=== PATIENT | female | born 1965 | race African-American/Black ===

== ENCOUNTER 2021-07-13 21:48 | Inpatient (IN) | payer OTHER, SELFPAY ==
--- NOTE | ~2021-07-13 | XR_ITS ---
EXAMINATION: XR chest 1V portable Exam Date/Time: 07/16/2021 13:57 CDT CLINICAL HISTORY: PNA Comparison: 07/14/2021. RESULT: Lines, tubes, and devices: Right IJ tunneled dialysis catheter, terminating in the right atrium. Lungs and pleura: Improving patchy airspace disease in the right perihilar lung. Similar left lower lung and increased bibasilar subsegmental opacities. Cardiomediastinal silhouette: Stable cardiomediastinal silhouette. Other: No acute osseous or upper abdominal finding. IMPRESSION: Generally improving pulmonary opacities, with likely increased bibasilar atelectasis. Reviewed, dictated and finalized at location K. IMPRESSION: Generally improving pulmonary opacities, with likely increased bibasilar atelec tasis.
--- NOTE | ~2021-07-13 | XR_ITS ---
EXAMINATION: XR fl guide central line place EXAM DATE: 07/14/2021 11:20 INDICATION: Insert Tunneled Dialysis Cath . TECHNIQUE: Fluoroscopy used during XR fl guide central line place performed by Dr. Cuba stuart. Radiologist was not present for the imaging or procedure. Total fluoroscopic time of 26 seconds. The DAP for this procedure was 0.15 mGym2. A total of 3 images sent to PACS from the exam. There is no prior study for comparison. FINDINGS: There is a right-sided double-lumen dialysis catheter in position. Correlate with procedure note. IMPRESSION: Fluoroscopy used during tunneled dialysis catheter placement. Reviewed, dictated and finalized at location A.
--- NOTE | ~2021-07-13 | XR_ITS ---
EXAMINATION: XR chest port-a-cath/central EXAM DATE: 07/14/2021 11:24 INDICATION: Tunnel dialysis catheter insertion. TECHNIQUE: Portable AP frontal chest x-ray was obtained. There is no prior study for comparison. FINDINGS: There is a right-sided IJ approach Brandt catheter. No evidence of postprocedure pneumotho rax. There is moderate amount of right perihilar airspace disease, most likely pneumonia or edema. Pl ease clinically correlate. Left lung is clear. Cardiomediastinal silhouette is normal. There are no o sseous abnormalities identified. IMPRESSION: 1. Moderate amount of right perihilar pneumonia or edema. 2. No evidence postprocedure pneumothorax. Reviewed, dictated and finalized at location A.
--- NOTE | ~2021-07-13 | US_ITS ---
EXAMINATION: US renal BI EXAM DATE: 07/14/2021 13:38 INDICATION: Elevated creatinine. TECHNIQUE: Multiple grayscale and Doppler images of the kidneys were obtained (by a technologist who performed the scan) and subsequently reviewed. There is no prior study for comparison. FINDINGS: Incidental right pleural effusion. Right kidney: There is normal contour and echogenicity. It measures 10.9 x 5.2 x 4.9 centimeters. T here are no focal renal lesions identified. There is no hydronephrosis. Left kidney: There is normal contour and echogenicity. It measures 10.0 x 3.9 x 6.5 centimeters. Th ere are no focal renal lesions identified. There is no hydronephrosis. Bladder unremarkable. IMPRESSION: 1. Sonographically unremarkable kidneys. 2. Right pleural effusion. Reviewed, dictated and finalized at location A.
--- NOTE | ~2021-07-13 | XR_ITS ---
EXAMINATION: XR abdomen/kub 1V DATE: 07/17/2021 00:27 INDICATION: Abdominal pain. Constipation. TECHNIQUE: A supine view of the abdomen on 2 radiographs was obtained. COMPARISON: None. FINDINGS: There are no dilated loops of bowel. There is a large volume of stool in the colon. IMPRESSION: 1. Nonobstructive bowel gas pattern. Reviewed, dictated and finalized at location A.
--- NOTE | 2021-07-13 21:38 | ADMGEN ---
This patient, Lesley Burch, was direct admit from [facility] to Medical Room 345-01. Patient/family oriented to hospital policies and general routines including ID bracelet, bed and alarms, visiting hours, pain management, procedures, bathroom and other care routines, personal items, smoking policy, room service/diet, and visiting hours. Information on how to activate the Rapid Response Team has been discussed. Patient/Family are encouraged to report perceived risks to care and to ask questions if they do not understand what they are told or what they should do.
--- NOTE | 2021-07-13 22:00 | PM.IMHP ---
H&P: HPI History of Present Illness Date/Time: 07/13/21 22:00 Chief Complaint: Needs dialysis. Narrative: This is a 56-year-old female with insulin-dependent diabetes, hypertension, dyslipidemia, anemia, and renal failure who is being directly admitted to the medical floor from an inpatient bed [facility] as she needs dialysis. The patient was admitted to the hospital on after presenting for evaluation of shortness of breath and lower extremity edema. I did receive some paperwork from transfer but unfortunately only labs, imaging, and vital signs were included. I do not have access to any physician documentation to include ER notes, admission history and physical, consultation notes, etc. and as such I can only rely on the patient to give me an accurate history. She reports being diagnosed with pneumonia and worsening renal failure though she remembers only being given antibiotics on 1 occasion but it sounds as though she has been receiving diuretics. It looks like her BUN and creatinine have continued to rise throughout her hospitalization and the supervisor newspaper deliveries at that facility feels that she now needs dialysis. Transfer was then initiated to this facility for dialysis access and dialysis as they do not have that capability there. I spoke with supervisor newspaper deliveries, Dr. James Lin, prior to transfer and he indicated to me that the cause of the patient's renal failure is most likely related to her diabetes and hypertension. Of note the patient was taken off of lisinopril during this hospitalization as she apparently developed angioedema of the face and oropharynx but that has since resolved. At the time my evaluation the patient is sitting up and resting comfortably and she has no significant complaints. She has not noticed a decrease in urine output and in fact thinks she has been urinating more with the diuretics. She has also felt weak and fatigued and has had a nonproductive cough. She denies sick contacts it is noted that she tested negative for COVID and influenza at the outside facility. She has not had issues with swallowing and she specifically denies dysphagia and concerns for aspiration. She has not had fever or sweats and reports that she is cold a majority of the time which she believes is due to her anemia. Her appetite has been okay and she denies nausea and vomiting. She denies diarrhea, constipation, and dysuria. She has not had chest pain, pleuritic pain or palpitations. No orthopnea or paroxysmal nocturnal dyspnea. Review of Systems Review of Systems: Twelve systems were reviewed. She has had a mild left-sided headache the past couple of days. She denies confusion. She has floaters in her left eye and has been seeing an mapping technician for what sounds like diabetic retinopathy. She has had some laser eye surgeries and injections for this. No acute blurry vision. No polydipsia or polyuria. She does not remember her last hemoglobin A1c. She does suffer from neuropathy in her legs and hands. She denies rash, lesions, and wounds. No history of blood transfusion. Except as documented, all other systems were reviewed and are negative. PENDING SALE TO [facility] Past Medical History Medical History (Updated 07/13/21 @ 23:07 by Peggy Heard PA-C) Anemia in chronic kidney disease Chronic kidney disease Diabetic peripheral neuropathy Diabetic retinopathy Dyslipidemia History of benign breast biopsy Hypertension Insulin dependent type 2 diabetes mellitus Surgical History Surgical History (Updated 07/13/21 @ 22:55 by Peggy Heard PA-C) History of cataract extraction History of section History of eye surgery Including injections and laser treatments for what sounds like diabetic retinopathy. History of tooth extraction Full extraction of upper teeth. Family History Family History (Updated 07/13/21 @ 22:55 by Peggy Heard PA-C) Mother Hypertension Acute myocardial infarction Sibling Hypertension Kidney
[2021-07-13 22:01] LABS: Basophils Percent Auto 0.5 % (0.2-1.2); Eosinophils Absolute Auto 0.5 K/mm3 (0-0.3); Eosinophils Percent Auto 5.4 % (0-4.4); Hematocrit 26.1 % (37.0-47.0); Hemoglobin 8.1 g/dL (12.0-15.0); Immature Granulocyte Absolute 0.05 K/mm3 (0.00-0.031); Immature Granulocyte Percent A 0.6 % (0-0.5); Lymphocytes Absolute Auto 1.71 K/mm3 (0.9-3.2); Lymphocytes Percent Auto 19.4 % (18.3-44.2); Mean Corpuscular Hemoglobin 27.6 pg (26-34); Mean Corpuscular Volume 89.1 fl (80-100); Mean Platelet Volume 11.2 fl (7.4-10.4); Monocytes Absolute Auto 0.8 K/mm3 (0.1-0.6); Monocytes Percent Auto 9.4 % (2.6-8.5); Neutrophils Absolute Auto 5.7 K/mm3 (1.3-6.7); Neutrophils Percent Auto 64.7 % (45.5-73.1); Platelet Count Result 332 k/mm3 (150-375); Red Blood Count 2.93 M/mm3 (4.2-5.4); Red Cell Distribution Width 14.5 % (11.5-14.5); White Blood Count 8.8 K/mm3 (4.5-10.0)
[2021-07-13 22:10] LABS: Hemoglobin A1C 6.2 % (<5.7)
[2021-07-13 22:11] LABS: Alanine Aminotransferase 14 U/L (4-35); Albumin Level 3.4 g/dL (3.5-5.1); Alkaline Phosphatase 84 U/L (38-126); Anion Gap 8 mmol/L (8-16); Aspartate Amino Transferase 29 U/L (14-36); Bilirubin,Total 0.2 mg/dL (0.2-1.3); Blood Urea Nitrogen 93 mg/dL (7-17); Calcium 8.6 mg/dL (8.4-10.2); Carbon Dioxide 21 mmol/L (22-30); Chloride 110 mmol/L (98-107); Estimated Glomerular Filt Rate 8; Glucose 119 mg/dL (65-110); Magnesium 3.2 mg/dL (1.6-2.3); Phosphorus 6.9 mg/dL (2.5-4.5); Potassium 4.3 mmol/L (3.4-5.0); Sodium 139 mmol/L (137-145)
[2021-07-13 22:30] VITALS: O2SAT 92
[2021-07-13 22:51] VITALS: BMI 30.3
[2021-07-13 22:56] VITALS: BP 168/92; PULSE 82; RESP 18; TEMP 36.1; O2SAT 92
[2021-07-13 23:08] VITALS: O2SAT 93
[2021-07-13 23:15] LABS: Glucose Point of Care 110 mg/dl (65-105)
[2021-07-14] VITALS (19 sets, daily range): BP systolic 144–178; BP diastolic 62–82; PULSE 74–85; RESP 10–19; TEMP 35.9–36.9; O2SAT 92–100
[2021-07-14] MEDS: hydrALAZINE HCL 25 MG TABLET PO ×3 (00:25→16:37)
[2021-07-14 08:48] LABS: Basophils Percent Auto 0.4 % (0.2-1.2); Eosinophils Absolute Auto 0.5 K/mm3 (0-0.3); Hematocrit 24.2 % (37.0-47.0); Hemoglobin 7.8 g/dL (12.0-15.0); Immature Granulocyte Absolute 0.04 K/mm3 (0.00-0.031); Immature Granulocyte Percent A 0.5 % (0-0.5); Lymphocytes Absolute Auto 1.31 K/mm3 (0.9-3.2); Lymphocytes Percent Auto 17.1 % (18.3-44.2); Mean Corpuscular HGB Conc 32.2 g/dl (32-36); Mean Corpuscular Volume 86.7 fl (80-100); Mean Platelet Volume 11.6 fl (7.4-10.4); Monocytes Absolute Auto 0.8 K/mm3 (0.1-0.6); Monocytes Percent Auto 9.9 % (2.6-8.5); Neutrophils Percent Auto 66.1 % (45.5-73.1); Platelet Count Result 309 k/mm3 (150-375); Red Blood Count 2.79 M/mm3 (4.2-5.4); Red Cell Distribution Width 14.3 % (11.5-14.5); White Blood Count 7.6 K/mm3 (4.5-10.0)
[2021-07-14 08:51] LABS: Glucose Point of Care 110 mg/dl (65-105)
[2021-07-14 08:59] LABS: Alanine Aminotransferase 13 U/L (4-35); Albumin Level 3.1 g/dL (3.5-5.1); Alkaline Phosphatase 69 U/L (38-126); Anion Gap 7 mmol/L (8-16); Aspartate Amino Transferase 29 U/L (14-36); Bilirubin,Total 0.2 mg/dL (0.2-1.3); Blood Urea Nitrogen 94 mg/dL (7-17); Calcium 8.5 mg/dL (8.4-10.2); Carbon Dioxide 23 mmol/L (22-30); Chloride 110 mmol/L (98-107); Estimated CRCL calculation 8 ml/min; Estimated Glomerular Filt Rate 8; Glucose 106 mg/dL (65-110); Magnesium 3.1 mg/dL (1.6-2.3); Phosphorus 6.8 mg/dL (2.5-4.5); Sodium 140 mmol/L (137-145)
[2021-07-14 10:05] LABS: Hepatitis B Surface Antigen Negative (Negative)
[2021-07-14 10:06] LABS: Hepatitis B Surface Antigen Negative (Negative)
[2021-07-14 10:10] LABS: Hepatitis B Core IgM Result Negative (Negative)
[2021-07-14 10:12] LABS: HAV RESULT Negative (Negative); Hepatitis B Core IgM Result Negative (Negative)
[2021-07-14 10:16] LABS: Prothrombin Time 12.3 Seconds (11.1-14.7)
--- NOTE | 2021-07-14 10:17 | PM.CNNEP ---
Assessment and Plan Additional Plan 1. Lesley has an elevated creatinine. It is unclear whether this is acute or chronic. Her history giving skills are not optimal. We can try to get records from [place]. Marcus he did speak with Dr. Lin who says that her chronic kidney disease is from diabetes and hypertension. It sounds like he had been following her after all. The patient fully realizes that she might need dialysis this admission. I will get an ultrasound of the kidneys to be sure nothing easy to reverse here. 2. The patient has hypertension. Her blood pressure is moderately high. She does have a history of hypertension in the past. She is on amlodipine for this. Volume may also explain some of blood pressure. Will follow this and get her back on her outpatient medications. Removing fluid may help the blood pressure as well if she ends up on dialysis. 3. The patient has diabetes. Management per hospitalist. 4. The patient has anemia. Will start her on Epogen. We can check iron levels. 5. Will check a phosphorus level in the morning to check on her bone situation. 6. She has hyperlipidemia and is on atorvastatin for this. History of Present Illness Reason for Consult Consult date: 07/14/21 Chief Complaint Chief complaint: Renal Failure History of Present Illness Narrative: Lesley is a very pleasant 56-year-old lady who has come into the hospital because of swelling in her legs arms and face. She said this has been going on for a few weeks but gradually got worse and so came to the ER for this. She denies shortness of breath right now but did have some when she was admitted to [facility], [place], operated by [facility]. She was actually in [facility] and was transferred to [facility] because she might need dialysis. She goes to see Dr. Lin she says but then a little while later she has said she had not seen him yet. She did see a branch examiner at [place] who monitor her her for a few days but the numbers continue to worsen and he felt that she might need dialysis soon. The patient denies any nausea or vomiting. She has been eating well. The patient has hypertension. She has had this for many years. She has never had a stroke or heart attack. She has diabetes. She has also had this for many years. She does not see an eye doctor and so does not know about retinopathy but she has a hole in the vision of her left eye and is going to see an eye doctor soon. The patient has hyperlipidemia and is on simvastatin for this. Review of Systems Constitutional: Constitutional: Reports no additional constitutional complaints Eyes: Eyes: Reports no additional eye complaints ENT: Reports system reviewed and no additional complaints, except as documented Cardiovascular: Cardiovascular: Reports no additional cardiovascular complaints Respiratory: Respiratory: Reports no additional respiratory complaints Gastrointestinal: Gastrointestinal: Reports no additional gastrointestinal complaints Genitourinary: Genitourinary: Reports no additional female genitourinary complaints Musculoskeletal: Musculoskeletal: Reports no additional musculoskeletal complaints Integumentary/Breasts: Skin/Breast: Reports system reviewed and no additional complaints, except as docu Neurologic: Reports system reviewed and no additional complaints, except as documented Psychiatric: Psychiatric: Reports no additional psychiatric complaints Endocrine: Endocrine: Reports no additional endocrine complaints PMFSH Past Medical History Medical History Anemia in chronic kidney disease Chronic kidney disease Diabetic peripheral neuropathy Diabetic retinopathy Dyslipidemia History of benign breast biopsy Hypertension Insulin dependent type 2 diabetes mellitus Surgical History Surgical History History of cataract extra
[2021-07-14] MEDS: HEPARIN SODIUM 5,000 UNITS/ML VIAL 5000 UNITS IRRIGATION (10:19)
[2021-07-14 10:22] LABS: Hepatitis B Surface Anti Res Negative
[2021-07-14 10:23] LABS: Hepatitis C Virus Antibody Negative (Negative)
--- NOTE | 2021-07-14 10:28 | WPDANESEPPF ---
Anes - Initial Pre Proc Eval Procedure: Operation Date: 07/14/21 10:30 Proposed Procedures p Insertion Tunneled Dialysis Catheter - Cuba Tran DO Date/Time: 07/14/21 10:28 Surgeon: Beka Miguel MD Pre Op Diagnosis: Renal Failure Patient Data Age: 56 Gender: F Height: 1.55 m Weight: 72.9 kg Last Vital Signs Temp 36.7 C 07/14/21 05:12 Pulse 80 07/14/21 08:00 Resp 14 07/14/21 05:12 BP 156/79 H 07/14/21 05:12 Pulse Ox 92 07/14/21 09:39 Allergies Allergy/AdvReac Type Severity Reaction Status Date / Time lisinopril Allergy Swelling Verified 07/13/21 21:48 Home Medications Medication Instructions Recorded Confirmed Type amlodipine 10 mg PO HS 07/13/21 07/13/21 History ergocalciferol (vitamin D2) 50 mcg PO DAILY 07/13/21 07/13/21 History furosemide 80 mg PO DAILY 07/13/21 07/13/21 History gabapentin 300 mg PO BID 07/13/21 07/13/21 History hydralazine 25 mg PO TID 07/13/21 07/13/21 History hydrochlorothiazide 25 mg PO DAILY 07/13/21 07/13/21 History insulin detemir U-100 [Levemir See Rx Instructions .ROUTE .COMPLEX 07/13/21 07/13/21 History FlexTouch U-100 Insuln] ketorolac 1 drp EACH EYE DAILY 07/13/21 07/13/21 History simvastatin 40 mg PO HS 07/13/21 07/13/21 History sitagliptin [Januvia] 100 mg PO DAILY 07/13/21 07/13/21 History sodium zirconium cyclosilicate 5 g PO DAILY 07/13/21 07/13/21 History [Lokelma] Laboratory Tests 07/13/21 07/13/21 07/13/21 21:56 21:56 21:56 WBC 8.8 K/mm3 K/mm3 (4.5-10.0) RBC 2.93 M/mm3 L M/mm3 (4.2-5.4) Hgb 8.1 g/dL L g/dL (12.0-15.0) Hct 26.1 % L % (37.0-47.0) MCV 89.1 fl fl (80-100) MCH 27.6 pg pg (26-34) MCHC 31.0 g/dl L g/dl (32-36) RDW 14.5 % % (11.5-14.5) Plt Count 332 k/mm3 k/mm3 (150-375) MPV 11.2 fl H fl (7.4-10.4) Immature Gran % (Auto) 0.6 % H % (0-0.5) Neut % (Auto) 64.7 % % (45.5-73.1) Lymph % (Auto) 19.4 % % (18.3-44.2) Toole % (Auto) 9.4 % H % (2.6-8.5) Eos % (Auto) 5.4 % H % (0-4.4) Baso % (Auto) 0.5 % % (0.2-1.2) Lymph # (Auto) 1.71 K/mm3 K/mm3 (0.9-3.2) Toole # (Auto) 0.8 K/mm3 H K/mm3 (0.1-0.6) Eos # (Auto) 0.5 K/mm3 H K/mm3 (0-0.3) Baso # (Auto) 0.0 K/mm3 K/mm3 (0.0-0.1) Abs Immat Gran (auto) 0.05 K/mm3 H K/mm3 (0.00-0.031) Absolute Neuts (auto) 5.7 K/mm3 K/mm3 (1.3-6.7) Absolute Nucleated RBC 0.0 K/mm3 K/mm3 (0.0-0.012) Nucleated RBC % 0.0 % % (0.0-0.2) PT INR Sodium 139 mmol/L mmol/L (137-145) Potassium 4.3 mmol/L mmol/L (3.4-5.0) Chloride 110 mmol/L H mmol/L (98-107) Carbon Dioxide 21 mmol/L L mmol/L (22-30) Anion Gap 8 mmol/L mmol/L (8-16) BUN 93 mg/dL H mg/dL (7-17) Creatinine 6.40 mg/dL H mg/dL (0.7-1.0) Estim Creat Clear Calc Not Reportable Estimated GFR 8 L (59 - ) Glucose 119 mg/dL H mg/dL (65-110) POC Capillary Glucose Hemoglobin A1c 6.2 % H % (<5.7) Calcium 8.6 mg/dL mg/dL (8.4-10.2) Phosphorus 6.9 mg/dL H mg/dL (2.5-4.5) Magnesium 3.2 mg/dL H mg/dL (1.6-2.3) Total Bilirubin 0.2 mg/dL mg/dL (0.2-1.3) AST 29 U/L U/L (14-36) ALT 14 U/L U/L (4-35) Alkaline Phosphatase 84 U/L U/L (38-126) Total Protein 7.0 g/dL g/dL (6.3-8.2) Albumin 3.4 g/dL L g/dL (3.5-5.1) Hepatitis A IgM Ab Hep Bs Antigen Hep Bs Antibody Hep B Core Total Ab Hep B Core IgM Ab Hepatitis C Ab Screen 07/13/21 07/14/21 07/14/21 23:10 08:36 08:36 WBC 7.6 K/mm3 K/mm3 (4.5-10.0) RBC 2.79 M/mm3 L M/mm3
--- NOTE | 2021-07-14 10:30 | WPDHPUPDATE1 ---
History and Physical Update Update Date/Time: 07/14/21 10:30 History and Physical has been reviewed, including an updated exam of the patient. There are NO changes in the patient's condition. Risks, benefits, and alternatives have been discussed and questions answered. Patient agrees to proceed with procedure.
--- NOTE | 2021-07-14 10:30 | PM.CNGS ---
Assessment and Plan Assessment and plan (1) Acute renal failure superimposed on chronic kidney disease: Code(s): N17.9 - Acute kidney failure, unspecified; N18.9 - Chronic kidney disease, unspecified Status: Acute Assessment and Plan: I have reviewed her admit note and labs. She has evidence of worsening renal failure and was transferred to [facility] to start dialysis. I have recommended proceeding with insertion of tunneled dialysis catheter under IV sedation with u/s and fluoro guidance. I have discussed the procedure, risks, benefits, and alternatives. Questions answered. She is agreeable to proceeding. (2) Hyperkalemia: Code(s): E87.5 - Hyperkalemia Status: Acute (3) Pneumonia involving right lung: Code(s): J18.9 - Pneumonia, unspecified organism Status: Acute (4) Insulin dependent type 2 diabetes mellitus: Code(s): E11.9 - Type 2 diabetes mellitus without complications; Z79.4 - watermelon inspector (current) use of insulin Status: Acute (5) Hypertension: Code(s): I10 - Essential (primary) hypertension Status: Acute (6) Anemia in chronic kidney disease: Code(s): N18.9 - Chronic kidney disease, unspecified; D63.1 - Anemia in chronic kidney disease Status: Acute History of Present Illness Consult details Consult date: 07/14/21 Reason for consult: other (dialysis access) Requesting physician: Peggy Heard PA-C Narrative: 56 yo woman was transferred from [facility] for worsening renal failure. She was admitted there for pneumonia and acute renal failure. Her kidney function has worsened and she is not making much urine. BUN/Cr continue to rise and she is having some electrolyte abnormalities. Review of Systems Review of Systems: All systems reviewed & are unremarkable except as noted in HPI and below Constitutional: Constitutional: Denies chills and Denies fever(s) Cardiovascular: Cardiovascular: Denies chest pain and Denies dyspnea Respiratory: Respiratory: Reports dyspnea Gastrointestinal: Gastrointestinal: Denies abdominal pain, Denies nausea and Denies vomiting [facility] Past Medical History Medical History Anemia in chronic kidney disease Chronic kidney disease Diabetic peripheral neuropathy Diabetic retinopathy Dyslipidemia History of benign breast biopsy Hypertension Insulin dependent type 2 diabetes mellitus Surgical History Surgical History History of cataract extraction History of section History of eye surgery Including injections and laser treatments for what sounds like diabetic retinopathy. History of tooth extraction Full extraction of upper teeth. Family History Family History Mother Hypertension Acute myocardial infarction Sibling Hypertension Kidney disease Daughter Hypertension Kidney disease Father by fire Social History Social History Social History: Surrogate decision maker: Pascual Burch () or Odessa Kiran (daughter). Code status: Full code. Smoking status: Never smoker Alcohol intake: never Substance use: never Living arrangements: with family Additional living arrangements comments: The patient lives with her in [place]. They have 3 children. 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 Spiritual care concerns: No Meds Home Medications and Allergies Home Medications Medication Instructions Recorded Confirmed Type amlodipine 10 mg PO HS 07/13/21 07/13/21 History ergocalciferol (vitamin D2) 50 mcg PO DAILY 07/13/21 07/13/21 History furosemide 80 mg PO DAILY 07/13/21 07/13/21 History gabapentin 300 mg PO BID 07/13/21 07/13/21 History
[2021-07-14] MEDS: SODIUM CHLORIDE 0.9% IV 500 ML 30 ML IV CONT (10:33)
[2021-07-14 10:35] LABS: Immature Reticulocyte Fraction 10.4 % (3.0-15.9); Reticulocyte Hemoglobin Conten 31.5 pg (28.2-35.7); Reticulocyte Percent 1.42 % (0.7-4.3); Reticulocytes Absolute 0.04 B/L (32.2-175.7)
[2021-07-14] MEDS: HEPARIN SODIUM, PORCINE 10,000 UNITS/10 ML VIAL 10000 UNITS IRRIGATION (10:36)
[2021-07-14] MEDS: LIDO 1%/EPINEPHRINE/PF 1:200,000 30 ML VIAL 12 ML XX (10:36)
[2021-07-14 10:43] LABS: Iron 27 ug/dL (37-170)
[2021-07-14 10:52] LABS: Percent Iron Saturation 16 % (20-50)
--- NOTE | 2021-07-14 11:35 | W.PM.PROC2 ---
Procedure Note - Detailed Date of Procedure 07/14/21 Pre-op Diagnosis Renal Failure Post-op Diagnosis Same Procedure Performed Right internal jugular tunneled dialysis catheter placement using ultrasound and fluoroscopic guidance Surgeon Cuba Tran, DO Anesthesia MAC and Local (1% lidocaine with epinephrine) Indications Acute on chronic renal failure Findings Ultrasound guidance used to identify the right internal jugular vein. This was visualized as a compressible vessel just lateral to the pulsatile carotid artery. An 18 gauge introducer needle was advanced under ultrasound guidance. Dark nonpulsatile blood was aspirated. Fluoroscopy was then used to guide advancement of the guidewire followed by the dilators and sheath. The final fluoroscopic images demonstrated the catheter tip in the distal SVC and no kinks along its path. Description of Procedure Procedure as well as risks, benefits, and alternatives were discussed with patient. Written consent was obtained and placed in chart prior to procedure. Patient was brought back to surgical suite. Placed supine on operating table. Time-out was done confirm patient procedure. IV sedation was then administered by the Anesthesia Department. Her chest and neck area was prepped and draped in sterile fashion using chlorhexidine prep. Patient was placed in Trendelenburg position. SonoSite ultrasound was used to identify the right internal jugular vein. It was visualized as a compressible vessel just lateral to the carotid artery. 1% lidocaine with epinephrine was infiltrated directly over the vessel under ultrasound guidance. An 18 gauge introducer needle was then advanced under ultrasound guidance directly into the right internal jugular vein. Dark nonpulsatile blood was aspirated. A 0.035 in guidewire was then advanced through the needle under fluoroscopic guidance. The guidewire was visualized advancing all the way down into the superior vena cava. 1% lidocaine with epinephrine was then infiltrated on the right anterior chest and along the tract up to the guidewire insertion site. A 5 mm incision was made with a 15 blade scalpel. A small alana incision was then also made at the insertion site at the neck. The tunneler was then advanced from the chest incision up to the neck incision and the catheter tubing was brought up through this tract. The dilator and sheath were then advanced over the guidewire under fluoroscopic visualization. The dilator and guidewire were then removed leaving the sheath in place. The catheter tubing was then advanced through the sheath under fluoroscopic guidance. The sheath was unsnapped and carefully peeled away. The catheter tubing was released underneath the neck incision. Fluoroscopy was used to confirm proper placement of the catheter tubing and no kinks along its path. The catheter was then hep-locked with Hep-Lock solution. The skin of the incisions was then approximated using 4-0 Monocryl subcuticular suture. Exofin glue was then applied at the neck incision and 2x2 gauze and Tegaderm drassing applied at the chest. The patient was then awakened from anesthesia and transferred to recovery. Implants 24 cm DuraFlow2 dialysis catheter Estimated Blood Loss 5 Urine Output 0 Complications No immediate complications Condition Stable Disposition Floor
[2021-07-14 11:38] LABS: Glucose Point of Care 122 mg/dl (65-105)
[2021-07-14] MEDS: HYDROcodone/acetaminophen (*CRX) 5-325 MG TABLET 1 TAB PO (14:13)
--- NOTE | 2021-07-14 15:15 | P.PNIM_ITS ---
Progress Note: A&P Assessment and Plan (1) Acute renal failure superimposed on chronic kidney disease: Code(s): N17.9 - Acute kidney failure, unspecified; N18.9 - Chronic kidney disease, unspecified Status: Acute Assessment and Plan: * As per HPI, the patient was admitted to an outside facility with shortness of breath and increasing swelling * Despite diuresis she remains quite edematous * BUN and creatinine continue to rise * Been sent to this facility to initiate dialysis * Dr. Torres was consulted and his input is appreciated * Surgery will also be consulted for dialysis access. * Dialysis catheter has been developed (2) Hyperkalemia: Code(s): E87.5 - Hyperkalemia Status: Acute Assessment and Plan: * Current 4.0 * Treated at the outside facility * Repeat potassium is pending to ensure correction. * Trend labs (3) Insulin dependent type 2 diabetes mellitus: Code(s): E11.9 - Type 2 diabetes mellitus without complications; Z79.4 - intermediate manager (current) use of insulin Status: Acute Assessment and Plan: * Glucose 106 * Resume basal insulin * interim we will initiate sliding scale insulin * Check A1c 6.2 (4) Hypertension: Code(s): I10 - Essential (primary) hypertension Status: Acute Assessment and Plan: * BP 169/74 * Lisinopril recently discontinued due to angioedema as per HPI * Continue amlodipine and hydralazine * Monitor daily (5) Anemia in chronic kidney disease: Code(s): N18.9 - Chronic kidney disease, unspecified; D63.1 - Anemia in chronic kidney disease Status: Acute Assessment and Plan: * H/H 7.8/24.2 * Hemoglobin and hematocrit have been stable on review of labs sent from the outside facility. Continue to monitor. * [place] labs Iron 27, TIBC 168, % Sat 16, Ferritin 285 * Ferrous Sulfate 324mg PO BID (6) Dyslipidemia: Code(s): E78.5 - Hyperlipidemia, unspecified Status: Acute Assessment and Plan: * Recent lipid panel as detailed above (cholesterol 354, LDL 234). Change simvastatin to higher intensity statin. (7) Pneumonia involving right lung: Code(s): J18.9 - Pneumonia, unspecified organism Status: Acute Assessment and Plan: * COVID/influenza tests were negative at the outside facility. Start ceftriaxone and azithromycin. Attempt sputum for culture. Time Spent With Patient Time with patient: 25 - 35 minutes Subjective Date/time seen: 07/14/21 15:15 Interval history: Date/Time: 07/13/21 22:00 Narrative: This is a 56-year-old female with insulin-dependent diabetes, hypertension, dyslipidemia, anemia, and renal failure who is being directly ad mitted to the medical floor from an inpatient bed [facility] as she needs dialysis. The patient was admitted to the hospital on after presenting for evaluation of shortness of breath and lower extremity edema. I did receive some paperwork from transfer but unfortunately only labs, imaging, and vital signs were included. I do not have access to any physician documentation to include ER notes, admission history and physical, consultation notes, etc. and as such I can only rely on the patient to give me an accurate history. She reports being diagnosed with pneumonia and worsening renal failure though she remembers only being given antibiotics on 1 occasion but it so
--- NOTE | 2021-07-14 15:15 | PM.IMPN ---
Progress Note: A&P Assessment and Plan (1) Acute renal failure superimposed on chronic kidney disease: Code(s): N17.9 - Acute kidney failure, unspecified; N18.9 - Chronic kidney disease, unspecified Status: Acute Assessment and Plan: As per HPI, the patient was admitted to an outside facility with shortness of breath and increasing swelling Despite diuresis she remains quite edematous BUN and creatinine continue to rise Been sent to this facility to initiate dialysis Dr. Torres was consulted and his input is appreciated Surgery will also be consulted for dialysis access. Dialysis catheter has been developed (2) Hyperkalemia: Code(s): E87.5 - Hyperkalemia Status: Acute Assessment and Plan: Current 4.0 Treated at the outside facility Repeat potassium is pending to ensure correction. 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 Status: Acute Assessment and Plan: Glucose 106 Resume basal insulin interim we will initiate sliding scale insulin Check A1c 6.2 (4) Hypertension: Code(s): I10 - Essential (primary) hypertension Status: Acute Assessment and Plan: BP 169/74 Lisinopril recently discontinued due to angioedema as per HPI Continue amlodipine and hydralazine Monitor daily (5) Anemia in chronic kidney disease: Code(s): N18.9 - Chronic kidney disease, unspecified; D63.1 - Anemia in chronic kidney disease Status: Acute Assessment and Plan: H/H 7.8/24.2 Hemoglobin and hematocrit have been stable on review of labs sent from the outside facility. Continue to monitor. [place] labs Iron 27, TIBC 168, % Sat 16, Ferritin 285 Ferrous Sulfate 324mg PO BID (6) Dyslipidemia: Code(s): E78.5 - Hyperlipidemia, unspecified Status: Acute Assessment and Plan: Recent lipid panel as detailed above (cholesterol 354, LDL 234). Change simvastatin to higher intensity statin. (7) Pneumonia involving right lung: Code(s): J18.9 - Pneumonia, unspecified organism Status: Acute Assessment and Plan: COVID/influenza tests were negative at the outside facility. Start ceftriaxone and azithromycin. Attempt sputum for culture. Time Spent With Patient Time with patient: 25 - 35 minutes Subjective Date/time seen: 07/14/21 15:15 Interval history: Date/Time: 07/13/21 22:00 Narrative: This is a 56-year-old female with insulin-dependent diabetes, hypertension, dyslipidemia, anemia, and renal failure who is being directly admitted to the medical floor from an inpatient bed [facility] as she needs dialysis. The patient was admitted to the hospital on after presenting for evaluation of shortness of breath and lower extremity edema. I did receive some paperwork from transfer but unfortunately only labs, imaging, and vital signs were included. I do not have access to any physician documentation to include ER notes, admission history and physical, consultation notes, etc. and as such I can only rely on the patient to give me an accurate history. She reports being diagnosed with pneumonia and worsening renal failure though she remembers only being given antibiotics on 1 occasion but it sounds as though she has been receiving diuretics. It looks like her BUN and creatinine have continued to rise throughout her hospitalization and the finisher accordion at that facility feels that she now needs dialysis. Transfer was then initiated to this facility for dialysis access and dialysis as they do not have that capability there. I spoke with finisher accordion, Dr. James Lin, prior to transfer and he indicated to me that the cause of the patient's renal failure is most likely related to her diabetes and hypertension. O
[2021-07-14 16:30] LABS: Glucose Point of Care 216 mg/dl (65-105)
[2021-07-14] MEDS: GABAPENTIN 300 MG CAPSULE PO (16:36)
[2021-07-14] MEDS: INSULIN ASPART (*BKC) 100 UNITS/ML SUB-Q (16:37)
[2021-07-14] MEDS: FERROUS SULFATE 324 MG TABLET PO (16:37)
[2021-07-14] MEDS: INSULIN GLARGINE (*BKC) 100 UNITS/ML 10 UNITS SUB-Q (16:37)
[2021-07-14] MEDS: guaiFENesin 12 HR 600 MG TABCR PO (19:49)
[2021-07-14] MEDS: amLODIPine BESYLATE 5 MG TABLET 10 MG PO (19:49)
[2021-07-14 20:18] LABS: Add Urine Microscopic? YES; Appearance Urine Clear (Clear); Bilirubin Urine Negative (Negative); Blood Urine 1+ (Negative); Color Urine Straw (Yellow); Glucose Urine UA 1+ mg/dL (Negative); Ketones Urine Negative (Negative); Leukocyte Esterase Ur Negative LEU/UL (NEGATIVE); Mucus Urine Rare /lpf; Nitrate Urine Negative (Negative); Protein Urine 3+ mg/dL (Negative); Specific Grav Ur 1.013 (1.001-1.035); Squamous Epithelial Cell Urine Rare /hpf (Few); Urobilinogen Urine Negative mg/dL (<2.0); WBC Urine 0-3 /hpf (0-3)
[2021-07-14 20:25] LABS: Glucose Point of Care 162 mg/dl (65-105)
[2021-07-15] VITALS (23 sets, daily range): BP systolic 124–177; BP diastolic 68–94; PULSE 73–80; RESP 16–20; TEMP 36–37.4; O2SAT 93–100
[2021-07-15 05:53] LABS: Basophils Percent Auto 0.3 % (0.2-1.2); Eosinophils Absolute Auto 0.6 K/mm3 (0-0.3); Eosinophils Percent Auto 6.7 % (0-4.4); Hematocrit 22.7 % (37.0-47.0); Immature Granulocyte Absolute 0.05 K/mm3 (0.00-0.031); Immature Granulocyte Percent A 0.6 % (0-0.5); Lymphocytes Absolute Auto 1.47 K/mm3 (0.9-3.2); Mean Corpuscular HGB Conc 30.8 g/dl (32-36); Mean Corpuscular Hemoglobin 27.6 pg (26-34); Mean Corpuscular Volume 89.4 fl (80-100); Mean Platelet Volume 11.9 fl (7.4-10.4); Monocytes Absolute Auto 0.9 K/mm3 (0.1-0.6); Monocytes Percent Auto 10.5 % (2.6-8.5); Neutrophils Absolute Auto 5.6 K/mm3 (1.3-6.7); Neutrophils Percent Auto 64.9 % (45.5-73.1); Platelet Count Result 273 k/mm3 (150-375); Red Blood Count 2.54 M/mm3 (4.2-5.4); Red Cell Distribution Width 14.2 % (11.5-14.5); White Blood Count 8.6 K/mm3 (4.5-10.0)
[2021-07-15 06:15] LABS: Alanine Aminotransferase 10 U/L (4-35); Albumin Level 2.9 g/dL (3.5-5.1); Alkaline Phosphatase 62 U/L (38-126); Anion Gap 5 mmol/L (8-16); Aspartate Amino Transferase 21 U/L (14-36); Bilirubin,Total 0.2 mg/dL (0.2-1.3); Blood Urea Nitrogen 91 mg/dL (7-17); Carbon Dioxide 22 mmol/L (22-30); Chloride 109 mmol/L (98-107); Estimated CRCL calculation 9 ml/min; Estimated Glomerular Filt Rate 9; Glucose 98 mg/dL (65-110); Magnesium 2.9 mg/dL (1.6-2.3); Phosphorus 6.1 mg/dL (2.5-4.5); Sodium 136 mmol/L (137-145)
[2021-07-15 07:44] LABS: Glucose Point of Care 97 mg/dl (65-105)
[2021-07-15] MEDS: INSULIN GLARGINE (*BKC) 100 UNITS/ML SUB-Q (08:09)
[2021-07-15] MEDS: CHOLECALCIFEROL 1,000 UNITS TABLET 2000 UNITS PO (08:10)
[2021-07-15] MEDS: ATORVASTATIN 40 MG TABLET PO (08:10)
[2021-07-15] MEDS: hydrALAZINE HCL 25 MG TABLET PO ×3 (08:10→16:45)
[2021-07-15] MEDS: guaiFENesin 12 HR 600 MG TABCR PO ×2 (08:10→22:04)
[2021-07-15] MEDS: FERROUS SULFATE 324 MG TABLET PO ×2 (08:11→16:45)
[2021-07-15] MEDS: GABAPENTIN 300 MG CAPSULE PO ×2 (08:11→16:45)
[2021-07-15] MEDS: KETOROLAC 0.5% OP SOLN 5 ML BOTTLE 1 DROP EACH EYE (08:11)
--- NOTE | 2021-07-15 11:05 | PM.PNNEP ---
Progress Note: A&P Additional Plan 1. Lesley has an elevated creatinine. Discussed with Dr Lin. It turns out she has been seeing nephrologists for a while. She saw Dr Blake and then Dr Ambrose's nurse practitioner. she says that she went to ER at one point and was told her kidneys weren't working fine so she followed up with Dr Ambrose's office. she want him to take over when she gets to the dialysis unit. ultrasound shows no reversible process. 2. The patient has hypertension. Her blood pressure is moderately high. getting outpt meds and will see how it is with th is and with dialysis. consider sg or arb if she still needs something else 3. The patient has diabetes. Management per hospitalist. 4. The patient has anemia. Will start her on Epogen. will give venofer. 5. phos a bit high. 6. She has hyperlipidemia and is on atorvastatin for this. Subjective Date/time seen: 07/15/21 11:05am Interval history: pt feels okay. she has catheter in she understands she needs to start dialysis. We discsussed risks, benefits, alternatives, and process of dialysis and she agrees to proceed. Review of Systems Cardiovascular: Cardiovascular: Reports no additional cardiovascular complaints Respiratory: Respiratory: Reports no additional respiratory complaints Gastrointestinal: Gastrointestinal: Reports no additional gastrointestinal complaints Genitourinary: Genitourinary: Reports no additional female genitourinary complaints Exam Narrative: WDWN in NAD skin no rash head ncat lungs clear cor reg no rub abd BS+ nontender and soft ext 1+ edema. Objective Data Vital Signs Vital Signs: Vital Signs - 24 hr 07/15/21 08:00 07/15/21 10:17 07/15/21 12:00 Temperature 36.3 C L Pulse Rate 78 78 79 Respiratory Rate 16 Blood Pressure 158/78 H Pulse Oximetry 94 07/15/21 14:31 07/15/21 16:00 07/15/21 19:01 Temperature 36.3 C L 36.5 C Pulse Rate 80 79 80 Respiratory Rate 16 16 Blood Pressure 158/85 H 169/77 H Pulse Oximetry 94 93 07/15/21 19:11 07/15/21 19:15 07/15/21 19:30 Temperature Pulse Rate 77 79 78 Respiratory Rate Blood Pressure 170/74 H 171/94 H 153/79 H Pulse Oximetry 07/15/21 19:45 07/15/21 20:00 07/15/21 20:15 Temperature Pulse Rate 78 78 78 Respiratory Rate Blood Pressure 177/77 H 144/80 H 161/75 H Pulse Oximetry 07/15/21 20:30 07/15/21 20:45 07/15/21 21:00 Temperature Pulse Rate 75 76 74 Respiratory Rate Blood Pressure 144/68 H 158/71 H 124/79 Pulse Oximetry 07/15/21 21:14 07/15/21 21:25 07/15/21 22:14 Temperature 36.4 C 37.4 C Pulse Rate 79 78 77 Respiratory Rate 16 18 Blood Pressure 141/80 H 165/72 H 154/70 H Pulse Oximetry 97 95 07/16/21 00:00 07/16/21 05:39 Temperature 37.2 C Pulse Rate 77 76 Respiratory Rate 20 Blood Pressure 153/81 H Pulse Oximetry 93 Intake/Output Intake/Output: Intake & Output 07/13/21 07/14/21 07/15/21 07/16/21 23:59 23:59 23:59 23:59 Intake Total 1250 1950 100 Output Total 0 2900 Balance 1250 -950 100 Meds/Results Medications: Active Medications Generic Name Dose Route Start Last Admin Trade Name Freq PRN Reason Stop Dose Admin Acetaminophen 650 mg 07/14/21 12:07 Acetaminophen 325 Mg Tablet PO Q6H PRN Mild Pain (1-3) or Fever Hydrocodone Bitart/Acetaminophen 1 tab 07/14/21 12:07 07/15/21 16:44 Hydrocodone/Acetaminophen (*Crx) 5-325 Mg Tablet PO 1 tab Q4H PRN Administration Pain Rated 4-6 Amlodipine Besylate 10 mg 07/13/21 23:10 07/15/21 22:05 Amlodipine Besylate 5 Mg Tablet PO 10 mg HS LEONCIO Administration Atorvastatin Calcium 40 mg 07/14/21 09:00 07/15/21 08:10 Atorvastatin 40 Mg Tablet PO 40 mg DAILY LEONCIO Administration Dextrose 12.5 gm 07/13/21 21:50 Dextrose 50% 25 Gm/50 Ml Syringe IV PUSH PRN PRN Hypoglycemia Protocol Epoetin Keyur-epbx 10,000 units 07/15/21 11:08
--- NOTE | 2021-07-15 11:10 | PM.PNNEP ---
Subjective Date/time seen: 07/15/21 11:10 Objective Data Vital Signs Vital Signs: Vital Signs - 24 hr 07/14/21 11:13 07/14/21 11:28 07/14/21 11:43 Temperature 36.3 C L Pulse Rate 80 78 77 Respiratory Rate 19 10 L 12 Blood Pressure 144/72 H 172/75 H 169/82 H Pulse Oximetry 100 94 95 07/14/21 11:58 07/14/21 12:25 07/14/21 12:40 Temperature 36.1 C L 36.1 C L Pulse Rate 77 77 75 Respiratory Rate 12 16 16 Blood Pressure 153/82 H 148/72 H 171/80 H Pulse Oximetry 95 95 99 07/14/21 13:10 07/14/21 14:14 07/14/21 16:17 Temperature 36.2 C L 36.7 C Pulse Rate 78 78 77 Respiratory Rate 16 16 Blood Pressure 170/69 H 169/74 H Pulse Oximetry 99 95 07/14/21 18:58 07/14/21 20:00 07/14/21 22:40 Temperature 36.6 C 35.9 C L Pulse Rate 75 74 74 Respiratory Rate 16 18 Blood Pressure 152/62 H 164/79 H Pulse Oximetry 97 98 07/15/21 00:00 07/15/21 01:17 07/15/21 04:00 Temperature 36.1 C L Pulse Rate 73 75 74 Respiratory Rate 18 Blood Pressure 161/78 H Pulse Oximetry 100 07/15/21 05:45 07/15/21 08:00 07/15/21 10:17 Temperature 36.4 C 36.3 C L Pulse Rate 80 78 78 Respiratory Rate 20 16 Blood Pressure 151/76 H 158/78 H Pulse Oximetry 95 94 Intake/Output Intake/Output: Intake & Output 07/12/21 07/13/21 07/14/21 07/15/21 23:59 23:59 23:59 23:59 Intake Total 1250 940 Output Total 0 700 Balance 1250 240 Meds/Results Medications: Active Medications Generic Name Dose Route Start Last Admin Trade Name Freq PRN Reason Stop Dose Admin Acetaminophen 650 mg 07/14/21 12:07 Acetaminophen 325 Mg Tablet PO Q6H PRN Mild Pain (1-3) or Fever Hydrocodone Bitart/Acetaminophen 1 tab 07/14/21 12:07 07/14/21 14:13 Hydrocodone/Acetaminophen (*Crx) 5-325 Mg Tablet PO 1 tab Q4H PRN Administration Pain Rated 4-6 Amlodipine Besylate 10 mg 07/13/21 23:10 07/14/21 19:49 Amlodipine Besylate 5 Mg Tablet PO 10 mg HS LEONCIO Administration Atorvastatin Calcium 40 mg 07/14/21 09:00 07/15/21 08:10 Atorvastatin 40 Mg Tablet PO 40 mg DAILY LEONCIO Administration Dextrose 12.5 gm 07/13/21 21:50 Dextrose 50% 25 Gm/50 Ml Syringe IV PUSH PRN PRN Hypoglycemia Protocol Epoetin Keyur-epbx 10,000 units 07/15/21 11:08 Epoetin Keyur-Epbx 10,000 Units/Ml [facility] Ferrous Sulfate 324 mg 07/14/21 17:00 07/15/21 08:11 Ferrous Sulfate 324 Mg Tablet PO 324 mg BIDWM LEONCIO Administration Gabapentin 300 mg 07/14/21 09:00 07/15/21 08:11 Gabapentin 300 Mg Capsule PO 08/13/21 08:59 300 mg BID LEONCIO Administration Glucagon 1 mg 07/13/21 21:50 Glucagon For Inj 1 Mg Vial IM PRN PRN Hypoglycemia Protocol Glucose 15 gm 07/13/21 21:50 Glucose Oral Gel 15 Gm Of Glucse In 37.5 Gm Tube PO PRN PRN Hypoglycemia Protocol Guaifenesin 600 mg 07/14/21 09:00 07/15/21 08:10 Guaifenesin 12 Hr 600 Mg Tabcr PO 600 mg Q12HR LEONCIO Administration Hydralazine HCl 25 mg 07/13/21 23:10 07/15/21 08:10 Hydralazine Hcl 25 Mg Tablet PO 25 mg TID LEONCIO Administration Dextrose 1,000 mls @ 100 mls/hr 07/13/21 21:50 Dextrose 5% 1,000 Ml IVPB PRN PRN Hypoglycemia Protocol Azithromycin 500 mg in 250 mls @ 250 mls/hr 07/13/21 23:30 07/14/21 23:56 Zithromax IVPB Infused DAILY@2200 LEONCIO Infusion Ceftriaxone Sodium/Dextrose 1 gm in 50 mls @ 100 mls/hr 07/13/21 23:25 07/14/21 22:05 Rocephin 1 Gm/D5w 50 Ml IVPB Infused DAILY@2200 LEONCIO Infusion Albumin Human 50 mls @ 999 mls/hr 07/15/21 10:59 Albutein IVPB 07/16/21 10:58 Q10M PRN HYPOTENSION Sodium Chloride 1,000 mls @ 999 mls/hr 07/15/21 10:59 Normal Saline Iv IV CONT 07/15/21 11:59 .Q1H1M ONE Insulin Aspart 3 - 6 units 07/14/21 08:00 07/15/21 08:07 Insulin Aspart (*Bkc) 100 Units/Ml SUB-Q Not Given TIDWM [facility] Protocol Insulin Glargine 5 units 0
--- NOTE | 2021-07-15 11:30 | P.PNIM_ITS ---
Progress Note: A&P Assessment and Plan (1) Acute renal failure superimposed on chronic kidney disease: Code(s): N17.9 - Acute kidney failure, unspecified; N18.9 - Chronic kidney disease, unspecified Status: Acute Assessment and Plan: * As per HPI, the patient was admitted to an outside facility with shortness of breath and increasing swelling * Despite diuresis she remains quite edematous * BUN and creatinine continue to rise * Been sent to this facility to initiate dialysis * Nephrology consulted and his input is appreciated * Surgery will also be consulted for dialysis access. * Dialysis catheter has been placed * Dialysis today (2) Hyperkalemia: Code(s): E87.5 - Hyperkalemia Status: Acute Assessment and Plan: * Current 4.0 * Treated at the outside facility * Repeat potassium is pending to ensure correction. 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 Status: Acute Assessment and Plan: * Glucose 97 * Resume basal insulin * interim we will initiate sliding scale insulin * Check A1c 6.2 (4) Hypertension: Code(s): I10 - Essential (primary) hypertension Status: Acute Assessment and Plan: * BP 158/85 * Lisinopril recently discontinued due to angioedema as per HPI * Continue amlodipine and hydralazine * Monitor daily (5) Anemia in chronic kidney disease: Code(s): N18.9 - Chronic kidney disease, unspecified; D63.1 - Anemia in chronic kidney disease Status: Acute Assessment and Plan: * H/H 7.0/22.7 * Hemoglobin and hematocrit have been stable on review of labs sent from the outside facility. Continue to monitor. * [place] labs Iron 27, TIBC 168, % Sat 16, Ferritin 285 * Ferrous Sulfate 324mg PO BID (6) Dyslipidemia: Code(s): E78.5 - Hyperlipidemia, unspecified Status: Acute Assessment and Plan: * Recent lipid panel as detailed above (cholesterol 354, LDL 234). Change simvastatin to higher intensity statin. (7) Pneumonia involving right lung: Code(s): J18.9 - Pneumonia, unspecified organism Status: Acute Assessment and Plan: * COVID/influenza tests were negative at the outside facility. Start ceftriaxone and azithromycin. Attempt sputum for culture. Subjective Date/time seen: 07/16/21 11:30 Interval history: Date/Time: 07/13/21 22:00 Narrative: This is a 56-year-old female with insulin-dependent diabetes, hypertension, dyslipidemia, anemia, and renal failure who is being directly admitted to the medical floor from an inpatient bed [facility] as she needs dialysis. The patient was admitted to the hospital on after presenting for evaluation of shortness of breath and lower extremity edema. I did receive some paperwork from transfer but unfortunately only labs, imaging, and vital signs were included. I do not have access to any physician documentation to include ER notes, admission history and physical, consultation notes, etc. and as such I can only rely on the patient to give me an accurate history. She reports being diagnosed with pneumonia and worsening renal failure though she remembers only being given antibiotics on 1 occasion but it sounds as though she has been receiving diuretics. It looks lik
--- NOTE | 2021-07-15 11:30 | PM.IMPN ---
Progress Note: A&P Assessment and Plan (1) Acute renal failure superimposed on chronic kidney disease: Code(s): N17.9 - Acute kidney failure, unspecified; N18.9 - Chronic kidney disease, unspecified Status: Acute Assessment and Plan: As per HPI, the patient was admitted to an outside facility with shortness of breath and increasing swelling Despite diuresis she remains quite edematous BUN and creatinine continue to rise Been sent to this facility to initiate dialysis Nephrology consulted and his input is appreciated Surgery will also be consulted for dialysis access. Dialysis catheter has been placed Dialysis today (2) Hyperkalemia: Code(s): E87.5 - Hyperkalemia Status: Acute Assessment and Plan: Current 4.0 Treated at the outside facility Repeat potassium is pending to ensure correction. Trend labs (3) Insulin dependent type 2 diabetes mellitus: Code(s): E11.9 - Type 2 diabetes mellitus without complications; Z79.4 - residential (current) use of insulin Status: Acute Assessment and Plan: Glucose 97 Resume basal insulin interim we will initiate sliding scale insulin Check A1c 6.2 (4) Hypertension: Code(s): I10 - Essential (primary) hypertension Status: Acute Assessment and Plan: BP 158/85 Lisinopril recently discontinued due to angioedema as per HPI Continue amlodipine and hydralazine Monitor daily (5) Anemia in chronic kidney disease: Code(s): N18.9 - Chronic kidney disease, unspecified; D63.1 - Anemia in chronic kidney disease Status: Acute Assessment and Plan: H/H 7.0/22.7 Hemoglobin and hematocrit have been stable on review of labs sent from the outside facility. Continue to monitor. [place] labs Iron 27, TIBC 168, % Sat 16, Ferritin 285 Ferrous Sulfate 324mg PO BID (6) Dyslipidemia: Code(s): E78.5 - Hyperlipidemia, unspecified Status: Acute Assessment and Plan: Recent lipid panel as detailed above (cholesterol 354, LDL 234). Change simvastatin to higher intensity statin. (7) Pneumonia involving right lung: Code(s): J18.9 - Pneumonia, unspecified organism Status: Acute Assessment and Plan: COVID/influenza tests were negative at the outside facility. Start ceftriaxone and azithromycin. Attempt sputum for culture. Subjective Date/time seen: 07/16/21 11:30 Interval history: Date/Time: 07/13/21 22:00 Narrative: This is a 56-year-old female with insulin-dependent diabetes, hypertension, dyslipidemia, anemia, and renal failure who is being directly admitted to the medical floor from an inpatient bed [facility] as she needs dialysis. The patient was admitted to the hospital on after presenting for evaluation of shortness of breath and lower extremity edema. I did receive some paperwork from transfer but unfortunately only labs, imaging, and vital signs were included. I do not have access to any physician documentation to include ER notes, admission history and physical, consultation notes, etc. and as such I can only rely on the patient to give me an accurate history. She reports being diagnosed with pneumonia and worsening renal failure though she remembers only being given antibiotics on 1 occasion but it sounds as though she has been receiving diuretics. It looks like her BUN and creatinine have continued to rise throughout her hospitalization and the manager outpatient at that facility feels that she now needs dialysis. Transfer was then initiated to this facility for dialysis access and dialysis as they do not have that capability there. I spoke with manager outpatient, Dr. James Lin, prior to transfer and he indicated to me that the cause of the patient's renal failure is most likely related to her diabetes and hypertension. Of note the patient was taken off of lisinopril during
--- NOTE | 2021-07-15 11:48 | WPDANESPN ---
Anes - Prog Note Post-Op Date/Time: 07/15/21 11:48 Cardiovascular status: normal Respiratory status: normal Airway patency: baseline Mental status: baseline Post-Op hydration status: normal Vital Signs: Last Vital Signs Temp 36.3 C L 07/15/21 10:17 Pulse 78 07/15/21 10:17 Resp 16 07/15/21 10:17 BP 158/78 H 07/15/21 10:17 Pulse Ox 94 07/15/21 10:17 Pain Score (VAS): 0/10 I/O: Intake & Output 07/14/21 07/15/21 07/15/21 23:59 07:59 15:59 Intake Total 900 100 840 Output Total 700 Balance 900 -600 840 Laboratory Tests 07/15/21 05:30 07/15/21 05:30 07/14/21 07/14/21 07/14/21 16:22 19:51 20:00 WBC RBC Hgb Hct MCV MCH MCHC RDW Plt Count MPV Immature Gran % (Auto) Neut % (Auto) Lymph % (Auto) [place] % (Auto) Eos % (Auto) Baso % (Auto) Lymph # (Auto) [place] # (Auto) Eos # (Auto) Baso # (Auto) Abs Immat Gran (auto) Absolute Neuts (auto) Absolute Nucleated RBC Nucleated RBC % Sodium Potassium Chloride Carbon Dioxide Anion Gap BUN Creatinine Estim Creat Clear Calc Estimated GFR Glucose POC Capillary Glucose 216 H 162 H Calcium Phosphorus Magnesium Total Bilirubin AST ALT Alkaline Phosphatase Total Protein Albumin Urine Color Straw Urine Appearance Clear Urine pH 6.0 Ur Specific [place] 1.013 Urine Protein 3+ H Urine Glucose (UA) 1+ H Urine Ketones Negative Ur Blood (Man) 1+ H Urine Nitrate Negative Urine Bilirubin Negative Urine Urobilinogen Negative Ur Leukocyte Esterase Negative Urine RBC 3-5 H Urine WBC 0-3 Ur Squamous Epith Cells Rare Urine Mucus Rare Ur L.pneumophila Ag Urine Pneumococcal Ag 07/15/21 07/15/21 07/15/21 05:30 05:30 07:42 WBC 8.6 RBC 2.54 L Hgb 7.0 L Hct 22.7 L MCV 89.4 MCH 27.6 MCHC 30.8 L RDW 14.2 Plt Count 273 MPV 11.9 H Immature Gran % (Auto) 0.6 H Neut % (Auto) 64.9 Lymph % (Auto) 17.0 L [place] % (Auto) 10.5 H Eos % (Auto) 6.7 H Baso % (Auto) 0.3 Lymph # (Auto) 1.47 [place] # (Auto) 0.9 H Eos # (Auto) 0.6 H Baso # (Auto) 0.0 Abs Immat Gran (auto) 0.05 H Absolute Neuts (auto) 5.6 Absolute Nucleated RBC 0.0 Nucleated RBC % 0.0 Sodium 136 L Potassium 4.0 Chloride 109 H Carbon Dioxide 22 Anion Gap 5 L BUN 91 H Creatinine 6.10 H Estim Creat Clear Calc 9 Estimated GFR 9 L Glucose 98 POC Capillary Glucose 97 Calcium 8.0 L Phosphorus 6.1 H Magnesium 2.9 H Total Bilirubin 0.2 AST 21 ALT 10 Alkaline Phosphatase 62 Total Protein 6.0 L Albumin 2.9 L Urine Color Urine Appearance Urine pH Ur Specific [place] Urine Protein Urine Glucose (UA) Urine Ketones Ur Blood (Man) Urine Nitrate Urine Bilirubin Urine Urobilinogen Ur Leukocyte Esterase Urine RBC Urine WBC Ur Squamous Epith Cells Urine Mucus Ur L.pneumophila Ag Urine Pneumococcal Ag 07/15/21 11:19 WBC RBC Hgb Hct MCV MCH MCHC RDW Plt Count MPV Immature Gran % (Auto) Neut % (Auto) Lymph % (Auto) [place] % (Auto) Eos % (Auto) Baso % (Auto) Lymph # (Auto) [place] # (Auto) Eos # (Auto) Baso # (Auto) Abs Immat Gran (auto) Absolute Neuts (auto) Absolute Nucleated RBC Nucleated RBC % Sodium Potassium Chloride Carbon Dioxide Anion Gap BUN Creatinine Estim Creat Clear Calc Estimated GFR Glucose POC Capillary Glucose Calcium Phosphorus Magnesium Total Bilirubin AST ALT Alkaline Phosphatase Total Protein Albumin Urine Color Urine Appearance Urine pH Ur Specific [place] Urine Protein Urine Glucose (UA) Urine Ketones Ur Blood (Man) Urine Nitrate Urine Bilirubin Urine Urobilinogen Ur Leukocyte Esterase Urine RBC Urine
[2021-07-15 11:53] LABS: Glucose Point of Care 95 mg/dl (65-105)
[2021-07-15 16:25] LABS: Glucose Point of Care 107 mg/dl (65-105)
[2021-07-15] MEDS: HYDROcodone/acetaminophen (*CRX) 5-325 MG TABLET 1 TAB PO (16:44)
[2021-07-15] MEDS: INSULIN GLARGINE (*BKC) 100 UNITS/ML 10 UNITS SUB-Q (16:45)
[2021-07-15] MEDS: amLODIPine BESYLATE 5 MG TABLET 10 MG PO (22:05)
[2021-07-15 22:47] LABS: Glucose Point of Care 115 mg/dl (65-105)
[2021-07-16] VITALS (10 sets, daily range): BP systolic 151–160; BP diastolic 69–81; PULSE 70–77; RESP 16–20; TEMP 36.5–37.2; O2SAT 92–96
--- NOTE | 2021-07-16 00:01 | PC.NURSE ---
Pt received from dialysis at 22:00 07/16/2021.
[2021-07-16 06:11] LABS: Basophils Percent Auto 0.4 % (0.2-1.2); Eosinophils Absolute Auto 0.7 K/mm3 (0-0.3); Eosinophils Percent Auto 7.2 % (0-4.4); Hemoglobin 7.4 g/dL (12.0-15.0); Immature Granulocyte Absolute 0.07 K/mm3 (0.00-0.031); Immature Granulocyte Percent A 0.7 % (0-0.5); Lymphocytes Absolute Auto 2.02 K/mm3 (0.9-3.2); Lymphocytes Percent Auto 21.6 % (18.3-44.2); Mean Corpuscular HGB Conc 32.2 g/dl (32-36); Mean Corpuscular Hemoglobin 27.5 pg (26-34); Mean Corpuscular Volume 85.5 fl (80-100); Mean Platelet Volume 12.2 fl (7.4-10.4); Monocytes Absolute Auto 0.9 K/mm3 (0.1-0.6); Monocytes Percent Auto 9.7 % (2.6-8.5); Neutrophils Absolute Auto 5.7 K/mm3 (1.3-6.7); Neutrophils Percent Auto 60.4 % (45.5-73.1); Nucleated Red Blood Cells Perc 0.3 % (0.0-0.2); Platelet Count Result 278 k/mm3 (150-375); Red Blood Count 2.69 M/mm3 (4.2-5.4); Red Cell Distribution Width 14.1 % (11.5-14.5); White Blood Count 9.4 K/mm3 (4.5-10.0)
[2021-07-16 06:26] LABS: Alanine Aminotransferase 9 U/L (4-35); Albumin Level 2.8 g/dL (3.5-5.1); Alkaline Phosphatase 61 U/L (38-126); Anion Gap 2 mmol/L (8-16); Aspartate Amino Transferase 22 U/L (14-36); Bilirubin,Total 0.3 mg/dL (0.2-1.3); Blood Urea Nitrogen 63 mg/dL (7-17); Calcium 7.7 mg/dL (8.4-10.2); Carbon Dioxide 28 mmol/L (22-30); Chloride 105 mmol/L (98-107); Estimated CRCL calculation 13 ml/min; Estimated Glomerular Filt Rate 14; Glucose 82 mg/dL (65-110); Magnesium 2.5 mg/dL (1.6-2.3); Phosphorus 4.3 mg/dL (2.5-4.5); Potassium 3.5 mmol/L (3.4-5.0); Sodium 135 mmol/L (137-145)
[2021-07-16 07:59] LABS: Glucose Point of Care 81 mg/dl (65-105)
[2021-07-16] MEDS: KETOROLAC 0.5% OP SOLN 5 ML BOTTLE 1 DROP EACH EYE (08:02)
[2021-07-16] MEDS: guaiFENesin 12 HR 600 MG TABCR PO ×2 (08:03→20:43)
[2021-07-16] MEDS: GABAPENTIN 300 MG CAPSULE PO ×2 (08:03→16:48)
[2021-07-16] MEDS: ATORVASTATIN 40 MG TABLET PO (08:03)
[2021-07-16] MEDS: HYDROcodone/acetaminophen (*CRX) 5-325 MG TABLET 1 TAB PO ×2 (08:03→16:51)
[2021-07-16] MEDS: hydrALAZINE HCL 25 MG TABLET PO ×3 (08:03→16:48)
[2021-07-16] MEDS: FERROUS SULFATE 324 MG TABLET PO ×2 (08:03→16:48)
[2021-07-16] MEDS: CHOLECALCIFEROL 1,000 UNITS TABLET 2000 UNITS PO (08:03)
[2021-07-16] MEDS: INSULIN GLARGINE (*BKC) 100 UNITS/ML SUB-Q (08:05)
[2021-07-16] MEDS: IRON SUCROSE COMPLEX 200 MG in SODIUM CHLORIDE 0.9% IV 50 ML 120 MG IVPB (09:00)
--- NOTE | 2021-07-16 09:54 | PM.PNNEP ---
Progress Note: A&P Assessment and Plan (1) ESRD (end stage renal disease): Code(s): N18.6 - End stage renal disease Status: Acute Assessment and Plan: ESRD DM type with end stage nephropathy Hypertensive renal disease Hyperlipidemia Anemia of CKD + iron deficiency Hyponatremia Hypermagnesemia Hypoalbuminemia probable mild low calcium levels (no ionized available) Plan: -ESRD: [facility] -getting IV iron, EPO as will correct with dialysis -calcium, cholecalciferol, PTH level to be checked as outpatient -being treated with antibiotics for suspected pneumonia -follow, disposition per others Subjective Date/time seen: 07/16/21 09:54 Interval history: ESRD patient She called office yesterday and asked why she was not see by our staff Had a TDC placed and had [facility]anah session HD yesterday Feel OK Review of Systems Review of Systems: No SOB Exam Const: General: no acute distress Neck: Neck: no JVD Resp: Auscultation: clear to auscultation bilaterally Cardio: Rate: regular rate Rhythm: regular rhythm GI: GI Palp: Yes Soft to palpation and No Tenderness to palpation present (GI) Skin: General skin exam: normal color and no rashes or lesions noted Extrem: Right upper extremity: no edema Left upper extremity: no edema Right lower extremity: no edema Left lower extremity: no edema Psych: Mental Status: mental status grossly normal Affect: normal affect Objective Data Vital Signs Vital Signs: Vital Signs - 24 hr 07/15/21 10:17 07/15/21 12:00 07/15/21 14:31 Temperature 36.3 C L 36.3 C L Pulse Rate 78 79 80 Respiratory Rate 16 16 Blood Pressure 158/78 H 158/85 H Pulse Oximetry 94 94 07/15/21 16:00 07/15/21 19:01 07/15/21 19:11 Temperature 36.5 C Pulse Rate 79 80 77 Respiratory Rate 16 Blood Pressure 169/77 H 170/74 H Pulse Oximetry 93 07/15/21 19:15 07/15/21 19:30 07/15/21 19:45 Temperature Pulse Rate 79 78 78 Respiratory Rate Blood Pressure 171/94 H 153/79 H 177/77 H Pulse Oximetry 07/15/21 20:00 07/15/21 20:15 07/15/21 20:30 Temperature Pulse Rate 78 78 75 Respiratory Rate Blood Pressure 144/80 H 161/75 H 144/68 H Pulse Oximetry 07/15/21 20:45 07/15/21 21:00 07/15/21 21:14 Temperature Pulse Rate 76 74 79 Respiratory Rate Blood Pressure 158/71 H 124/79 141/80 H Pulse Oximetry 07/15/21 21:25 07/15/21 22:14 07/16/21 00:00 Temperature 36.4 C 37.4 C Pulse Rate 78 77 77 Respiratory Rate 16 18 Blood Pressure 165/72 H 154/70 H Pulse Oximetry 97 95 07/16/21 04:00 07/16/21 05:39 Temperature 37.2 C Pulse Rate 73 76 Respiratory Rate 20 Blood Pressure 153/81 H Pulse Oximetry 93 Intake/Output Intake/Output: Intake & Output 07/13/21 07/14/21 07/15/21 07/16/21 23:59 23:59 23:59 23:59 Intake Total 1250 1950 220 Output Total 0 2900 Balance 1250 -950 220 Meds/Results Medications: Active Medications Generic Name Dose Route Start Last Admin Trade Name Freq PRN Reason Stop Dose Admin Acetaminophen 650 mg 07/14/21 12:07 Acetaminophen 325 Mg Tablet PO Q6H PRN Mild Pain (1-3) or Fever Hydrocodone Bitart/Acetaminophen 1 tab 07/14/21 12:07 07/16/21 08:03 Hydrocodone/Acetaminophen (*Crx) 5-325 Mg Tablet PO 1 tab Q4H PRN Administration Pain Rated 4-6 Amlodipine Besylate 10 mg 07/13/21 23:10 07/15/21 22:05 Amlodipine Besylate 5 Mg Tablet PO 10 mg HS LEONCIO Administration Atorvastatin Calcium 40 mg 07/14/21 09:00 07/16/21 08:03 Atorvastatin 40 Mg Tablet PO 40 mg DAILY LEONCIO Administration Dextrose 12.5 gm 07/13/21 21:50 Dextrose 50% 25 Gm/50 Ml Syringe IV PUSH PRN PRN Hypoglycemia Protocol Epoetin Keyur-epbx 10,000 units 07/15/21 11:08 07/16/21 07:52 Epoetin Keyur-Epbx 10,000 Units/Ml Vial IV PUSH Not Given TUTHSA LEONCIO Ferrous Sulfate 324 mg 07/14/21 17:00 07/16/21 08:03 Jane
--- NOTE | 2021-07-16 11:00 | P.PNIM_ITS ---
Progress Note: A&P Assessment and Plan (1) Acute renal failure superimposed on chronic kidney disease: Code(s): N17.9 - Acute kidney failure, unspecified; N18.9 - Chronic kidney disease, unspecified Status: Acute Assessment and Plan: * As per HPI, the patient was admitted to an outside facility with shortness of breath and increasing swelling * Despite diuresis she remains quite edematous * BUN and creatinine continue to rise * Been sent to this facility to initiate dialysis * Nephrology consulted and his input is appreciated * Surgery will also be consulted for dialysis access. * Dialysis catheter has been placed * Dialysis was successful yesterday, could possibly go for a partial dialysis or a full treatment tomorrow * Continue to await lab results (2) Hyperkalemia: Code(s): E87.5 - Hyperkalemia Status: Acute Assessment and Plan: * Current 3.5 * Treated at the outside facility * Repeat potassium is pending to ensure correction. * Trend labs (3) Insulin dependent type 2 diabetes mellitus: Code(s): E11.9 - Type 2 diabetes mellitus without complications; Z79.4 - [facility] (current) use of insulin Status: Acute Assessment and Plan: * Glucose 81 * Resume basal insulin * interim we will initiate sliding scale insulin * Check A1c 6.2 (4) Hypertension: Code(s): I10 - Essential (primary) hypertension Status: Acute Assessment and Plan: * BP 153/81 * Lisinopril recently discontinued due to angioedema as per HPI * Continue amlodipine and hydralazine * Monitor daily (5) Anemia in chronic kidney disease: Code(s): N18.9 - Chronic kidney disease, unspecified; D63.1 - Anemia in chronic kidney disease Status: Acute Assessment and Plan: * H/H 7.4/23.0 * Hemoglobin and hematocrit have been stable on review of labs sent from the outside facility. Continue to monitor. * [place] labs Iron 27, TIBC 168, % Sat 16, Ferritin 285 * Ferrous Sulfate 324mg PO BID (6) Dyslipidemia: Code(s): E78.5 - Hyperlipidemia, unspecified Status: Acute Assessment and Plan: * Recent lipid panel as detailed above (cholesterol 354, LDL 234). Change simvastatin to higher intensity statin. (7) Pneumonia involving right lung: Code(s): J18.9 - Pneumonia, unspecified organism Status: Acute Assessment and Plan: * COVID/influenza tests were negative at the outside facility. Start ceftriaxone and azithromycin. Attempt sputum for culture. Time Spent With Patient Time with patient: Greater than 35 minutes Subjective Date/time seen: 07/16/21 1100 Interval history: Date/Time: 07/13/21 22:00 Narrative: This is a 56-year-old female with insulin-dependent diabetes, hypertension, dyslipidemia, anemia, and renal failure who is being directly admitted to the medical floor from an inpatient bed [facility] as she needs dialysis. The patient was admitted to the hospital on after presenting for evaluation of shortness of breath and lower extremity edema. I did receive some paperwork from transfer but unfortunately only labs, imaging, and vital signs were included. I do not have access to any physician documentation to include ER notes, admission history and physical, consultation notes, etc. and as such I can only rely on the patient to give me an accurate history. She re
--- NOTE | 2021-07-16 11:00 | PM.IMPN ---
Progress Note: A&P Assessment and Plan (1) Acute renal failure superimposed on chronic kidney disease: Code(s): N17.9 - Acute kidney failure, unspecified; N18.9 - Chronic kidney disease, unspecified Status: Acute Assessment and Plan: As per HPI, the patient was admitted to an outside facility with shortness of breath and increasing swelling Despite diuresis she remains quite edematous BUN and creatinine continue to rise Been sent to this facility to initiate dialysis Nephrology consulted and his input is appreciated Surgery will also be consulted for dialysis access. Dialysis catheter has been placed Dialysis was successful yesterday, could possibly go for a partial dialysis or a full treatment tomorrow Continue to await lab results (2) Hyperkalemia: Code(s): E87.5 - Hyperkalemia Status: Acute Assessment and Plan: Current 3.5 Treated at the outside facility Repeat potassium is pending to ensure correction. Trend labs (3) Insulin dependent type 2 diabetes mellitus: Code(s): E11.9 - Type 2 diabetes mellitus without complications; Z79.4 - half-way (current) use of insulin Status: Acute Assessment and Plan: Glucose 81 Resume basal insulin interim we will initiate sliding scale insulin Check A1c 6.2 (4) Hypertension: Code(s): I10 - Essential (primary) hypertension Status: Acute Assessment and Plan: BP 153/81 Lisinopril recently discontinued due to angioedema as per HPI Continue amlodipine and hydralazine Monitor daily (5) Anemia in chronic kidney disease: Code(s): N18.9 - Chronic kidney disease, unspecified; D63.1 - Anemia in chronic kidney disease Status: Acute Assessment and Plan: H/H 7.4/23.0 Hemoglobin and hematocrit have been stable on review of labs sent from the outside facility. Continue to monitor. [place] labs Iron 27, TIBC 168, % Sat 16, Ferritin 285 Ferrous Sulfate 324mg PO BID (6) Dyslipidemia: Code(s): E78.5 - Hyperlipidemia, unspecified Status: Acute Assessment and Plan: Recent lipid panel as detailed above (cholesterol 354, LDL 234). Change simvastatin to higher intensity statin. (7) Pneumonia involving right lung: Code(s): J18.9 - Pneumonia, unspecified organism Status: Acute Assessment and Plan: COVID/influenza tests were negative at the outside facility. Start ceftriaxone and azithromycin. Attempt sputum for culture. Time Spent With Patient Time with patient: Greater than 35 minutes Subjective Date/time seen: 07/16/21 1100 Interval history: Date/Time: 07/13/21 22:00 Narrative: This is a 56-year-old female with insulin-dependent diabetes, hypertension, dyslipidemia, anemia, and renal failure who is being directly admitted to the medical floor from an inpatient bed [facility] as she needs dialysis. The patient was admitted to the hospital on after presenting for evaluation of shortness of breath and lower extremity edema. I did receive some paperwork from transfer but unfortunately only labs, imaging, and vital signs were included. I do not have access to any physician documentation to include ER notes, admission history and physical, consultation notes, etc. and as such I can only rely on the patient to give me an accurate history. She reports being diagnosed with pneumonia and worsening renal failure though she remembers only being given antibiotics on 1 occasion but it sounds as though she has been receiving diuretics. It looks like her BUN and creatinine have continued to rise throughout her hospitalization and the sales coach at that facility feels that she now needs dialysis. Transfer was then initiated to this facility for dialysis access and dialysis as they do not have that capability there. I spoke with sales coach, Dr. James Lin, prior to t
[2021-07-16 11:43] LABS: Glucose Point of Care 90 mg/dl (65-105)
[2021-07-16] MEDS: ONDANSETRON INJ 4 MG/2 ML VIAL IV PUSH (14:57)
[2021-07-16 16:34] LABS: Glucose Point of Care 105 mg/dl (65-105)
[2021-07-16] MEDS: INSULIN GLARGINE (*BKC) 100 UNITS/ML 10 UNITS SUB-Q (16:53)
[2021-07-16] MEDS: polyethylene glycoL 3350 17 GM POWD.PACK PO (17:33)
[2021-07-16] MEDS: amLODIPine BESYLATE 5 MG TABLET 10 MG PO (20:42)
[2021-07-16] MEDS: BISACODYL 10 MG SUPPOSITORY RECTAL (20:42)
[2021-07-16 21:01] LABS: Glucose Point of Care 110 mg/dl (65-105)
[2021-07-17] VITALS (24 sets, daily range): BP systolic 133–172; BP diastolic 70–95; PULSE 72–81; RESP 16–18; TEMP 36.1–37; O2SAT 94–96
[2021-07-17] MEDS: ACETAMINOPHEN 325 MG TABLET 650 MG PO (02:31)
[2021-07-17 06:26] LABS: Basophils Percent Auto 0.2 % (0.2-1.2); Eosinophils Absolute Auto 0.6 K/mm3 (0-0.3); Eosinophils Percent Auto 5.9 % (0-4.4); Hematocrit 23.1 % (37.0-47.0); Hemoglobin 7.3 g/dL (12.0-15.0); Immature Granulocyte Absolute 0.06 K/mm3 (0.00-0.031); Immature Granulocyte Percent A 0.6 % (0-0.5); Lymphocytes Absolute Auto 1.63 K/mm3 (0.9-3.2); Lymphocytes Percent Auto 17.2 % (18.3-44.2); Mean Corpuscular HGB Conc 31.6 g/dl (32-36); Mean Corpuscular Hemoglobin 27.7 pg (26-34); Mean Corpuscular Volume 87.5 fl (80-100); Mean Platelet Volume 12.2 fl (7.4-10.4); Monocytes Percent Auto 10.4 % (2.6-8.5); Neutrophils Absolute Auto 6.2 K/mm3 (1.3-6.7); Neutrophils Percent Auto 65.7 % (45.5-73.1); Platelet Count Result 295 k/mm3 (150-375); Red Blood Count 2.64 M/mm3 (4.2-5.4); Red Cell Distribution Width 14.5 % (11.5-14.5); White Blood Count 9.5 K/mm3 (4.5-10.0)
[2021-07-17 06:31] LABS: Alanine Aminotransferase 10 U/L (4-35); Albumin Level 2.9 g/dL (3.5-5.1); Alkaline Phosphatase 65 U/L (38-126); Anion Gap 5 mmol/L (8-16); Aspartate Amino Transferase 25 U/L (14-36); Bilirubin,Total 0.2 mg/dL (0.2-1.3); Blood Urea Nitrogen 59 mg/dL (7-17); Calcium 7.5 mg/dL (8.4-10.2); Carbon Dioxide 28 mmol/L (22-30); Chloride 105 mmol/L (98-107); Estimated CRCL calculation 12 ml/min; Estimated Glomerular Filt Rate 12; Glucose 99 mg/dL (65-110); Magnesium 2.6 mg/dL (1.6-2.3); Phosphorus 5.2 mg/dL (2.5-4.5); Potassium 3.6 mmol/L (3.4-5.0); Sodium 138 mmol/L (137-145)
[2021-07-17 07:41] LABS: Glucose Point of Care 80 mg/dl (65-105)
[2021-07-17] MEDS: FERROUS SULFATE 324 MG TABLET PO ×2 (07:59→16:20)
[2021-07-17] MEDS: INSULIN GLARGINE (*BKC) 100 UNITS/ML SUB-Q (07:59)
[2021-07-17] MEDS: hydrALAZINE HCL 25 MG TABLET PO ×3 (08:00→16:20)
[2021-07-17] MEDS: CHOLECALCIFEROL 1,000 UNITS TABLET 2000 UNITS PO (08:00)
[2021-07-17] MEDS: ATORVASTATIN 40 MG TABLET PO (08:00)
[2021-07-17] MEDS: GABAPENTIN 300 MG CAPSULE PO ×2 (08:01→16:21)
[2021-07-17] MEDS: IRON SUCROSE COMPLEX 200 MG in SODIUM CHLORIDE 0.9% IV 50 ML 120 MG IVPB (08:01)
[2021-07-17] MEDS: KETOROLAC 0.5% OP SOLN 5 ML BOTTLE 1 DROP EACH EYE (08:01)
[2021-07-17] MEDS: guaiFENesin 12 HR 600 MG TABCR PO ×2 (08:01→20:53)
[2021-07-17] MEDS: polyethylene glycoL 3350 17 GM POWD.PACK PO (08:12)
--- NOTE | 2021-07-17 11:45 | P.PNIM_ITS ---
Progress Note: A&P Assessment and Plan (1) Acute renal failure superimposed on chronic kidney disease: Code(s): N17.9 - Acute kidney failure, unspecified; N18.9 - Chronic kidney disease, unspecified Status: Acute Assessment and Plan: * As per HPI, the patient was admitted to an outside facility with shortness of breath and increasing swelling * Despite diuresis she remains quite edematous * BUN and creatinine are stable * Been sent to this facility to initiate dialysis * Nephrology consulted and his input is appreciated * Surgery will also be consulted for dialysis access. * Dialysis catheter has been placed * Dialysis was successful yesterday, could possibly go for a partial dialysis or a full treatment tomorrow * Continue to await lab results (2) Hyperkalemia: Code(s): E87.5 - Hyperkalemia Status: Acute Assessment and Plan: * Current 3.6 * Treated at the outside facility * Repeat potassium is pending to ensure correction. * Trend labs (3) Insulin dependent type 2 diabetes mellitus: Code(s): E11.9 - Type 2 diabetes mellitus without complications; Z79.4 - technician terminal and repeater (current) use of insulin Status: Acute Assessment and Plan: * Glucose 80 * Resume basal insulin * interim we will initiate sliding scale insulin * Check A1c 6.2 (4) Hypertension: Code(s): I10 - Essential (primary) hypertension Status: Acute Assessment and Plan: * BP 168/79 * Lisinopril recently discontinued due to angioedema as per HPI * Continue amlodipine and hydralazine * Monitor daily (5) Anemia in chronic kidney disease: Code(s): N18.9 - Chronic kidney disease, unspecified; D63.1 - Anemia in chronic kidney disease Status: Acute Assessment and Plan: * H/H 7.3/23.1 * Hemoglobin and hematocrit have been stable on review of labs sent from the outside facility. Continue to monitor. * [place] labs Iron 27, TIBC 168, % Sat 16, Ferritin 285 * Ferrous Sulfate 324mg PO BID (6) Dyslipidemia: Code(s): E78.5 - Hyperlipidemia, unspecified Status: Acute Assessment and Plan: * Recent lipid panel as detailed above (cholesterol 354, LDL 234). Change simvastatin to higher intensity statin. (7) Pneumonia involving right lung: Code(s): J18.9 - Pneumonia, unspecified organism Status: Acute Assessment and Plan: * COVID/influenza tests were negative at the outside facility. Start ceftriaxone and azithromycin. Attempt sputum for culture. Subjective Date/time seen: 07/17/21 1145 Interval history: Date/Time: 07/13/21 22:00 Narrative: This is a 56-year-old female with insulin-dependent diabetes, hypertension, dyslipidemia, anemia, and renal failure who is being directly admitted to the medical floor from an inpatient bed [facility] as she needs dialysis. The patient was admitted to the hospital on after presenting for evaluation of shortness of breath and lower extremity edema. I did receive some paperwork from transfer but unfortunately only labs, imaging, and vital signs were included. I do not have access to any physician documentation to include ER notes, admission history and physical, consultation notes, etc. and as such I can only rely on the patient to give me an accurate history. She reports being diagnosed with pneumonia and worsening renal failure though she remembers
--- NOTE | 2021-07-17 11:45 | PM.IMPN ---
Progress Note: A&P Assessment and Plan (1) Acute renal failure superimposed on chronic kidney disease: Code(s): N17.9 - Acute kidney failure, unspecified; N18.9 - Chronic kidney disease, unspecified Status: Acute Assessment and Plan: As per HPI, the patient was admitted to an outside facility with shortness of breath and increasing swelling Despite diuresis she remains quite edematous BUN and creatinine are stable Been sent to this facility to initiate dialysis Nephrology consulted and his input is appreciated Surgery will also be consulted for dialysis access. Dialysis catheter has been placed Dialysis was successful yesterday, could possibly go for a partial dialysis or a full treatment tomorrow Continue to await lab results (2) Hyperkalemia: Code(s): E87.5 - Hyperkalemia Status: Acute Assessment and Plan: Current 3.6 Treated at the outside facility Repeat potassium is pending to ensure correction. Trend labs (3) Insulin dependent type 2 diabetes mellitus: Code(s): E11.9 - Type 2 diabetes mellitus without complications; Z79.4 - alf (current) use of insulin Status: Acute Assessment and Plan: Glucose 80 Resume basal insulin interim we will initiate sliding scale insulin Check A1c 6.2 (4) Hypertension: Code(s): I10 - Essential (primary) hypertension Status: Acute Assessment and Plan: BP 168/79 Lisinopril recently discontinued due to angioedema as per HPI Continue amlodipine and hydralazine Monitor daily (5) Anemia in chronic kidney disease: Code(s): N18.9 - Chronic kidney disease, unspecified; D63.1 - Anemia in chronic kidney disease Status: Acute Assessment and Plan: H/H 7.3/23.1 Hemoglobin and hematocrit have been stable on review of labs sent from the outside facility. Continue to monitor. [facility] labs Iron 27, TIBC 168, % Sat 16, Ferritin 285 Ferrous Sulfate 324mg PO BID (6) Dyslipidemia: Code(s): E78.5 - Hyperlipidemia, unspecified Status: Acute Assessment and Plan: Recent lipid panel as detailed above (cholesterol 354, LDL 234). Change simvastatin to higher intensity statin. (7) Pneumonia involving right lung: Code(s): J18.9 - Pneumonia, unspecified organism Status: Acute Assessment and Plan: COVID/influenza tests were negative at the outside facility. Start ceftriaxone and azithromycin. Attempt sputum for culture. Subjective Date/time seen: 07/17/21 1145 Interval history: Date/Time: 07/13/21 22:00 Narrative: This is a 56-year-old female with insulin-dependent diabetes, hypertension, dyslipidemia, anemia, and renal failure who is being directly admitted to the medical floor from an inpatient bed [facility] as she needs dialysis. The patient was admitted to the hospital on after presenting for evaluation of shortness of breath and lower extremity edema. I did receive some paperwork from transfer but unfortunately only labs, imaging, and vital signs were included. I do not have access to any physician documentation to include ER notes, admission history and physical, consultation notes, etc. and as such I can only rely on the patient to give me an accurate history. She reports being diagnosed with pneumonia and worsening renal failure though she remembers only being given antibiotics on 1 occasion but it sounds as though she has been receiving diuretics. It looks like her BUN and creatinine have continued to rise throughout her hospitalization and the clay plant treater at that facility feels that she now needs dialysis. Transfer was then initiated to this facility for dialysis access and dialysis as they do not have that capability there. I spoke with clay plant treater, Dr. James Lin, prior to transfer and he indicated to me that the cause of the patient's renal failure
[2021-07-17] MEDS: HEPARIN SODIUM 1,000 UNITS/ML VIAL 4000 UNITS (12:58)
[2021-07-17] MEDS: BISACODYL 10 MG SUPPOSITORY RECTAL (14:28)
[2021-07-17] MEDS: INSULIN GLARGINE (*BKC) 100 UNITS/ML 10 UNITS SUB-Q (16:23)
[2021-07-17 16:33] LABS: Glucose Point of Care 70 mg/dl (65-105)
[2021-07-17 20:50] LABS: Glucose Point of Care 80 mg/dl (65-105)
[2021-07-17] MEDS: amLODIPine BESYLATE 5 MG TABLET 10 MG PO (20:53)
--- NOTE | 2021-07-17 21:22 | PC.NURSE ---
2048: BS 80 provided patient a bedtime snack.
[2021-07-17 21:47] LABS: Hepatitis B Core Ab Total Nonreactive (Nonreactive)
[2021-07-18] VITALS (16 sets, daily range): BP systolic 154–180; BP diastolic 80–102; PULSE 76–91; RESP 16–18; TEMP 35.4–36.7; O2SAT 97
[2021-07-18 05:26] LABS: Basophils Percent Auto 0.4 % (0.2-1.2); Eosinophils Absolute Auto 0.6 K/mm3 (0-0.3); Eosinophils Percent Auto 6.2 % (0-4.4); Hematocrit 24.2 % (37.0-47.0); Hemoglobin 7.6 g/dL (12.0-15.0); Immature Granulocyte Absolute 0.04 K/mm3 (0.00-0.031); Immature Granulocyte Percent A 0.4 % (0-0.5); Lymphocytes Absolute Auto 2.09 K/mm3 (0.9-3.2); Lymphocytes Percent Auto 20.9 % (18.3-44.2); Mean Corpuscular HGB Conc 31.4 g/dl (32-36); Mean Corpuscular Volume 89.3 fl (80-100); Mean Platelet Volume 11.5 fl (7.4-10.4); Monocytes Absolute Auto 1.1 K/mm3 (0.1-0.6); Monocytes Percent Auto 11.1 % (2.6-8.5); Neutrophils Absolute Auto 6.1 K/mm3 (1.3-6.7); Platelet Count Result 304 k/mm3 (150-375); Red Blood Count 2.71 M/mm3 (4.2-5.4); Red Cell Distribution Width 14.4 % (11.5-14.5)
[2021-07-18 05:42] LABS: Alanine Aminotransferase 11 U/L (4-35); Alkaline Phosphatase 70 U/L (38-126); Anion Gap 0 mmol/L (8-16); Aspartate Amino Transferase 29 U/L (14-36); Bilirubin,Total 0.3 mg/dL (0.2-1.3); Blood Urea Nitrogen 33 mg/dL (7-17); Calcium 7.6 mg/dL (8.4-10.2); Carbon Dioxide 33 mmol/L (22-30); Chloride 103 mmol/L (98-107); Estimated CRCL calculation 18 ml/min; Estimated Glomerular Filt Rate 19; Glucose 48 mg/dL (65-110); Magnesium 2.3 mg/dL (1.6-2.3); Phosphorus 3.8 mg/dL (2.5-4.5); Potassium 3.5 mmol/L (3.4-5.0); Sodium 136 mmol/L (137-145)
[2021-07-18 06:21] LABS: Glucose Point of Care 90 mg/dl (65-105)
[2021-07-18 07:36] LABS: Glucose Point of Care 120 mg/dl (65-105)
[2021-07-18] MEDS: KETOROLAC 0.5% OP SOLN 5 ML BOTTLE 1 DROP EACH EYE (08:09)
[2021-07-18] MEDS: hydrALAZINE HCL 25 MG TABLET PO (08:09)
[2021-07-18] MEDS: FERROUS SULFATE 324 MG TABLET PO (08:09)
[2021-07-18] MEDS: CHOLECALCIFEROL 1,000 UNITS TABLET 2000 UNITS PO (08:09)
[2021-07-18] MEDS: INSULIN GLARGINE (*BKC) 100 UNITS/ML SUB-Q (08:09)
[2021-07-18] MEDS: GABAPENTIN 300 MG CAPSULE PO (08:09)
[2021-07-18] MEDS: IRON SUCROSE COMPLEX 200 MG in SODIUM CHLORIDE 0.9% IV 50 ML 120 MG IVPB (08:09)
[2021-07-18] MEDS: guaiFENesin 12 HR 600 MG TABCR PO (08:10)
--- NOTE | 2021-07-18 10:25 | PM.PNNEP ---
Progress Note: A&P Additional Plan End-stage renal disease: Hd supervised 07/18/21 Hypertensive renal disease Anemia Plan: -discontinue furosemide and hydrochlorothiazide -erythropoietin dosing will be done at dialysis unit -decreased dose of gabapentin to 300 mg daily in line with the end-stage renal disease condition -sitagliptin dosing of 25 mg per day is recommended for end-stage renal disease status, if hypoglycemia is not an issue. I will defer this to primary care team -will follow up in the dialysis clinic Subjective Date/time seen: 07/18/21 10:25 Seen and examined on hemodialysis, dialysis supervised. She feels better. He has no nausea vomiting. Exam Narrative: Seen and examined on hemodialysis, comfortable at rest, JVD negative, regular rate rhythm, clear lungs, Level soft abdomen, edema negative Objective Data Vital Signs Vital Signs: Vital Signs - 24 hr 07/17/21 10:30 07/17/21 10:45 07/17/21 11:00 Temperature Pulse Rate 76 77 74 Respiratory Rate Blood Pressure 155/88 H 162/76 H 150/77 H Pulse Oximetry 07/17/21 11:15 07/17/21 11:30 07/17/21 11:45 Temperature Pulse Rate 78 76 78 Respiratory Rate Blood Pressure 150/95 H 166/83 H 142/86 H Pulse Oximetry 07/17/21 12:00 07/17/21 12:15 07/17/21 12:30 Temperature Pulse Rate 76 76 77 Respiratory Rate Blood Pressure 158/78 H 165/82 H 172/70 H Pulse Oximetry 07/17/21 12:45 07/17/21 13:00 07/17/21 13:15 Temperature 36.6 C Pulse Rate 77 76 75 Respiratory Rate 16 Blood Pressure 165/77 H 156/76 H 166/76 H Pulse Oximetry 07/17/21 14:51 07/17/21 16:00 07/17/21 20:00 Temperature 36.6 C Pulse Rate 80 77 80 Respiratory Rate 18 Blood Pressure 168/79 H Pulse Oximetry 96 07/17/21 20:42 07/18/21 00:00 07/18/21 04:21 Temperature 36.2 C L Pulse Rate 81 81 79 Respiratory Rate 16 Blood Pressure 164/82 H Pulse Oximetry 94 07/18/21 05:05 07/18/21 08:00 07/18/21 09:25 Temperature 36.2 C L 36.7 C Pulse Rate 76 91 76 Respiratory Rate 18 18 Blood Pressure 154/80 H 180/89 H Pulse Oximetry 97 07/18/21 09:55 07/18/21 10:00 07/18/21 10:15 Temperature Pulse Rate 80 79 81 Respiratory Rate Blood Pressure 163/93 H 167/95 H 154/82 H Pulse Oximetry Intake/Output Intake/Output: Intake & Output 07/15/21 07/16/21 07/17/21 07/18/21 23:59 23:59 23:59 23:59 Intake Total 1950 1130 770 686 Output Total 2900 700 1400 Balance -950 430 -630 686 Meds/Results Medications: Active Medications Generic Name Dose Route Start Last Admin Trade Name Freq PRN Reason Stop Dose Admin Acetaminophen 650 mg 07/14/21 12:07 07/17/21 02:31 Acetaminophen 325 Mg Tablet PO 650 mg Q6H PRN Administration Mild Pain (1-3) or Fever Hydrocodone Bitart/Acetaminophen 1 tab 07/14/21 12:07 07/16/21 16:51 Hydrocodone/Acetaminophen (*Crx) 5-325 Mg Tablet PO 1 tab Q4H PRN Administration Pain Rated 4-6 Amlodipine Besylate 10 mg 07/13/21 23:10 07/17/21 20:53 Amlodipine Besylate 5 Mg Tablet PO 10 mg HS LEONCIO Administration Dextrose 12.5 gm 07/13/21 21:50 Dextrose 50% 25 Gm/50 Ml Syringe IV PUSH PRN PRN Hypoglycemia Protocol Epoetin Keyur-epbx 10,000 units 07/15/21 11:08 07/17/21 13:19 Epoetin Ekyur-Epbx 10,000 Units/Ml Vial IV PUSH Not Given [facility] Ferrous Sulfate 324 mg 07/14/21 17:00 07/18/21 08:09 Ferrous Sulfate 324 Mg Tablet PO 324 mg BIDWM LEONCIO Administration Gabapentin 300 mg 07/14/21 09:00 07/18/21 08:09 Gabapentin 300 Mg Capsule PO 08/13/21 08:59 300 mg BID LEONCIO Administration Glucagon 1 mg 07/13/21 21:50 Glucagon For Inj 1 Mg Vial IM PRN PRN Hypoglycemia Protocol Glucose 15 gm 07/13/21 21:50 Glucose Oral Gel 15 Gm Of Glucse In 37.5 Gm Tube PO PRN PRN Hypoglycemia Protocol Guaifenesin 600 mg 07/14/21 09:00 07/18/21 08:10 Guaifenesin 12 Hr 600 Mg Tabcr
--- NOTE | 2021-07-18 10:30 | PM.DS ---
DS: Admitting Diagnosis Discharge Date 07/18/21 1030 Admitting Diagnosis end-stage renal disease needing hemodialysis DS: Discharge Diagnosis Discharge Diagnosis (1) Acute renal failure superimposed on chronic kidney disease: Code(s): N17.9 - Acute kidney failure, unspecified; N18.9 - Chronic kidney disease, unspecified Status: Acute Assessment and Plan: As per HPI, the patient was admitted to an outside facility with shortness of breath and increasing swelling Despite diuresis she remains quite edematous BUN and creatinine are stable Been sent to this facility to initiate dialysis Nephrology consulted and his input is appreciated Surgery will also be consulted for dialysis access. Dialysis catheter has been placed Dialysis was successful yesterday, could possibly go for a partial dialysis or a full treatment tomorrow Continue to await lab results (2) Hyperkalemia: Code(s): E87.5 - Hyperkalemia Status: Acute Assessment and Plan: Current 3.5 Treated at the outside facility Repeat potassium is pending to ensure correction. Trend labs (3) Insulin dependent type 2 diabetes mellitus: Code(s): E11.9 - Type 2 diabetes mellitus without complications; Z79.4 - care home (current) use of insulin Status: Acute Assessment and Plan: Glucose 80 Resume basal insulin interim we will initiate sliding scale insulin Check A1c 6.2 (4) Hypertension: Code(s): I10 - Essential (primary) hypertension Status: Acute Assessment and Plan: BP 154/80 Lisinopril recently discontinued due to angioedema as per HPI Continue amlodipine and hydralazine Monitor daily (5) Anemia in chronic kidney disease: Code(s): N18.9 - Chronic kidney disease, unspecified; D63.1 - Anemia in chronic kidney disease Status: Acute Assessment and Plan: H/H 7.6/24.2 Hemoglobin and hematocrit have been stable on review of labs sent from the outside facility. Continue to monitor. [facility] Iron 27, TIBC 168, % Sat 16, Ferritin 285 Ferrous Sulfate 324mg PO BID (6) Dyslipidemia: Code(s): E78.5 - Hyperlipidemia, unspecified Status: Acute Assessment and Plan: Recent lipid panel as detailed above (cholesterol 354, LDL 234). Change simvastatin to higher intensity statin. (7) Pneumonia involving right lung: Code(s): J18.9 - Pneumonia, unspecified organism Status: Acute Assessment and Plan: COVID/influenza tests were negative at the outside facility. Start ceftriaxone and azithromycin. Attempt sputum for culture. DS: Summary Hospital Course Hospital Course: patient is a 56-year-old female with a past medical history of hypertension, anemia of chronic disease, dyslipidemia who was a direct admit from [facility] for end-stage renal disease and abnormal labs. Chest x-ray upon arrival showed moderate amount of right peripheral pneumonia or edema. Renal ultrasound showed unremarkable kidneys. Dialysis catheter was placed by general surgery and Nephrology was consulted. Patient received dialysis 3 times since admission. Labs have been obtained. Electrolytes have been stable. Patient did show a low hemoglobin hematocrit secondary to kidney disease. Anemia labs show iron deficiency and iron was added to her regimen. Patient does present hypertensive lately however is controlled nephrology is on board. Chest x-ray did indicate possible pneumonia however white count has been stable and patient was placed on IV azithromycin and ceftriaxone and has received 5 day course. Patient is ready for Discharge and dialysis has been set up outpatient. all laboratories are back and patient is stable for discharge at this time per labs and vital signs. Patient has no complaints including chest pain, shortness of breath, nausea, vomiting, diarrhea, constipation, weakn
--- NOTE | 2021-07-18 10:30 | P.DS_ITS ---
DS: Admitting Diagnosis Discharge Date 07/18/21 1030 Admitting Diagnosis end-stage renal disease needing hemodialysis DS: Discharge Diagnosis Discharge Diagnosis (1) Acute renal failure superimposed on chronic kidney disease: Code(s): N17.9 - Acute kidney failure, unspecified; N18.9 - Chronic kidney disease, unspecified Status: Acute Assessment and Plan: * As per HPI, the patient was admitted to an outside facility with shortness of breath and increasing swelling * Despite diuresis she remains quite edematous * BUN and creatinine are stable * Been sent to this facility to initiate dialysis * Nephrology consulted and his input is appreciated * Surgery will also be consulted for dialysis access. * Dialysis catheter has been placed * Dialysis was successful yesterday, could possibly go for a partial dialysis or a full treatment tomorrow * Continue to await lab results (2) Hyperkalemia: Code(s): E87.5 - Hyperkalemia Status: Acute Assessment and Plan: * Current 3.5 * Treated at the outside facility * Repeat potassium is pending to ensure correction. * Trend labs (3) Insulin dependent type 2 diabetes mellitus: Code(s): E11.9 - Type 2 diabetes mellitus without complications; Z79.4 - correction (current) use of insulin Status: Acute Assessment and Plan: * Glucose 80 * Resume basal insulin * interim we will initiate sliding scale insulin * Check A1c 6.2 (4) Hypertension: Code(s): I10 - Essential (primary) hypertension Status: Acute Assessment and Plan: * BP 154/80 * Lisinopril recently discontinued due to angioedema as per HPI * Continue amlodipine and hydralazine * Monitor daily (5) Anemia in chronic kidney disease: Code(s): N18.9 - Chronic kidney disease, unspecified; D63.1 - Anemia in chronic kidney disease Status: Acute Assessment and Plan: * H/H 7.6/24.2 * Hemoglobin and hematocrit have been stable on review of labs sent from the outside facility. Continue to monitor. * [facility] Iron 27, TIBC 168, % Sat 16, Ferritin 285 * Ferrous Sulfate 324mg PO BID (6) Dyslipidemia: Code(s): E78.5 - Hyperlipidemia, unspecified Status: Acute Assessment and Plan: * Recent lipid panel as detailed above (cholesterol 354, LDL 234). Change simvastatin to higher intensity statin. (7) Pneumonia involving right lung: Code(s): J18.9 - Pneumonia, unspecified organism Status: Acute Assessment and Plan: * COVID/influenza tests were negative at the outside facility. Start ceftriaxone and azithromycin. Attempt sputum for culture. DS: Summary Hospital Course Hospital Course: patient is a 56-year-old female with a past medical history of hypertension, anemia of chronic disease, dyslipidemia who was a direct admit from [facility] for end-stage renal disease and abnormal labs. Chest x-ray upon arrival showed moderate amount of right peripheral pneumonia or edema. Renal ultrasound showed unremarkable kidneys. Dialysis catheter was placed by general surgery and Nephrology was consulted. Patient received dialysis 3 times since admission. Labs have been obtained. Electrolytes have been stable. Patient did show a low hemoglobin hematocrit secondary to kidney disease. Anemia labs show iron deficiency and iron was added to her regimen. Patient does present hy
[2021-07-19 19:59] LABS: Legionella pneumophila Ag Ur Not Detected (Not Detected)
[2021-07-20 22:41] LABS: Pneumococcal Antigen Urine Not Detected (Not Detected)
== END 2021-07-18 13:30 | disposition home or self-care (01) | DRG 673 ==
PROVIDERS: Internal Medicine Nephrology; Physician Assistant; Surgery; Admitting Provider Family Medicine; PCP Internal Medicine; Visit Provider Nurse Practitioner
PROC: 0JH63XZ Insertion of Tunneled Vascular Access Device into Chest Subcutaneous Tissue and Fascia, Percutaneous Approach (ICD-10-PCS; CPT 36908; principal; 2021-07-14 10:30)
DX: N17.9 Acute kidney failure, unspecified (principal); J18.9 Pneumonia, unspecified organism; I12.0 Hypertensive chronic kidney disease with stage 5 chronic kidney disease or end stage renal disease; E11.22 Type 2 diabetes mellitus with diabetic chronic kidney disease; N18.6 End stage renal disease; E87.5 Hyperkalemia; D63.1 Anemia in chronic kidney disease; E78.5 Hyperlipidemia, unspecified; Z79.4 Long term (current) use of insulin; Z99.2 Dependence on renal dialysis; E66.9 Obesity, unspecified; Z68.31 Body mass index [BMI] 31.0-31.9, adult; E11.21 Type 2 diabetes mellitus with diabetic nephropathy; D50.9 Iron deficiency anemia, unspecified
CPT/HCPCS: 36415; 71045; 74018; 76775; 77001; 80053; 80074; 81001; 82728; 82948; 83036; 83540; 83550; 83735; 84100; 85025; 85046; 85610; 86704; 86705; 86706; 87070; 87205; 87340; 87449; 87899; A9270; C1750; G0257; J0456; J0696; J1644; J1756; J1815; J2405; J2704; J3010; J7030; J7040

== ENCOUNTER 2024-10-31 09:19 | Outpatient (CLI) | payer MEDICARE, MEDICAID, SELFPAY ==
--- NOTE | ~2024-10-31 | XR_ITS ---
MODIFIED ESOPHAGRAM HISTORY: Dysphagia. TECHNIQUE: Modified barium esophagram was performed by speech pathologist under radiologist fluorosco pic guidance. This was recorded on tape. The exam was reviewed on 11/01/2024 16:54 CDT. The DAP for this procedure was 0.46 Gycm2. Fluoroscopy time is 0.9. FINDINGS: Lateral projection of the cervical spine demonstrates normal alignment. Normal swallowing function without aspiration or penetration. IMPRESSION: 1: Normal swallowing function without aspiration or penetration 2: Please refer to speech pathologist report for additional detail. Reviewed, dictated and finalized at location A.
--- OUTSIDE RECORDS SUMMARY | 2024-10-31 09:24 | XMS_ITS | Clinical Summary ---
Author Organization [facility] Address [address] [place] [address] Care Team Providers Care Laborer Car Barn Name Role Phone Yvan Herrera MD Primary Care Provider [phone] Social History Tobacco Use Types Packs/Day Years Used Date Smoking Tobacco: Never Assessed Comments Unknown Sex and Gender Information Value Date Recorded Sex Assigned at Not on file Legal Sex Female 4:47 PM CDT Gender Identity Not on file Sexual Orientation Not on file Plan of Treatment Health Maintenance Due Date Last Done Comments Cervical Cancer Screening Pa p Smear (Age 30 to 64) Every 3 Years 1965 Colorectal Cancer Screening Colonoscopy (10 Years) 1965 Annual Physical 06/21/1966 Hepatitis C 06/21/1981 DTaP, Tdap and Td Vaccines ( 1 - Tdap) 06/21/1982 Cervical Cancer Screening Pa p with HPV Testing (Age 30 to 64) Every 5 Years 06/21/1993 Cervical Cancer Screening with HPV 06/21/1993 Mammogram Screening 2003 Pneumococcal Vaccine: 50+ Ye ars (1 of 1 - PCV) 06/21/2013 Zoster Vaccines (1 of 2) 06/21/2013 COVID-19 Vaccine (2023-2 5 season) 2023 RSV Immunization or 60+ Years (1 - 1-dose 75+ series) 06/21/2038 Meningococcal B Vaccine Aged Out No l onger eligible based on patient's age to complete this topic Meningococcal Vaccine Aged Out No eleni shyann eligible based on patient's age to complete this topic RSV Immunizations Under 20 Months Aged Out No longer eligible based on patient's age to complete this topic Care Teams Laborer Car Barn Relationship Specialty Start Date End Date Yvan Herrera MD PCP - General 3/3/17
--- OUTSIDE RECORDS SUMMARY | 2024-10-31 09:24 | XMS_ITS | Continuity of Care Document ---
Author Organization [facility] Address [address] [place] [address] Insurance Providers Payer Plan Claims Address Claims Phone Policy Number Group Number Relation Employer Guarantor Name Guarantor Guarantor Address Guarantor Phone [employer] [address] [address], [place] [address] Coverag [id number] Self Lesley Burch [address] [place] [address] [id number] [employer] [place] [address] [address], [place] [address] Coverag [id number] Self Lesley Burch [address] [place] [address] [id number] [facility] MANA[facility] ED MEDIC ARE ADV [address] [address], [place] [address] tel:[phone] Self Lesley Burch [address] [place] [address] Problems Unknown Problems Results No Results Allergies, adverse reactions, alerts Substance Reaction Date Status Type lisinopril 03/14/2024 Drug Medications No administered medications reported Vital Signs Date Vital Result Comment 03/14/2024 Inhaled Oxygen Concentration 21.0 % N Faces Pain Scale 0.0 N Temperature 98.7 [degF] N Oxygen Saturation 98 % N Respiratory Rate 14 /min N Heart Rate 80 /min N Blood Pressure Systolic 142 mm[Hg] N Blood Pressure Diastolic 88 mm[Hg] N Body Height 61 [in_i] N Body Weight 140.8 [lb_av] N Body Mass Index 26.6 kg/m2 N 06/23/2024 Inhaled Oxygen Concentration 21.0 % N Temperature 98.8 [degF] N Oxygen Saturation 99 % N Respiratory Rate 16 /min N Heart Rate 82 /min N Blood Pressure Systolic 178 mm[Hg] N Blood Pressure Diastolic 93 mm[Hg] N Body Height 61 [in_i] N Body Weight 138 [lb_av] N Body Mass Index 26.1 kg/m2 N Social History No smoking Hx information available Functional Status Category Condition Date Problem (Feeding: Independent) Feeding: Independ ent 03/14/2024 Problem (Bathing: Independen t (or in shower)) Bathing: Independent (or in shower) 03/14/2024 Problem (Grooming: Independe nt face/hair/teeth/ shaving (implements provided)) Grooming: Independent face/hair/teeth/ shaving (implements provided) 03/14/2024 Problem (Dressing: Independe nt (including buttons, zips, laces, etc.)) Dressing: Independent (including buttons, zips, laces, etc.) 03/14/2024 Problem (Bowels: Continent) Bowels: Continent Problem (Bladder: Continent) Bladder: Continent 03/14/2024 Problem (Toilet use: Indepen dent (on and off, dressing, wiping)) Toilet use: Independent (on and off, dressing, wiping) 03/14/2024 Problem (Transfers (bed to c hair and back): Independent) Transfers (bed to chair and back): Independent 03/14/2024 Problem (Mobility (on level surfaces): Wheelchair independent, including corners, >50 yards) Mobility (on level surfaces): Wheelchair independent, including corners, >50 yards 03/14/2024 Problem (Stairs: Unable) Stairs: Unable 024 Problem (Total score: 80) Total score: 80 2023
--- OUTSIDE RECORDS SUMMARY | 2024-10-31 09:24 | XMS_ITS | Encounter Summary ---
Author Organization [facility] Address [address] [place] [address] Care Team Providers Care Federal Law Clerk Name Role Phone Chandrakant Coyle MD Primary Care Provider [phone] Chrissie Michelle MD Unavailable Encounter Details Date Type Department Care Team (Late st Contact Info) Description 04/17/2024 Telephone [facility] - Centralized Scheduling [address] [place] [address] Chrissie Michelle MD [facility] [place] [address] Social History Tobacco Use Types Packs/Day Years Used Date Smoking Tobacco: Never Smokeless Tobacco: Never Alcohol Use Standard Drinks/Week Comments No 0 (1 standard drink = 0.6 oz pur e alcohol) AUDIT-C Answer Date Recorded Q1: How often do you have a drink containing alcohol? Never 07/17/2022 Q2: How many drinks containi ng alcohol do you have on a typical day when you are drinking? Patient does not drink Q3: How often do you have si x or more drinks on one occasion? Never 07/17/2022 PHQ-2 Answer Date Recorded PHQ2 TOTAL SCORE 0 11/11/2022 Comments No Sex and Gender Information Value Date Recorded Sex Assigned at Not on file Legal Sex Female 11:27 AM CLINICAL PRODUCT MANAGER Gender Identity Not on file Sexual Orientation Not on file documented as of this encounter Functional Status * Is person deaf or have serious hearing difficulty? Answer Date of Assessment Author No 08/14/2016 9:22 AM Jacobo Willoughby RN * Is person blind or have serious difficulty seeing? Answer Date of Assessment Author No 08/14/2016 9:22 AM Jacobo Willoughby RN * Does person have serious difficulty walking/climbing stairs? Answer Date of Assessment Author No 08/14/2016 9:22 AM Jacobo Willoughby RN * Does person have difficulty dressing/bathing? Answer Date of Assessment Author No 08/14/2016 9:22 AM Jacobo Willoughby RN * Does person have difficulty doing errands alone? Answer Date of Assessment Author No 08/14/2016 9:22 AM Jacobo Willoughby RN documented as of this encounter Mental Status * Does person have difficulty concentrating/remembering/making decisions? Answer Entry Date Author No 08/14/2016 9:22 AM Jacobo Willoughby RN documented in this encounter Plan of Treatment Upcoming Encounters Date Type Department Care Team (Late st Contact Info) Description 01/04/2025 9:00 AM CDT Office Visit [facility] - Endocrinology [address] [place] [address], [place] [address] Chrissie Michelle MD [address] [place] [address] [place] [address] 04/20/2025 10:00 AM CLINICAL PRODUCT MANAGER Appointment [facility] Vascular Services [address] [facility], [address] [place] [address] [place] [address] [phone] Ilya Elizalde MD [address] [place] [address] [place] [address] [facility] [address] [place] [address] [place] [address] [facility] [address] [place] [address] [place] [address] [facility] [address] [place] [phone] documented as of this encounter Visit Diagnoses Not on filedocumented in this encounter Care Teams Federal Law Clerk Relationship Specialty Start Date End Date Chandrakant Coyle MD PCP - General Internal Medicine 09/22/21 Chrissie Michelle MD [address] [place] [phone] PCP - Attributed-[facility] 08/10/24 09/27/24 documented as of this encounter
--- OUTSIDE RECORDS SUMMARY | 2024-10-31 09:24 | XMS_ITS | Encounter Summary ---
Author Organization [facility] Address [address] [place] [address] Care Team Providers Care Law Office Receptionist Name Role Phone Chandrakant Coyle MD Primary Care Provider [phone] Chrissie Michelle MD Unavailable Encounter Details Date Type Department Care Team (Late st Contact Info) Description 08/03/2024 Lab Requisition [facility] [address] [place] [phone] Chandana Kim MD [facility] SURGERY [place], [place] [id number] Social History Tobacco Use Types Packs/Day Years [...] on file Legal Sex Female 11:27 AM HEAD IRRIGATOR Gender Identity Not on file Sexual Orientation [...] of Assessment Author No 08/14/2016 9:22 AM Sarai Willoughby RN * Does person have difficulty [...] Description 01/04/2025 9:00 AM CDT Office Visit [facility] - Endocrinology [address] [place] [address], [place] [phone] Chrissie Michelle MD [address] [place] [address] [place] [phone] 04/20/2025 10:00 AM HEAD IRRIGATOR Appointment [facility] Vascular Services [address] [facility], [address] [place] [address] [place] [address] [facility] [address] [place] [address] Ilya Elizalde MD [address] [place] [address] [place] [address] [place] [address] [place] [address] [facility] [address] [place] [address] [place] [address] [facility] [address] [place] [phone] documented as of this encounter Procedures Procedure Name Priority Date/Time Associated Diagnosis Comments HOLD HLA SPECIMEN Routine 07/18/2024 1:3 6 PM CDT documented in this encounter Results * HOLD HLA SPECIMEN (07/18/2024 1:36 PM CDT) Hold HLA Specimen 08/03/2024 3:02 PM CDT [facility] ([facility]) Comment:The Hold HLA specime n has been received into the lab and will be held for 5 years at 4 degrees. Blood BLOOD SPECIMEN / Unknown 07/18/2024 1:36 PM CDT 08/03/2024 1:36 PM CDT us Chandana Kim MD LAB - BLOOD BANK ORDERABLES F inal Result [facility] ([facility]) [address] [place] [address], [facility] documented in this encounter Visit Diagnoses Not on filedocumented in this encounter Care Teams Law Office Receptionist Relationship Specialty Start Date End Date Chandrakant Coyle MD PCP - General Internal Medicine 09/22/21 Chrissie Michelle MD [address] [place] [address] PCP - Attributed-[facility] 08/10/24 09/27/24 documented as of this encounter
--- OUTSIDE RECORDS SUMMARY | 2024-10-31 09:24 | XMS_ITS ---
Author Organization [facility] Address [address] [facility] [place] [address] Care Team Providers Care Casino Beverage Server Name Role Phone Chandrakant Coyle MD Primary Care Provider [phone] Transplant Episode Kidney Candidate [facility] ([place], [place]) [facility] Center waitlisted on 10/06/2022 Marked as Active on 11/16/2022 Kidney CoordinatorEvon Miles RN Phone: N/A Fax: N/A Email: N/A Scores Score Value Updated Exceptions/Reas ons CPRA Not available EPTS (Calc) 84 10/31/2024 [place] Organ Diagnosis Organ Primary Contributory Kidney Diabetes Mellitus - Type II Care Team Name Role Phone Fax Email Evon Miles RN Kidney Coordinator N/A N/A N/A Deanna Kate Pheresis Nurse N/A N/A N/A Oneal Ambrose MD Referring Physician [phone] N/A Ankita Obrien LMSW Cup Machine Operator [phone] N/A N/A Events Pre-Transplant Referred: 08/12/2021 Evaluation began: 11/05/2021 Committee: 10/01/2022 UNOS qualified: 07/15/2021 Center waitlisted: 10/06/2022 Dialysis History Dialysis History Start End Type Comments Center 07/15/2021 In-center Hemodialysis [facility] Dialysis Center Information Center Phone Fax Address [facility] [phone] [address] [facility] [address]
--- OUTSIDE RECORDS SUMMARY | 2024-10-31 09:24 | XMS_ITS | Encounter Summary ---
Author Organization [facility] Health Address [address] [place] [address] Care Team Providers Care Senior Investment Analyst Name Role Phone Chandrakant Coyle MD Primary Care Provider [phone] Chrissie Michelle MD Unavailable Encounter Details Date Type Department Care Team (Late st Contact Info) Description 07/07/2024 Lab Requisition [facility] [address] [place] [id number] Chandana Kim MD [facility] [place], [place] [id number] Social History Tobacco Use Types Packs/Day Years [...] on file Legal Sex Female 11:27 AM BOOM CRANE OPERATOR Gender Identity Not on file Sexual Orientation [...] Office Visit [facility] - Endocrinology [address] [place] [address], [place] [phone] Chrissie Michelle MD [address] [place] [address] [place] [phone] 04/20/2025 10:00 AM BOOM CRANE OPERATOR Appointment [facility] Health Vascular Services [address] [facility], [address] [place] [address] [place] [address] [facility] [address] [place] [address] Ilya Elizalde MD [address] [place] [address] [place] [address] [place] [address] [place] [address] [facility] [address] [place] [phone] [place] [address] [facility] [address] [place] [phone] documented as of this encounter Procedures Procedure Name Priority Date/Time Associated Diagnosis Comments HOLD HLA SPECIMEN Routine 06/20/2024 1:0 6 PM CDT documented in this encounter Results * HOLD HLA SPECIMEN (06/20/2024 1:06 PM CDT) Hold HLA Specimen 07/07/2024 2:32 PM CDT [facility] ([facility]) Comment:The Hold HLA specime n has been received into the lab and will be held for 5 years at 4 degrees. Blood BLOOD SPECIMEN / Unknown 06/20/2024 1:06 PM CDT 07/07/2024 1:06 PM CDT Chandana Kim MD LAB - BLOOD BANK ORDERABLES F inal Result [facility] ([facility]) [address] [place] [address], [facility] documented in this encounter Visit Diagnoses Not on filedocumented in this encounter Care Teams Senior Investment Analyst Relationship Specialty Start Date End Date Chandrakant Coyle MD PCP - General Internal Medicine 09/22/21 Chrissie Michelle MD [address] [place] [address] PCP - Attributed-[facility] MA [place] P4P 08/10/24 09/27/24 documented as of this encounter
--- OUTSIDE RECORDS SUMMARY | 2024-10-31 09:24 | XMS_ITS | Clinical Summary ---
Author Organization [facility] Text[facility]do Address [address] [place] [address] Care Team Providers Care Polishing Machine Operator Name Role Phone Chandrakant Coyle MD Primary Care Provider [phone] Source Comments [facility],non-owned Affiliates and Associated Physician Practices is amultiple site organization consisting of ambulatory clinics and hospital sitesin [place], [place], [place] and [place]. This disclosure is being madepursuant to the Care Everywhere program and may not contain all information available regarding this patient. Last updated 17.[facility] Allergies Active Allergy Reactions Criticality Noted Date Comments Lisinopril Swelling High 04/27/2022 Medications * Be aware that medications may not be up to date on this document. Alwaysverify current medications with the patient. amLODIPine (NORVASC) 10 MG tablet Take 1 (one) tablet by mouth at bedtime Active hydrALAZINE (APRESOLINE) 25 MG tablet Take 3 (three) tablets by mouth 3 times daily 75mg TID Active ONETOUCH DELICA PLUS 30G FINE LANCETS USE TO CHECK BLOOD SUGAR THREE TIMES DAILY 2 Active ONETOUCH VERIO test strip USE TO CHECK BLOOD SUGAR THREE TIMES DAILY 2 Active albuterol HFA (PROVENTIL; VENTOLIN; PROAIR) 108 (90 Base) MCG/ACT inhaler Inhale 2 puffs by mouth every 4 hours as needed for shortness of breath or wheezing 2 Active sevelamer (Renagel) 800 MG tablet Take 1 (one) tablet by mouth 3 times daily with meals Active aspirin EC (Ecotrin) 81 MG tablet every 24 hours Activ e blood glucose ([employer] World [employer] GroupTouch Verio) test stripIndicatio ns:Type 2 diabetes mellitus with diabetic nephropathy, with long-term current use of insulin (HCC) Use 1 (one) strip 3 times daily before meals 300 strip 3 3 Active Blood Glucose Monitoring Suppl ([employer] GroupTouch Verio Reflect) w/Device KITIndications :Type 2 diabetes mellitus with diabetic nephropathy, with long-term current use of insulin ([facility]) Use 1 kit as directed 1 kit 3 Active Lancets (SynchronicaTOUCH DELICA PLUS 33G EXTRA FINE LANCET)Indicat ions:Type 2 diabetes mellitus with diabetic nephropathy, with long-term current use of insulin ([facility]) Use 1 Each 3 times daily before meals 300 Each 3 3 Active montelukast (Singulair) 10 MG tablet Take 1 (one) tablet by mouth once daily 3 Active pregabalin (Lyrica) 75 MG capsule Take 1 (one) capsule by mouth once daily 3 Active vitamin D, ergocalciferol , (Drisdol) 1.25 MG (81604 UT) capsule Take 1 (one) capsule by mouth 4 Active sevelamer carbonate (Renvela) 800 MG TAKE TWO TABLETS BY MOUTH THREE TIMES DAILY WITH MEALS 4 Active Lantus SoloStar pen Inject 18 (eighteen) Units subcutaneously every 24 hours 6 mL 11 4 Active SITagliptin (Januvia) 25 MG tabletIndicati ons:Type 2 diabetes mellitus with diabetic nephropathy, with long-term current use of insulin ([facility]) Take 1 (one) tablet by mouth once daily 100 tablet 4 4 Active Insulin Pen Needle 32G X 4 MM MISCIndication s:Type 2 diabetes mellitus with diabetic nephropathy, with long-term current use of insulin ([facility]) 1 Each by Injection route once daily 100 Each 11 4 Active Continuous Glucose Sensor (Dexcom G7 Sensor) MISCIndication s:Type 2 diabetes mellitus with chronic kidney disease on chronic dialysis, with long-term current use of insulin (HCC) Use 1 Each every 10 days 3 Each 5 5 Active Additional Information Patient not taking.Reported on 09/15/2024 Airsupra 90-80 MCG/ACT AERO INHALE TWO PUFFS BY MOUTH EVERY TWELVE HOURS NEEDED (NO MORE THAN 12 INHALATIONS IN 24 HOURS) 5 Active Active Problems Problem Noted Date Diagnosed Date Neuropathy 03/31/2023 Pre-transplant evaluation fo r ESRD (end stage renal disease) 09/17/2022 Type 2 diabetes mellitus wit h chronic kidney disease on chronic dialysis, with long-term current use of insulin 09/01/2022 Overview (11/13/2022): 11/13/22 FIbroscan CAP 198, LSM 3.7 kPa Encounter regarding vascular access for dialysis for end-stage renal disease 04/07/2022 Pre-transplant evaluation for kidney transplant 12/26/2021 Overview (10/24/2024): Images from the original note were not included. Lesley Nagy 1965 Referring Forestry Contractor: Oneal Ambrose Listing Date: 10/06/2022 Dialysis Info: Type: HD Time: 164 days ( 07/15/2021) Blood Type: O+ Body mass index is 25.77 kg/m . ALERTS Listed for Hep C kidneys Book Publisher: Chaitanya Paulino MD Induction Method: Immunosuppression Induction Method/Plan: Antithymocyte globulin (rabbit) (Thymoglobulin) 5 mg/kg ESRD r/t DM2 and HTN Past Medical History: Diagnosis Date Constipation Diabetes mellitus (CMS/HCC) 1999 Started insulin with dx. No endocrinolgist. Diabetic retinopathy (CMS/HCC) ESRD (end stage renal disease) on dialysis (CMS/HCC) [facility] , , 11/24/21 ESRD on hemodialysis (CMS/HCC) Hypercholesteremia Hypertension 1999 Neuropathy Type 2 diabetes mellitus without complications (CMS/HCC) Past Surgical History: Procedure Laterality Date A-V SHUNT CREATION Left 11/05/2021 Left; LEFT ARM DIALYSIS FISTULA TRANSPOSITION Breast Biopsy Right [facility] BREAST BIOPSY, EXCISION Left 07/17/2022 Left; LEFT breast excisional biopsy with magseed guidance Cardiac Catherization N/A 09/17/2022 N/A; Coronary Angiography Section 1981, 1982, 1984 COLONOSCOPY N/A 08/14/2016 N/A; COLONOSCOPY SCREEN COLONOSCOPY WITH BIOPSY 08/14/2016 COLONOSCOPY BIOPSY Hysterectomy total due to fibroids IR ANGIO AV SHUNT NON DIRECT OTHER SURGERY Right 07/2021 HD cath US BREAST LEFT BIOPSY Left 05/05/2022 US BREAST LEFT BIOPSY 05/05/2022 [facility] OP VASCULAR PROCEDURE/SURGERY Left 09/03/2021 Left; LEFT ARM CEPHALIC ARTERIOVENOUS FISTULA Social History Socioeconomic History Marital status: Spouse name: Not on file Number of children: Not on file Years of education: Not on file Highest education level: Not on file Occupational History Not on file Tobacco Use Smoking status: Never Smokeless tobacco: Never Vaping Use Vaping Use: Never used Substance and Sexual Activity Alcohol use: No Drug use: No Sexual activity: Not on file Other Topics Concern Special Diet No Social History Narrative Not on file Social Determinants of Health Financial Resource Strain: Not on file Food Insecurity: Not on file Transportation Needs: Not on file Physical Activity: Not on file Stress: Not on file Social Connections: Not on file Intimate Partner Violence: Not on file Housing Stability: Not on file Transplant Surgery Clinic Appt w/: Dr. Jarrell Assessment/Plan: 58 year old female with esrd d/t hypertension/dm2. I spent 30 minutes with discussing the risks and benefits of kidney transplant including the need for lifelong immunotherapy, the need for the patient to be compliant with the immunotherapy, the need for a lifelong relationship with a health care provider and the need to have labs checked frequently. We also talked about the risks of surgery including but not limited to the following: Anesthetic concerns including heart attack, stroke, or Need for endotracheal intubation and possibility of prolonged intubation Intraoperative and postoperative bleeding Postoperative hematoma or wound infection requiring return to OR Renal artery and vein thrombosis requiring return to OR and possible explantation Ureteric stricture or leak requiring interventional procedures and/or reoperation Delayed graft function Risk of primary nonfunction Increased risk of infection and malignancy remotely We discussed the possibility of receiving an HCV+ organ. We discussed the antiviral treatment and need for compliance to achieve SVR; the cure rate of 98% with DAA and the possibility of repeating a course if not cured; and the possibility of complications prior to and while undergoing treatment. These include headaches, nausea, cryoglobulinemia and CASPER, and encephalitis as well as possible hepatitis-induced injury to the graft. At this time the patient is amenable. We discussed the possibility of receiving an increased risk organ. We discussed the risk factors that place kidneys in this category and the relative risk of transmission from an increased risk donor. We compared that risk with the risk of remaining on dialysis and the risk of hepatitis transmission on dialysis. At this time the patient is amenable. We discussed the possibility of receiving an organ with a KDPI of >85%. We discussed the lower mean survival for these organs and the increased rates of delayed graft function. At this time the patient is amenable. I believe Ms. Nagy is a Good candidate for kidney transplant. At this time the patient needs the following prior to committee presentation: None CT reviewed - calcs worsening. Still room on commons for placement All listing decisions will be made in the listing committee and are final. Jane Jarrell MD film librarian Transplant Surgery [facility] Transplant Surgery Clinic Appt w/: Dr. Hoff 03/15/2023 Transplant Surgery Clinic Appt w/: Dr. Hoff Date: 03/23/2022 Nephrology Clinic Appt w/: Dr. Dickens Date: 03/23/2022 A/P: Assessments and Recommendations: Lesley Nagy was seen today for kidney transplant evaluation. Risks and benefits of transplant were discussed including the benefits of living kidney transplant. We discussed high KDPI kidneys and kidneys from donors with PHS risk factors. All questions and concerns were addressed. 1) ESKD on Hemodialysis - Cause of ESKD: Most likely due to Inherited kidney disease +/- diabetic nephropathy - On HD since 07/15/2021 - Residual renal function ~400 mL - Vascular access is left upper extremity (cephalic) AVF - Family history of kidney disease -> Her daughter and her sister have kidney disease and on hemodialysis - Information about transplantation options were given Plan: - Renasight genetic testing will be ordered - Previous right breast biopsy was performed after mammography and found benign per patient. New mammogram report is pending 2) Cardiovascular Disease - Due to the risk of CAD in patients with ESKD and DM, LHC will be performed on 04/27/22 3) Hypertension - BP level is under normal levels. - On Hydralazine 75 mg TID po, Amlodipine 10 mg daily 4) Abdomen CT and left lung inflam. changes - CT abdomen non IV contrast (02/17/22) -> Groundglass opacities in tree-in-bud nodularity seen within the basilar segment of the left upper lobe consistent with infectious/inflammatory changes such as early bronchopneumonia. - Chest CT wo contrast is performed on 03/23/22 -> report is pending 5) Hematological disorders - Hgb 13 g/dL on 02/04/22 - TSAT 41.4 % - Serum ferritin 902 ng/mL (02/04/22) 6) CKD Bone and Mineral Disease - Serum Ca 9.6 mg/dL, P 4.6 mg/dL, albumin 3.9 g/dL, PTH 199.7 pg/mL on 02/04/22 - On Sevelamer 800 mg TID po, Ergocalciferol 59610 U monthly 7) Infections - Viral hepatitis markers negative - CMV IgG (+) and EBV IgG (+) on 02/04/22 8) Immunological Assessment - History of sensitization: (+), Blood transfussion (-), History of failed kidney transplant (-) - PRA screening -> Class I 0% and class II 3% on 02/04/22 9) COVID-19 prevention - The importance of avoiding infection, and our protocol for screening for COVID-19 prior to transplant surgery is discussed. - Williamson and Wesley vaccine completed on 07/20/20. Overall Lesley Nagy is a good patient for kidney transplantation. LHC will be performed. Renasight genetic test will be performed. Chest CT and mammography reports are pending. Patient is seen in the clinic and examined. Plan of care is discussed. Time spent during chart review and patient visit was over 60 mins. William Dickens MD 03/23/2022 1:34 PM Other Consults: Hepatology (HCV+ eval): 05/28/2023 11/13/22 Fibroscan Labs and test results were reviewed with the patient. 40 minutes was spent with the patient >50% of which was spent in counseling and coordination of care. Impression/ Plan: 1. ESRD- due to HTN and DM2 presently actively listed for kidney transplant. 2. Contraindications to receiving a HCV positive kidney- none presently. Pt records reviewed back to 2016 without evidence of elevated transaminases or altered hepatic function. She has no hx of acute or chronic liver dz that could be complicated by the addition of hepatitis C. She has a normal appearing liver on available imaging. She has no hx of medical non-compliance. The fibroscan don in the office in November revealed low risk of advanced fibrosis and hepatic steatosis. 3. During the clinic visit today with Lesley Nagy, the following information and risks regarding the use of a Kidney organ from HCV+ donors was discussed: A positive test for hepatitis C in a donor means the donor has been exposed to hepatitis C virus. There is close to 100% risk of transmission of HCV from using organs from HCV positive donors with the likely development of the hepatitis C infection requiring treatment.This HCV infection can potentially cause chronic liver disease without treatment. Not everyone who is infected with the virus develops serious liver disease. There may be the rare possibility of severe HCV infection that may cause fibrosing cholestatic hepatitis (liver disease), which can be life threatening. There is a risk of sexual and blood transmission to a partner/household before successful treatment. There will be a need for antiviral therapy post- transplant to treat the HCV infection. There is a risk that hepatitis C virus will not respond to treatment and HCV can be a lifelong infection. Drug screens may be required by insurance prior to approval of treatment. There is a risk that insurance may deny payment of anti- viral treatment and/or that a copayment may be required. During treatment, careful follow up is required to monitor response of the hepatitis C therapy. The benefit of receiving a HCV positive donor organ as decreased waiting time on the transplant list was also discussed. Lesley Nagy was present with Nicole Rocha PA-C and verbalized full understanding of all of the above information. The patient is agreeable to accepting organs from HCV positive donors and the need for treatment afterwards. The consent was signed in the office today. Return to clinic: An appointment was scheduled for her to see us in followup in PRN. Nicole Rocha PA-C Physician Rural Mail Carrier in Internal Medicine Adi Hicks MD Professor of Internal Medicine Pertinent Previous Committee Presentations: 06/03/2023 Committee Review Decision: Remain Active Committee Discussion Details: Pt presented at [facility] for Hep C kidneys. Reviewed past medical and surgical history. Reviewed Hepatology evaluation: -Fibroscan 11/13 shows low fibrosis and steatosis risk -normal LFTs, normal liver on CT -no present contraindications to receiving a HCV+ kidney Per team, OK to list for Hep C kidneys 10/01/2022: Induction Method: Immunosuppression Induction Method/Plan: Antithymocyte globulin (rabbit) (Thymoglobulin) 5 mg/kg Committee Discussion Details: Pt brought to [facility] to discuss possible listing. -Reviewed PMH and eval test results. -Reviewed renasight results. -Pt had positive tox screen with initial eval due to recent surgery. Requested re screen completed and results pending. -High dose statin therapy and asa recommended post LHC by cardiology. Pt is not currently on statin. Reviewed lipid profile. Message left with PAULO RN to assist with starting. -CT imaging previously reviewed with Dr. Kim and Dr. Hoff. Report notes moderate calcifications in distal half of bilateral iliac arteries. Did not re review at this meeting. -Reviewed follow up for abnormal mammography. Diagnostic mammography with US, bx, mammographically guided magseed placement and surgical intervention reviewed. Clearance given by Dr. Juarez -Pt reports total hysterectomy for fibroids. Well woman's exam is scheduled for 11/11/2022 -No concern voiced from Vanna SMITH, Mireya RD or Emy FC. Per team, ok to list INACTIVE pending result of tox screen. Once well woman exam completed and reviewed with sales floor team member, pt can be switched to ACTIVE listing. Labs: 02/09/2024 PTH: 214.6 A1c: 5.4 Glucose: 111 GFR: 10 Serologies: +HepAsAb, +HepBsAb, all others negative CMV Igg: positive EBV Igg: positive Varicella: Immune MMR: +++ Toxo: <3.0 Strongyloides: 0.1 Albumin: 3.9 Tox Screen: all negative Quant Gold: sample void; see negative PPD results below PRA: Class 1 Class 2: 0, 3 (09/30/22) Vitamin D 26 Latest Reference Range & Units 02/04/22 08:31 02/03/23 10:23 02/09/24 11:00 Total Cholesterol (NMR) <200 mg/dL 188 194 223 (H) Triglycerides <150 mg/dL 90 49 76 HDL >40 mg/dL 68 72 66 LDL Calculated <100 mg/dL 102 (H) 112 (H) 142 (H) Reviewed Hepatitis vaccination: Hepatitis A positive due to vaccine Hepatitis B positive due to vaccine Recent Labs Component Name 02/09/24 1100 HAVAB Positive* HBVSAB 419.1* HEPBCAB Non-reactive HEPBSAG Non-reactive Kidney Biopsy: No bx Renasight: Echo: 10/20/2024 Summary * The left ventricle is moderately dilated, with normal systolic function and an estimated ejection fraction of 54 % by biplane method of disks. Left ventricular wall motion is normal. * The left ventricular mass is mildly increased with eccentric hypertrophy. * The left ventricular diastolic function is consistent with grade II diastolic dysfunction. * Right ventricle is quantitatively dilated with normal systolic function. * The left atrium is moderately dilated. * There is mild to moderate mitral valve regurgitation. * There is mild to moderate tricuspid valve regurgitation. * The pulmonary artery systolic pressure is mildly elevated, 49 mmHg. Left Ventricle The left ventricle is moderately dilated. There is normal left ventricular wall thickness. Left ventricular systolic function is normal with an estimated ejection fraction of 54 % by biplane method of disks. The left ventricular mass is mildly increased with eccentric hypertrophy. Left ventricular segmental wall motion is normal. The left ventricular diastolic function is consistent with grade II diastolic dysfunction. Right Ventricle The right ventricle is quantitatively dilated. Right ventricular systolic function is normal. Left Atrium The left atrium is moderately dilated. Right Atrium The right atrium is normal in size. Atrial Septum Intact interatrial septum visualized by color Doppler imaging. Aortic Valve The aortic valve is trileaflet and mildly calcified. There is no aortic valve stenosis with a peak velocity of 1.5 m/s, mean gradient of 5 mmHg, and aortic valve area of 2.50 cm2. There is no aortic valve regurgitation. Pulmonic Valve The pulmonic valve is not well visualized, but grossly normal. There is no pulmonic valve stenosis. There is mild pulmonic regurgitation. Mitral Valve The mitral valve is thickened. There is no mitral valve stenosis. There is mild to moderate mitral valve regurgitation. Tricuspid Valve The tricuspid valve is grossly normal. There is mild to moderate tricuspid valve regurgitation. The pulmonary artery systolic pressure is mildly elevated, 49 mmHg. Inferior Vena Cava The inferior vena cava is normal in size (< 2.1 cm). There is > 50% collapse of the IVC upon inspiration with an estimated right atrial pressure of 3 mmHg. Pericardium/Pleural There is a small pericardial effusion. Aorta The aortic root at the sinus of Valsalva is normal in size. The ascending aorta is normal in size. DSE: 10/20/2024 Summary * The stress echocardiogram is negative for dobutamine induced wall motion abnormalities. * Negative stress ECG for ischemic changes. * Please see separate report for complete echocardiogram. Stress Echo Findings Left Ventricle Normal left ventricular systolic function with no regional wall motion abnormalities noted at rest. No regional wall motion abnormalities noted at rest. Overall global left ventricular systolic function Improved post stress. No regional wall motion abnormalities noted post stress. Normal augmentation of all wall segments without evidence of ischemia with stress. [facility]: 09/17/2022 Conclusion Mild non-obstructive coroanry artery disease in distal RCA and proximal LAD. Conscious sedation without complications. Successful right transradial heart catheterization. Recommendations - Follow maximal guideline directed medical therapy for stable coronary artery disease. - Recommend high dose statin therapy and aspirin 81 mg by mouth daily indefinitely. - Plan for lifestyle intervention with diet, exercise, and weight loss. - No further revascularization required prior to kidney transplant at this time. Coronary Findings Diagnostic Dominance: Right Left Main The vessel is large in size. Left Anterior Descending Prox LAD lesion is 20% stenosed. COOPER flow is 3. The lesion is calcified. Left Circumflex The vessel is moderate in size. First Obtuse Marginal Branch The vessel is moderate in size. Second Obtuse Marginal Branch The vessel is small in size. Third Obtuse Marginal Branch The vessel is moderate in size. Right Coronary Artery The vessel is small in size. Dist RCA lesion is 20% stenosed. COOPER flow is 3. The lesion is calcified. Intervention No interventions have been documented. Pressures Phase: Baseline Systolic (mmHg) Diastolic (mmHg) Mean (mmHg) A Wave (mmHg) V Wave (mmHg) EDP (mmHg) HR (bpm) AO Pressures 138 69 98 84 138 69 98 84 CXR: 02/09/2024 FINDINGS: Left upper arm vascular stent in place. Frontal and lateral views of the chest demonstrate stable cardiomediastinal silhouette. No focal consolidation, pleural effusion or pneumothorax. No acute osseous abnormalities. IMPRESSION: No acute cardiopulmonary abnormalities. CT abd/pelvis non-contrast: 02/09/2024 Findings: Evaluation of visceral and vascular structures is degraded due to lack of intravenous contrast administration. Lower Chest: Subsegmental atelectasis, cyst visualized in right lower lobe. Liver: Within the limitations of a noncontrast examination, the liver is unremarkable. Gallbladder and Bile Ducts: Cholelithiasis without cholecystitis. Spleen: Normal. Pancreas: Normal. Adrenals: Normal. Kidneys: Simple cyst in the midpole of the left kidney. Kidneys are otherwise unremarkable. No stones or hydronephrosis. Gastrointestinal: The stomach and visualized loops of large and small bowel are unremarkable. Normal appendix. Mesentery/Peritoneum/Retroperitoneum: Normal. Bladder: Normal. Reproductive Organs: The uterus is absent. Vasculature: Atherosclerotic calcification of the aorta and its branch vessels. Circumferential calcifications of the bilateral common and external iliac arteries. Bones: Bone windows demonstrate no suspicious lytic or blastic lesions. The visible osseous structures are intact. Mild degenerative changes seen throughout the spine. Soft tissues: Anterior abdominal soft tissue scar likely from prior surgery. Impression: 1.No acute process identified in the abdomen or pelvis. 2.Circumferential calcifications of the bilateral common and external iliac arteries. CT chest: 03/23/2022 Findings Evaluation of visceral and vascular structures is degraded due to lack of intravenous contrast administration. Lines/Tubes: None. Lower neck and axillae: Normal. Mediastinum and Sarah Beth: No enlarged lymph nodes are present. Heart and Pericardium: The cardiac chambers are normal in size. No pericardial fluid or thickening is present. Atherosclerotic calcifications of the coronary arteries are seen. Pulmonary Parenchyma and Airways: No pulmonary parenchymal or airway process is present. Pleural Space: No pleural effusion or pneumothorax is present. Bones and Soft Tissue: The visible osseous structures are intact. Upper Abdomen: The visible upper abdominal viscera are unremarkable. A calcification is noted in the gallbladder wall. Impression: 1.No normal chest CT. Renal US: 10/28/2020 FINDINGS: RIGHT KIDNEY: The right kidney measures 9.3 cm in length. There is no hydronephrosis. There is normal cortical thickness and echogenicity. LEFT KIDNEY: The left kidney measures 9.7 cm in length. There is no hydronephrosis. There is normal cortical thickness and echogenicity. URINARY BLADDER: The urinary bladder, as visualized, appears unremarkable. The bilateral ureteral jets are visualized. OTHER: No other additional findings. IMPRESSION: Essentially unremarkable renal ultrasound. No findings of hydronephrosis or renal mass. LE arterial doppler: 02/04/2022 PPD: 08/12/2023 EGD: 09/10/2016 Colonoscopy: 01/28/2021 08/14/2016 Impression: - Erythematous mucosa at the ileocecal valve. Biopsied. - Two 3 mm polyps in the sigmoid colon. Removed with cold forceps. Findings: The perianal examination was normal. A localized area of mildly erythematous mucosa was found at the ileocecal valve. Biopsies were taken with a cold forceps for histology. Two sessile polyps were found in the sigmoid colon. The polyps were 3 mm in size. These were removed with cold forceps for histology. No additional abnormalities were found on retroflexion. _ Recommendation: - Discharge patient to home (with escort). - Resume previous diet. - Await pathology results. - Repeat colonoscopy in 5-10 years for surveillance. - Return to GI office as previously scheduled Final Diagnosis 1. Ileocecal valve, biopsy: -- Mild chronic inflammation 2. Sigmoid colon, polyp, biopsy: -- Colonic mucosa with a lymphoid aggregate Mammogram: 03/29/2024 FINDINGS: There are no suspicious findings or evidence of malignancy on mammography. Changes of prior left breast excisional biopsy. Vascular calcifications are present. There is no significant change from the prior. IMPRESSION: Benign mammogram, without evidence of malignancy. RECOMMENDATION: Screening mammography in one year, pending no interval breast concerns. Patient will receive the examination results by lay letter. OVERALL ASSESSMENT: BI-RADS CATEGORY 2: BENIGN. Mammogram: 03/24/2023 FINDINGS: There are no suspicious findings or evidence of malignancy on mammography. There are expected changes of left breast surgery. IMPRESSION: No mammographic evidence of malignancy. RECOMMENDATION: Screening mammography in one year, pending no interval breast concerns. Patient will be notified of the results by lay letter. OVERALL ASSESSMENT: BI-RADS CATEGORY 1: NEGATIVE. Mammo: 03/23/2022 FINDINGS: Right breast: No suspicious findings or evidence of malignancy in the right breast. No significant change from prior study. Left breast: A biopsy marker is present within the upper outer quadrant of the left breast. There is adjacent possible architectural distortion, 1.2 cm inferior and slightly lateral to the biopsy clip and microcalcifications within this region. The microcalcifications and possible distortion are at posterior depth, 12 cm from the nipple on MLO view and measure 1.3 cm in extent. Vascular calcifications are present. IMPRESSION: 1. Possible architectural distortion and microcalcifications in the upper outer quadrant of the left breast mid depth, 1.2 cm inferior to a biopsy clip. 2. No right mammographic evidence of malignancy. RECOMMENDATION: Diagnostic left mammogram. If indicated at that time, left breast ultrasound will be performed. Patient will be contacted and scheduled to return for the additional imaging. OVERALL ASSESSMENT: BI-RADS CATEGORY 0: INCOMPLETE: NEED ADDITIONAL IMAGING EVALUATION. Diagnostic mammogram/ US Left: 04/29/2022 FINDINGS: In the upper outer breast at posterior depth there is persistent architectural distortion measuring approximately 1.6 cm. Microcalcifications appear to be visualized on marco synthesis images however 1 definite calcification is visualized in the architectural distortion on the magnification views. LIMITED LEFT BREAST ULTRASOUND: Targeted ultrasound of the left breast was performed. Scanning was performed at the 1:00 position and the axilla. Scanning was performed by a trained food storeroom clerk and Dr. Herrera. FINDINGS: In the left breast at the 1:00 position 10 cm from the nipple there is architectural distortion. On real-time scanning this is at the 1 to 2:00 position. This measures 1.0 x 0.9 x 1.6 cm and corresponds to the mammographic area of architectural distortion. In the left axilla there is one lymph node with cortical thickening measuring approximately 0.4 cm in one direction and 0.6 cm in the second detection. IMPRESSION: 1. Highly suspicious architectural distortion in the upper outer left breast at the 1 to 2:00 position. Tissue sampling is recommended with ultrasound-guided biopsy. Breast bx: 05/05/2022 Final Diagnosis Left breast, 1:00, biopsy (A): - Stromal fibrosis with patchy hemosiderin deposition Left axillary lymph node, biopsy (B): - Negative for malignancy IMPRESSION: 1. Technically successful, uncomplicated ultrasound-guided core biopsy performed of the LEFT breast and left axilla. 2. Biopsy site A was performed of a 1.9 cm lesion in the 1 o'clock position of the LEFT breast , 10 cm from the nipple. A [employer] Ultra ultrasound-enhanced coil -shaped tissue marker clip placed at the biopsy site. 3. Biopsy site B was performed of a left axillary lymph node. A neo -shaped tissue marker clip placed at the biopsy site. 4. Pathology results are pending. We will notify the patients of the pathology findings and recommendations. An addendum will be rendered to this report when the pathology results are made available. Addenda ADDENDUM: PATHOLOGY RESULTS x 2 DATE OF ADDENDUM: 05/07/2022 6:01 PM Pathology report per Dr. Saba Moya from the biopsies performed by Dr. Vela. Report from biopsy site A in the at 1 o'clock position of the left breast demonstrates stromal fibrosis and patchy hemosiderin deposition. There are some spindle cells in the background. This is a benign lesion The pathology report is concordant with the imaging findings. Given patient's prerenal transplant evaluation, surgical consultation for surgical excision of this area is recommended. Report from biopsy site B of the of left axillary lymph node demonstrates no evidence of malignancy. This is a benign lesion The pathology report is concordant with the imaging findings. Recommend breast surgical consultation for consideration of excision of biopsy site A, given the spindle cells and mammographic appearance. Six-month follow-up mammogram option is not felt feasible in this patient, as she is a candidate for a renal transplant. Nata Pierce RN will notify the patient of the biopsy findings and recommendations. She will assist the patient with breast surgical consultation. mammographically- guided Magseed placement x2 in the LEFT breast: 07/08/2022 IMPRESSION: 1. Technically successful, uncomplicated, mammographically- guided Magseed placement x2 in the LEFT breast. 2. A Magseed is directly adjacent to the coil-shaped clip at the site of the known stromal fibrosis and spindle cells in the LEFT breast. 3. A Magseed is directly adjacent to the hourglass-shaped clip at the site of the prior biopsy in the LEFT breast. The 2 magseeds are 2.4 cm apart from one another on the craniocaudal view. Patient will follow-up with Dr. Juarez regarding her upcoming breast surgery scheduled for July 17, 2022. > Dictated by Ronald Weaver DO (Broom Maker) I, Roberta Cano MD have personally reviewed and interpreted this Examination/study. Left breast BX: 07/17/2022 FINDINGS: The coil-shaped clip and adjacent mag seeds are present with in one of the specimens. The hourglass shaped clip and adjacent mag seed are present in the other specimen. IMPRESSION: The left breast specimens contain both clips which were localized as well as both of the magseeds. No call to the operating room was requested. Final Diagnosis Breast, left, stitch: long lateral, short superior, double deep, excision (A): - Biopsy site changes Breast, left, additional, medial/inferior, stitch: long lateral, short superior (redesignated superficial inferior by resident and attending), double deep, excision (B): - Biopsy site changes From: Raquel Juarez MD Sent: 07/23/2022 9:24 AM CDT To: Ankita Nolasco RN Oh, I was going to message you all today, so this is perfect! Nope biopsy is all benign, so should be great to proceed. Thanks, Danni ----- Message ----- From: Ankita Nolasco RN Sent: 07/23/2022 8:51 AM CDT To: Raquel Juarez MD [facility]. I wanted to follow up on above pt. She is in eval for kidney txp and completed left breast biopsy with you on 07/17/2022. Her transplant evaluation has been on hold while pt finished work up with you. Do you have any concerns regarding biopsy results or moving forward with txp eval and listing? Thank you for your assistance! Ankita Nolasco RN [facility], [facility] [place] [phone] 12/30/2020 Pap: [facility] Dr Baldwin 11/11/2022 (total hysterectomy for fibroids) Gynecologic History No LMP recorded. Patient has had a hysterectomy. Contraception: s/p hysterectomy and post menopausal status Last Pap: years ago Results: normal Last Mammogram: 03/2022 Results: abnormal with normal work up Assessment: Healthy female exam Plan: Education Reviewed and Recommended: Self Breast Exams, Calcium Supplements, Weight Bearing Exercise Contraception: status post hysterectomy and post menopausal status Hormone Replacement Therapy: n/a Follow up: 1 year Dental/Panorex: 02/09/2024 FINDINGS: Multiple dental restorations are identified, and numerous teeth (including all maxillary teeth) are absent. No acute mandibular fracture is identified. Both temporomandibular joints are intact. No periapical abscess is present. IMPRESSION: No evidence of periapical abscess. SW: 02/14/2024 Clinical Social Work Impression: It is the impression of this addiction social worker that Lesley Nagy has several positive factors for Kidney transplant candidacy from a psychosocial perspective. Patient appears to have appropriate knowledge of illness. Patient has sufficient insurance coverage and stable financial situation for post transplant needs. No concerns regarding substance abuse, legal issues, or mental health needs. Patient has adequate support system and appropriate discharge plan. - Plan: call worker person to provide supportive services as needed. Patient remains a reasonable candidate for transplant from a psychosocial perspective. Psychiatric Consult Recommended: No Transplant Automotive Professional: Ankita Obrien LMSW Abdominal Transplant Automotive Professional [phone] Transplant Caregiver Confirmation Note Caregiver Confirmation Date Primary Name of Primary: Desi Nagy Relationship: Spouse - MANAGER STARS form received on 03/23/22 - Confirmed via telephone on 03/23/22 Secondary Name of Secondary: Celia Guevara Relationship: Friend - MANAGER STARS form received on 03/23/22 - Confirmed via telephone on 04/02/22 RD: 02/29/2024 Transplant Nutrition Evaluation BMI: 26.5, Overweight. Pt is considered to be a good candidate for a Kidney Transplant from a Nutrition standpoint. Nutrition Recommendations/Pt instructed to: Pt instructed to continue to work with Renal RD at [facility] on diet and to be compliant. Exercise: I walk sometimes. Keeps active with 10 yr old grandaughter - rides bike (1 block), does hop scotandrey, Will do Tik Dacono with her - dancing? Pt instructed to do 150 mins per week - walking and staying active with granddaughter Nutrition Handouts Given along with RD contact Waist Circumference (Kidney) NA Weight Assessment: Ht: 61 Wt: 140 lbs BMI: 26.5 Monitoring: Weight Diet Compliance Re-Evaluation: Annual f/u if listed or per Transplant Team Referral Mireya Parra RD/LIYA Items Still Pending: ESRD (end stage renal disease) 09/03/2021 Encounters Date Type Department Care Team Description 10/20/2024 10:13 AM CDT - 10/20/2024 11:59 PM T Hospital Encounter [facility] ECHO [address] [place] [id number] Chandana Kim MD Discharge Disposition: Home or Self Care 10/20/2024 10:00 AM CDT - 10/20/2024 10:12 AM CDT Hospital Encounter [facility] ECHO [address] [place] [address] Chandana Kim MD Discharge Disposition: Home or Self Care 10/20/2024 Travel 10/17/2024 Travel 09/15/2024 8:45 AM CDT - 09/15/2024 11:59 PM CDT Hospital Encounter [facility] Vascular Services [id number] [facility], [address] [place] [address] Chandrakant Saldana MD Halverson, Lewis C, MD Charles, Thomas B, MD Glaser, MD Linda Gamble, Carloz Rangel MD Discharge Disposition: Home or Self Care from Last 3 Months Family History Medical History Relation Name Comments CAD (Coronary Artery Disease) Brother Renal Disease Daughter CAD (Coronary Artery Disease) Mother Renal Disease Sister Relation Name Status Comments Brother Daughter Alive Father Mother Sister Social History Tobacco Use Types Packs/Day Years Used Date Smoking Tobacco: Never Smokeless Tobacco: Never Tobacco Cessation:Counseling Given: Not Answered Alcohol Use Standard Drinks/Week Comments No 0 [...] on file Legal 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 Gender Identity Not on file Sexual Orientation Not on file Last Filed Vital Signs Vital Sign Reading Time Taken Comments Blood Pressure 156/73 10/20/2024 12:06 PM CDT Pulse 108 10/20/2024 12:06 PM CDT Temperature 36.8 C (98.3 F) 09/15/2024 8:59 AM CDT Respiratory Rate 16 10/20/2024 10:35 AM CDT Oxygen Saturation 94% 09/15/2024 9:45 AM CDT Inhaled Oxygen Concentration 21% 07/17/2022 1 :05 PM CDT Weight 62.1 kg (137 lb) 10/20/2024 10:35 AM CDT Height 154.9 cm (5' 1) 10/20/2024 10:35 AM CDT Body Mass Index 25.89 10/20/2024 10:35 AM CDT Plan of Treatment Upcoming Encounters Date Type Department Care Team (Late st Contact Info) Description 01/04/2025 9:00 AM CDT Office Visit [facility] - Endocrinology [address] [place] [address], [place] [phone] Chrissie Michelle MD [address] [place] [address] [place] [phone] 04/20/2025 10:00 AM 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 Appointment [facility] Health Vascular Services [address] [facility], [facility] [address] [place], [place] [id number] [place] [id number] [facility] [address] [place] [address] Ilya Elizalde MD [address] [place], [place] [id number] [place] [id number] [address] [place] [address] [facility] [address] [place] [address] [place] [address] [facility] [address] [place] [address] Health Maintenance Due Date Last Done Comments COLOGUARD (AGES 45-75) - COLON CA SCREENING 1965 CT COLONOGRAPHY - COLON CA SCREENING 1965 FIT - COLON CA SCREENING 1965 FLEX SIG - COLON CA SCREENING 1965 DTAP/TDAP/TD VACCINES (1 - Tdap) 06/21/1982 PNEUMOCOCCAL VACCINE 50+ (1 of 2 - PCV) 06/21/1982 HEPATITIS B VACCINE (1 of 3 - Risk Dialysis 4-dose series) 1983 PAP SMEAR 06/21/1984 DIABETES-STATIN 2003 ZOSTER VACCINE (1 of 2) 06/21/2013 DIABETES RETINOPATHY SCREENING 09/01/2022 07/30/2015 DIABETES-FOOT EXAM WITH MONOFILAMENT 09/01/2022 Respiratory Syncytial Virus (RSV) Vaccine Pt: or over 60 yrs (1 - Risk 60-74 years 1-dose series) 2023 COVID-19 VACCINE ( - season) 2023 04/02/2022, 10/23/2021, 07/20/2020 DEPRESSION SCREENING 04/12/2024 11/11/2022 MEDICARE AWV CALENDAR YEAR 2024 DIABETES-HGB A1C 08/09/2024 02/09/2024, , 02/03/2023, Additional history exists INFLUENZA VACCINE (#1) 2024 , 01/23/2020, 12/11/2013 MAMMOGRAM 03/29/2026 03/29/2024, 03/12, 03/23/2022 COLON MONITORING 08/14/2026 08/14/2016, 08/2016, 08/14/2016 COLONOSCOPY - COLON CA SCREENING 08/14/2026 08/14/2016, 08/14/2016, 08/14/2016 Colorectal Cancer Screening 08/14/2026 HEPATITIS C SCREENING Completed 02/09/2024 , 02/03/2023, 02/04/2022 HIV SCREENING Completed 02/09/2024, 01/11, 02/04/2022 HIB VACCINE Aged Out No longer eligi ble based on patient's age to complete this topic HPV VACCINE Aged Out No longer eligi ble based on patient's age to complete this topic MENINGOCOCCAL (Group B) VACCINE SHARED DECISION-MAKING Aged Out No longer eligible based on patient's age to complete this topic MENINGOCOCCAL GROUPS A/C/Y/W VACCINE Aged Out No longer eligible based on patient's age to complete this topic Medical Devices Implanted Type Area Senior Ux Designer Device Identifier Shelf Expiration Date Model / Serial / Lot Graft Vasc 4-7mm 40cm Grtx Std Wl Tpr Ln - [id number] Implanted:Qty: 1 on 11/05/2021 by Chandrakant Saldana MD at [facility] Left: Arm [employer] 04/14/2026 [id number] / [id number] / Mrk Biop Site Celero Implanted:Qty: 1 on 05/05/2022 at [facility] Left: Axilla Hologic 08/07/2022 SMARK-GONSALO RO-2S / / [id number] Procedures Procedure Name Priority Date/Time Associated Diagnosis Comments ECHO STRESS DOBUTAMINE W CONTRAST Routine 10/20/2024 12:21 PM CDT Pre-kidney transplant, listed End stage renal disease (HCC) Dependence on renal dialysis Type 2 diabetes mellitus with chronic kidney disease on chronic dialysis, with long-term current use of insulin ([facility]) Hypertension, unspecified type Coronary artery disease involving kiana coronary artery of kiana heart, unspecified whether angina present ECHO COMPLETE W CONTRAST Routine 10/20/2024 11:34 AM CDT Pre-kidney transplant, listed End stage renal disease (HCC) Dependence on renal dialysis Type 2 diabetes mellitus with chronic kidney disease on chronic dialysis, with long-term current use of insulin (HCC) Hypertension, unspecified type Coronary artery disease involving kiana coronary artery of kiana heart, unspecified whether angina present CARDIAC RHYTHM STRIP ORDER 09/19/2024 10:31 PM CDT IR ANGIO AV SHUNT IMAGING Routine 09/15/2024 9:44 AM CDT ESRD (end stage renal disease) (HCC) MAMMO BILAT SCREENING W MARCO Routine 03/29/2024 10:49 AM 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 Encounter for screening mammogram for malignant neoplasm of breast HEPATITIS C ANTIBODY Routine 02/09/2024 11:00 AM CDT Pre-kidney transplant, listed ESRD (end stage renal disease) Dependence on renal dialysis Type 2 diabetes mellitus with chronic kidney disease on chronic dialysis, with long-term current use of insulin Hypertension, unspecified type Coronary artery disease involving kiana coronary artery of kiana heart, unspecified whether angina present Neuropathy Diabetic retinopathy associated with type 2 diabetes mellitus, macular edema presence unspecified, unspecified laterality, unspecified retinopathy severity HEMOGLOBIN A1C Routine 02/09/2024 11:00 AM CDT Pre-kidney transplant, listed ESRD (end stage renal disease) Dependence on renal dialysis Type 2 diabetes mellitus with chronic kidney disease on chronic dialysis, with long-term current use of insulin Hypertension, unspecified type Coronary artery disease involving kiana coronary artery of kiana heart, unspecified whether angina present Neuropathy Diabetic retinopathy associated with type 2 diabetes mellitus, macular edema presence unspecified, unspecified laterality, unspecified retinopathy severity HIV-1 HIV-2 ANTIBODY + HIV P24 AG PANEL Routine 02/09/2024 11:00 AM CDT Pre-kidney transplant, listed ESRD (end stage renal disease) Dependence on renal dialysis Type 2 diabetes mellitus with chronic kidney disease on chronic dialysis, with long-term current use of insulin Hypertension, unspecified type Coronary artery disease involving kiana coronary artery of kiana heart, unspecified whether angina present Neuropathy Diabetic retinopathy associated with type 2 diabetes mellitus, macular edema presence unspecified, unspecified laterality, unspecified retinopathy severity ENDOSCOPY, COLON, SCREENING Routine 08/14/2016 10:20 AM CDT from Last 3 Months or Most Recently Relevant to Health Maintenance Results * ECHO STRESS DOBUTAMINE W CONTRAST (10/20/2024 12:21 PM CDT) IVC Diam Expiration 2.1 cm SSM CV FUJI PACS Myocardial strain charge 2 unitless SSM CV FUJI PACS LV ESV A2C 36.203 ml SSM CV FU JI PACS LV EDV A4C 87.793 ml SSM CV FU JI PACS LV A4C EF 55.417 % SSM CV FUJ I PACS LV biplane EF 66.363 % SSM CV FUJI PACS LV EDV A2C 82.988 ml SSM CV FU JI PACS LV A2C EF 56.375 % SSM CV FUJ I PACS LV ESV A4C 39.141 ml SSM CV FU JI PACS Anatomical Region Laterality Modality Ultrasound 10/20/2024 11:3 8 AM CDT Narrative 10/20/2024 3:34 PM CDT Patient Info Name: Lesley Nagy Age: 59 years : 1965 Gender: Female Ht: 61 in Wt: 137 lb BSA: 1.65 m2 HR: 95 bpm BP: 156 / 89 mmHg Heart Rhythm: Sinus Rhythm Exam Date: 10/20/2024 11:38 AM Patient Status: O/P Study Site: [facility] Primary Location: [facility] Info Technical Quality: Adequate Exam Type: ECHO STRESS DOBUTAMINE W CONTRAST Indications Z01.818 - Pre-transplant evaluation Procedure(s) * An Ultrasound Enhancing Agent (UEA) was utilized to enhance endocardial definition, opacity the left ventricle and further assess left ventricular function and wall motion. * Dobutamine stress echocardiogram is performed with 2D along with an Ultrasound Enhancing Agent (UEA). Contrast/Agitated Saline Contrast / Saline: Definity Amount: 1.00 ml Administered By: Celestino Sauer Reaction to Contrast: no Reason for Technically Difficult Study: lung interference, body habitus Staff Referring Physician: Chandana Kim Ordering Provider: Chandana Kim Attending Physician: Chandana Kim Manager Database Administration: Marina Coburn Stress Staff: Celestino Sauer Summary * The stress echocardiogram is negative for dobutamine induced wall motion abnormalities. * Negative stress ECG for ischemic changes. * Please see separate report for complete echocardiogram. Stress Echo Findings Left Ventricle Normal left ventricular systolic function with no regional wall motion abnormalities noted at rest. No regional wall motion abnormalities noted at rest. Overall global left ventricular systolic function Improved post stress. No regional wall motion abnormalities noted post stress. Normal augmentation of all wall segments without evidence of ischemia with stress. Measurements Venous Name Value Normal IVC/SVC IVC Diameter 2.1 cm <=2.1 Ventricles Name Value Normal LV Fractional Shortening/Ejection Fraction 2D/MM LV Diastolic Volume (4C MOD) 88 ml LV EF (4C MOD) 55 % LV Diastolic Volume (2C MOD) 83 ml LV EF (2C MOD) 56 % LV Diastolic Volume (BP MOD) 86 ml 46-106 LV Diastolic Volume Index (BP MOD) 52 ml/m2 29-61 LV Systolic Volume (BP MOD) 29 ml 14-42 LV Systolic Volume Index (BP MOD) 18 ml/m2 8-24 LV EF (BP MOD) 66 % 54-74 LV Diastolic Length (4C) 7.2 cm LV Systolic Length (4C) 6.1 cm LV Stroke Volume (4C MOD) 49 ml Protocol: Dobutamine Stress ECG Details Stage: Rest Duration (min): 75 min : 0 sec HR (bpm): 96 SBP (mmHg): 116 DBP (mmHg): 83 Symptoms: None Stage: 1 Duration (min): 3 min : 13 sec Dose: 10 Medication(s): dobutamine HR (bpm): 99 SBP (mmHg): 158 DBP (mmHg): 61 Symptoms: None Stage: 2 Duration (min): 2 min : 57 sec Dose: 20 Medication(s): dobutamine HR (bpm): 131 SBP (mmHg): 183 DBP (mmHg): 68 Symptoms: None Stage: 3 Duration (min): 2 min : 56 sec Dose: 30 Medication(s): dobutamine HR (bpm): 148 SBP (mmHg): 164 DBP (mmHg): 59 Symptoms: None Stage: Recovery Duration (min): 19 min : 14 sec HR (bpm): 105 SBP (mmHg): 151 DBP (mmHg): 69 Symptoms: None Target HR Summary: Patient's target heart rate was achieved BP Response: Normal blood pressure response Cardiac Symptoms: None Resting ECG Normal sinus rhythm at rest. Stress ECG Heart rate demonstrated a normal response to stress. A peak heart rate of 157 bpm was achieved. The patient's peak stress blood pressure was 183/68 mmHg. Arrhythmias Occasional PACs during recovery. Termination Reason: Reached target heart rate or workload Total Time: 9 min : 4 sec Medications See Epic for a complete list of medications used during the study. Heart Rate Response : Resting HR (bpm): 93 : Peak HR (bpm): 157 : Max Predicted HR (bpm): 159 : % of Max Predicted HR: 99 % : Target HR (bpm): 135 Blood Pressure Response : Rest Sys. BP (mmHg): 153 : Rest Diast. BP (mmHg): 91 : Peak Sys. BP (mmHg): 183 : Peak Chirinos. BP (mmHg): 68 : Max Rate Pressure Product (bpm*mmHg): 28,731 Medication Peak Dobutamine Dose Dose: 30.0 mcg/kg/min Atropine Dose: 0.3 mg Report Signatures Echo Finalized by Marilia Munoz on 10/20/2024 03:34 PM Stress ECG Finalized by Marilia Munoz on 10/20/2024 03:34 PM Procedure Note Marilia Munoz, DO - 10/20/2024 Patient Info Name: Lesley Nagy Age: 59 years : 1965 Gender: Female Ht: 61 in Wt: 137 lb BSA: 1.65 m2 HR: 95 bpm BP: 156 / 89 mmHg Heart Rhythm: Sinus Rhythm Exam Date: 10/20/2024 11:38 AM Patient Status: O/P [facility] Quality: Adequate Exam Type: ECHO STRESS DOBUTAMINE W CONTRAST Indications Z01.818 - Pre-transplant evaluation Procedure(s) * An Ultrasound Enhancing Agent (UEA) was utilized to enhanceendocardial definition, opacity the left ventricle and further assess leftventricular function and wall motion. * Dobutamine stress echocardiogram is performed with 2D along with an Ultrasound Enhancing Agent (UEA). Contrast/Agitated Saline Contrast / Saline: Definity Amount: 1.00 ml Administered By: Celestino Sauer Reaction to Contrast: no Reason for Technically Difficult Study: lung interference, bodyhabitus Staff Referring Physician: Chandana Kim Ordering Provider: Chandana Kim Attending Physician: Chandana Kim Manager Database Administration: Marina Coburn Stress Staff: Celestino Sauer Summary * The stress echocardiogram is negative for dobutamine induced wallmotion abnormalities. * Negative stress ECG for ischemic changes. * Please see separate report for complete echocardiogram. Stress Echo Findings Left Ventricle Normal left ventricular systolic function with no regional wall motion abnormalities noted at rest. No regional wall motion abnormalities notedat rest. Overall global left ventricular systolic function Improved poststress. No regional wall motion abnormalities noted post stress. Normalaugmentation of all wall segments without evidence of ischemia with stress. Measurements Venous Name Value Normal IVC/SVC IVC Diameter 2.1 cm <=2.1 Ventricles Name Value Normal LV Fractional Shortening/Ejection Fraction 2D/MM LV Diastolic Volume (4C MOD) 88 ml LV EF (4C MOD) 55 % LV Diastolic Volume (2C MOD) 83 ml LV EF (2C MOD) 56 % LV Diastolic Volume (BP MOD) 86 ml 46-106 LV Diastolic Volume Index (BP MOD) 52 ml/m2 29-61 LV Systolic Volume (BP MOD) 29 ml 14-42 LV Systolic Volume Index (BP MOD) 18 ml/m2 8-24 LV EF (BP MOD) 66 % 54-74 LV Diastolic Length (4C) 7.2 cm LV Systolic Length (4C) 6.1 cm LV Stroke Volume (4C MOD) 49 ml Protocol: Dobutamine Stress ECG Details Stage: Rest Duration (min): 75 min : 0 sec HR (bpm): 96 SBP (mmHg): 116 DBP (mmHg): 83 Symptoms: None Stage: 1 Duration (min): 3 min : 13 sec Dose: 10 Medication(s): dobutamine HR (bpm): 99 SBP (mmHg): 158 DBP (mmHg): 61 Symptoms: None Stage: 2 Duration (min): 2 min : 57 sec Dose: 20 Medication(s): dobutamine HR (bpm): 131 SBP (mmHg): 183 DBP (mmHg): 68 Symptoms: None Stage: 3 Duration (min): 2 min : 56 sec Dose: 30 Medication(s): dobutamine HR (bpm): 148 SBP (mmHg): 164 DBP (mmHg): 59 Symptoms: None Stage: Recovery Duration (min): 19 min : 14 sec HR (bpm): 105 SBP (mmHg): 151 DBP (mmHg): 69 Symptoms: None Target HR Summary: Patient's target heart rate was achieved BP Response: Normal blood pressure response Cardiac Symptoms: None Resting ECG Normal sinus rhythm at rest. Stress ECG Heart rate demonstrated a normal response to stress. A peak heart rateof 157 bpm was achieved. The patient's peak stress blood pressure [id number] mmHg. Arrhythmias Occasional PACs during recovery. Termination Reason: Reached target heart rate or workload Total Time: 9 min : 4 sec Medications See Epic for a complete list of medications used during the study. Heart Rate Response : Resting HR (bpm): 93 : Peak HR (bpm): 157 : Max Predicted HR (bpm): 159 : % of Max Predicted HR: 99 % : Target HR (bpm): 135 Blood Pressure Response : Rest Sys. BP (mmHg): 153 : Rest Diast. BP (mmHg): 91 : Peak Sys. BP (mmHg): 183 : Peak Chirinos. BP (mmHg): 68 : Max Rate Pressure Product (bpm*mmHg): 28,731 Medication Peak Dobutamine Dose Dose: 30.0 mcg/kg/min Atropine Dose: 0.3 mg Report Signatures Echo Finalized by Marilia Munoz on 10/20/2024 03:34 PM Stress ECG Finalized by Marilia Munoz on 10/20/2024 03:34 PM Chandana Kim MD ECHO CUPID Final Result * ECHO COMPLETE W CONTRAST (10/20/2024 11:34 AM CDT) Sinus of Valsalva 3.2 cm SS M CV FUJI PACS AV area index 1.515 cm /m SSM CV FUJI PACS Dimensionless Index 0.799 unitless SSM CV FUJI PACS Myocardial strain charge 2 unitless SSM CV FUJI PACS LV EDV A2C 119.213 ml SSM CV FU JI PACS MV E' lateral denis 5.193 cm/s SS M CV FUJI PACS PV pk denis 85.988 cm/s SSM CV [facility] I PACS LV A4C EF 57.077 % SSM CV [facility] I PACS MV A pk denis 102.939 cm/s SSM CV F UJI PACS AV pk grad 9.171 mmHg SSM CV FU JI PACS LVIDd 5.281 cm SSM CV [facility] I PACS LV EDV A4C 120.343 ml SSM CV FU JI PACS AV area pk denis 2.225 cm [facility] LVPWd 0.986 cm SSM CV [facility] I PACS MV E pk denis 93.12 cm/s SSM CV F UJI PACS IVSd 2D 1.006 cm SSM CV [facility] I PACS TR pk denis 337.958 cm/s SSM CV [facility] I PACS LV ESV A4C 51.655 ml SSM CV FU PACS IVC Diam Expiration 2.132 cm [facility] LVIDs 3.835 cm SSM CV [facility] I PACS RV-chirinos basal diam 4.141 cm [facility] AV mn grad 5.029 mmHg SSM CV FU PACS LA size 4.19 cm SSM CV [facility] I PACS LVOT pk denis 107.635 cm/s SSM CV F U PACS LV A2C EF 53.274 % SSM CV [facility] I PACS RVOT pk denis 69.544 cm/s SSM CV F U PACS LV ESV A2C 55.703 ml SSM CV FU PACS LVOT pk grad 4.634 mmHg SSM CV [facility] PACS LVOT VTI 22.996 cm SSM CV [facility] I PACS MV VTI 21.482 cm SSM CV [facility] I PACS MT VTI 67.644 cm SSM CV [facility] I PACS AV pk denis 151.419 cm/s SSM CV [facility] I PACS MR VTI 197.541 cm SSM CV [facility] I PACS Ascending aorta 3.056 cm [facility] area cont VTI 2.5 cm [facility] LV biplane EF 54.352 % [facility] AV VTI 28.791 cm SSM CV [facility] I PACS TAPSE 1.914 cm SSM CV FUJ I PACS PV VTI 16.78 cm SSM CV FUJ I PACS MV mn grad 3.607 mmHg SSM CV FU JI PACS RVOT VTI 15.364 cm SSM CV FUJ I PACS RA area 16.92 cm SSM CV FUJI PACS RVIDd 2.844 cm SSM CV FUJ I PACS MV pk denis regurg 600.225 cm/s SSM CV FUJI PACS LVOT diam 1.996 cm SSM CV FUJ I PACS Anatomical Region Laterality Modality Ultrasound 10/20/2024 10:3 4 AM CDT Narrative 10/20/2024 3:26 PM CDT Summary * The left ventricle is moderately dilated, with normal systolic function and an estimated ejection fraction of 54 % by biplane method of disks. Left ventricular wall motion is normal. * The left ventricular mass is mildly increased with eccentric hypertrophy. * The left ventricular diastolic function is consistent with grade II diastolic dysfunction. * Right ventricle is quantitatively dilated with normal systolic function. * The left atrium is moderately dilated. * There is mild to moderate mitral valve regurgitation. * There is mild to moderate tricuspid valve regurgitation. * The pulmonary artery systolic pressure is mildly elevated, 49 mmHg. Patient Info Name: Lesley Nagy Age: 59 years : 1965 Gender: Female Ht: 61 in Wt: 137 lb BSA: 1.65 m2 HR: 94 bpm BP: 159 / 89 mmHg Heart Rhythm: Sinus Rhythm Exam Date: 10/20/2024 10:34 AM Patient Status: O/P Study Site: [facility] Primary Location: [facility] EStudy Info Technical Quality: Adequate Exam Type: ECHO COMPLETE W CONTRAST Indications Z01.818 - Pre-transplant evaluation Procedure(s) * An Ultrasound Enhancing Agent (UEA) was utilized to enhance endocardial definition, opacify the left ventricle and further assess left ventricular function and wall motion. * A complete 2D, color Doppler, spectral Doppler and M-Mode transthoracic echocardiogram was performed with an Ultrasound Enhancing Agent (UEA). Contrast/Agitated Saline Contrast / Saline: Definity Amount: 0.50 ml Administered By: Marina Coburn Reaction to Contrast: no Reason for Technically Difficult Study: positional limitations, lung interference Staff Referring Physician: Chandana Kim Ordering Provider: Chandana Kim Attending Physician: Chandana Kim Manager Database Administration: Marina Coburn Left Ventricle The left ventricle is moderately dilated. There is normal left ventricular wall thickness. Left ventricular systolic function is normal with an estimated ejection fraction of 54 % by biplane method of disks. The left ventricular mass is mildly increased with eccentric hypertrophy. Left ventricular segmental wall motion is normal. The left ventricular diastolic function is consistent with grade II diastolic dysfunction. Right Ventricle The right ventricle is quantitatively dilated. Right ventricular systolic function is normal. Left Atrium The left atrium is moderately dilated. Right Atrium The right atrium is normal in size. Atrial Septum Intact interatrial septum visualized by color Doppler imaging. Aortic Valve The aortic valve is trileaflet and mildly calcified. There is no aortic valve stenosis with a peak velocity of 1.5 m/s, mean gradient of 5 mmHg, and aortic valve area of 2.50 cm2. There is no aortic valve regurgitation. Pulmonic Valve The pulmonic valve is not well visualized, but grossly normal. There is no pulmonic valve stenosis. There is mild pulmonic regurgitation. Mitral Valve The mitral valve is thickened. There is no mitral valve stenosis. There is mild to moderate mitral valve regurgitation. Tricuspid Valve The tricuspid valve is grossly normal. There is mild to moderate tricuspid valve regurgitation. The pulmonary artery systolic pressure is mildly elevated, 49 mmHg. Inferior Vena Cava The inferior vena cava is normal in size (< 2.1 cm). There is > 50% collapse of the IVC upon inspiration with an estimated right atrial pressure of 3 mmHg. Pericardium/Pleural There is a small pericardial effusion. Aorta The aortic root at the sinus of Valsalva is normal in size. The ascending aorta is normal in size. Measurements Left Ventricular Outflow Tract Name Value Normal LVOT 2D LVOT Diameter 2.0 cm LVOT Area 3.1 cm2 LVOT Doppler LVOT Peak Velocity 1.1 m/s LVOT Peak Gradient 5 mmHg LVOT Mean Velocity 82.21 cm/s LVOT Mean Gradient 3 mmHg LVOT VTI 23.0 cm LVOT VTI/AV VTI Ratio 0.8 LVOT Stroke Volume 72 ml LVOT Stroke Volume Index 44 ml/m2 35-58 LVOT CO 6.8 l/min LVOT CI 4.1 l/min/m2 Pulmonic Valve Name Value Normal RVOT Doppler RVOT Peak Velocity 0.7 m/s RVOT Peak Gradient 2 mmHg RVOT Mean Gradient 1 mmHg PV Doppler PV Peak Velocity 0.9 m/s PV Peak Gradient 3 mmHg PV Mean Gradient 2 mmHg PV Regurgitation Doppler MT End Diastolic Gradient 28 mmHg Mitral Valve Name Value Normal MV Doppler MV Peak Gradient 7 mmHg MV Mean Gradient 4 mmHg MV DI (VTI) 0.93 MV PHT 48 ms MV Area (PHT) 4.60 cm2 4.00-5.00 MV Area (Cont Eq VTI) 3.35 cm2 MV Diastolic Function MV E Peak Velocity 0.9 m/sec MV A Peak Velocity 1.0 m/sec MV E/A 0.9 MV Decel Time (PW) 178 ms MV A Wave Duration 114 ms MV Annular TDI MV Septal e' Velocity 6 cm/s >=8 MV E/e' (Septal) 15 <=8 MV Lateral e' Velocity 5 cm/s >=10 MV E/e' (Lateral) 18 <=8 MV e' Average 6 cm/s MV E/e' (Average) 17 Tricuspid Valve Name Value Normal TV Doppler TV PHT 44 ms TV Area (PHT) 4.96 cm2 TV Regurgitation Doppler TR Peak Velocity 3.4 m/s TR Peak Gradient 46 mmHg Estimated PAP/RSVP RA Pressure 3 mmHg <=5 PA Systolic Pressure 49 mmHg <35 RV Systolic Pressure 49 mmHg <36 TV Diastolic Function TV E Peak Velocity 0.3 m/sec TV A Peak Velocity 0.6 m/sec TV E/A 0.5 0.8-2.0 TV Decel Time 153 ms >=120 TV Annular TDI TV Lateral Gayle s' Velocity 13 cm/s 10-19 Pulmonary Vessels Name Value Normal Pulmonary Artery Doppler PA End Diastolic Pressure for MT 31 mmHg Aorta Name Value Normal Ascending Aorta Sinus of Valsalva Diameter 3.2 cm 2.4-3.6 Sinus of Valsalva Index 1.9 cm/m2 1.4-2.2 Asc Ao Diameter 3.1 cm 1.9-3.5 Asc Ao Diameter Index 1.9 cm/m2 1.0-2.2 Venous Name Value Normal IVC/SVC IVC Diameter 2.1 cm <=2.1 Aortic Valve Name Value Normal AV 2D/MM AV Cusp Sep (MM) 1.8 cm AV Doppler AV Peak Velocity 1.51 m/s AV Peak Gradient 9 mmHg AV Mean Gradient 5 mmHg AV VTI 29 cm AV Area (Cont Eq VTI) 2.50 cm2 >=2.00 AV Area (Cont Eq Denis) 2.23 cm2 AV DI (VTI) 0.80 AV DI (Denis) 0.71 AV Regurgitation 2D LVOT Area 3.13 cm2 Ventricles Name Value Normal LV Dimensions 2D/MM IVS Diastolic Thickness (2D) 1.0 cm 0.6-0.9 LVID Diastole (2D) 5.3 cm 3.8-5.2 LVPW Diastolic Thickness (2D) 1.0 cm 0.6-0.9 IVS Systolic Thickness (2D) 1.1 cm LVID Systole (2D) 3.8 cm 2.2-3.5 LVPW Systolic Thickness (2D) 1.3 cm LV Mass (2D Cubed) 173 g 67-162 LV Mass Index (2D Cubed) 105 g/m2 43-95 Relative Wall Thickness (2D) 0.37 <=0.42 LV Fractional Shortening/Ejection Fraction 2D/MM LV Fractional Shortening (2D) 27 % 27-45 LV EF (2D Teicholz) 53 % 54-74 LV Diastolic Volume (4C MOD) 120 ml LV EF (4C MOD) 57 % LV Diastolic Volume (2C MOD) 119 ml LV EF (2C MOD) 53 % LV Diastolic Volume (BP MOD) 121 ml 46-106 LV Diastolic Volume Index (BP MOD) 73 ml/m2 29-61 LV Systolic Volume (BP MOD) 55 ml 14-42 LV Systolic Volume Index (BP MOD) 33 ml/m2 8-24 LV EF (BP MOD) 54 % 54-74 LV Diastolic Length (4C) 8.0 cm LV Systolic Length (4C) 7.1 cm LV Stroke Volume (4C MOD) 69 ml RV Dimensions 2D/MM RVID Diastole (2D) 2.8 cm 2.5-3.5 RVID Systole (2D) 2.4 cm RV Basal Diastolic Dimension 4.1 cm 2.5-4.1 RV Diastolic Length (4C) 7.1 cm 5.9-8.3 TAPSE 1.9 cm >=1.7 Atria Name Value Normal LA Dimensions LA Dimension (2D) 4.2 cm 2.7-3.8 LA Dimen Index (2D) 2.5 cm/m2 RA Dimensions RA Area (4C) 17 cm2 <=18 RA Area (4C) Index 10 cm2/m2 Report Signatures Finalized by Marilia Munoz on 10/20/2024 03:26 PM Procedure Note Marilia Munoz, DO - 10/20/2024 Summary * The left ventricle is moderately dilated, with normal systolicfunction and an estimated ejection fraction of 54 % by biplane method of disks.Left ventricular wall motion is normal. * The left ventricular mass is mildly increased with eccentrichypertrophy. * The left ventricular diastolic function is consistent with grade II diastolic dysfunction. * Right ventricle is quantitatively dilated with normal systolicfunction. * The left atrium is moderately dilated. * There is mild to moderate mitral valve regurgitation. * There is mild to moderate tricuspid valve regurgitation. * The pulmonary artery systolic pressure is mildly elevated, 49 mmHg. Patient Info Name: Lesley Nagy Age: 59 years : 1965 Gender: Female Ht: 61 in Wt: 137 lb BSA: 1.65 m2 HR: 94 bpm BP: 159 / 89 mmHg Heart Rhythm: Sinus Rhythm Exam Date: 10/20/2024 10:34 AM Patient Status: O/P Study Site: [facility] Primary Location: [facility] EStudy Info Technical Quality: Adequate Exam Type: ECHO COMPLETE W CONTRAST Indications Z01.818 - Pre-transplant evaluation Procedure(s) * An Ultrasound Enhancing Agent (UEA) was utilized to enhanceendocardial definition, opacify the left ventricle and further assess leftventricular function and wall motion. * A complete 2D, color Doppler, spectral Doppler and M-Modetransthoracic echocardiogram was performed with an Ultrasound Enhancing Agent (UEA). Contrast/Agitated Saline Contrast / Saline: Definity Amount: 0.50 ml Administered By: Marina Coburn Reaction to Contrast: no Reason for Technically Difficult Study: positional limitations,lung interference Staff Referring Physician: Chandana Kim Ordering Provider: Chandana Kim Attending Physician: Chandana Kim Manager Database Administration: Marina Coburn Left Ventricle The left ventricle is moderately dilated. There is normal leftventricular wall thickness. Left ventricular systolic function is normal with anestimated ejection fraction of 54 % by biplane method of disks. The leftventricular mass is mildly increased with eccentric hypertrophy. Left ventricular segmental wall motion is normal. The left ventricular diastolic functionis consistent with grade II diastolic dysfunction. Right Ventricle The right ventricle is quantitatively dilated. Right ventricularsystolic function is normal. Left Atrium The left atrium is moderately dilated. Right Atrium The right atrium is normal in size. Atrial Septum Intact interatrial septum visualized by color Doppler imaging. Aortic Valve The aortic valve is trileaflet and mildly calcified. There is noaortic valve stenosis with a peak velocity of 1.5 m/s, mean gradient of 5 mmHg,and aortic valve area of 2.50 cm2. There is no aortic valve regurgitation. Pulmonic Valve The pulmonic valve is not well visualized, but grossly normal. There isno pulmonic valve stenosis. There is mild pulmonic regurgitation. Mitral Valve The mitral valve is thickened. There is no mitral valve stenosis. Thereis mild to moderate mitral valve regurgitation. Tricuspid Valve The tricuspid valve is grossly normal. There is mild to moderatetricuspid valve regurgitation. The pulmonary artery systolic pressure is mildly elevated, 49 mmHg. Inferior Vena Cava The inferior vena cava is normal in size (< 2.1 cm). There is > 50%collapse of the IVC upon inspiration with an estimated right atrial pressure of 3mmHg. Pericardium/Pleural There is a small pericardial effusion. Aorta The aortic root at the sinus of Valsalva is normal in size. Theascending aorta is normal in size. Measurements Left Ventricular Outflow Tract Name Value Normal LVOT 2D LVOT Diameter 2.0 cm LVOT Area 3.1 cm2 LVOT Doppler LVOT Peak Velocity 1.1 m/s LVOT Peak Gradient 5 mmHg LVOT Mean Velocity 82.21 cm/s LVOT Mean Gradient 3 mmHg LVOT VTI 23.0 cm LVOT VTI/AV VTI Ratio 0.8 LVOT Stroke Volume 72 ml LVOT Stroke Volume Index 44 ml/m2 35-58 LVOT CO 6.8 l/min LVOT CI 4.1 l/min/m2 Pulmonic Valve Name Value Normal RVOT Doppler RVOT Peak Velocity 0.7 m/s RVOT Peak Gradient 2 mmHg RVOT Mean Gradient 1 mmHg PV Doppler PV Peak Velocity 0.9 m/s PV Peak Gradient 3 mmHg PV Mean Gradient 2 mmHg PV Regurgitation Doppler MT End Diastolic Gradient 28 mmHg Mitral Valve Name Value Normal MV Doppler MV Peak Gradient 7 mmHg MV Mean Gradient 4 mmHg MV DI (VTI) 0.93 MV PHT 48 ms MV Area (PHT) 4.60 cm2 4.00-5.00 MV Area (Cont Eq VTI) 3.35 cm2 MV Diastolic Function MV E Peak Velocity 0.9 m/sec MV A Peak Velocity 1.0 m/sec MV E/A 0.9 MV Decel Time (PW) 178 ms MV A Wave Duration 114 ms MV Annular TDI MV Septal e' Velocity 6 cm/s >=8 MV E/e' (Septal) 15 <=8 MV Lateral e' Velocity 5 cm/s >=10 MV E/e' (Lateral) 18 <=8 MV e' Average 6 cm/s MV E/e' (Average) 17 Tricuspid Valve Name Value Normal TV Doppler TV PHT 44 ms TV Area (PHT) 4.96 cm2 TV Regurgitation Doppler TR Peak Velocity 3.4 m/s TR Peak Gradient 46 mmHg Estimated PAP/RSVP RA Pressure 3 mmHg <=5 PA Systolic Pressure 49 mmHg <35 RV Systolic Pressure 49 mmHg <36 TV Diastolic Function TV E Peak Velocity 0.3 m/sec TV A Peak Velocity 0.6 m/sec TV E/A 0.5 0.8-2.0 TV Decel Time 153 ms >=120 TV Annular TDI TV Lateral Gayle s' Velocity 13 cm/s 10-19 Pulmonary Vessels Name Value Normal Pulmonary Artery Doppler PA End Diastolic Pressure for MT 31 mmHg Aorta Name Value Normal Ascending Aorta Sinus of Valsalva Diameter 3.2 cm 2.4-3.6 Sinus of Valsalva Index 1.9 cm/m2 1.4-2.2 Asc Ao Diameter 3.1 cm 1.9-3.5 Asc Ao Diameter Index 1.9 cm/m2 1.0-2.2 Venous Name Value Normal IVC/SVC IVC Diameter 2.1 cm <=2.1 Aortic Valve Name Value Normal AV 2D/MM AV Cusp Sep (MM) 1.8 cm AV Doppler AV Peak Velocity 1.51 m/s AV Peak Gradient 9 mmHg AV Mean Gradient 5 mmHg AV VTI 29 cm AV Area (Cont Eq VTI) 2.50 cm2 >=2.00 AV Area (Cont Eq Denis) 2.23 cm2 AV DI (VTI) 0.80 AV DI (Denis) 0.71 AV Regurgitation 2D LVOT Area 3.13 cm2 Ventricles Name Value Normal LV Dimensions 2D/MM IVS Diastolic Thickness (2D) 1.0 cm 0.6-0.9 LVID Diastole (2D) 5.3 cm 3.8-5.2 LVPW Diastolic Thickness (2D) 1.0 cm 0.6-0.9 IVS Systolic Thickness (2D) 1.1 cm LVID Systole (2D) 3.8 cm 2.2-3.5 LVPW Systolic Thickness (2D) 1.3 cm LV Mass (2D Cubed) 173 g 67-162 LV Mass Index (2D Cubed) 105 g/m2 43-95 Relative Wall Thickness (2D) 0.37 <=0.42 LV Fractional Shortening/Ejection Fraction 2D/MM LV Fractional Shortening (2D) 27 % 27-45 LV EF (2D Teicholz) 53 % 54-74 LV Diastolic Volume (4C MOD) 120 ml LV EF (4C MOD) 57 % LV Diastolic Volume (2C MOD) 119 ml LV EF (2C MOD) 53 % LV Diastolic Volume (BP MOD) 121 ml 46-106 LV Diastolic Volume Index (BP MOD) 73 ml/m2 29-61 LV Systolic Volume (BP MOD) 55 ml 14-42 LV Systolic Volume Index (BP MOD) 33 ml/m2 8-24 LV EF (BP MOD) 54 % 54-74 LV Diastolic Length (4C) 8.0 cm LV Systolic Length (4C) 7.1 cm LV Stroke Volume (4C MOD) 69 ml RV Dimensions 2D/MM RVID Diastole (2D) 2.8 cm 2.5-3.5 RVID Systole (2D) 2.4 cm RV Basal Diastolic Dimension 4.1 cm 2.5-4.1 RV Diastolic Length (4C) 7.1 cm 5.9-8.3 TAPSE 1.9 cm >=1.7 Atria Name Value Normal LA Dimensions LA Dimension (2D) 4.2 cm 2.7-3.8 LA Dimen Index (2D) 2.5 cm/m2 RA Dimensions RA Area (4C) 17 cm2 <=18 RA Area (4C) Index 10 cm2/m2 Report Signatures Finalized by Marilia Munoz on 10/20/2024 03:26 PM us Chandana Kim MD ECHO CUPID Final Result * CARDIAC RHYTHM STRIP ORDER (09/19/2024 10:31 PM CDT) Narrative 09/19/2024 10:31 PM CDT Ordered by an unspecified provider. us Scanned Document CARDIAC SERVICES ORDERABLES Fin al Result * IR Angio [facility] (09/15/2024 9:44 AM CDT) Anatomical Region Laterality Modality Lower Extremity, Upper Extremity, Chest X-Ray Angiography Narrative 09/15/2024 9:51 AM CDT Carloz Mckeon MD 09/15/2024 9:55 AM [facility] [place] Lesley Nagy 1965 DATE OF PROCEDURE: 09/15/24 ORDERING PHYSICIAN: Dr. Mckeon PROCEDURE: Left upper extremity fistulogram INDICATIONS FOR PROCEDURE: Ms. Nagy Is a pleasant 59-year-old female with a known left upper extremity brachial to axillary AV graft. She has undergone prior interventions of the venous anastomosis. Her dialysis center noticed increased pulsatility and recommend that she return to the for a fistulogram. We discussed the risks, benefits alternatives and she desired to proceed. DESCRIPTION OF PROCEDURE: After all informed consent was given, the patient was taken to the operating room table and placed supine on the operating room table. The patients left upper extremity was then prepped and draped in the usual sterile fashion. A final time out was taken. Local anesthesia was used to anesthetize the skin over the proximal access. Using US guidance, the proximal left upper extremity access was accessed with a micropuncture needle and wire was confirmed in the access. A fistulogram was then performed. The sheath was removed an manual pressure held. The patient was then transferred to the [facility] in stable condition. 10 mL of contrast was given and 2.6 mGy of radiation was used. Radiologic interpretation Initial left upper extremity venogram demonstrates a widely patent left upper extremity brachial to axillary AV graft. There is less than 30 percent stenosis of the AV graft at the stick zone with brisk flow. There was no evidence of stenosis within the venous anastomotic stent. There was preferential flow through the access with no filling of collateral vessels. Retrograde venogram of the anastomosis demonstrates a widely patent anastomosis without stenosis. FINDINGS: No evidence of significant stenosis greater than 50 percent throughout the AV graft or venous anastomotic stent. Central veins were widely patent without stenosis IMPRESSION: Patent left upper extremity brachial to axillary AV graft without significant stenosis DICTATED BY: Carloz Mckeon M.D. DATE DICTATED: 09/15/24 Interventional Post-Operative/Procedure Notes Surgeon: Carloz Mckeon Pre Procedure Diagnosis: ESRD Post Procedure Diagnosis: ESRD Anesthesia: Local 1% lidocaine Disposition: OPS Status: Stable Drain or Pack: None Additional Information/Complications: None Estimated Blood Loss: Negligible Specimen: None us Chandrakant Saldana MD IR ORDERABLES Final Resu lt * Mammo Bilat Screening W Marco (03/29/2024 10:49 AM 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) Anatomical Region Laterality Modality Breast Bilateral Mammography 03/29/2024 10:4 5 AM 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 Impressions 03/29/2024 11:37 AM 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 IMPRESSION: Benign mammogram, without evidence of malignancy. RECOMMENDATION: Screening mammography in one year, pending no interval breast concerns. Patient will receive the examination results by lay letter. OVERALL ASSESSMENT: BI-RADS CATEGORY 2: BENIGN. Report drafted by Rajat Black MD (residential housekeeper). I, Crystal Herrera MD have personally reviewed and interpreted this examination/study. > Interpreting Provider: Crystal Herrera MD on 03/29/2024 11:37 AM Narrative 03/29/2024 11:37 AM 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 EXAMINATIONS: BILATERAL DIGITAL SCREENING MAMMOGRAM AND BILATERAL BREAST TOMOSYNTHESIS LOCATION: [facility] EXAM DATE: 03/29/2024 HISTORY: Screening. History of benign left breast excisional biopsy on 07/17/2022. No family history of breast cancer. RISK ASSESSMENT CALCULATION: Patient completed a breast cancer risk assessment during her appointment 03/29/2024. Based upon the information she provided and her mammographic breast density, her lifetime risk of developing breast cancer is 9.3 % (Average Risk <15%; Intermediate / Moderate Risk 15-19; High Risk > 20%). Risk assessment based upon the BRCAPRO model. COMPARISON: Comparison is made to prior mammograms back to 2021. TECHNIQUE: Tomosynthesis (3D) and reconstructed synthetic 2-D images acquired and reviewed in the bilateral craniocaudal and mediolateral oblique projections. A total of 5 images obtained. Transpara AI was utilized in the interpretation. BREAST PARENCHYMAL COMPOSITION: Category B: There are scattered areas of fibroglandular density. FINDINGS: There are no suspicious findings or evidence of malignancy on mammography. Changes of prior left breast excisional biopsy. Vascular calcifications are present. There is no significant change from the prior. us Cassia Hoff MD MAMMO ORDERABLES Final Resul t * HIV-1 HIV-2 ANTIBODY + HIV P24 AG PANEL (02/09/2024 11:00 AM CDT) HIV Antigen/Antibod y 1 & 2 Non-reacti ve Non-react betito 02/09/2024 11:58 AM CDT [facility] Comment:No Laboratory eviden ce of HIV infection. Blood BLOOD SPECIMEN / Unknown Lab Venipuncture / Unknown 02/09/2024 11:00 AM CDT 02/09/2024 11:13 AM CDT us Cassia Hoff MD LAB - CHEMISTRY ORDERABLES F inal Result [facility] [address] [place] [address], [facility] [phone] * HEMOGLOBIN A1C (02/09/2024 11:00 AM CDT) Hemoglobin A1c 5.4 <=5.6 % 02/09/2024 2:35 PM CDT [facility] Estimated Average Glucose 108 mg/dL 02/09/2024 2:35 PM CDT [facility] Comment: HbA1c Interpretation: Normal : < 5.7% Pre-diabetes: 5.7-6.4% Diabetes: Equal to or greater than 6.5% Test results diagnostic of diabetes should be repeated for confirmation. Treatment target values recommended by ADA and other clinical organizations should be used to evaluate metabolic control in patients. Reference: [place] [employer] Association, Standards of Care in Diabetes -2020 In patients 70 years and older consider HbA1c target range of 7.0-7.5% (Reference: Kristian Rg et al. JAMDA. 2012) The Sebia assay for the measurement of HbA1c is a National Glycohemoglobin Standardization Program (NGSP) certified method. Blood BLOOD SPECIMEN / Unknown Lab Venipuncture / Unknown 02/09/2024 11:00 AM CDT 02/09/2024 11:16 AM CDT us Cassia Hoff MD LAB - CHEMISTRY ORDERABLES F inal Result [address] [address], [facility] [phone] * HEPATITIS C ANTIBODY (02/09/2024 11:00 AM CDT) Pathologist [facility] Hepatitis C Antibody Non-react betito Non-reac tive 02/09/2024 11:58 AM CDT [facility] Comment:Hepatitis C Antibody screen indicates no serologic evidence of past or current infection with Hepatitis C Virus. Patients with unexplained liver disease who are immunocompromised or suspected of having acute Hepatitis C infection may benefit from Nucleic Acid Test (JOSE C) for Hepatitis C Viral RNA to confirm Hepatitis C status. Blood BLOOD SPECIMEN / Unknown Lab Venipuncture / Unknown 02/09/2024 11:00 AM CDT 02/09/2024 11:13 AM CDT us Cassia Hoff MD LAB - CHEMISTRY ORDERABLES F inal Result [address] [place] [address], [facility] [phone] * ENDOSCOPY, COLON, SCREENING (08/14/2016 10:20 AM CDT) Report Endoscopy POC _ Patient Name: Lesley Nagy Procedure Date: 08/14/2016 10:20 AM Date of : 1965 Admit Type: Outpatient Age: 51 Gender: Female Attending MD: Oksana Sahu MD _ Procedure: Colonoscopy Indications: Constipation, Weight loss Providers: Oksana Sahu MD (Doctor), Dat Whitmore (Fellow), Lauren Matthews, Roma Alvarez RN Patient Profile: 51 year old with weight loss and new onset constipation. Referring MD: Yavn Herrera MD (Referring MD) Medicines: Fentanyl 75 micrograms IV, Midazolam 3 mg IV Complications: No immediate complications. _ Procedure: Pre-Anesthesia Assessment: - Prior to the procedure, a History and Physical was performed, and patient medications and allergies were reviewed. The patient's tolerance of previous anesthesia was also reviewed. The risks and benefits of the procedure and the sedation options and risks were discussed with the patient. All questions were answered, and informed consent was obtained. Prior Anticoagulants: The patient has taken no previous anticoagulant or antiplatelet agents. ASA Grade Assessment: III - A patient with severe systemic disease. After reviewing the risks and benefits, the patient was deemed in satisfactory condition to undergo the procedure. After I obtained informed consent, the scope was passed under direct vision. Throughout the procedure, the patient's blood pressure, pulse, and oxygen saturations were monitored continuously. The Colonoscope was introduced through the anus and advanced to the cecum, identified by appendiceal orifice and ileocecal valve. The colonoscopy was performed without difficulty. The patient tolerated the procedure well. The quality of the bowel preparation was good. Impression: - Erythematous mucosa at the ileocecal valve. Biopsied. - Two 3 mm polyps in the sigmoid colon. Removed with cold forceps. Findings: The perianal examination was normal. A localized area of mildly erythematous mucosa was found at the ileocecal valve. Biopsies were taken with a cold forceps for histology. Two sessile polyps were found in the sigmoid colon. The polyps were 3 mm in size. These were removed with cold forceps for histology. No additional abnormalities were found on retroflexion. _ Recommendation: - Discharge patient to home (with escort). - Resume previous diet. - Await pathology results. - Repeat colonoscopy in 5-10 years for surveillance. - Return to GI office as previously scheduled. Procedure Code(s): --- Professional --- 03624, Colonoscopy, flexible; with biopsy, single or multiple --- Technical --- 40724, Colonoscopy, flexible; with biopsy, single or multiple Diagnosis Code(s): --- Professional --- K63.89, Other specified diseases of intestine D12.5, Benign neoplasm of sigmoid colon K59.00, Constipation, unspecified R63.4, Abnormal weight loss --- Technical --- K63.89, Other specified diseases of intestine D12.5, Benign neoplasm of sigmoid colon K59.00, Constipation, unspecified R63.4, Abnormal weight loss CPT copyright 2015 [place] [employer]. All rights reserved. The codes documented in this report are preliminary and upon joinery factory worker review may be revised to meet current compliance requirements. Attending Participation: I was present and participated during the entire procedure, including non-klein portions. Oksana Sahu MD 08/14/2016 11:37:54 AM Number of Addenda: 0 Note Initiated On: 08/14/2016 10:[address] [facility] 08/14/2016 10:2 0 AM CDT Oksana Sahu MD GI PROCEDURE ORDERABLES Ed ited Result - Final Performing Organization Address City/State/[facility] Co de Phone Number [facility] from Last 3 Months or Most Recently Relevant to Health Maintenance Insurance [facility] MANAGED MEDICARE ADV 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
--- NOTE | 2024-10-31 12:38 | REHSTMBS ---
Assessment and note entered by STORMY Price Modified Barium Swallow Evaluation Feeding Type Recommended Oral Food Consistency Regular, Level 7 Liquid Consistency Thin (0) ST Clinical Summary This pleasant 59 year old female patient completed a Modified Barium Swallow Study (MBSS) due to feeling like things were getting stuck in the patients throat during oral intake. The patient stated that it only occurred on solid consistencies and taking a drink following a bite of a solid would often resolve the problem. The patient stated that she has had the feeling of solid consistencies getting stuck during oral intake since July of 2023 when she was hospitalized with pneumonia. The patient has full upper dentures and partial lower dentures but was without them this date. The patient verbalized that she often eats without her dentures and her partials on the bottom are effective in masticating. Patient was viewed in the lateral position to the level of C5/C6. Patient was presented with thin liquid, pureed consistency, mixed consistency, and solid consistency all mixed with or covered in semi-solid contrast medium via cup edge, straw, spoon, and hand. Oral Preparatory Phase: Patient demonstrated adequate lingual and labial strength and closure. No impairments noted. Oral Phase: Patient demonstrated appropriate lingual ROM and coordination. No impairments noted . Pharyngeal Phase: Patient demonstrated a timely swallow with appropriate laryngeal closure, laryngeal elevation, and base of tongue retraction . No impairments noted. Cervical-Esophageal Phase: Within functional limits at this time. Results of the MBSS suggest that the patient is safe for oral intake at this time. No dysphagia noted. Patient is safe to consume an IDDSI Level 7 Regular Solids, IDDSI Level 1 Thin Liquid diet. It is recommended that the patient follow standard swallowing precautions: Sit upright during oral intake and take small bites/sips. Due to the patient feeling like things are getting stuck during oral intake, it is recommended to refer the patient to her physician for additional testing if deemed necessary. Thank you for this referral.
== END 2024-10-31 09:20 | disposition home or self-care (01) ==
PROVIDERS: PCP Internal Medicine; Visit Provider Internal Medicine
DX: R05.3 Chronic cough (principal)
CPT/HCPCS: 74230; 92611

== ENCOUNTER 2025-01-12 08:41 | Outpatient (CLI) | payer MEDICARE, MEDICAID, SELFPAY ==
--- OUTSIDE RECORDS SUMMARY | 2024-11-16 06:00 | XMS_ITS | Continuity of Care Document ---
Author Organization [facility] Address [address] [place] [address] Phone Care Team Providers Care Statement Clerks Manager Name Role Phone Chari THORNE, [facility], [facility] Unavailable Unavailab le Allergies, Adverse Reactions, Alerts [...] [{Url}] <Url iRemMajorVer valeria=1 iRemMinorVer valeria=5.9.4 seq_no=6d77 [id number] template_nam e=PacsEx>< Path><![CDAT A[[email or web address] om/?hisI0Lja TZ+o5Xr/lJgO HMZzPhFEzM5F IQHqTa91L0Z+ X/vi0kUqkyHr Vec/2Bo4L4tu abhYLeLF2oKH DbDWmguEusY/ bS2v4ztfGd51 1BwL2gS4ercn cfPs+i6LYOSR ]]></Path></ Url> Final Panel Description: Not Available Final [{Url}] <Url iRemMajorVer valeria=1 iRemMinorVer valeria=5.9.4 seq_no=26ec [id number] template_nam e=PacsEx>< Path><![CDAT A[[email or web address] om/?zcrO8Mmt TZ+o5Xr/lJgO FEQzJsWBxJ6Y WFEaQw21R9K+ X/am0wClnnTz Vec/8Sv3P2bx nhaZTfJY6kGP DbDWmguEusY/ jW8o5nzoRa36 5MhG6fN1cacp cfPs+c3STXIT ]]></Path></ Url> Final Panel Description: CAROTID Unknown Image CAROTID 1 Advance Directives Directive Yes / No Effective Date File Name No Information Encounters Encounter Description Practice Location Reason(s) For Visit Diagnoses Date Provider Providers Copied on Encounter [facility], [address] [place] [address], [id number], tel:[phone] [facility] No Information Chari Neo. [address] [place] [address], [id number], . tel:[phone] Referring Provider: Chandrakant Coyle, [address] [place], [place] [address], [address]. tel:[phone] OFFICE/OUTPAT IENT VISIT, EST [facility], [address] [place] [address], [id number], tel:[phone] [facility] follow up (chief complaint) Essential (primary) hypertensionEnd stage renal diseaseOcclusion and stenosis of unspecified carotid artery 5 Chari Neo. [address] [place], [id number], [place]. tel:[phone] Referring Provider: Chandrakant Coyle, [address] [place] [address], [id number]. tel:[phone] [facility], [address] [place] [address], [id number], tel:[phone] [facility] No Information 5 Kaltorinitis Sakaelus. [address] [place], [id number], [place]. tel:[phone] Referring Provider: Chandrakant Coyle, [address] [place] [address], [id number]. tel:[phone] OFFICE/OUTPAT IENT VISIT, EST [facility], [address] [place] [address], [id number], tel:[phone] [facility] Follow Up of Cardiology Exam (chief complaint)S welling in R ankle (chief complaint) Occlusion and stenosis of unspecified carotid arteryEssential (primary) hypertensionES 5 Chari Neo. [address] [place], [id number], [place]. tel:[phone] Referring Provider: Chandrakant Coyle, [address] [place] [address], [id number]. tel:[phone] [facility], [address] [place] [address], [id number], tel:[phone] [facility] No Information Chari Neo. [address], [place], [place], [id number], [place]. tel:[phone] [facility], [address] [facility], [place], [place], [id number], [place] tel:[phone] [facility] Occlusion and stenosis of unspecified carotid arteryEssential (primary) hypertension 5 Chari Larson. [address] [facility], [place], [place], [id number], [place]. tel:[phone] Family History Family Member Type Diagnosis Age At Onset No Information Payers Payer name Insurance type Covered democrat ID Authoriza tion(s) [facility]ARE [address] 001A PPO C [id number] NO AUTH REQUIRED HEALTHCARE AND FAMILY SERVICES [id number] Social History Type Description Quantity Date Captured Comments Sex Female Smoking Status No Information Chief Complaint And Reason For Visit No Information Reason For Referral Reason For Referral No Information Plan Of Treatment Date Type Action Status Appointment Lesley Burch BOOKED Future Order: Radiology Order Du plex scan of extracranial arteries; complete bilateral study ([id number]), Ordered on: Ordered History Of Present Illness [...]
--- OUTSIDE RECORDS SUMMARY | 2025-01-12 08:49 | XMS_ITS ---
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 Ordering Clinician Indication Dosage Frequency Signature (SIG) Comments Components Flucelvax Quadrivalen t [id number] 16:25: 48 Yes [id number] Number of Repeats Allowed: Frequency: One time only Mircera 12-26 05:00: 00 01-02 04:59 :59 Yes [id number] Number of Repeats Allowed: Frequency: One time only calcitriol 12-25 16:03: 27 Yes [id number] Number of Repeats Allowed: Frequency: Three times a week Prevnar 20 12-21 05:00: 00 Yes [id number] Number of Repeats Allowed: Frequency: One time only Mircera 12-09 14:20: 08 Yes [id number] Number of Repeats Allowed: Frequency: JEM dosing, every four weeks calcitriol 10-30 16:03: 44 Yes [id number] Number of Repeats Allowed: Frequency: Three times a week ONS [facility] 12-02 15:35: 38 Yes [id number] Number of Repeats Allowed: Frequency: Every Dialysis Treatment heparin sodium, porcine -06 12:38: 42 Yes [id number] Number of Repeats Allowed: Frequency: Every Dialysis TreatmentD osesOrdere d: Hourly Dose 500 Units/Hr 1:1000 Units/mLRo [place]: Intravenou s clonidine 2021-04 06:00: 00 Yes [id number] Number of Repeats Allowed: Frequency: Every 4 hours as needed Antacid Extra Strength 2021-04 06:00: 00 Yes [id number] Number of Repeats Allowed: Frequency: Every 4 hours as needed acetaminoph en 2021-04 06:00: 00 Yes [id number] Number of Repeats Allowed: Frequency: Every 4 hours as needed Normal Saline Solution 0.9% NaCl 2021-04 06:00: 00 Yes [id number] Number of Repeats Allowed: Frequency: As needed Oxygen 2021-04 06:00: 00 Yes [id number] Number of Repeats Allowed: Frequency: As needed ondansetron hydrochlori de 2021-04 06:00: 00 Yes [id number] Number of Repeats Allowed: Frequency: Every 4 hours as needed Insta-Gluco se 2021-04 06:00: 00 Yes [id number] Number of Repeats Allowed: Frequency: Every 30 minutes as needed diphenhydra mine hydrochlori de 2021-04 06:00: 00 Yes [id number] Number of Repeats Allowed: Frequency: Every 4 hours as needed loperamide hydrochlori de 2021-04 06:00: 00 Yes [id number] Number of Repeats Allowed: Frequency: Every 4 hours as needed heparin sodium, porcine 2021-04 06:00: 00 Yes [id number] Number of Repeats Allowed: Frequency: Every Dialysis TreatmentD osesOrdere d: Loading Dose 1100 Units 1:1000 Units/mLRo [place]: Intravenou s Problems This patient has no known problems. Procedures Procedure Date / Time Performed Performing Clinician Valarie ce Details AV Graft 2021-09-03 05:00:00 Access Surgeon MELECIO MELVIN MD ([id number]),[place], [place] Access Site Upper Arm (Left) Access Use Start Date 2021-11-29 05:00:0 0 DIALYSIS TREATMENT INFORMATION Conventional Hemodialysis Date Type Treatment Start Date Treatment End Date Pre-Treatment Vitals Post-Treatment Vitals Weight Gain BFR DFR Actual UF Dialysis Access Octob er 2024 In-Ce nter Hemod ialys is Treat ment 2025-01-11 T10:10:00. 000Z 2025-01-11 T13:27:19. 000Z BP Sitting (Pre-Dialysis) 150/77 mmHg BP Sitting (Post-D ialysis ) 146/ 81 mmHg BP Standing (Pre-Dialysis) 144/77 mmHg Sitti ng Heart Rate Post-Dialysis 88 BPM Sitting Heart Rate Pre-Dialysis 92 BPM Temperatu re Post-Dialysis 97.7 degF Standing Heart Rate Pre-Dialysis 95 BPM Temperature Pre-Dialysis 97.5 degF January 09, 2025 In-Center Hemodialysis Treatment 5656-36-09W81:16:00.000Z 7971-76-11W13:16:00.000Z BP Sitting (Pre-Dialysis) 167/90 mmHg BP Sitting (Post-Dialysis) 140/89 mmHg Concurrent Access: falseAV Graft Upper Arm (Left) Arterial BP Standing (Pre-Dialysis) 166/89 mmHg BP Standing (P ost-Dialysis) 151/78 mmHg Sitting Heart Rate Pre-Dialysis 92 BPM Sitting Heart Rate Post-Dialysis 84 BPM Standing Heart Rate Pre-Dialysis 97 BPM Standing Heart Rate Post-Dialysis 86 BPM Temperature Pre-Dialysis 97.9 degF Temperature Post -Dialysis 97.8 degF January 06, 2025 In-Center Hemodialysis Treatment 1090-51-67K16:10:00.000Z 2051-34-79N26:12:57.000Z BP Sitting (Pre-Dialysis) 168/92 mmHg BP Sitting (Post-Dialysis) 143/94 mmHg Concurrent Access: falseAV Graft Upper Arm (Left) Arterial BP Standing (Pre-Dialysis) 123/77 mmHg BP Standing (P ost-Dialysis) 156/83 mmHg Sitting Heart Rate Pre-Dialysis 101 BPM Sitting Heart Rate Post-Dialysis 87 BPM Standing Heart Rate Pre-Dialysis 86 BPM Standing Heart Rate Post-Dialysis 90 BPM Temperature Pre-Dialysis 97.5 degF Temperature Post -Dialysis 97.7 degF January 02, 2025 In-Center Hemodialysis Treatment 2756-19-91M87:08:00.000Z 1223-72-39N54:04:00.000Z BP Sitting (Pre-Dialysis) 184/97 mmHg BP Sitting (Post-Dialysis) 181/89 mmHg Concurrent Access: falseAV Graft Upper Arm (Left) Arterial BP Standing (Pre-Dialysis) 184/94 mmHg BP Standing (P ost-Dialysis) 175/91 mmHg Sitting Heart Rate Pre-Dialysis 91 BPM Sitting Heart Rate Post-Dialysis 83 BPM Standing Heart Rate Pre-Dialysis 94 BPM Standing Heart Rate Post-Dialysis 84 BPM Temperature Pre-Dialysis 97.5 degF Temperature Post -Dialysis 97.8 degF December 30, 2024 In-Center Hemodialysis Treatment 0935-38-80L20:17:00.000Z 2799-56-21Z47:20:04.000Z BP Sitting (Pre-Dialysis) 191/93 mmHg BP Sitting (Post-Dialysis) 142/75 mmHg Concurrent Access: falseAV Graft Upper Arm (Left) Arterial BP Standing (Pre-Dialysis) 169/105 mmHg BP Standing (P ost-Dialysis) 143/74 mmHg Sitting Heart Rate Pre-Dialysis 102 BPM Sitting Heart Rate Post-Dialysis 86 BPM Standing Heart Rate Pre-Dialysis 105 BPM Standing Heart Rate Post-Dialysis 87 BPM Temperature Pre-Dialysis 97.6 degF Temperature Post -Dialysis 97.7 degF December 28, 2024 In-Center Hemodialysis Treatment 6528-36-48B10:09:00.000Z 6975-96-57K44:11:31.000Z BP Sitting (Pre-Dialysis) 154/79 mmHg BP Sitting (Post-Dialysis) 153/85 mmHg Concurrent Access: falseAV Graft Upper Arm (Left) Arterial BP Standing (Pre-Dialysis) 168/91 mmHg BP Standing (P ost-Dialysis) 141/88 mmHg Sitting Heart Rate Pre-Dialysis 98 BPM Sitting Heart Rate Post-Dialysis 91 BPM Standing Heart Rate Pre-Dialysis 98 BPM Standing Heart Rate Post-Dialysis 91 BPM Temperature Pre-Dialysis 97.8 degF Temperature Post -Dialysis 97.7 degF December 26, 2024 In-Center Hemodialysis Treatment 7286-49-41Y81:12:59.000Z 4594-10-49R95:56:59.000Z BP Sitting (Pre-Dialysis) 166/88 mmHg BP Sitting (Post-Dialysis) 157/80 mmHg Concurrent Access: falseAV Graft Upper Arm (Left) Arterial BP Standing (Pre-Dialysis) 155/82 mmHg BP Standing (P ost-Dialysis) 161/91 mmHg Sitting Heart Rate Pre-Dialysis 94 BPM Sitting Heart Rate Post-Dialysis 95 BPM Standing Heart Rate Pre-Dialysis 103 BPM Standing Heart Rate Post-Dialysis 97 BPM Temperature Pre-Dialysis 97.6 degF Temperature Post -Dialysis 97.8 degF December 23, 2024 In-Center Hemodialysis Treatment 7474-36-37I90:13:00.000Z 0398-13-48A55:12:10.000Z BP Sitting (Pre-Dialysis) 163/92 mmHg BP Sitting (Post-Dialysis) 148/86 mmHg Concurrent Access: falseAV Graft Upper Arm (Left) Arterial BP Standing (Pre-Dialysis) 160/89 mmHg BP Standing (P ost-Dialysis) 151/84 mmHg Sitting Heart Rate Pre-Dialysis 95 BPM Sitting Heart Rate Post-Dialysis 90 BPM Standing Heart Rate Pre-Dialysis 98 BPM Standing Heart Rate Post-Dialysis 87 BPM Temperature Pre-Dialysis 97.6 degF Temperature Post -Dialysis 97.7 degF December 21, 2024 In-Center Hemodialysis Treatment [id number]:16:38.000Z 3939-08-26V78:33:37.000Z BP Sitting (Pre-Dialysis) 135/78 mmHg BP Sitting (Post-Dialysis) 177/98 mmHg Concurrent Access: falseAV Graft Upper Arm (Left) Arterial Sitting Heart Rate Pre-Dialysis 66 BPM BP Standi ng (Post-Dialysis) 163/82 mmHg Temperature Pre-Dialysis 97 degF Sitting Heart Ra te Post-Dialysis 88 BPM Standing Heart Rate Post-Dina lysis 88 BPM Temperature Post-Dialysis 98 degF December 19, 2024 In-Center Hemodialysis Treatment 1954-62-21U02:18:00.000Z 3476-60-21Q72:10:05.000Z BP Sitting (Pre-Dialysis) 166/84 mmHg BP Sitting (Post-Dialysis) 173/89 mmHg Concurrent Access: falseAV Graft Upper Arm (Left) Arterial BP Standing (Pre-Dialysis) 165/96 mmHg Sitti ng Heart Rate Post-Dialysis 90 BPM Sitting Heart Rate Pre-Dialysis 92 BPM Temperatu re Post-Dialysis 97.7 degF Standing Heart Rate Pre-Dialysis 95 BPM Temperature Pre-Dialysis 97.5 degF December 14, 2024 In-Center Hemodialysis Treatment 2457-60-84B26:10:46.000Z 9561-40-83T50:01:46.000Z BP Sitting (Pre-Dialysis) 147/79 mmHg BP Sitting (Post-Dialysis) 152/89 mmHg Concurrent Access: falseAV Graft Upper Arm (Left) Arterial BP Standing (Pre-Dialysis) 123/71 mmHg BP Standing (P ost-Dialysis) 165/89 mmHg Sitting Heart Rate Pre-Dialysis 97 BPM Sitting Heart Rate Post-Dialysis 94 BPM Standing Heart Rate Pre-Dialysis 90 BPM Standing Heart Rate Post-Dialysis 93 BPM Temperature Pre-Dialysis 97.9 degF Temperature Post -Dialysis 97.8 degF December 09, 2024 In-Center Hemodialysis Treatment 1382-43-94P24:07:25.000Z 9734-74-90M95:08:25.000Z BP Sitting (Pre-Dialysis) 150/77 mmHg BP Sitting (Post-Dialysis) 153/78 mmHg Concurrent Access: falseAV Graft Upper Arm (Left) Arterial BP Standing (Pre-Dialysis) 127/92 mmHg BP Standing (P ost-Dialysis) 156/76 mmHg Sitting Heart Rate Pre-Dialysis 95 BPM Sitting Heart Rate Post-Dialysis 97 BPM Standing Heart Rate Pre-Dialysis 59 BPM Standing Heart Rate Post-Dialysis 94 BPM Temperature Pre-Dialysis 98 degF Temperature Post -Dialysis 97.4 degF December 07, 2024 In-Center Hemodialysis Treatment 2363-24-66X71:23:52.000Z 4979-24-90N93:19:53.000Z BP Sitting (Pre-Dialysis) 140/76 mmHg BP Sitting (Post-Dialysis) 123/74 mmHg Concurrent Access: falseAV Graft Upper Arm (Left) Arterial BP Standing (Pre-Dialysis) 130/80 mmHg BP Standing (P ost-Dialysis) 135/75 mmHg Sitting Heart Rate Pre-Dialysis 91 BPM Sitting Heart Rate Post-Dialysis 80 BPM Standing Heart Rate Pre-Dialysis 92 BPM Standing Heart Rate Post-Dialysis 83 BPM Temperature Pre-Dialysis 97.8 degF Temperature Post -Dialysis 97.9 degF December 05, 2024 In-Center Hemodialysis Treatment 4602-07-93L16:08:00.000Z 0242-52-06W98:07:20.000Z BP Sitting (Pre-Dialysis) 134/69 mmHg BP Sitting (Post-Dialysis) 133/70 mmHg Concurrent Access: falseAV Graft Upper Arm (Left) Arterial BP Standing (Pre-Dialysis) 110/67 mmHg Sitti ng Heart Rate Post-Dialysis 83 BPM Sitting Heart Rate Pre-Dialysis 87 BPM Temperatu re Post-Dialysis 97.7 degF Standing Heart Rate Pre-Dialysis 78 BPM Temperature Pre-Dialysis 97.5 degF November 30, 2024 In-Center Hemodialysis Treatment 2342-52-91Y43:02:59.000Z 9608-19-86A02:00:59.000Z BP Sitting (Pre-Dialysis) 159/89 mmHg BP Sitting (Post-Dialysis) 156/88 mmHg Concurrent Access: falseAV Graft Upper Arm (Left) Arterial BP Standing (Pre-Dialysis) 149/79 mmHg BP Standing (P ost-Dialysis) 164/79 mmHg Sitting Heart Rate Pre-Dialysis 100 BPM Sitting Heart Rate Post-Dialysis 94 BPM Standing Heart Rate Pre-Dialysis 100 BPM Standing Heart Rate Post-Dialysis 91 BPM Temperature Pre-Dialysis 97.8 degF Temperature Post -Dialysis 97.9 degF November 28, 2024 In-Center Hemodialysis Treatment 7719-19-26Z76:07:00.000Z 0812-06-08P53:15:27.000Z BP Sitting (Pre-Dialysis) 165/82 mmHg BP Sitting (Post-Dialysis) 139/91 mmHg Concurrent Access: falseAV Graft Upper Arm (Left) Arterial BP Standing (Pre-Dialysis) 165/88 mmHg Sitting Heart Rate Post-Dialysis 92 BPM Sitting Heart Rate Pre-Dialysis 97 BPM Temperatu re Post-Dialysis 98 degF Standing Heart Rate Pre-Dialysis 104 BPM Temperature Pre-Dialysis 98 degF November 25, 2024 In-Center Hemodialysis Treatment 7958-82-13L35:08:38.000Z 2370-03-10Y46:09:38.000Z BP Sitting (Pre-Dialysis) 143/80 mmHg BP Sitting (Post-Dialysis) 135/72 mmHg Concurrent Access: falseAV Graft Upper Arm (Left) Arterial BP Standing (Pre-Dialysis) 135/75 mmHg Sitti ng Heart Rate Post-Dialysis 95 BPM Sitting Heart Rate Pre-Dialysis 98 BPM Temperatu re Post-Dialysis 98.3 degF Standing Heart Rate Pre-Dialysis 98 BPM Temperature Pre-Dialysis 98.1 degF November 21, 2024 In-Center Hemodialysis Treatment 9243-30-88K56:13:04.000Z 8255-47-17V70:14:04.000Z BP Sitting (Pre-Dialysis) 147/89 mmHg BP Sitting (Post-Dialysis) 121/61 mmHg Concurrent Access: falseAV Graft Upper Arm (Left) Arterial BP Standing (Pre-Dialysis) 161/88 mmHg BP Standing (P ost-Dialysis) 125/66 mmHg Sitting Heart Rate Pre-Dialysis 101 BPM Sitting Heart Rate Post-Dialysis 95 BPM Standing Heart Rate Pre-Dialysis 102 BPM Standing Heart Rate Post-Dialysis 95 BPM Temperature Pre-Dialysis 97.7 degF Temperature Post -Dialysis 97.6 degF November 18, 2024 In-Center Hemodialysis Treatment 4726-00-71J38:05:00.000Z 1992-77-68P75:03:15.000Z BP Sitting (Pre-Dialysis) 147/89 mmHg BP Sitting (Post-Dialysis) 149/75 mmHg Concurrent Access: falseAV Graft Upper Arm (Left) Arterial Sitting Heart Rate Pre-Dialysis 103 BPM BP Standi ng (Post-Dialysis) 154/78 mmHg Temperature Pre-Dialysis 98 degF Sitting Heart Ra te Post-Dialysis 89 BPM Standing Heart Rate Post-Dina lysis 89 BPM Temperature Post-Dialysis 98 degF November 16, 2024 In-Center Hemodialysis Treatment [id number]:08:42.000Z 7667-30-52F43:09:43.000Z BP Sitting (Pre-Dialysis) 185/94 mmHg BP Sitting (Post-Dialysis) 158/81 mmHg Concurrent Access: falseAV Graft Upper Arm (Left) Arterial BP Standing (Pre-Dialysis) 189/100 mmHg BP Standing (P ost-Dialysis) 147/81 mmHg Sitting Heart Rate Pre-Dialysis 98 BPM Sitting Heart Rate Post-Dialysis 91 BPM Standing Heart Rate Pre-Dialysis 100 BPM Standing Heart Rate Post-Dialysis 92 BPM Temperature Pre-Dialysis 97.7 degF Temperature Post -Dialysis 97.5 degF November 14, 2024 In-Center Hemodialysis Treatment [id number]:15:10.000Z 1319-88-03I35:13:10.000Z BP Sitting (Pre-Dialysis) 171/96 mmHg BP Sitting (Post-Dialysis) 130/79 mmHg Concurrent Access: falseAV Graft Upper Arm (Left) Arterial BP Standing (Pre-Dialysis) 181/95 mmHg Sitti ng Heart Rate Post-Dialysis 90 BPM Sitting Heart Rate Pre-Dialysis 101 BPM Temperatu re Post-Dialysis 97.7 degF Standing Heart Rate Pre-Dialysis 100 BPM Temperature Pre-Dialysis 97.4 degF November 11, 2024 In-Center Hemodialysis Treatment 9906-99-04K60:08:00.000Z 6321-76-84H69:11:22.000Z BP Sitting (Pre-Dialysis) 169/85 mmHg BP Sitting (Post-Dialysis) 149/80 mmHg Concurrent Access: falseAV Graft Upper Arm (Left) Arterial BP Standing (Pre-Dialysis) 158/83 mmHg BP Standing (P ost-Dialysis) 167/84 mmHg Sitting Heart Rate Pre-Dialysis 97 BPM Sitting Heart Rate Post-Dialysis 87 BPM Standing Heart Rate Pre-Dialysis 99 BPM Standing Heart Rate Post-Dialysis 89 BPM Temperature Pre-Dialysis 97.5 degF Temperature Post -Dialysis 97.5 degF November 09, 2024 In-Center Hemodialysis Treatment 4578-75-40Z47:11:25.000Z 2042-82-48C60:12:24.000Z BP Sitting (Pre-Dialysis) 175/96 mmHg BP Sitting (Post-Dialysis) 153/87 mmHg Concurrent Access: falseAV Graft Upper Arm (Left) Arterial BP Standing (Pre-Dialysis) 152/97 mmHg BP Standing (P ost-Dialysis) 146/76 mmHg Sitting Heart Rate Pre-Dialysis 99 BPM Sitting Heart Rate Post-Dialysis 90 BPM Standing Heart Rate Pre-Dialysis 108 BPM Standing Heart Rate Post-Dialysis 91 BPM Temperature Pre-Dialysis 97.7 degF Temperature Post -Dialysis 97.2 degF November 02, 2024 In-Center Hemodialysis Treatment 0176-04-61L87:10:52.000Z 0144-29-12D07:07:52.000Z BP Sitting (Pre-Dialysis) 160/74 mmHg BP Sitting (Post-Dialysis) 145/85 mmHg Concurrent Access: falseAV Graft Upper Arm (Left) Arterial BP Standing (Pre-Dialysis) 151/83 mmHg BP Standing (P ost-Dialysis) 150/89 mmHg Sitting Heart Rate Pre-Dialysis 97 BPM Sitting Heart Rate Post-Dialysis 74 BPM Standing Heart Rate Pre-Dialysis 101 BPM Standing Heart Rate Post-Dialysis 74 BPM Temperature Pre-Dialysis 97.3 degF Temperature Post -Dialysis 97.6 degF October 31, 2024 In-Center Hemodialysis Treatment 0443-88-59Y07:10:00.000Z 2258-72-06G89:10:41.000Z BP Sitting (Pre-Dialysis) 198/109 mmHg BP Sitting (Post-Dialysis) 184/95 mmHg Concurrent Access: falseAV Graft Upper Arm (Left) Arterial BP Standing (Pre-Dialysis) 184/113 mmHg BP Standing (P ost-Dialysis) 183/93 mmHg Sitting Heart Rate Pre-Dialysis 100 BPM Sitting Heart Rate Post-Dialysis 96 BPM Standing Heart Rate Pre-Dialysis 102 BPM Standing Heart Rate Post-Dialysis 97 BPM Temperature Pre-Dialysis 97 degF Temperature Post -Dialysis 97.7 degF October 26, 2024 In-Center Hemodialysis Treatment 4092-84-28S51:01:20.000Z 4971-89-59J79:02:20.000Z BP Sitting (Pre-Dialysis) 193/97 mmHg BP Sitting (Post-Dialysis) 156/76 mmHg Concurrent Access: falseAV Graft Upper Arm (Left) Arterial Sitting Heart Rate Pre-Dialysis 96 BPM BP Standing (Post-Dialysis) 158/76 mmHg Temperature Pre-Dialysis 97.9 degF Sitting Heart Ra te Post-Dialysis 88 BPM Standing Heart Rate Post-Dina lysis 88 BPM Temperature Post-Dialysis 97 .7 degF October 24, 2024 In-Center Hemodialysis Treatment 4125-20-56O76:15:13.000Z 0269-34-44U74:12:14.000Z BP Sitting (Pre-Dialysis) 166/84 mmHg BP Sitting (Post-Dialysis) 167/79 mmHg Concurrent Access: falseAV Graft Upper Arm (Left) Arterial BP Standing (Pre-Dialysis) 161/82 mmHg BP Standing (P ost-Dialysis) 128/84 mmHg Sitting Heart Rate Pre-Dialysis 94 BPM Sitting Heart Rate Post-Dialysis 86 BPM Standing Heart Rate Pre-Dialysis 98 BPM Standing Heart Rate Post-Dialysis 87 BPM Temperature Pre-Dialysis 97.9 degF Temperature Post -Dialysis 97.9 degF October 21, 2024 In-Center Hemodialysis Treatment 7993-72-59O31:10:24.000Z 4233-38-04G76:17:25.000Z BP Sitting (Pre-Dialysis) 169/90 mmHg BP Sitting (Post-Dialysis) 144/70 mmHg Concurrent Access: falseAV Graft Upper Arm (Left) Arterial Sitting Heart Rate Pre-Dialysis 97 BPM BP Standing (Post-Dialysis) 135/66 mmHg Temperature Pre-Dialysis 97.9 degF Sitting Heart Ra te Post-Dialysis 95 BPM Standing Heart Rate Post-Dina lysis 70 BPM Temperature Post-Dialysis 97 .9 degF October 20, 2024 In-Center Hemodialysis Treatment 1324-92-45Z20:19:35.000Z 7708-61-40L34:22:35.000Z BP Sitting (Pre-Dialysis) 180/91 mmHg BP Sitting (Post-Dialysis) 165/88 mmHg Concurrent Access: falseAV Graft Upper Arm (Left) Arterial Sitting Heart Rate Pre-Dialysis 100 BPM Sitting H eart Rate Post-Dialysis 100 BPM Temperature Pre-Dialysis 98.2 degF Temperature Post -Dialysis 98 degF October 17, 2024 In-Center Hemodialysis Treatment 6045-28-46E72:04:20.000Z 5835-25-84H02:05:20.000Z BP Sitting (Pre-Dialysis) 168/89 mmHg BP Sitting (Post-Dialysis) 165/89 mmHg Concurrent Access: falseAV Graft Upper Arm (Left) Arterial BP Standing (Pre-Dialysis) 171/93 mmHg BP Standing (P ost-Dialysis) 144/90 mmHg Sitting Heart Rate Pre-Dialysis 102 BPM Sitting Heart Rate Post-Dialysis 96 BPM Standing Heart Rate Pre-Dialysis 100 BPM Standing Heart Rate Post-Dialysis 96 BPM Temperature Pre-Dialysis 98.2 degF Temperature Post -Dialysis 97.6 degF October 14, 2024 In-Center Hemodialysis Treatment [id number]:58:00.000Z 3423-57-77C16:58:31.000Z BP Sitting (Pre-Dialysis) 165/88 mmHg BP Sitting (Post-Dialysis) 173/88 mmHg Concurrent Access: falseAV Graft Upper Arm (Left) Arterial BP Standing (Pre-Dialysis) 161/89 mmHg BP Standing (P ost-Dialysis) 166/91 mmHg Sitting Heart Rate Pre-Dialysis 100 BPM Sitting Heart Rate Post-Dialysis 96 BPM Standing Heart Rate Pre-Dialysis 101 BPM Standing Heart Rate Post-Dialysis 95 BPM Temperature Pre-Dialysis 97.7 degF Temperature Post -Dialysis 97.7 degF October 12, 2024 In-Center Hemodialysis Treatment [id number]:04:58.000Z 6473-61-85P73:06:58.000Z BP Sitting (Pre-Dialysis) 142/73 mmHg BP Sitting (Post-Dialysis) 132/74 mmHg Concurrent Access: falseAV Graft Upper Arm (Left) Arterial BP Standing (Pre-Dialysis) 141/79 mmHg Sitting Heart Rate Post-Dialysis 92 BPM Sitting Heart Rate Pre-Dialysis 101 BPM Temperatu re Post-Dialysis 98 degF Standing Heart Rate Pre-Dialysis 105 BPM Temperature Pre-Dialysis 98.1 degF October 10, 2024 In-Center Hemodialysis Treatment 350 mL/min 500 mL/min Concurrent Access: false October 07, 2024 In-Center Hemodialysis Treatment 0 T1 0: 08 :3 7. 00 0Z 20 25 0 T1 3: 07 :3 7. 00 0Z BP Sitting (Pre-Dial ysis) 173/97 mmHg BP Sitting (Post-Dina lysis) 178/90 mmHg Concurrent Access: falseAV Graft Upper Arm (Left) Arterial BP Standing (Pre-Dialysis) 143/108 mmHg BP Standing (P ost-Dialysis) 181/94 mmHg Sitting Heart Rate Pre-Dialysis 107 BPM Sitting Heart Rate Post-Dialysis 93 BPM Standing Heart Rate Pre-Dialysis 82 BPM Standing Heart Rate Post-Dialysis 93 BPM Temperature Pre-Dialysis 97.9 degF Temperature Post -Dialysis 97.9 degF October 05, 2024 In-Center Hemodialysis Treatment 7583-58-74C40:01:06.000Z 2507-36-75H09:56:28.000Z BP Sitting (Pre-Dialysis) 160/84 mmHg BP Sitting (Post-Dialysis) 169/87 mmHg Concurrent Access: falseAV Graft Upper Arm (Left) Arterial BP Standing (Pre-Dialysis) 157/71 mmHg BP Standing (P ost-Dialysis) 164/85 mmHg Sitting Heart Rate Pre-Dialysis 91 BPM Sitting Heart Rate Post-Dialysis 94 BPM Standing Heart Rate Pre-Dialysis 86 BPM Standing Heart Rate Post-Dialysis 97 BPM Temperature Pre-Dialysis 97.7 degF Temperature Post -Dialysis 98.4 degF October 03, 2024 In-Center Hemodialysis Treatment 4992-31-81D96:08:00.000Z 6685-65-25W44:13:54.000Z BP Sitting (Pre-Dialysis) 174/83 mmHg BP Sitting (Post-Dialysis) 152/70 mmHg Concurrent Access: falseAV Graft Upper Arm (Left) Arterial BP Standing (Pre-Dialysis) 174/83 mmHg BP Standing (P ost-Dialysis) 155/80 mmHg Sitting Heart Rate Pre-Dialysis 91 BPM Sitting Heart Rate Post-Dialysis 87 BPM Standing Heart Rate Pre-Dialysis 97 BPM Standing Heart Rate Post-Dialysis 85 BPM Temperature Pre-Dialysis 97.7 degF Temperature Post -Dialysis 97.7 degF September 30, 2024 In-Center Hemodialysis Treatment 9733-44-82A01:01:05.000Z 9834-18-12I84:53:05.000Z BP Sitting (Pre-Dialysis) 134/69 mmHg BP Sitting (Post-Dialysis) 152/80 mmHg Concurrent Access: falseAV Graft Upper Arm (Left) Arterial BP Standing (Pre-Dialysis) 141/76 mmHg Sitti ng Heart Rate Post-Dialysis 80 BPM Sitting Heart Rate Pre-Dialysis 61 BPM Temperatu re Post-Dialysis 97.6 degF Standing Heart Rate Pre-Dialysis 65 BPM Temperature Pre-Dialysis 97.8 degF September 28, 2024 In-Center Hemodialysis Treatment 8941-77-34J93:06:32.000Z 2632-90-16G17:04:33.000Z BP Sitting (Pre-Dialysis) 132/73 mmHg BP Sitting (Post-Dialysis) 171/88 mmHg Concurrent Access: falseAV Graft Upper Arm (Left) Arterial BP Standing (Pre-Dialysis) 151/87 mmHg BP Standing (P ost-Dialysis) 169/87 mmHg Sitting Heart Rate Pre-Dialysis 94 BPM Sitting Heart Rate Post-Dialysis 90 BPM Standing Heart Rate Pre-Dialysis 104 BPM Standing Heart Rate Post-Dialysis 90 BPM Temperature Pre-Dialysis 97.7 degF Temperature Post -Dialysis 97.5 degF September 23, 2024 In-Center Hemodialysis Treatment 1986-16-76N85:11:57.000Z 5307-66-91W54:12:57.000Z BP Sitting (Pre-Dialysis) 156/85 mmHg BP Sitting (Post-Dialysis) 175/87 mmHg Concurrent Access: falseAV Graft Upper Arm (Left) Arterial Sitting Heart Rate Pre-Dialysis 100 BPM BP Standing (Post-Dialysis) 176/88 mmHg Temperature Pre-Dialysis 97.9 degF Sitting Heart Ra te Post-Dialysis 100 BPM Standing Heart Rate Post-Dina lysis 100 BPM Temperature Post-Dialysis 97 .9 degF September 21, 2024 In-Center Hemodialysis Treatment 8042-83-24U41:17:24.000Z 6735-49-72H10:15:25.000Z BP Sitting (Pre-Dialysis) 176/94 mmHg BP Sitting (Post-Dialysis) 166/87 mmHg Concurrent Access: falseAV Graft Upper Arm (Left) Arterial BP Standing (Pre-Dialysis) 197/117 mmHg BP Standing (P ost-Dialysis) 177/86 mmHg Sitting Heart Rate Pre-Dialysis 89 BPM Sitting Heart Rate Post-Dialysis 95 BPM Standing Heart Rate Pre-Dialysis 109 BPM Standing Heart Rate Post-Dialysis 98 BPM Temperature Pre-Dialysis 97.8 degF Temperature Post -Dialysis 97.6 degF September 16, 2024 In-Center Hemodialysis Treatment 5977-76-89T86:02:03.000Z 4109-70-67A84:00:03.000Z BP Sitting (Pre-Dialysis) 185/97 mmHg BP Sitting (Post-Dialysis) 163/79 mmHg Concurrent Access: falseAV Graft Upper Arm (Left) Arterial BP Standing (Pre-Dialysis) 172/98 mmHg BP Standing (P ost-Dialysis) 169/81 mmHg Sitting Heart Rate Pre-Dialysis 98 BPM Sitting Heart Rate Post-Dialysis 89 BPM Standing Heart Rate Pre-Dialysis 105 BPM Standing Heart Rate Post-Dialysis 89 BPM Temperature Pre-Dialysis 97.8 degF Temperature Post -Dialysis 97.3 degF September 14, 2024 In-Center Hemodialysis Treatment 1978-54-61S07:59:30.000Z [id number]:58:31.000Z BP Sitting (Pre-Dialysis) 171/84 mmHg BP Sitting (Post-Dialysis) 174/83 mmHg Concurrent Access: falseAV Graft Upper Arm (Left) Arterial BP Standing (Pre-Dialysis) 182/94 mmHg BP Standing (P ost-Dialysis) 177/81 mmHg Sitting Heart Rate Pre-Dialysis 76 BPM Sitting Heart Rate Post-Dialysis 86 BPM Standing Heart Rate Pre-Dialysis 90 BPM Standing Heart Rate Post-Dialysis 86 BPM Temperature Pre-Dialysis 97.7 degF Temperature Post -Dialysis 97.5 degF September 12, 2024 In-Center Hemodialysis Treatment [id number]:09:07.000Z [id number]:07:07.000Z BP Sitting (Pre-Dialysis) 200/112 mmHg BP Sitting (Post-Dialysis) 181/91 mmHg Concurrent Access: falseAV Graft Upper Arm (Left) Arterial BP Standing (Pre-Dialysis) 201/111 mmHg BP Standing (P ost-Dialysis) 171/81 mmHg Sitting Heart Rate Pre-Dialysis 98 BPM Sitting Heart Rate Post-Dialysis 87 BPM Standing Heart Rate Pre-Dialysis 98 BPM Standing Heart Rate Post-Dialysis 88 BPM Temperature Pre-Dialysis 97.7 degF Temperature Post -Dialysis 97.6 degF September 09, 2024 In-Center Hemodialysis Treatment 1906-45-44N46:06:36.000Z [id number]:08:37.000Z BP Sitting (Pre-Dialysis) 208/105 mmHg BP Sitting (Post-Dialysis) 165/79 mmHg Concurrent Access: falseAV Graft Upper Arm (Left) Arterial Sitting Heart Rate Pre-Dialysis 99 BPM BP Standi ng (Post-Dialysis) 168/86 mmHg Temperature Pre-Dialysis 98 degF Sitting Heart Ra te Post-Dialysis 89 BPM Standing Heart Rate Post-Dina lysis 89 BPM Temperature Post-Dialysis 97 .7 degF September 07, 2024 In-Center Hemodialysis Treatment 9527-97-17H18:04:03.000Z 5729-39-71N80:13:04.000Z BP Sitting (Pre-Dialysis) 178/96 mmHg BP Sitting (Post-Dialysis) 173/85 mmHg Concurrent Access: falseAV Graft Upper Arm (Left) Arterial BP Standing (Pre-Dialysis) 178/89 mmHg Sitting Heart Rate Post-Dialysis 87 BPM Sitting Heart Rate Pre-Dialysis 94 BPM Temperatu re Post-Dialysis 98 degF Standing Heart Rate Pre-Dialysis 100 BPM Temperature Pre-Dialysis 98.2 degF September 05, 2024 In-Center Hemodialysis Treatment 2933-04-29T90:14:31.000Z 4620-36-27H55:16:31.000Z BP Sitting (Pre-Dialysis) 185/107 mmHg BP Sitting (Post-Dialysis) 176/97 mmHg Concurrent Access: falseAV Graft Upper Arm (Left) Arterial Sitting Heart Rate Pre-Dialysis 95 BPM Sitting H eart Rate Post-Dialysis 87 BPM Temperature Pre-Dialysis 97.9 degF Temperature Post -Dialysis 97.3 degF September 02, 2024 In-Center Hemodialysis Treatment 350 mL/min 500 mL/min Concurrent Access: false August 31, 2024 In-Center Hemodialysis Treatment 20 25 -0 - T1 0: 02 :1 0. 00 0Z 20 25 -0 5- T1 3: 01 :1 0. 00 0Z BP Sitting (Pre-Dial ysis) 174/76 mmHg BP Sitting (Post-Dina lysis) 196/96 mmHg Concurrent Access: falseAV Graft Upper Arm (Left) Arterial BP Standing (Pre-Dialysis) 184/91 mmHg BP Standing (P ost-Dialysis) 196/104 mmHg Sitting Heart Rate Pre-Dialysis 96 BPM Sitting Heart Rate Post-Dialysis 88 BPM Standing Heart Rate Pre-Dialysis 99 BPM Standing Heart Rate Post-Dialysis 90 BPM Temperature Pre-Dialysis 97.4 degF Temperature Post -Dialysis 97.6 degF August 29, 2024 In-Center Hemodialysis Treatment 3958-04-99V71:16:37.000Z [id number]:08:00.000Z BP Sitting (Pre-Dialysis) 168/84 mmHg BP Sitting (Post-Dialysis) 165/80 mmHg Concurrent Access: falseAV Graft Upper Arm (Left) Arterial BP Standing (Pre-Dialysis) 155/92 mmHg BP Standing (P ost-Dialysis) 167/85 mmHg Sitting Heart Rate Pre-Dialysis 92 BPM Sitting Heart Rate Post-Dialysis 88 BPM Standing Heart Rate Pre-Dialysis 103 BPM Standing Heart Rate Post-Dialysis 88 BPM Temperature Pre-Dialysis 97.5 degF Temperature Post -Dialysis 97.8 degF August 26, 2024 In-Center Hemodialysis Treatment [id number]:07:22.000Z 3968-30-13E22:06:32.000Z BP Sitting (Pre-Dialysis) 182/108 mmHg BP Sitting (Post-Dialysis) 178/85 mmHg Concurrent Access: falseAV Graft Upper Arm (Left) Arterial Sitting Heart Rate Pre-Dialysis 93 BPM Sitting H eart Rate Post-Dialysis 96 BPM Temperature Pre-Dialysis 97.6 degF Temperature Post -Dialysis 97.6 degF August 24, 2024 In-Center Hemodialysis Treatment [id number]:15:00.000Z [id number]:12:52.000Z BP Sitting (Pre-Dialysis) 143/69 mmHg BP Sitting (Post-Dialysis) 166/81 mmHg Concurrent Access: falseAV Graft Upper Arm (Left) Arterial BP Standing (Pre-Dialysis) 152/74 mmHg BP Standing (P ost-Dialysis) 169/78 mmHg Sitting Heart Rate Pre-Dialysis 71 BPM Sitting Heart Rate Post-Dialysis 88 BPM Standing Heart Rate Pre-Dialysis 88 BPM Standing Heart Rate Post-Dialysis 88 BPM Temperature Pre-Dialysis 97.8 degF Temperature Post -Dialysis 97.7 degF August 22, 2024 In-Center Hemodialysis Treatment [id number]:08:20.000Z [id number]:08:20.000Z BP Sitting (Pre-Dialysis) 176/86 mmHg BP Sitting (Post-Dialysis) 150/71 mmHg Concurrent Access: falseAV Graft Upper Arm (Left) Arterial BP Standing (Pre-Dialysis) 171/90 mmHg BP Standing (P ost-Dialysis) 149/71 mmHg Sitting Heart Rate Pre-Dialysis 105 BPM Sitting Heart Rate Post-Dialysis 95 BPM Standing Heart Rate Pre-Dialysis 96 BPM Standing Heart Rate Post-Dialysis 94 BPM Temperature Pre-Dialysis 97.7 degF Temperature Post -Dialysis 97.8 degF August 19, 2024 In-Center Hemodialysis Treatment 1387-49-06O22:09:31.000Z 6166-95-14C41:08:31.000Z BP Sitting (Pre-Dialysis) 186/81 mmHg BP Sitting (Post-Dialysis) 167/80 mmHg Concurrent Access: falseAV Graft Upper Arm (Left) Arterial BP Standing (Pre-Dialysis) 165/81 mmHg BP Standing (P ost-Dialysis) 173/81 mmHg Sitting Heart Rate Pre-Dialysis 101 BPM Sitting Heart Rate Post-Dialysis 92 BPM Standing Heart Rate Pre-Dialysis 106 BPM Standing Heart Rate Post-Dialysis 92 BPM Temperature Pre-Dialysis 97.8 degF Temperature Post -Dialysis 97.8 degF August 17, 2024 In-Center Hemodialysis Treatment 3887-46-06T17:02:59.000Z 0433-19-11K22:00:59.000Z BP Sitting (Pre-Dialysis) 147/81 mmHg BP Sitting (Post-Dialysis) 155/79 mmHg Concurrent Access: falseAV Graft Upper Arm (Left) Arterial BP Standing (Pre-Dialysis) 153/83 mmHg BP Standing (P ost-Dialysis) 153/79 mmHg Sitting Heart Rate Pre-Dialysis 86 BPM Sitting Heart Rate Post-Dialysis 89 BPM Standing Heart Rate Pre-Dialysis 98 BPM Standing Heart Rate Post-Dialysis 88 BPM Temperature Pre-Dialysis 97.8 degF Temperature Post -Dialysis 97.6 degF August 15, 2024 In-Center Hemodialysis Treatment [id number]:09:26.000Z 1110-53-83F81:08:26.000Z BP Sitting (Pre-Dialysis) 166/88 mmHg BP Sitting (Post-Dialysis) 184/90 mmHg Concurrent Access: falseAV Graft Upper Arm (Left) Arterial BP Standing (Pre-Dialysis) 174/89 mmHg Sitti ng Heart Rate Post-Dialysis 88 BPM Sitting Heart Rate Pre-Dialysis 90 BPM Temperatu re Post-Dialysis 97.7 degF Standing Heart Rate Pre-Dialysis 91 BPM Temperature Pre-Dialysis 97.7 degF August 12, 2024 In-Center Hemodialysis Treatment 8597-14-30I87:11:00.000Z 6946-34-98Q46:10:38.000Z BP Sitting (Pre-Dialysis) 159/62 mmHg BP Sitting (Post-Dialysis) 164/91 mmHg Concurrent Access: falseAV Graft Upper Arm (Left) Arterial BP Standing (Pre-Dialysis) 163/79 mmHg BP Standing (P ost-Dialysis) 164/84 mmHg Sitting Heart Rate Pre-Dialysis 94 BPM Sitting Heart Rate Post-Dialysis 100 BPM Standing Heart Rate Pre-Dialysis 93 BPM Standing Heart Rate Post-Dialysis 94 BPM Temperature Pre-Dialysis 97.5 degF Temperature Post -Dialysis 97.5 degF August 10, 2024 In-Center Hemodialysis Treatment 3792-18-59L01:59:05.000Z 4694-05-12Y28:03:05.000Z BP Sitting (Pre-Dialysis) 174/79 mmHg BP Sitting (Post-Dialysis) 158/80 mmHg Concurrent Access: falseAV Graft Upper Arm (Left) Arterial BP Standing (Pre-Dialysis) 189/99 mmHg BP Standing (P ost-Dialysis) 155/77 mmHg Sitting Heart Rate Pre-Dialysis 73 BPM Sitting Heart Rate Post-Dialysis 85 BPM Standing Heart Rate Pre-Dialysis 97 BPM Standing Heart Rate Post-Dialysis 89 BPM Temperature Pre-Dialysis 97.8 degF Temperature Post -Dialysis 97.8 degF August 08, 2024 In-Center Hemodialysis Treatment [id number]:05:00.000Z [id number]:04:33.000Z BP Sitting (Pre-Dialysis) 158/82 mmHg BP Sitting (Post-Dialysis) 168/90 mmHg Concurrent Access: falseAV Graft Upper Arm (Left) Arterial BP Standing (Pre-Dialysis) 136/80 mmHg BP Standing (P ost-Dialysis) 169/89 mmHg Sitting Heart Rate Pre-Dialysis 103 BPM Sitting Heart Rate Post-Dialysis 94 BPM Standing Heart Rate Pre-Dialysis 109 BPM Standing Heart Rate Post-Dialysis 94 BPM Temperature Pre-Dialysis 97 degF Temperature Post -Dialysis 97.7 degF August 03, 2024 In-Center Hemodialysis Treatment 2255-17-19S53:11:00.000Z 4667-88-69A08:10:56.000Z BP Sitting (Pre-Dialysis) 155/76 mmHg BP Sitting (Post-Dialysis) 151/71 mmHg Concurrent Access: falseAV Graft Upper Arm (Left) Arterial BP Standing (Pre-Dialysis) 151/119 mmHg BP Standing (P ost-Dialysis) 158/70 mmHg Sitting Heart Rate Pre-Dialysis 96 BPM Sitting Heart Rate Post-Dialysis 82 BPM Standing Heart Rate Pre-Dialysis 70 BPM Standing Heart Rate Post-Dialysis 82 BPM Temperature Pre-Dialysis 97.4 degF Temperature Post -Dialysis 97.9 degF August 01, 2024 In-Center Hemodialysis Treatment 3814-60-66G74:06:00.000Z 4041-89-43L20:01:24.000Z BP Sitting (Pre-Dialysis) 149/74 mmHg BP Sitting (Post-Dialysis) 157/71 mmHg Concurrent Access: falseAV Graft Upper Arm (Left) Arterial BP Standing (Pre-Dialysis) 157/76 mmHg BP Standing (P ost-Dialysis) 168/88 mmHg Sitting Heart Rate Pre-Dialysis 93 BPM Sitting Heart Rate Post-Dialysis 87 BPM Standing Heart Rate Pre-Dialysis 93 BPM Standing Heart Rate Post-Dialysis 87 BPM Temperature Pre-Dialysis 97.3 degF Temperature Post -Dialysis 97.8 degF July 29, 2024 In-Center Hemodialysis Treatment 2713-69-58M14:06:00.000Z [id number]:05:36.000Z BP Sitting (Pre-Dialysis) 135/72 mmHg BP Sitting (Post-Dialysis) 148/74 mmHg Concurrent Access: falseAV Graft Upper Arm (Left) Arterial Sitting Heart Rate Pre-Dialysis 96 BPM Sitting H eart Rate Post-Dialysis 84 BPM Temperature Pre-Dialysis 97.5 degF Temperature Post -Dialysis 97.7 degF July 22, 2024 In-Center Hemodialysis Treatment 1847-92-00Q89:15:00.000Z 0893-26-52A19:33:33.000Z BP Sitting (Pre-Dialysis) 160/75 mmHg BP Sitting (Post-Dialysis) 159/69 mmHg Concurrent Access: falseAV Graft Upper Arm (Left) Arterial BP Standing (Pre-Dialysis) 146/72 mmHg Sitti ng Heart Rate Post-Dialysis 85 BPM Sitting Heart Rate Pre-Dialysis 93 BPM Temperatu re Post-Dialysis 98.2 degF Standing Heart Rate Pre-Dialysis 99 BPM Temperature Pre-Dialysis 97.8 degF July 20, 2024 In-Center Hemodialysis Treatment 7431-26-84R75:31:01.000Z 7779-30-49N71:31:02.000Z BP Sitting (Pre-Dialysis) 148/60 mmHg BP Sitting (Post-Dialysis) 170/79 mmHg Concurrent Access: falseAV Graft Upper Arm (Left) Arterial Sitting Heart Rate Pre-Dialysis 65 BPM BP Standing (Post-Dialysis) 104/51 mmHg Temperature Pre-Dialysis 97.9 degF Sitting Heart Ra te Post-Dialysis 90 BPM Standing Heart Rate Post-Dina lysis 73 BPM Temperature Post-Dialysis 98 degF July 18, 2024 In-Center Hemodialysis Treatment 0362-05-89J51:20:28.000Z 0019-74-04E52:20:29.000Z BP Sitting (Pre-Dialysis) 161/104 mmHg BP Sitting (Post-Dialysis) 170/83 mmHg Concurrent Access: falseAV Graft Upper Arm (Left) Arterial BP Standing (Pre-Dialysis) 156/75 mmHg Sitti ng Heart Rate Post-Dialysis 85 BPM Sitting Heart Rate Pre-Dialysis 77 BPM Temperatu re Post-Dialysis 97.6 degF Standing Heart Rate Pre-Dialysis 97 BPM Temperature Pre-Dialysis 97.8 degF July 15, 2024 In-Center Hemodialysis Treatment 5774-52-82Y34:24:10.000Z 4685-34-49Y66:25:11.000Z BP Sitting (Pre-Dialysis) 199/102 mmHg BP Sitting (Post-Dialysis) 197/106 mmHg Concurrent Access: falseAV Graft Upper Arm (Left) Arterial BP Standing (Pre-Dialysis) 138/111 mmHg Sitti ng Heart Rate Post-Dialysis 93 BPM Sitting Heart Rate Pre-Dialysis 104 BPM Temperatu re Post-Dialysis 98 degF Standing Heart Rate Pre-Dialysis 93 BPM Temperature Pre-Dialysis 97.9 degF July 13, 2024 In-Center Hemodialysis Treatment 6051-55-05C18:15:45.000Z 9696-28-12E88:12:45.000Z BP Sitting (Pre-Dialysis) 160/118 mmHg BP Sitting (Post-Dialysis) 187/85 mmHg Concurrent Access: falseAV Graft Upper Arm (Left) Arterial BP Standing (Pre-Dialysis) 161/85 mmHg BP Standing (P ost-Dialysis) 135/106 mmHg Sitting Heart Rate Pre-Dialysis 68 BPM Sitting Heart Rate Post-Dialysis 90 BPM Standing Heart Rate Pre-Dialysis 94 BPM Standing Heart Rate Post-Dialysis 57 BPM Temperature Pre-Dialysis 97.8 degF Temperature Post -Dialysis 98.2 degF July 08, 2024 In-Center Hemodialysis Treatment 2064-74-53G50:20:22.000Z 9629-62-48P41:17:23.000Z BP Sitting (Pre-Dialysis) 164/78 mmHg BP Sitting (Post-Dialysis) 179/83 mmHg Concurrent Access: falseAV Graft Upper Arm (Left) Arterial BP Standing (Pre-Dialysis) 160/74 mmHg Sitti ng Heart Rate Post-Dialysis 89 BPM Sitting Heart Rate Pre-Dialysis 95 BPM Temperatu re Post-Dialysis 98.4 degF Standing Heart Rate Pre-Dialysis 96 BPM Temperature Pre-Dialysis 97.4 degF July 06, 2024 In-Center Hemodialysis Treatment 8436-66-22X72:31:49.000Z 9368-93-87N77:30:50.000Z BP Sitting (Pre-Dialysis) 167/78 mmHg BP Sitting (Post-Dialysis) 162/84 mmHg Concurrent Access: falseAV Graft Upper Arm (Left) Arterial BP Standing (Pre-Dialysis) 164/83 mmHg BP Standing (P ost-Dialysis) 146/84 mmHg Sitting Heart Rate Pre-Dialysis 100 BPM Sitting Heart Rate Post-Dialysis 91 BPM Standing Heart Rate Pre-Dialysis 105 BPM Standing Heart Rate Post-Dialysis 91 BPM Temperature Pre-Dialysis 97.2 degF Temperature Post -Dialysis 97.8 degF July 04, 2024 In-Center Hemodialysis Treatment 9809-47-12C91:21:00.000Z 4516-13-90R00:22:17.000Z BP Sitting (Pre-Dialysis) 158/77 mmHg BP Sitting (Post-Dialysis) 191/87 mmHg Concurrent Access: falseAV Graft Upper Arm (Left) Arterial BP Standing (Pre-Dialysis) 175/85 mmHg BP Standing (P ost-Dialysis) 164/95 mmHg Sitting Heart Rate Pre-Dialysis 102 BPM Sitting Heart Rate Post-Dialysis 94 BPM Standing Heart Rate Pre-Dialysis 97 BPM Standing Heart Rate Post-Dialysis 92 BPM Temperature Pre-Dialysis 98 degF Temperature Post -Dialysis 97.2 degF July 01, 2024 In-Center Hemodialysis Treatment [id number]:25:28.000Z 4990-55-72D51:23:27.000Z BP Sitting (Pre-Dialysis) 153/96 mmHg BP Sitting (Post-Dialysis) 159/78 mmHg Concurrent Access: falseAV Graft Upper Arm (Left) Arterial Sitting Heart Rate Pre-Dialysis 89 BPM BP Standing (Post-Dialysis) 161/78 mmHg Temperature Pre-Dialysis 97.9 degF Sitting Heart Ra te Post-Dialysis 91 BPM Standing Heart Rate Post-Dina lysis 81 BPM Temperature Post-Dialysis 98 degF June 29, 2024 In-Center Hemodialysis Treatment 2878-51-70I51:11:54.000Z 8700-33-29A87:07:54.000Z BP Sitting (Pre-Dialysis) 166/82 mmHg BP Sitting (Post-Dialysis) 144/81 mmHg Concurrent Access: falseAV Graft Upper Arm (Left) Arterial BP Standing (Pre-Dialysis) 171/79 mmHg Sitti ng Heart Rate Post-Dialysis 92 BPM Sitting Heart Rate Pre-Dialysis 90 BPM Temperatu re Post-Dialysis 97.6 degF Standing Heart Rate Pre-Dialysis 93 BPM Temperature Pre-Dialysis 97.4 degF June 27, 2024 In-Center Hemodialysis Treatment 7305-89-35S15:11:00.000Z 4246-62-19G27:11:00.000Z BP Sitting (Pre-Dialysis) 170/140 mmHg BP Sitting (Post-Dialysis) 200/92 mmHg Concurrent Access: falseAV Graft Upper Arm (Left) Arterial BP Standing (Pre-Dialysis) 160/126 mmHg Sitti ng Heart Rate Post-Dialysis 87 BPM Sitting Heart Rate Pre-Dialysis 96 BPM Temperatu re Post-Dialysis 97.3 degF Standing Heart Rate Pre-Dialysis 95 BPM Temperature Pre-Dialysis 97 degF June 24, 2024 In-Center Hemodialysis Treatment 5372-06-16H06:26:44.000Z 7494-58-44Q71:26:44.000Z BP Sitting (Pre-Dialysis) 155/70 mmHg BP Sitting (Post-Dialysis) 199/89 mmHg Concurrent Access: falseAV Graft Upper Arm (Left) Arterial BP Standing (Pre-Dialysis) 161/79 mmHg Sitting Heart Rate Post-Dialysis 84 BPM Sitting Heart Rate Pre-Dialysis 87 BPM Standing Heart Rate Pre-Dialysis 90 BPM Temperature Pre-Dialysis 98 degF 2024 In-Center Hemodialysis Treatment 6068-21-47S40:24:11.000Z 1439-49-66W83:23:11.000Z BP Sitting (Pre-Dialysis) 170/84 mmHg BP Sitting (Post-Dialysis) 187/85 mmHg Concurrent Access: falseAV Graft Upper Arm (Left) Arterial BP Standing (Pre-Dialysis) 171/85 mmHg BP Standing (P ost-Dialysis) 190/84 mmHg Sitting Heart Rate Pre-Dialysis 86 BPM Sitting Heart Rate Post-Dialysis 87 BPM Standing Heart Rate Pre-Dialysis 85 BPM Standing Heart Rate Post-Dialysis 86 BPM Temperature Pre-Dialysis 98.1 degF Temperature Post -Dialysis 97.8 degF June 20, 2024 In-Center Hemodialysis Treatment 4897-13-17B33:24:38.000Z 9847-90-25M82:22:38.000Z BP Sitting (Pre-Dialysis) 175/85 mmHg BP Sitting (Post-Dialysis) 169/86 mmHg Concurrent Access: falseAV Graft Upper Arm (Left) Arterial BP Standing (Pre-Dialysis) 176/105 mmHg BP Standing (P ost-Dialysis) 169/79 mmHg Sitting Heart Rate Pre-Dialysis 89 BPM Sitting Heart Rate Post-Dialysis 93 BPM Standing Heart Rate Pre-Dialysis 89 BPM Standing Heart Rate Post-Dialysis 89 BPM Temperature Pre-Dialysis 98 degF Temperature Post -Dialysis 98 degF June 15, 2024 In-Center Hemodialysis Treatment 9528-09-81W80:26:32.000Z [id number]:28:32.000Z BP Sitting (Pre-Dialysis) 175/86 mmHg BP Sitting (Post-Dialysis) 178/92 mmHg Concurrent Access: falseAV Graft Upper Arm (Left) Arterial BP Standing (Pre-Dialysis) 125/89 mmHg BP Standing (P ost-Dialysis) 191/93 mmHg Sitting Heart Rate Pre-Dialysis 84 BPM Sitting Heart Rate Post-Dialysis 92 BPM Standing Heart Rate Pre-Dialysis 84 BPM Standing Heart Rate Post-Dialysis 88 BPM Temperature Pre-Dialysis 98.2 degF Temperature Post -Dialysis 97.2 degF June 13, 2024 In-Center Hemodialysis Treatment [id number]:24:00.000Z 0093-42-35E16:00:59.000Z BP Sitting (Pre-Dialysis) 170/81 mmHg BP Sitting (Post-Dialysis) 162/80 mmHg Concurrent Access: falseAV Graft Upper Arm (Left) Arterial BP Standing (Pre-Dialysis) 180/89 mmHg BP Standing (P ost-Dialysis) 186/86 mmHg Sitting Heart Rate Pre-Dialysis 88 BPM Sitting Heart Rate Post-Dialysis 88 BPM Standing Heart Rate Pre-Dialysis 90 BPM Standing Heart Rate Post-Dialysis 87 BPM Temperature Pre-Dialysis 97.6 degF Temperature Post -Dialysis 97.7 degF June 10, 2024 In-Center Hemodialysis Treatment 4913-10-13A73:20:10.000Z 1529-33-11Z73:21:10.000Z BP Sitting (Pre-Dialysis) 190/91 mmHg BP Sitting (Post-Dialysis) 135/66 mmHg Concurrent Access: falseAV Graft Upper Arm (Left) Arterial BP Standing (Pre-Dialysis) 182/87 mmHg BP Standing (P ost-Dialysis) 145/70 mmHg Sitting Heart Rate Pre-Dialysis 87 BPM Sitting Heart Rate Post-Dialysis 92 BPM Standing Heart Rate Pre-Dialysis 93 BPM Standing Heart Rate Post-Dialysis 94 BPM Temperature Pre-Dialysis 97.7 degF Temperature Post -Dialysis 97.8 degF June 08, 2024 In-Center Hemodialysis Treatment 350 mL/min 500 mL/min Concurrent Access: false June 06, 2024 In-Center Hemodialysis Treatment 20 25 -0 - T1 1: 27 :0 0. 00 0Z 25 -0 - T1 4: 32 :0 4. 00 0Z BP Sitting (Pre-Dial ysis) 131/64 mmHg BP Sitting (Post-Dina lysis) 168/47 mmHg Concurrent Access: falseAV Graft Upper Arm (Left) Arterial BP Standing (Pre-Dialysis) 157/86 mmHg BP Standing (P ost-Dialysis) 187/85 mmHg Sitting Heart Rate Pre-Dialysis 60 BPM Sitting Heart Rate Post-Dialysis 91 BPM Standing Heart Rate Pre-Dialysis 94 BPM Standing Heart Rate Post-Dialysis 89 BPM Temperature Pre-Dialysis 97.6 degF Temperature Post -Dialysis 97.6 degF June 03, 2024 In-Center Hemodialysis Treatment 0989-77-41X41:27:06.000Z 0145-95-15Q86:30:06.000Z BP Sitting (Pre-Dialysis) 114/92 mmHg BP Sitting (Post-Dialysis) 152/69 mmHg Concurrent Access: falseAV Graft Upper Arm (Left) Arterial Sitting Heart Rate Pre-Dialysis 62 BPM Sitting H eart Rate Post-Dialysis 86 BPM Temperature Pre-Dialysis 98 degF Temperature Post -Dialysis 98 degF May 30, 2024 In-Center Hemodialysis Treatment 5104-26-49B48:16:00.000Z 1551-68-27I11:03:00.000Z BP Sitting (Pre-Dialysis) 159/78 mmHg BP Sitting (Post-Dialysis) 130/68 mmHg Concurrent Access: falseAV Graft Upper Arm (Left) Arterial BP Standing (Pre-Dialysis) 146/101 mmHg BP Standing (P ost-Dialysis) 136/72 mmHg Sitting Heart Rate Pre-Dialysis 90 BPM Sitting Heart Rate Post-Dialysis 86 BPM Standing Heart Rate Pre-Dialysis 99 BPM Standing Heart Rate Post-Dialysis 84 BPM Temperature Pre-Dialysis 97.2 degF Temperature Post -Dialysis 97.6 degF May 27, 2024 In-Center Hemodialysis Treatment [id number]:20:52.000Z 0889-92-35Z63:21:53.000Z BP Sitting (Pre-Dialysis) 168/89 mmHg BP Sitting (Post-Dialysis) 114/87 mmHg Concurrent Access: falseAV Graft Upper Arm (Left) Arterial BP Standing (Pre-Dialysis) 189/103 mmHg BP Standing (P ost-Dialysis) 149/74 mmHg Sitting Heart Rate Pre-Dialysis 94 BPM Sitting Heart Rate Post-Dialysis 81 BPM Standing Heart Rate Pre-Dialysis 99 BPM Standing Heart Rate Post-Dialysis 92 BPM Temperature Pre-Dialysis 97.3 degF Temperature Post -Dialysis 97.5 degF May 23, 2024 In-Center Hemodialysis Treatment 9538-03-18V28:28:46.000Z 2885-07-72U31:31:46.000Z BP Sitting (Pre-Dialysis) 131/60 mmHg BP Sitting (Post-Dialysis) 133/66 mmHg Concurrent Access: falseAV Graft Upper Arm (Left) Arterial BP Standing (Pre-Dialysis) 148/71 mmHg Sitting Heart Rate Post-Dialysis 98 BPM Sitting Heart Rate Pre-Dialysis 92 BPM Standing Heart Rate Pre-Dialysis 92 BPM Temperature Pre-Dialysis 97.6 degF May 20, 2024 In-Center Hemodialysis Treatment 4721-24-63T60:29:55.000Z 6994-94-79M87:29:56.000Z BP Sitting (Pre-Dialysis) 160/79 mmHg BP Sitting (Post-Dialysis) 145/112 mmHg Concurrent Access: falseAV Graft Upper Arm (Left) Arterial BP Standing (Pre-Dialysis) 144/126 mmHg BP Standing (P ost-Dialysis) 132/76 mmHg Sitting Heart Rate Pre-Dialysis 90 BPM Sitting Heart Rate Post-Dialysis 98 BPM Standing Heart Rate Pre-Dialysis 60 BPM Standing Heart Rate Post-Dialysis 98 BPM Temperature Pre-Dialysis 98 degF Temperature Post -Dialysis 98 degF May 18, 2024 In-Center Hemodialysis Treatment 3112-38-74F25:26:45.000Z 6722-96-34Y80:29:45.000Z BP Sitting (Pre-Dialysis) 149/72 mmHg BP Sitting (Post-Dialysis) 143/61 mmHg Concurrent Access: falseAV Graft Upper Arm (Left) Arterial BP Standing (Pre-Dialysis) 147/74 mmHg Sitting Heart Rate Post-Dialysis 98 BPM Sitting Heart Rate Pre-Dialysis 95 BPM Temperatu re Post-Dialysis 98 degF Standing Heart Rate Pre-Dialysis 98 BPM Temperature Pre-Dialysis 97.5 degF May 16, 2024 In-Center Hemodialysis Treatment 3548-26-00N45:41:11.000Z [id number]:49:11.000Z BP Sitting (Pre-Dialysis) 161/125 mmHg BP Sitting (Post-Dialysis) 151/83 mmHg Concurrent Access: falseAV Graft Upper Arm (Left) Arterial Sitting Heart Rate Pre-Dialysis 92 BPM BP Standi ng (Post-Dialysis) 107/92 mmHg Temperature Pre-Dialysis 98 degF Sitting Heart Ra te Post-Dialysis 97 BPM Standing Heart Rate Post-Dina lysis 75 BPM Temperature Post-Dialysis 98 degF May 13, 2024 In-Center Hemodialysis Treatment 7632-82-44D78:23:00.000Z 3408-07-13X96:21:21.000Z BP Sitting (Pre-Dialysis) 166/79 mmHg BP Sitting (Post-Dialysis) 165/114 mmHg Concurrent Access: falseAV Graft Upper Arm (Left) Arterial BP Standing (Pre-Dialysis) 163/77 mmHg BP Standing (P ost-Dialysis) 134/104 mmHg Sitting Heart Rate Pre-Dialysis 91 BPM Sitting Heart Rate Post-Dialysis 65 BPM Standing Heart Rate Pre-Dialysis 94 BPM Standing Heart Rate Post-Dialysis 93 BPM Temperature Pre-Dialysis 97.8 degF Temperature Post -Dialysis 97.5 degF May 11, 2024 In-Center Hemodialysis Treatment [id number]:25:48.000Z 7456-13-92Y20:25:48.000Z BP Sitting (Pre-Dialysis) 150/74 mmHg BP Sitting (Post-Dialysis) 141/74 mmHg Concurrent Access: falseAV Graft Upper Arm (Left) Arterial BP Standing (Pre-Dialysis) 147/75 mmHg Sitting Heart Rate Post-Dialysis 101 BPM Sitting Heart Rate Pre-Dialysis 98 BPM Temperatu re Post-Dialysis 98 degF Standing Heart Rate Pre-Dialysis 95 BPM Temperature Pre-Dialysis 98.6 degF May 09, 2024 In-Center Hemodialysis Treatment [id number]:23:15.000Z [id number]:25:15.000Z BP Sitting (Pre-Dialysis) 180/90 mmHg BP Sitting (Post-Dialysis) 156/78 mmHg Concurrent Access: falseAV Graft Upper Arm (Left) Arterial BP Standing (Pre-Dialysis) 178/86 mmHg Sitti ng Heart Rate Post-Dialysis 87 BPM Sitting Heart Rate Pre-Dialysis 90 BPM Temperatu re Post-Dialysis 97.8 degF Standing Heart Rate Pre-Dialysis 92 BPM Temperature Pre-Dialysis 97.8 degF May 06, 2024 In-Center Hemodialysis Treatment [id number]:41:25.000Z 9861-48-28P92:45:25.000Z BP Sitting (Pre-Dialysis) 120/76 mmHg BP Sitting (Post-Dialysis) 114/82 mmHg Concurrent Access: falseAV Graft Upper Arm (Left) Arterial Sitting Heart Rate Pre-Dialysis 56 BPM Sitting H eart Rate Post-Dialysis 91 BPM Temperature Pre-Dialysis 98 degF Temperature Post -Dialysis 98.2 degF May 02, 2024 In-Center Hemodialysis Treatment [id number]:21:00.000Z 5632-89-86A13:26:19.000Z BP Sitting (Pre-Dialysis) 164/77 mmHg BP Sitting (Post-Dialysis) 106/59 mmHg Concurrent Access: falseAV Graft Upper Arm (Left) Arterial Sitting Heart Rate Pre-Dialysis 95 BPM Sitting H eart Rate Post-Dialysis 77 BPM Temperature Pre-Dialysis 97 degF Temperature Post -Dialysis 97.2 degF April 29, 2024 In-Center Hemodialysis Treatment 3097-21-52Q60:27:00.000Z 8060-92-47J78:33:30.000Z BP Sitting (Pre-Dialysis) 173/79 mmHg BP Sitting (Post-Dialysis) 132/106 mmHg Concurrent Access: falseAV Graft Upper Arm (Left) Arterial Sitting Heart Rate Pre-Dialysis 88 BPM Sitting H eart Rate Post-Dialysis 87 BPM Temperature Pre-Dialysis 98.2 degF Temperature Post -Dialysis 97.6 degF April 27, 2024 In-Center Hemodialysis Treatment [id number]:13:54.000Z 7686-29-82P11:14:55.000Z BP Sitting (Pre-Dialysis) 158/95 mmHg BP Sitting (Post-Dialysis) 170/78 mmHg Concurrent Access: falseAV Graft Upper Arm (Left) Arterial Sitting Heart Rate Pre-Dialysis 92 BPM BP Standing (Post-Dialysis) 152/76 mmHg Temperature Pre-Dialysis 98.3 degF Sitting Heart Ra te Post-Dialysis 89 BPM Standing Heart Rate Post-Dina lysis 89 BPM Temperature Post-Dialysis 97 .4 degF April 25, 2024 In-Center Hemodialysis Treatment [id number]:29:21.000Z 3781-59-17L16:30:22.000Z BP Sitting (Pre-Dialysis) 124/61 mmHg BP Sitting (Post-Dialysis) 151/87 mmHg Concurrent Access: falseAV Graft Upper Arm (Left) Arterial Sitting Heart Rate Pre-Dialysis 71 BPM Sitting H eart Rate Post-Dialysis 90 BPM Temperature Pre-Dialysis 97.8 degF Temperature Post -Dialysis 97.7 degF April 22, 2024 In-Center Hemodialysis Treatment [id number]:19:46.000Z 7085-31-27O85:20:46.000Z BP Sitting (Pre-Dialysis) 123/38 mmHg BP Sitting (Post-Dialysis) 172/82 mmHg Concurrent Access: falseAV Graft Upper Arm (Left) Arterial Sitting Heart Rate Pre-Dialysis 81 BPM Sitting H eart Rate Post-Dialysis 89 BPM Temperature Pre-Dialysis 98 degF Temperature Post -Dialysis 97.1 degF April 18, 2024 In-Center Hemodialysis Treatment [id number]:38:39.000Z 2595-03-59T22:34:39.000Z BP Sitting (Pre-Dialysis) 184/99 mmHg BP Sitting (Post-Dialysis) 119/50 mmHg Concurrent Access: falseAV Graft Upper Arm (Left) Arterial Sitting Heart Rate Pre-Dialysis 95 BPM Sitting H eart Rate Post-Dialysis 85 BPM Temperature Pre-Dialysis 98 degF Temperature Post -Dialysis 98 degF April 15, 2024 In-Center Hemodialysis Treatment [id number]:25:04.000Z 2404-05-65P57:24:04.000Z BP Sitting (Pre-Dialysis) 158/95 mmHg BP Sitting (Post-Dialysis) 180/74 mmHg Concurrent Access: falseAV Graft Upper Arm (Left) Arterial Sitting Heart Rate Pre-Dialysis 95 BPM Sitting H eart Rate Post-Dialysis 62 BPM Temperature Pre-Dialysis 97.4 degF Temperature Post -Dialysis 97.6 degF April 13, 2024 In-Center Hemodialysis Treatment [id number]:33:32.000Z 2371-72-27P40:38:31.000Z BP Sitting (Pre-Dialysis) 189/89 mmHg BP Sitting (Post-Dialysis) 149/73 mmHg Concurrent Access: falseAV Graft Upper Arm (Left) Arterial Sitting Heart Rate Pre-Dialysis 91 BPM Sitting H eart Rate Post-Dialysis 91 BPM Temperature Pre-Dialysis 98 degF Temperature Post -Dialysis 98 degF April 10, 2024 In-Center Hemodialysis Treatment 8542-12-28Z49:21:41.000Z 0259-40-63U59:50:42.000Z BP Sitting (Pre-Dialysis) 186/88 mmHg BP Sitting (Post-Dialysis) 182/51 mmHg Concurrent Access: falseAV Graft Upper Arm (Left) Arterial Sitting Heart Rate Pre-Dialysis 82 BPM BP Standing (Post-Dialysis) 168/83 mmHg Temperature Pre-Dialysis 97.8 degF Sitting Heart Ra te Post-Dialysis 76 BPM Standing Heart Rate Post-Dina lysis 83 BPM Temperature Post-Dialysis 97 .8 degF April 08, 2024 In-Center Hemodialysis Treatment 0913-66-20E29:28:08.000Z 7104-29-23E92:33:09.000Z BP Sitting (Pre-Dialysis) 150/79 mmHg BP Sitting (Post-Dialysis) 153/77 mmHg Concurrent Access: falseAV Graft Upper Arm (Left) Arterial Sitting Heart Rate Pre-Dialysis 89 BPM Sitting H eart Rate Post-Dialysis 84 BPM Temperature Pre-Dialysis 97.8 degF Temperature Post -Dialysis 97.6 degF April 06, 2024 In-Center Hemodialysis Treatment 0827-72-70N43:24:36.000Z 9815-28-51W44:33:08.000Z BP Sitting (Pre-Dialysis) 196/97 mmHg BP Sitting (Post-Dialysis) 147/72 mmHg Concurrent Access: falseAV Graft Upper Arm (Left) Arterial Sitting Heart Rate Pre-Dialysis 87 BPM Sitting H eart Rate Post-Dialysis 89 BPM Temperature Pre-Dialysis 97.8 degF Temperature Post -Dialysis 97.8 degF April 03, 2024 In-Center Hemodialysis Treatment 5401-44-35Q05:21:46.000Z 4044-13-92Y05:23:46.000Z BP Sitting (Pre-Dialysis) 195/92 mmHg BP Sitting (Post-Dialysis) 176/83 mmHg Concurrent Access: falseAV Graft Upper Arm (Left) Arterial Sitting Heart Rate Pre-Dialysis 87 BPM Sitting H eart Rate Post-Dialysis 81 BPM Temperature Pre-Dialysis 97.8 degF Temperature Post -Dialysis 97.8 degF April 01, 2024 In-Center Hemodialysis Treatment 3346-25-33E07:20:00.000Z 7179-63-07Q93:20:13.000Z BP Sitting (Pre-Dialysis) 201/98 mmHg BP Sitting (Post-Dialysis) 122/76 mmHg Concurrent Access: falseAV Graft Upper Arm (Left) Arterial Sitting Heart Rate Pre-Dialysis 94 BPM Sitting H eart Rate Post-Dialysis 94 BPM Temperature Pre-Dialysis 97.8 degF Temperature Post -Dialysis 97.4 degF March 30, 2024 In-Center Hemodialysis Treatment 9895-05-58V82:30:00.000Z 3447-82-91S23:33:40.000Z BP Sitting (Pre-Dialysis) 171/86 mmHg BP Sitting (Post-Dialysis) 177/96 mmHg Concurrent Access: falseAV Graft Upper Arm (Left) Arterial Sitting Heart Rate Pre-Dialysis 86 BPM Sitting H eart Rate Post-Dialysis 75 BPM Temperature Pre-Dialysis 98 degF Temperature Post -Dialysis 98 degF March 28, 2024 In-Center Hemodialysis Treatment 7616-97-61D00:32:57.000Z 4309-15-83Z51:37:57.000Z BP Sitting (Pre-Dialysis) 165/95 mmHg BP Sitting (Post-Dialysis) 171/96 mmHg Concurrent Access: falseAV Graft Upper Arm (Left) Arterial Sitting Heart Rate Pre-Dialysis 87 BPM Sitting H eart Rate Post-Dialysis 79 BPM Temperature Pre-Dialysis 97 degF Temperature Post -Dialysis 98 degF March 25, 2024 In-Center Hemodialysis Treatment 1896-53-01R53:36:07.000Z 5477-43-30Z29:33:08.000Z BP Sitting (Pre-Dialysis) 164/81 mmHg BP Sitting (Post-Dialysis) 152/78 mmHg Concurrent Access: falseAV Graft Upper Arm (Left) Arterial Sitting Heart Rate Pre-Dialysis 84 BPM Sitting H eart Rate Post-Dialysis 65 BPM Temperature Pre-Dialysis 97.8 degF Temperature Post -Dialysis 97.6 degF March 23, 2024 In-Center Hemodialysis Treatment [id number]:47:34.000Z 1785-71-18S77:39:35.000Z BP Sitting (Pre-Dialysis) 172/84 mmHg BP Sitting (Post-Dialysis) 159/64 mmHg Concurrent Access: falseAV Graft Upper Arm (Left) Arterial Sitting Heart Rate Pre-Dialysis 87 BPM Sitting H eart Rate Post-Dialysis 85 BPM Temperature Pre-Dialysis 97.5 degF Temperature Post -Dialysis 97.6 degF March 21, 2024 In-Center Hemodialysis Treatment 2389-96-16F79:16:00.000Z 4911-30-07I55:16:01.000Z BP Sitting (Pre-Dialysis) 171/86 mmHg BP Sitting (Post-Dialysis) 172/76 mmHg Concurrent Access: falseAV Graft Upper Arm (Left) Arterial Sitting Heart Rate Pre-Dialysis 84 BPM Sitting H eart Rate Post-Dialysis 85 BPM Temperature Pre-Dialysis 97.2 degF Temperature Post -Dialysis 97.8 degF March 18, 2024 In-Center Hemodialysis Treatment 4184-28-36M44:21:11.000Z 5023-46-88Y72:24:10.000Z BP Sitting (Pre-Dialysis) 116/74 mmHg BP Sitting (Post-Dialysis) 148/54 mmHg Concurrent Access: falseAV Graft Upper Arm (Left) Arterial Sitting Heart Rate Pre-Dialysis 75 BPM Sitting H eart Rate Post-Dialysis 84 BPM Temperature Pre-Dialysis 97.4 degF Temperature Post -Dialysis 97.6 degF March 16, 2024 In-Center Hemodialysis Treatment 0295-68-60X68:31:00.000Z 7617-26-87B79:36:04.000Z BP Sitting (Pre-Dialysis) 197/83 mmHg BP Sitting (Post-Dialysis) 197/86 mmHg Concurrent Access: falseAV Graft Upper Arm (Left) Arterial BP Standing (Pre-Dialysis) 170/81 mmHg Sitti ng Heart Rate Post-Dialysis 81 BPM Sitting Heart Rate Pre-Dialysis 81 BPM Temperatu re Post-Dialysis 97.8 degF Standing Heart Rate Pre-Dialysis 82 BPM Temperature Pre-Dialysis 97.8 degF March 14, 2024 In-Center Hemodialysis Treatment 1588-17-91C54:21:58.000Z 7438-93-85Y58:23:58.000Z BP Sitting (Pre-Dialysis) 164/80 mmHg BP Sitting (Post-Dialysis) 152/80 mmHg Concurrent Access: falseAV Graft Upper Arm (Left) Arterial Sitting Heart Rate Pre-Dialysis 82 BPM Sitting H eart Rate Post-Dialysis 78 BPM Temperature Pre-Dialysis 97.8 degF Temperature Post -Dialysis 97.8 degF March 08, 2024 In-Center Hemodialysis Treatment 2831-07-95U48:19:39.000Z 9911-10-00W68:22:39.000Z BP Sitting (Pre-Dialysis) 159/81 mmHg BP Sitting (Post-Dialysis) 119/58 mmHg Concurrent Access: falseAV Graft Upper Arm (Left) Arterial Sitting Heart Rate Pre-Dialysis 91 BPM Sitting H eart Rate Post-Dialysis 83 BPM Temperature Pre-Dialysis 97.5 degF Temperature Post -Dialysis 97.6 degF March 06, 2024 In-Center Hemodialysis Treatment 5615-83-08N79:21:00.000Z 0776-69-98L37:25:33.000Z BP Sitting (Pre-Dialysis) 145/76 mmHg BP Sitting (Post-Dialysis) 131/63 mmHg Concurrent Access: falseAV Graft Upper Arm (Left) Arterial Sitting Heart Rate Pre-Dialysis 87 BPM Sitting H eart Rate Post-Dialysis 85 BPM Temperature Pre-Dialysis 98 degF Temperature Post -Dialysis 97.6 degF March 02, 2024 In-Center Hemodialysis Treatment 7638-68-78S84:26:00.000Z 6575-93-99Y77:25:21.000Z BP Sitting (Pre-Dialysis) 152/67 mmHg BP Sitting (Post-Dialysis) 97/55 mmHg Concurrent Access: falseAV Graft Upper Arm (Left) Arterial Sitting Heart Rate Pre-Dialysis 86 BPM BP Standi ng (Post-Dialysis) 115/64 mmHg Temperature Pre-Dialysis 98 degF Sitting Heart Ra te Post-Dialysis 85 BPM Standing Heart Rate Post-Dina lysis 83 BPM Temperature Post-Dialysis 97 .8 degF February 29, 2024 In-Center Hemodialysis Treatment 5461-89-95S17:23:15.000Z 2540-42-91J42:20:15.000Z BP Sitting (Pre-Dialysis) 136/70 mmHg BP Sitting (Post-Dialysis) 130/66 mmHg Concurrent Access: falseAV Graft Upper Arm (Left) Arterial Sitting Heart Rate Pre-Dialysis 89 BPM Sitting H eart Rate Post-Dialysis 86 BPM Temperature Pre-Dialysis 97.8 degF Temperature Post -Dialysis 97.8 degF February 26, 2024 In-Center Hemodialysis Treatment 4338-77-35O24:26:14.000Z 8669-13-42G14:30:14.000Z BP Sitting (Pre-Dialysis) 132/66 mmHg BP Sitting (Post-Dialysis) 120/63 mmHg Concurrent Access: falseAV Graft Upper Arm (Left) Arterial Sitting Heart Rate Pre-Dialysis 88 BPM Sitting H eart Rate Post-Dialysis 89 BPM Temperature Pre-Dialysis 97.8 degF Temperature Post -Dialysis 97.8 degF February 25, 2024 In-Center Hemodialysis Treatment 1793-22-42M17:41:05.000Z 9594-92-06V32:37:06.000Z BP Sitting (Pre-Dialysis) 128/68 mmHg BP Sitting (Post-Dialysis) 117/63 mmHg Concurrent Access: falseAV Graft Upper Arm (Left) Arterial Sitting Heart Rate Pre-Dialysis 96 BPM Sitting H eart Rate Post-Dialysis 96 BPM Temperature Pre-Dialysis 97.9 degF Temperature Post -Dialysis 97.8 degF February 17, 2024 In-Center Hemodialysis Treatment 5832-58-35I47:21:00.000Z 8967-69-64G92:22:14.000Z BP Sitting (Pre-Dialysis) 142/68 mmHg BP Sitting (Post-Dialysis) 144/73 mmHg Concurrent Access: falseAV Graft Upper Arm (Left) Arterial BP Standing (Pre-Dialysis) 122/67 mmHg Sitti ng Heart Rate Post-Dialysis 93 BPM Sitting Heart Rate Pre-Dialysis 92 BPM Temperatu re Post-Dialysis 97.4 degF Standing Heart Rate Pre-Dialysis 75 BPM Temperature Pre-Dialysis 97.8 degF February 15, 2024 In-Center Hemodialysis Treatment 5598-99-82Z87:29:14.000Z 3198-51-62L64:38:14.000Z BP Sitting (Pre-Dialysis) 126/87 mmHg BP Sitting (Post-Dialysis) 173/89 mmHg Concurrent Access: falseAV Graft Upper Arm (Left) Arterial BP Standing (Pre-Dialysis) 110/95 mmHg BP Standing (P ost-Dialysis) 163/79 mmHg Sitting Heart Rate Pre-Dialysis 93 BPM Sitting Heart Rate Post-Dialysis 89 BPM Standing Heart Rate Pre-Dialysis 60 BPM Standing Heart Rate Post-Dialysis 88 BPM Temperature Pre-Dialysis 97.8 degF Temperature Post -Dialysis 97.8 degF February 12, 2024 In-Center Hemodialysis Treatment 7816-67-92H83:30:44.000Z 3227-19-02L52:34:44.000Z BP Sitting (Pre-Dialysis) 172/82 mmHg BP Sitting (Post-Dialysis) 139/64 mmHg Concurrent Access: falseAV Graft Upper Arm (Left) Arterial BP Standing (Pre-Dialysis) 155/81 mmHg BP Standing (P ost-Dialysis) 121/85 mmHg Sitting Heart Rate Pre-Dialysis 80 BPM Sitting Heart Rate Post-Dialysis 90 BPM Standing Heart Rate Pre-Dialysis 85 BPM Standing Heart Rate Post-Dialysis 76 BPM Temperature Pre-Dialysis 98 degF Temperature Post -Dialysis 98 degF February 10, 2024 In-Center Hemodialysis Treatment 9259-20-57U63:31:45.000Z 0599-40-69U79:35:44.000Z BP Sitting (Pre-Dialysis) 126/77 mmHg BP Sitting (Post-Dialysis) 118/69 mmHg Concurrent Access: falseAV Graft Upper Arm (Left) Arterial BP Standing (Pre-Dialysis) 130/70 mmHg BP Standing (P ost-Dialysis) 149/76 mmHg Sitting Heart Rate Pre-Dialysis 94 BPM Sitting Heart Rate Post-Dialysis 87 BPM Standing Heart Rate Pre-Dialysis 99 BPM Standing Heart Rate Post-Dialysis 84 BPM Temperature Pre-Dialysis 98 degF Temperature Post -Dialysis 98 degF February 08, 2024 In-Center Hemodialysis Treatment 8038-24-28M77:22:45.000Z 6801-92-37O47:22:44.000Z BP Sitting (Pre-Dialysis) 143/71 mmHg BP Sitting (Post-Dialysis) 150/74 mmHg Concurrent Access: falseAV Graft Upper Arm (Left) Arterial BP Standing (Pre-Dialysis) 150/57 mmHg BP Standing (P ost-Dialysis) 172/70 mmHg Sitting Heart Rate Pre-Dialysis 91 BPM Sitting Heart Rate Post-Dialysis 89 BPM Standing Heart Rate Pre-Dialysis 94 BPM Standing Heart Rate Post-Dialysis 88 BPM Temperature Pre-Dialysis 97.4 degF Temperature Post -Dialysis 97.8 degF February 05, 2024 In-Center Hemodialysis Treatment 5924-07-33J37:22:44.000Z 9779-26-23Z75:21:44.000Z BP Sitting (Pre-Dialysis) 186/92 mmHg BP Sitting (Post-Dialysis) 147/77 mmHg Concurrent Access: falseAV Graft Upper Arm (Left) Arterial BP Standing (Pre-Dialysis) 158/93 mmHg BP Standing (P ost-Dialysis) 146/72 mmHg Sitting Heart Rate Pre-Dialysis 82 BPM Sitting Heart Rate Post-Dialysis 93 BPM Standing Heart Rate Pre-Dialysis 94 BPM Standing Heart Rate Post-Dialysis 89 BPM Temperature Pre-Dialysis 97.8 degF Temperature Post -Dialysis 97.8 degF February 03, 2024 In-Center Hemodialysis Treatment 6664-33-55A66:27:45.000Z 1298-65-65Q68:30:44.000Z BP Sitting (Pre-Dialysis) 161/78 mmHg BP Sitting (Post-Dialysis) 145/82 mmHg Concurrent Access: falseAV Graft Upper Arm (Left) Arterial BP Standing (Pre-Dialysis) 104/46 mmHg BP Standing (P ost-Dialysis) 153/67 mmHg Sitting Heart Rate Pre-Dialysis 86 BPM Sitting Heart Rate Post-Dialysis 70 BPM Standing Heart Rate Pre-Dialysis 55 BPM Standing Heart Rate Post-Dialysis 82 BPM Temperature Pre-Dialysis 98 degF Temperature Post -Dialysis 97.8 degF February 02, 2024 In-Center Hemodialysis Treatment 0319-24-43N50:24:00.000Z 3734-50-54U82:27:42.000Z BP Sitting (Pre-Dialysis) 140/81 mmHg BP Sitting (Post-Dialysis) 167/75 mmHg Concurrent Access: falseAV Graft Upper Arm (Left) Arterial BP Standing (Pre-Dialysis) 163/73 mmHg BP Standing (P ost-Dialysis) 113/80 mmHg Sitting Heart Rate Pre-Dialysis 87 BPM Sitting Heart Rate Post-Dialysis 90 BPM Standing Heart Rate Pre-Dialysis 86 BPM Standing Heart Rate Post-Dialysis 98 BPM Temperature Pre-Dialysis 97.3 degF Temperature Post -Dialysis 98.1 degF January 29, 2024 In-Center Hemodialysis Treatment 1138-74-90V87:31:14.000Z 6376-75-79E80:34:14.000Z BP Sitting (Pre-Dialysis) 184/94 mmHg BP Sitting (Post-Dialysis) 174/87 mmHg Concurrent Access: falseAV Graft Upper Arm (Left) Arterial BP Standing (Pre-Dialysis) 165/97 mmHg BP Standing (P ost-Dialysis) 139/77 mmHg Sitting Heart Rate Pre-Dialysis 88 BPM Sitting Heart Rate Post-Dialysis 91 BPM Standing Heart Rate Pre-Dialysis 91 BPM Standing Heart Rate Post-Dialysis 98 BPM Temperature Pre-Dialysis 97.8 degF Temperature Post -Dialysis 98.4 degF January 27, 2024 In-Center Hemodialysis Treatment 5521-93-89R35:27:00.000Z 7783-24-96T36:28:15.000Z BP Sitting (Pre-Dialysis) 172/82 mmHg BP Sitting (Post-Dialysis) 122/68 mmHg Concurrent Access: falseAV Graft Upper Arm (Left) Arterial BP Standing (Pre-Dialysis) 148/123 mmHg Sitti ng Heart Rate Post-Dialysis 89 BPM Sitting Heart Rate Pre-Dialysis 93 BPM Temperatu re Post-Dialysis 97.8 degF Standing Heart Rate Pre-Dialysis 85 BPM Temperature Pre-Dialysis 97.8 degF January 25, 2024 In-Center Hemodialysis Treatment 8795-35-81J44:23:15.000Z 9014-91-05R61:25:15.000Z BP Sitting (Pre-Dialysis) 147/79 mmHg BP Sitting (Post-Dialysis) 158/82 mmHg Concurrent Access: falseAV Graft Upper Arm (Left) Arterial BP Standing (Pre-Dialysis) 149/92 mmHg BP Standing (P ost-Dialysis) 155/64 mmHg Sitting Heart Rate Pre-Dialysis 89 BPM Sitting Heart Rate Post-Dialysis 89 BPM Standing Heart Rate Pre-Dialysis 97 BPM Standing Heart Rate Post-Dialysis 88 BPM Temperature Pre-Dialysis 97.8 degF Temperature Post -Dialysis 97.8 degF January 22, 2024 In-Center Hemodialysis Treatment 5877-44-26C62:26:02.000Z 2172-92-64P19:33:02.000Z BP Sitting (Pre-Dialysis) 125/76 mmHg BP Sitting (Post-Dialysis) 117/71 mmHg Concurrent Access: falseAV Graft Upper Arm (Left) Arterial BP Standing (Pre-Dialysis) 124/78 mmHg Sitting Heart Rate Post-Dialysis 94 BPM Sitting Heart Rate Pre-Dialysis 96 BPM Temperatu re Post-Dialysis 98 degF Standing Heart Rate Pre-Dialysis 94 BPM Temperature Pre-Dialysis 98 degF January 20, 2024 In-Center Hemodialysis Treatment 0487-51-49U33:22:02.000Z 8914-97-31U37:26:02.000Z BP Sitting (Pre-Dialysis) 131/62 mmHg BP Sitting (Post-Dialysis) 134/76 mmHg Concurrent Access: falseAV Graft Upper Arm (Left) Arterial BP Standing (Pre-Dialysis) 142/79 mmHg BP Standing (P ost-Dialysis) 142/69 mmHg Sitting Heart Rate Pre-Dialysis 75 BPM Sitting Heart Rate Post-Dialysis 85 BPM Standing Heart Rate Pre-Dialysis 94 BPM Standing Heart Rate Post-Dialysis 89 BPM Temperature Pre-Dialysis 97.8 degF Temperature Post -Dialysis 97 degF January 18, 2024 In-Center Hemodialysis Treatment 2976-70-95E54:26:00.000Z 1324-62-93F02:02:02.000Z BP Sitting (Pre-Dialysis) 193/98 mmHg BP Sitting (Post-Dialysis) 160/80 mmHg Concurrent Access: falseAV Graft Upper Arm (Left) Arterial Sitting Heart Rate Pre-Dialysis 85 BPM Sitting H eart Rate Post-Dialysis 90 BPM Temperature Pre-Dialysis 98 degF Temperature Post -Dialysis 97.8 degF January 15, 2024 In-Center Hemodialysis Treatment 0073-76-62R75:22:58.000Z 4078-29-38C66:21:58.000Z BP Sitting (Pre-Dialysis) 141/66 mmHg BP Sitting (Post-Dialysis) 172/83 mmHg Concurrent Access: falseAV Graft Upper Arm (Left) Arterial BP Standing (Pre-Dialysis) 133/70 mmHg BP Standing (P ost-Dialysis) 127/79 mmHg Sitting Heart Rate Pre-Dialysis 89 BPM Sitting Heart Rate Post-Dialysis 96 BPM Standing Heart Rate Pre-Dialysis 93 BPM Standing Heart Rate Post-Dialysis 110 BPM Temperature Pre-Dialysis 97.8 degF Temperature Post -Dialysis 97.8 degF January 13, 2024 In-Center Hemodialysis Treatment 8888-65-64P01:24:00.000Z 3865-64-63E89:25:58.000Z BP Sitting (Pre-Dialysis) 148/77 mmHg BP Sitting (Post-Dialysis) 103/61 mmHg Concurrent Access: falseAV Graft Upper Arm (Left) Arterial BP Standing (Pre-Dialysis) 156/80 mmHg BP Standing (P ost-Dialysis) 107/64 mmHg Sitting Heart Rate Pre-Dialysis 100 BPM Sitting Heart Rate Post-Dialysis 89 BPM Standing Heart Rate Pre-Dialysis 100 BPM Standing Heart Rate Post-Dialysis 103 BPM Temperature Pre-Dialysis 97.1 degF Temperature Post -Dialysis 97.1 degF January 12, 2024 In-Center Hemodialysis Treatment [id number]:29:00.000Z 5717-59-45K74:30:45.000Z BP Sitting (Pre-Dialysis) 161/83 mmHg BP Sitting (Post-Dialysis) 156/80 mmHg Concurrent Access: falseAV Graft Upper Arm (Left) Arterial BP Standing (Pre-Dialysis) 139/79 mmHg BP Standing (P ost-Dialysis) 136/81 mmHg Sitting Heart Rate Pre-Dialysis 93 BPM Sitting Heart Rate Post-Dialysis 90 BPM Standing Heart Rate Pre-Dialysis 99 BPM Standing Heart Rate Post-Dialysis 98 BPM Temperature Pre-Dialysis 97.2 degF Temperature Post -Dialysis 97.2 degF January 11, 2024 In-Center Hemodialysis Treatment 350 mL/min 500 mL/min Concurrent Access: false January 08, 2024 In-Center Hemodialysis Treatment 20 24 -0 T1 0: 24 :5 1. 00 0Z 20 24 0 T1 3: 25 :5 1. 00 0Z BP Sitting (Pre-Dial ysis) 162/71 mmHg BP Sitting (Post-Dina lysis) 171/8 1 mmHg Concurrent Access: falseAV Graft Upper Arm (Left) Arterial BP Standing (Pre-Dialysis) 176/83 mmHg BP Standing (P ost-Dialysis) 148/80 mmHg Sitting Heart Rate Pre-Dialysis 84 BPM Sitting Heart Rate Post-Dialysis 97 BPM Standing Heart Rate Pre-Dialysis 94 BPM Standing Heart Rate Post-Dialysis 102 BPM Temperature Pre-Dialysis 97.8 degF Temperature Post -Dialysis 97.5 degF January 06, 2024 In-Center Hemodialysis Treatment 5031-34-81L09:20:48.000Z 7098-86-48O64:21:49.000Z BP Sitting (Pre-Dialysis) 161/81 mmHg BP Sitting (Post-Dialysis) 165/83 mmHg Concurrent Access: falseAV Graft Upper Arm (Left) Arterial BP Standing (Pre-Dialysis) 157/77 mmHg BP Standing (P ost-Dialysis) 157/87 mmHg Sitting Heart Rate Pre-Dialysis 87 BPM Sitting Heart Rate Post-Dialysis 94 BPM Standing Heart Rate Pre-Dialysis 90 BPM Standing Heart Rate Post-Dialysis 100 BPM Temperature Pre-Dialysis 97.6 degF Temperature Post -Dialysis 97.8 degF January 04, 2024 In-Center Hemodialysis Treatment 9745-95-89Y86:29:48.000Z 2715-33-69W88:36:12.000Z BP Sitting (Pre-Dialysis) 153/87 mmHg BP Sitting (Post-Dialysis) 108/62 mmHg Concurrent Access: falseAV Graft Upper Arm (Left) Arterial BP Standing (Pre-Dialysis) 177/90 mmHg BP Standing (P ost-Dialysis) 105/60 mmHg Sitting Heart Rate Pre-Dialysis 104 BPM Sitting Heart Rate Post-Dialysis 90 BPM Standing Heart Rate Pre-Dialysis 115 BPM Standing Heart Rate Post-Dialysis 90 BPM Temperature Pre-Dialysis 97.8 degF Temperature Post -Dialysis 97.5 degF January 01, 2024 In-Center Hemodialysis Treatment 1836-64-71G45:11:50.000Z 5845-76-24R32:15:49.000Z BP Sitting (Pre-Dialysis) 171/89 mmHg BP Sitting (Post-Dialysis) 173/75 mmHg Concurrent Access: falseAV Graft Upper Arm (Left) Arterial BP Standing (Pre-Dialysis) 173/93 mmHg BP Standing (P ost-Dialysis) 153/76 mmHg Sitting Heart Rate Pre-Dialysis 90 BPM Sitting Heart Rate Post-Dialysis 92 BPM Standing Heart Rate Pre-Dialysis 92 BPM Standing Heart Rate Post-Dialysis 92 BPM Temperature Pre-Dialysis 97.8 degF Temperature Post -Dialysis 97.8 degF December 30, 2023 In-Center Hemodialysis Treatment [id number]:28:48.000Z 1058-65-61F31:31:49.000Z BP Sitting (Pre-Dialysis) 149/84 mmHg BP Sitting (Post-Dialysis) 115/64 mmHg Concurrent Access: falseAV Graft Upper Arm (Left) Arterial BP Standing (Pre-Dialysis) 166/81 mmHg Sitti ng Heart Rate Post-Dialysis 90 BPM Sitting Heart Rate Pre-Dialysis 97 BPM Temperatu re Post-Dialysis 97.5 degF Standing Heart Rate Pre-Dialysis 98 BPM Temperature Pre-Dialysis 97.8 degF December 28, 2023 In-Center Hemodialysis Treatment 5637-16-89X83:25:06.000Z 8176-76-77H09:25:06.000Z BP Sitting (Pre-Dialysis) 152/78 mmHg BP Sitting (Post-Dialysis) 119/80 mmHg Concurrent Access: falseAV Graft Upper Arm (Left) Arterial BP Standing (Pre-Dialysis) 158/112 mmHg BP Standing (P ost-Dialysis) 136/73 mmHg Sitting Heart Rate Pre-Dialysis 95 BPM Sitting Heart Rate Post-Dialysis 105 BPM Standing Heart Rate Pre-Dialysis 80 BPM Standing Heart Rate Post-Dialysis 100 BPM Temperature Pre-Dialysis 97.5 degF Temperature Post -Dialysis 97.7 degF December 25, 2023 In-Center Hemodialysis Treatment 3599-09-01S49:17:21.000Z 8782-08-82N53:17:21.000Z BP Sitting (Pre-Dialysis) 150/73 mmHg BP Sitting (Post-Dialysis) 107/63 mmHg Concurrent Access: falseAV Graft Upper Arm (Left) Arterial BP Standing (Pre-Dialysis) 105/50 mmHg BP Standing (P ost-Dialysis) 110/59 mmHg Sitting Heart Rate Pre-Dialysis 100 BPM Sitting Heart Rate Post-Dialysis 93 BPM Standing Heart Rate Pre-Dialysis 102 BPM Standing Heart Rate Post-Dialysis 71 BPM Temperature Pre-Dialysis 97.8 degF Temperature Post -Dialysis 97.8 degF December 23, 2023 In-Center Hemodialysis Treatment [id number]:29:21.000Z [id number]:29:21.000Z BP Sitting (Pre-Dialysis) 149/79 mmHg BP Sitting (Post-Dialysis) 132/74 mmHg Concurrent Access: falseAV Graft Upper Arm (Left) Arterial BP Standing (Pre-Dialysis) 118/78 mmHg BP Standing (P ost-Dialysis) 111/66 mmHg Sitting Heart Rate Pre-Dialysis 85 BPM Sitting Heart Rate Post-Dialysis 89 BPM Standing Heart Rate Pre-Dialysis 84 BPM Standing Heart Rate Post-Dialysis 98 BPM Temperature Pre-Dialysis 97.9 degF Temperature Post -Dialysis 97.9 degF December 22, 2023 In-Center Hemodialysis Treatment [id number]:02:00.000Z 7921-09-64P29:27:23.000Z BP Sitting (Pre-Dialysis) 170/87 mmHg BP Sitting (Post-Dialysis) 144/81 mmHg Concurrent Access: falseAV Graft Upper Arm (Left) Arterial BP Standing (Pre-Dialysis) 171/90 mmHg BP Standing (P ost-Dialysis) 123/69 mmHg Sitting Heart Rate Pre-Dialysis 86 BPM Sitting Heart Rate Post-Dialysis 87 BPM Standing Heart Rate Pre-Dialysis 88 BPM Standing Heart Rate Post-Dialysis 97 BPM Temperature Pre-Dialysis 97.5 degF Temperature Post -Dialysis 97.8 degF December 18, 2023 In-Center Hemodialysis Treatment [id number]:26:00.000Z 5000-08-84H19:29:10.000Z BP Sitting (Pre-Dialysis) 125/85 mmHg BP Sitting (Post-Dialysis) 150/71 mmHg Concurrent Access: falseAV Graft Upper Arm (Left) Arterial BP Standing (Pre-Dialysis) 153/83 mmHg Sitti ng Heart Rate Post-Dialysis 90 BPM Sitting Heart Rate Pre-Dialysis 89 BPM Temperatu re Post-Dialysis 97.6 degF Standing Heart Rate Pre-Dialysis 85 BPM Temperature Pre-Dialysis 97.9 degF December 16, 2023 In-Center Hemodialysis Treatment 8706-04-57K65:27:00.000Z 4677-00-35H25:34:10.000Z BP Sitting (Pre-Dialysis) 134/72 mmHg BP Sitting (Post-Dialysis) 125/70 mmHg Concurrent Access: falseAV Graft Upper Arm (Left) Arterial BP Standing (Pre-Dialysis) 153/81 mmHg BP Standing (P ost-Dialysis) 106/64 mmHg Sitting Heart Rate Pre-Dialysis 81 BPM Sitting Heart Rate Post-Dialysis 93 BPM Standing Heart Rate Pre-Dialysis 89 BPM Standing Heart Rate Post-Dialysis 99 BPM Temperature Pre-Dialysis 97 degF Temperature Post -Dialysis 97.9 degF December 14, 2023 In-Center Hemodialysis Treatment [id number]:22:00.000Z [id number]:25:10.000Z BP Sitting (Pre-Dialysis) 141/82 mmHg BP Sitting (Post-Dialysis) 109/61 mmHg Concurrent Access: falseAV Graft Upper Arm (Left) Arterial BP Standing (Pre-Dialysis) 153/80 mmHg BP Standing (P ost-Dialysis) 121/62 mmHg Sitting Heart Rate Pre-Dialysis 76 BPM Sitting Heart Rate Post-Dialysis 79 BPM Standing Heart Rate Pre-Dialysis 95 BPM Standing Heart Rate Post-Dialysis 76 BPM Temperature Pre-Dialysis 97.4 degF Temperature Post -Dialysis 97.5 degF December 11, 2023 In-Center Hemodialysis Treatment [id number]:17:00.000Z [id number]:20:04.000Z BP Sitting (Pre-Dialysis) 124/71 mmHg BP Sitting (Post-Dialysis) 124/75 mmHg Concurrent Access: falseAV Graft Upper Arm (Left) Arterial BP Standing (Pre-Dialysis) 131/88 mmHg BP Standing (P ost-Dialysis) 126/67 mmHg Sitting Heart Rate Pre-Dialysis 74 BPM Sitting Heart Rate Post-Dialysis 85 BPM Standing Heart Rate Pre-Dialysis 83 BPM Standing Heart Rate Post-Dialysis 101 BPM Temperature Pre-Dialysis 97.5 degF Temperature Post -Dialysis 97 degF December 09, 2023 In-Center Hemodialysis Treatment [id number]:30:18.000Z 4966-55-00T13:32:18.000Z BP Sitting (Pre-Dialysis) 166/83 mmHg BP Sitting (Post-Dialysis) 134/75 mmHg Concurrent Access: falseAV Graft Upper Arm (Left) Arterial BP Standing (Pre-Dialysis) 165/70 mmHg Sitting Heart Rate Post-Dialysis 80 BPM Sitting Heart Rate Pre-Dialysis 84 BPM Temperatu re Post-Dialysis 98 degF Standing Heart Rate Pre-Dialysis 84 BPM Temperature Pre-Dialysis 97.9 degF December 04, 2023 In-Center Hemodialysis Treatment 5314-38-07K70:21:00.000Z 7173-83-34G27:26:06.000Z BP Sitting (Pre-Dialysis) 153/73 mmHg BP Sitting (Post-Dialysis) 136/70 mmHg Concurrent Access: falseAV Graft Upper Arm (Left) Arterial BP Standing (Pre-Dialysis) 153/73 mmHg BP Standing (P ost-Dialysis) 108/57 mmHg Sitting Heart Rate Pre-Dialysis 85 BPM Sitting Heart Rate Post-Dialysis 88 BPM Standing Heart Rate Pre-Dialysis 90 BPM Standing Heart Rate Post-Dialysis 99 BPM Temperature Pre-Dialysis 97.9 degF Temperature Post -Dialysis 97.9 degF December 02, 2023 In-Center Hemodialysis Treatment 4601-84-96S41:20:06.000Z 1711-28-94U42:18:05.000Z BP Sitting (Pre-Dialysis) 180/94 mmHg BP Sitting (Post-Dialysis) 171/82 mmHg Concurrent Access: falseAV Graft Upper Arm (Left) Arterial BP Standing (Pre-Dialysis) 180/81 mmHg BP Standing (P ost-Dialysis) 161/81 mmHg Sitting Heart Rate Pre-Dialysis 85 BPM Sitting Heart Rate Post-Dialysis 83 BPM Standing Heart Rate Pre-Dialysis 83 BPM Standing Heart Rate Post-Dialysis 84 BPM Temperature Pre-Dialysis 97.5 degF Temperature Post -Dialysis 97.5 degF November 30, 2023 In-Center Hemodialysis Treatment 0340-35-15M24:28:06.000Z 8590-68-88C41:29:05.000Z BP Sitting (Pre-Dialysis) 171/85 mmHg BP Sitting (Post-Dialysis) 153/75 mmHg Concurrent Access: falseAV Graft Upper Arm (Left) Arterial BP Standing (Pre-Dialysis) 176/82 mmHg Sitti ng Heart Rate Post-Dialysis 80 BPM Sitting Heart Rate Pre-Dialysis 91 BPM Temperatu re Post-Dialysis 97.5 degF Standing Heart Rate Pre-Dialysis 89 BPM Temperature Pre-Dialysis 97.8 degF November 27, 2023 In-Center Hemodialysis Treatment 4239-09-05G21:20:00.000Z 6559-34-61J91:22:14.000Z BP Sitting (Pre-Dialysis) 148/76 mmHg BP Sitting (Post-Dialysis) 153/79 mmHg Concurrent Access: falseAV Graft Upper Arm (Left) Arterial BP Standing (Pre-Dialysis) 157/73 mmHg BP Standing (P ost-Dialysis) 177/86 mmHg Sitting Heart Rate Pre-Dialysis 82 BPM Sitting Heart Rate Post-Dialysis 82 BPM Standing Heart Rate Pre-Dialysis 87 BPM Standing Heart Rate Post-Dialysis 83 BPM Temperature Pre-Dialysis 97.8 degF Temperature Post -Dialysis 97.5 degF November 25, 2023 In-Center Hemodialysis Treatment [id number]:26:43.000Z [id number]:28:44.000Z BP Sitting (Pre-Dialysis) 131/65 mmHg BP Sitting (Post-Dialysis) 136/80 mmHg Concurrent Access: falseAV Graft Upper Arm (Left) Arterial BP Standing (Pre-Dialysis) 99/68 mmHg Sitti ng Heart Rate Post-Dialysis 92 BPM Sitting Heart Rate Pre-Dialysis 91 BPM Temperatu re Post-Dialysis 97.4 degF Standing Heart Rate Pre-Dialysis 99 BPM Temperature Pre-Dialysis 97 degF November 23, 2023 In-Center Hemodialysis Treatment [id number]:27:43.000Z 4747-59-95G24:31:44.000Z BP Sitting (Pre-Dialysis) 144/69 mmHg BP Sitting (Post-Dialysis) 153/81 mmHg Concurrent Access: falseAV Graft Upper Arm (Left) Arterial BP Standing (Pre-Dialysis) 156/78 mmHg BP Standing (P ost-Dialysis) 151/79 mmHg Sitting Heart Rate Pre-Dialysis 80 BPM Sitting Heart Rate Post-Dialysis 83 BPM Standing Heart Rate Pre-Dialysis 85 BPM Standing Heart Rate Post-Dialysis 83 BPM Temperature Pre-Dialysis 97.8 degF Temperature Post -Dialysis 97.8 degF November 20, 2023 In-Center Hemodialysis Treatment [id number]:33:12.000Z 0062-80-59W92:32:12.000Z BP Sitting (Pre-Dialysis) 177/89 mmHg BP Sitting (Post-Dialysis) 143/82 mmHg Concurrent Access: falseAV Graft Upper Arm (Left) Arterial BP Standing (Pre-Dialysis) 182/86 mmHg BP Standing (P ost-Dialysis) 135/72 mmHg Sitting Heart Rate Pre-Dialysis 85 BPM Sitting Heart Rate Post-Dialysis 74 BPM Standing Heart Rate Pre-Dialysis 87 BPM Standing Heart Rate Post-Dialysis 86 BPM Temperature Pre-Dialysis 97.8 degF Temperature Post -Dialysis 97.8 degF November 18, 2023 In-Center Hemodialysis Treatment 9401-60-56D56:24:12.000Z 6697-44-28E09:23:12.000Z BP Sitting (Pre-Dialysis) 166/82 mmHg BP Sitting (Post-Dialysis) 149/84 mmHg Concurrent Access: falseAV Graft Upper Arm (Left) Arterial BP Standing (Pre-Dialysis) 175/89 mmHg BP Standing (P ost-Dialysis) 118/69 mmHg Sitting Heart Rate Pre-Dialysis 82 BPM Sitting Heart Rate Post-Dialysis 89 BPM Standing Heart Rate Pre-Dialysis 85 BPM Standing Heart Rate Post-Dialysis 99 BPM Temperature Pre-Dialysis 97.7 degF Temperature Post -Dialysis 97.5 degF November 16, 2023 In-Center Hemodialysis Treatment 0706-31-00E53:29:00.000Z 0199-41-44U48:34:12.000Z BP Sitting (Pre-Dialysis) 173/81 mmHg BP Sitting (Post-Dialysis) 148/79 mmHg Concurrent Access: falseAV Graft Upper Arm (Left) Arterial BP Standing (Pre-Dialysis) 138/71 mmHg Sitti ng Heart Rate Post-Dialysis 83 BPM Sitting Heart Rate Pre-Dialysis 85 BPM Temperatu re Post-Dialysis 97.8 degF Standing Heart Rate Pre-Dialysis 91 BPM Temperature Pre-Dialysis 97.9 degF November 13, 2023 In-Center Hemodialysis Treatment [id number]:12:00.000Z 4998-48-38M54:24:52.000Z BP Sitting (Pre-Dialysis) 160/74 mmHg BP Sitting (Post-Dialysis) 141/70 mmHg Concurrent Access: falseAV Graft Upper Arm (Left) Arterial BP Standing (Pre-Dialysis) 168/78 mmHg BP Standing (P ost-Dialysis) 143/67 mmHg Sitting Heart Rate Pre-Dialysis 86 BPM Sitting Heart Rate Post-Dialysis 85 BPM Standing Heart Rate Pre-Dialysis 87 BPM Standing Heart Rate Post-Dialysis 97 BPM Temperature Pre-Dialysis 97.8 degF Temperature Post -Dialysis 97.5 degF November 11, 2023 In-Center Hemodialysis Treatment 7987-99-70R02:26:00.000Z 5964-45-61S99:29:09.000Z BP Sitting (Pre-Dialysis) 183/97 mmHg BP Sitting (Post-Dialysis) 157/80 mmHg Concurrent Access: falseAV Graft Upper Arm (Left) Arterial BP Standing (Pre-Dialysis) 184/93 mmHg Sitti ng Heart Rate Post-Dialysis 83 BPM Sitting Heart Rate Pre-Dialysis 83 BPM Temperatu re Post-Dialysis 97.7 degF Standing Heart Rate Pre-Dialysis 84 BPM Temperature Pre-Dialysis 97.9 degF November 09, 2023 In-Center Hemodialysis Treatment 0587-24-34Q16:24:09.000Z 6293-04-62B77:27:09.000Z BP Sitting (Pre-Dialysis) 174/87 mmHg BP Sitting (Post-Dialysis) 152/77 mmHg Concurrent Access: falseAV Graft Upper Arm (Left) Arterial BP Standing (Pre-Dialysis) 182/109 mmHg BP Standing (P ost-Dialysis) 155/80 mmHg Sitting Heart Rate Pre-Dialysis 69 BPM Sitting Heart Rate Post-Dialysis 85 BPM Standing Heart Rate Pre-Dialysis 86 BPM Standing Heart Rate Post-Dialysis 85 BPM Temperature Pre-Dialysis 97.5 degF Temperature Post -Dialysis 97.8 degF November 06, 2023 In-Center Hemodialysis Treatment [id number]:21:00.000Z 7516-04-13S83:23:38.000Z BP Sitting (Pre-Dialysis) 168/85 mmHg BP Sitting (Post-Dialysis) 142/78 mmHg Concurrent Access: falseAV Graft Upper Arm (Left) Arterial BP Standing (Pre-Dialysis) 168/87 mmHg BP Standing (P ost-Dialysis) 99/69 mmHg Sitting Heart Rate Pre-Dialysis 84 BPM Sitting Heart Rate Post-Dialysis 85 BPM Standing Heart Rate Pre-Dialysis 84 BPM Standing Heart Rate Post-Dialysis 95 BPM Temperature Pre-Dialysis 97.9 degF Temperature Post -Dialysis 97.9 degF November 04, 2023 In-Center Hemodialysis Treatment 3587-50-14E52:20:38.000Z 8316-29-86C20:29:38.000Z BP Sitting (Pre-Dialysis) 157/80 mmHg BP Sitting (Post-Dialysis) 177/92 mmHg Concurrent Access: falseAV Graft Upper Arm (Left) Arterial BP Standing (Pre-Dialysis) 169/93 mmHg Sitti ng Heart Rate Post-Dialysis 87 BPM Sitting Heart Rate Pre-Dialysis 80 BPM Temperatu re Post-Dialysis 97.6 degF Standing Heart Rate Pre-Dialysis 86 BPM Temperature Pre-Dialysis 97.6 degF November 02, 2023 In-Center Hemodialysis Treatment [id number]:24:38.000Z 6027-48-11X78:22:00.000Z BP Sitting (Pre-Dialysis) 159/83 mmHg BP Sitting (Post-Dialysis) 96/56 mmHg Concurrent Access: falseAV Graft Upper Arm (Left) Arterial BP Standing (Pre-Dialysis) 171/87 mmHg Sitti ng Heart Rate Post-Dialysis 79 BPM Sitting Heart Rate Pre-Dialysis 87 BPM Temperatu re Post-Dialysis 97.8 degF Standing Heart Rate Pre-Dialysis 87 BPM Temperature Pre-Dialysis 97.8 degF October 30, 2023 In-Center Hemodialysis Treatment 5478-52-77Z33:18:00.000Z 0019-22-46I96:16:39.000Z BP Sitting (Pre-Dialysis) 155/76 mmHg BP Sitting (Post-Dialysis) 160/68 mmHg Concurrent Access: falseAV Graft Upper Arm (Left) Arterial BP Standing (Pre-Dialysis) 148/78 mmHg BP Standing (P ost-Dialysis) 109/79 mmHg Sitting Heart Rate Pre-Dialysis 86 BPM Sitting Heart Rate Post-Dialysis 85 BPM Standing Heart Rate Pre-Dialysis 88 BPM Standing Heart Rate Post-Dialysis 83 BPM Temperature Pre-Dialysis 97.7 degF Temperature Post -Dialysis 97 degF October 28, 2023 In-Center Hemodialysis Treatment 6669-29-65D06:23:00.000Z 0709-41-89I68:27:39.000Z BP Sitting (Pre-Dialysis) 164/88 mmHg BP Sitting (Post-Dialysis) 132/68 mmHg Concurrent Access: falseAV Graft Upper Arm (Left) Arterial BP Standing (Pre-Dialysis) 159/86 mmHg Sitti ng Heart Rate Post-Dialysis 82 BPM Sitting Heart Rate Pre-Dialysis 87 BPM Temperatu re Post-Dialysis 97.8 degF Standing Heart Rate Pre-Dialysis 93 BPM Temperature Pre-Dialysis 97.6 degF October 26, 2023 In-Center Hemodialysis Treatment 6072-88-26M14:15:00.000Z 3845-43-40R81:16:39.000Z BP Sitting (Pre-Dialysis) 169/85 mmHg BP Sitting (Post-Dialysis) 140/73 mmHg Concurrent Access: falseAV Graft Upper Arm (Left) Arterial BP Standing (Pre-Dialysis) 156/80 mmHg BP Standing (P ost-Dialysis) 150/75 mmHg Sitting Heart Rate Pre-Dialysis 87 BPM Sitting Heart Rate Post-Dialysis 84 BPM Standing Heart Rate Pre-Dialysis 87 BPM Standing Heart Rate Post-Dialysis 83 BPM Temperature Pre-Dialysis 97.4 degF Temperature Post -Dialysis 97.4 degF October 23, 2023 In-Center Hemodialysis Treatment 4613-26-46S12:25:59.000Z 5360-53-23Y88:27:59.000Z BP Sitting (Pre-Dialysis) 162/80 mmHg BP Sitting (Post-Dialysis) 116/67 mmHg Concurrent Access: falseAV Graft Upper Arm (Left) Arterial BP Standing (Pre-Dialysis) 146/74 mmHg BP Standing (P ost-Dialysis) 100/62 mmHg Sitting Heart Rate Pre-Dialysis 90 BPM Sitting Heart Rate Post-Dialysis 80 BPM Standing Heart Rate Pre-Dialysis 89 BPM Standing Heart Rate Post-Dialysis 84 BPM Temperature Pre-Dialysis 97.8 degF Temperature Post -Dialysis 97.8 degF October 21, 2023 In-Center Hemodialysis Treatment [id number]:22:09.000Z 8686-15-68R90:28:09.000Z BP Sitting (Pre-Dialysis) 164/83 mmHg BP Sitting (Post-Dialysis) 136/80 mmHg Concurrent Access: falseAV Graft Upper Arm (Left) Arterial BP Standing (Pre-Dialysis) 164/80 mmHg BP Standing (P ost-Dialysis) 122/73 mmHg Sitting Heart Rate Pre-Dialysis 83 BPM Sitting Heart Rate Post-Dialysis 85 BPM Standing Heart Rate Pre-Dialysis 86 BPM Standing Heart Rate Post-Dialysis 89 BPM Temperature Pre-Dialysis 97.6 degF Temperature Post -Dialysis 97.6 degF October 19, 2023 In-Center Hemodialysis Treatment [id number]:25:00.000Z 8655-98-40K54:32:09.000Z BP Sitting (Pre-Dialysis) 171/121 mmHg BP Sitting (Post-Dialysis) 122/68 mmHg Concurrent Access: falseAV Graft Upper Arm (Left) Arterial BP Standing (Pre-Dialysis) 121/93 mmHg BP Standing (P ost-Dialysis) 126/66 mmHg Sitting Heart Rate Pre-Dialysis 93 BPM Sitting Heart Rate Post-Dialysis 83 BPM Standing Heart Rate Pre-Dialysis 91 BPM Standing Heart Rate Post-Dialysis 84 BPM Temperature Pre-Dialysis 97.9 degF Temperature Post -Dialysis 97.8 degF October 16, 2023 In-Center Hemodialysis Treatment 2022-04-37O70:24:25.000Z 5407-82-22R60:28:26.000Z BP Sitting (Pre-Dialysis) 157/77 mmHg BP Sitting (Post-Dialysis) 134/73 mmHg Concurrent Access: falseAV Graft Upper Arm (Left) Arterial BP Standing (Pre-Dialysis) 156/79 mmHg BP Standing (P ost-Dialysis) 138/79 mmHg Sitting Heart Rate Pre-Dialysis 88 BPM Sitting Heart Rate Post-Dialysis 89 BPM Standing Heart Rate Pre-Dialysis 92 BPM Standing Heart Rate Post-Dialysis 89 BPM Temperature Pre-Dialysis 97.6 degF Temperature Post -Dialysis 97.8 degF October 14, 2023 In-Center Hemodialysis Treatment [id number]:35:00.000Z 7657-97-33F08:40:19.000Z BP Sitting (Pre-Dialysis) 141/74 mmHg BP Sitting (Post-Dialysis) 155/78 mmHg Concurrent Access: falseAV Graft Upper Arm (Left) Arterial BP Standing (Pre-Dialysis) 148/75 mmHg BP Standing (P ost-Dialysis) 141/73 mmHg Sitting Heart Rate Pre-Dialysis 96 BPM Sitting Heart Rate Post-Dialysis 88 BPM Standing Heart Rate Pre-Dialysis 97 BPM Standing Heart Rate Post-Dialysis 90 BPM Temperature Pre-Dialysis 97.8 degF Temperature Post -Dialysis 97.8 degF October 12, 2023 In-Center Hemodialysis Treatment [id number]:21:00.000Z 9905-47-42S01:25:19.000Z BP Sitting (Pre-Dialysis) 157/84 mmHg BP Sitting (Post-Dialysis) 137/70 mmHg Concurrent Access: falseAV Graft Upper Arm (Left) Arterial BP Standing (Pre-Dialysis) 166/83 mmHg BP Standing (P ost-Dialysis) 125/70 mmHg Sitting Heart Rate Pre-Dialysis 86 BPM Sitting Heart Rate Post-Dialysis 89 BPM Standing Heart Rate Pre-Dialysis 92 BPM Standing Heart Rate Post-Dialysis 88 BPM Temperature Pre-Dialysis 97.9 degF Temperature Post -Dialysis 97.8 degF October 09, 2023 In-Center Hemodialysis Treatment [id number]:21:00.000Z 6281-29-97C78:35:53.000Z BP Sitting (Pre-Dialysis) 153/111 mmHg BP Sitting (Post-Dialysis) 144/73 mmHg Concurrent Access: falseAV Graft Upper Arm (Left) Arterial BP Standing (Pre-Dialysis) 138/77 mmHg BP Standing (P ost-Dialysis) 122/75 mmHg Sitting Heart Rate Pre-Dialysis 88 BPM Sitting Heart Rate Post-Dialysis 91 BPM Standing Heart Rate Pre-Dialysis 89 BPM Standing Heart Rate Post-Dialysis 98 BPM Temperature Pre-Dialysis 97.9 degF Temperature Post -Dialysis 97.9 degF October 07, 2023 In-Center Hemodialysis Treatment 5401-48-54R05:20:00.000Z 6237-36-73R21:20:18.000Z BP Sitting (Pre-Dialysis) 192/96 mmHg BP Sitting (Post-Dialysis) 130/79 mmHg Concurrent Access: falseAV Graft Upper Arm (Left) Arterial BP Standing (Pre-Dialysis) 176/89 mmHg BP Standing (P ost-Dialysis) 147/80 mmHg Sitting Heart Rate Pre-Dialysis 92 BPM Sitting Heart Rate Post-Dialysis 93 BPM Standing Heart Rate Pre-Dialysis 91 BPM Standing Heart Rate Post-Dialysis 89 BPM Temperature Pre-Dialysis 97.8 degF Temperature Post -Dialysis 97.4 degF October 05, 2023 In-Center Hemodialysis Treatment 5556-76-26Q80:22:19.000Z 7735-41-79I14:02:18.000Z BP Sitting (Pre-Dialysis) 185/93 mmHg BP Sitting (Post-Dialysis) 153/82 mmHg Concurrent Access: falseAV Graft Upper Arm (Left) Arterial BP Standing (Pre-Dialysis) 182/92 mmHg BP Standing (P ost-Dialysis) 146/82 mmHg Sitting Heart Rate Pre-Dialysis 88 BPM Sitting Heart Rate Post-Dialysis 87 BPM Standing Heart Rate Pre-Dialysis 90 BPM Standing Heart Rate Post-Dialysis 87 BPM Temperature Pre-Dialysis 97.8 degF Temperature Post -Dialysis 97.8 degF October 02, 2023 In-Center Hemodialysis Treatment 8751-29-06H08:17:00.000Z 1094-17-14A99:20:35.000Z BP Sitting (Pre-Dialysis) 150/75 mmHg BP Sitting (Post-Dialysis) 119/66 mmHg Concurrent Access: falseAV Graft Upper Arm (Left) Arterial BP Standing (Pre-Dialysis) 152/78 mmHg BP Standing (P ost-Dialysis) 123/65 mmHg Sitting Heart Rate Pre-Dialysis 88 BPM Sitting Heart Rate Post-Dialysis 85 BPM Standing Heart Rate Pre-Dialysis 91 BPM Standing Heart Rate Post-Dialysis 86 BPM Temperature Pre-Dialysis 97.4 degF Temperature Post -Dialysis 97.8 degF September 30, 2023 In-Center Hemodialysis Treatment 8419-70-25K79:23:00.000Z 4491-83-17L93:27:22.000Z BP Sitting (Pre-Dialysis) 150/86 mmHg BP Sitting (Post-Dialysis) 160/84 mmHg Concurrent Access: falseAV Graft Upper Arm (Left) Arterial Sitting Heart Rate Pre-Dialysis 90 BPM Sitting H eart Rate Post-Dialysis 80 BPM Temperature Pre-Dialysis 97.6 degF Temperature Post -Dialysis 97.2 degF September 28, 2023 In-Center Hemodialysis Treatment 3770-82-84Z20:31:21.000Z 8181-23-80B43:37:22.000Z BP Sitting (Pre-Dialysis) 176/89 mmHg BP Sitting (Post-Dialysis) 158/84 mmHg Concurrent Access: falseAV Graft Upper Arm (Left) Arterial BP Standing (Pre-Dialysis) 151/77 mmHg BP Standing (P ost-Dialysis) 135/87 mmHg Sitting Heart Rate Pre-Dialysis 83 BPM Sitting Heart Rate Post-Dialysis 83 BPM Standing Heart Rate Pre-Dialysis 81 BPM Standing Heart Rate Post-Dialysis 94 BPM Temperature Pre-Dialysis 97.9 degF Temperature Post -Dialysis 97.7 degF September 24, 2023 In-Center Hemodialysis Treatment 2008-24-18N47:53:08.000Z 8607-78-74H63:58:08.000Z BP Sitting (Pre-Dialysis) 129/68 mmHg BP Sitting (Post-Dialysis) 161/71 mmHg Concurrent Access: falseAV Graft Upper Arm (Left) Arterial BP Standing (Pre-Dialysis) 108/62 mmHg BP Standing (P ost-Dialysis) 160/73 mmHg Sitting Heart Rate Pre-Dialysis 90 BPM Sitting Heart Rate Post-Dialysis 81 BPM Standing Heart Rate Pre-Dialysis 98 BPM Standing Heart Rate Post-Dialysis 80 BPM Temperature Pre-Dialysis 97.8 degF Temperature Post -Dialysis 97.8 degF September 23, 2023 In-Center Hemodialysis Treatment 6574-17-07A23:25:45.000Z 0159-43-88I61:28:45.000Z BP Sitting (Pre-Dialysis) 155/75 mmHg BP Sitting (Post-Dialysis) 172/78 mmHg Concurrent Access: falseAV Graft Upper Arm (Left) Arterial BP Standing (Pre-Dialysis) 125/84 mmHg BP Standing (P ost-Dialysis) 132/100 mmHg Sitting Heart Rate Pre-Dialysis 85 BPM Sitting Heart Rate Post-Dialysis 83 BPM Standing Heart Rate Pre-Dialysis 89 BPM Standing Heart Rate Post-Dialysis 93 BPM Temperature Pre-Dialysis 97.9 degF Temperature Post -Dialysis 97.9 degF September 21, 2023 In-Center Hemodialysis Treatment [id number]:20:00.000Z 0257-26-62M32:23:45.000Z BP Sitting (Pre-Dialysis) 151/73 mmHg BP Sitting (Post-Dialysis) 153/81 mmHg Concurrent Access: falseAV Graft Upper Arm (Left) Arterial BP Standing (Pre-Dialysis) 147/72 mmHg BP Standing (P ost-Dialysis) 160/81 mmHg Sitting Heart Rate Pre-Dialysis 91 BPM Sitting Heart Rate Post-Dialysis 90 BPM Standing Heart Rate Pre-Dialysis 96 BPM Standing Heart Rate Post-Dialysis 86 BPM Temperature Pre-Dialysis 97 degF Temperature Post -Dialysis 97.8 degF September 18, 2023 In-Center Hemodialysis Treatment 3215-30-17A02:29:46.000Z 0053-79-16U06:32:46.000Z BP Sitting (Pre-Dialysis) 165/86 mmHg BP Sitting (Post-Dialysis) 151/75 mmHg Concurrent Access: falseAV Graft Upper Arm (Left) Arterial BP Standing (Pre-Dialysis) 153/79 mmHg BP Standing (P ost-Dialysis) 123/67 mmHg Sitting Heart Rate Pre-Dialysis 88 BPM Sitting Heart Rate Post-Dialysis 88 BPM Standing Heart Rate Pre-Dialysis 87 BPM Standing Heart Rate Post-Dialysis 98 BPM Temperature Pre-Dialysis 98.1 degF Temperature Post -Dialysis 97.6 degF September 16, 2023 In-Center Hemodialysis Treatment 8219-40-57B31:23:46.000Z 5866-51-54W86:15:46.000Z BP Sitting (Pre-Dialysis) 139/80 mmHg BP Sitting (Post-Dialysis) 157/79 mmHg Concurrent Access: falseAV Graft Upper Arm (Left) Arterial BP Standing (Pre-Dialysis) 139/80 mmHg Sitti ng Heart Rate Post-Dialysis 84 BPM Sitting Heart Rate Pre-Dialysis 92 BPM Temperatu re Post-Dialysis 97.6 degF Standing Heart Rate Pre-Dialysis 92 BPM Temperature Pre-Dialysis 97.6 degF September 14, 2023 In-Center Hemodialysis Treatment 1120-57-49Y03:25:46.000Z 8564-25-84L58:28:46.000Z BP Sitting (Pre-Dialysis) 164/88 mmHg BP Sitting (Post-Dialysis) 119/66 mmHg Concurrent Access: falseAV Graft Upper Arm (Left) Arterial BP Standing (Pre-Dialysis) 143/76 mmHg Sitti ng Heart Rate Post-Dialysis 91 BPM Sitting Heart Rate Pre-Dialysis 85 BPM Temperatu re Post-Dialysis 97.5 degF Standing Heart Rate Pre-Dialysis 88 BPM Temperature Pre-Dialysis 97.9 degF September 04, 2023 In-Center Hemodialysis Treatment 1024-88-14M12:11:00.000Z 0900-57-40L16:17:20.000Z BP Sitting (Pre-Dialysis) 151/75 mmHg BP Sitting (Post-Dialysis) 109/69 mmHg Concurrent Access: falseAV Graft Upper Arm (Left) Arterial BP Standing (Pre-Dialysis) 161/74 mmHg BP Standing (P ost-Dialysis) 130/71 mmHg Sitting Heart Rate Pre-Dialysis 85 BPM Sitting Heart Rate Post-Dialysis 86 BPM Standing Heart Rate Pre-Dialysis 95 BPM Standing Heart Rate Post-Dialysis 84 BPM Temperature Pre-Dialysis 97.8 degF Temperature Post -Dialysis 97.5 degF September 02, 2023 In-Center Hemodialysis Treatment 6891-33-11O43:20:00.000Z 2589-35-57J64:28:01.000Z BP Sitting (Pre-Dialysis) 171/94 mmHg BP Sitting (Post-Dialysis) 117/66 mmHg Concurrent Access: falseAV Graft Upper Arm (Left) Arterial BP Standing (Pre-Dialysis) 163/88 mmHg BP Standing (P ost-Dialysis) 105/66 mmHg Sitting Heart Rate Pre-Dialysis 93 BPM Sitting Heart Rate Post-Dialysis 87 BPM Standing Heart Rate Pre-Dialysis 96 BPM Standing Heart Rate Post-Dialysis 91 BPM Temperature Pre-Dialysis 97.2 degF Temperature Post -Dialysis 97.8 degF August 31, 2023 In-Center Hemodialysis Treatment 3767-75-15M86:22:07.000Z 2891-41-07G41:23:07.000Z BP Sitting (Pre-Dialysis) 132/66 mmHg BP Sitting (Post-Dialysis) 119/62 mmHg Concurrent Access: falseAV Graft Upper Arm (Left) Arterial BP Standing (Pre-Dialysis) 139/74 mmHg BP Standing (P ost-Dialysis) 121/65 mmHg Sitting Heart Rate Pre-Dialysis 86 BPM Sitting Heart Rate Post-Dialysis 95 BPM Standing Heart Rate Pre-Dialysis 88 BPM Standing Heart Rate Post-Dialysis 95 BPM Temperature Pre-Dialysis 97.8 degF Temperature Post -Dialysis 97.8 degF August 28, 2023 In-Center Hemodialysis Treatment [id number]:19:00.000Z 6739-30-04B84:27:58.000Z BP Sitting (Pre-Dialysis) 189/77 mmHg BP Sitting (Post-Dialysis) 166/80 mmHg Concurrent Access: falseAV Graft Upper Arm (Left) Arterial BP Standing (Pre-Dialysis) 178/93 mmHg BP Standing (P ost-Dialysis) 133/80 mmHg Sitting Heart Rate Pre-Dialysis 87 BPM Sitting Heart Rate Post-Dialysis 89 BPM Standing Heart Rate Pre-Dialysis 88 BPM Standing Heart Rate Post-Dialysis 90 BPM Temperature Pre-Dialysis 97.9 degF Temperature Post -Dialysis 97.3 degF August 26, 2023 In-Center Hemodialysis Treatment [id number]:30:16.000Z [id number]:36:16.000Z BP Sitting (Pre-Dialysis) 130/67 mmHg BP Sitting (Post-Dialysis) 151/45 mmHg Concurrent Access: falseAV Graft Upper Arm (Left) Arterial BP Standing (Pre-Dialysis) 125/73 mmHg BP Standing (P ost-Dialysis) 134/60 mmHg Sitting Heart Rate Pre-Dialysis 87 BPM Sitting Heart Rate Post-Dialysis 85 BPM Standing Heart Rate Pre-Dialysis 91 BPM Standing Heart Rate Post-Dialysis 80 BPM Temperature Pre-Dialysis 97.6 degF Temperature Post -Dialysis 97 degF August 24, 2023 In-Center Hemodialysis Treatment [id number]:22:00.000Z 5194-27-51V76:25:16.000Z BP Sitting (Pre-Dialysis) 126/69 mmHg BP Sitting (Post-Dialysis) 144/81 mmHg Concurrent Access: falseAV Graft Upper Arm (Left) Arterial BP Standing (Pre-Dialysis) 134/73 mmHg Sitti ng Heart Rate Post-Dialysis 86 BPM Sitting Heart Rate Pre-Dialysis 84 BPM Temperatu re Post-Dialysis 97.9 degF Standing Heart Rate Pre-Dialysis 92 BPM Temperature Pre-Dialysis 97.8 degF August 21, 2023 In-Center Hemodialysis Treatment [id number]:26:31.000Z 5786-01-60S43:30:31.000Z BP Sitting (Pre-Dialysis) 148/75 mmHg BP Sitting (Post-Dialysis) 107/69 mmHg Concurrent Access: falseAV Graft Upper Arm (Left) Arterial Sitting Heart Rate Pre-Dialysis 82 BPM BP Standing (Post-Dialysis) 119/73 mmHg Temperature Pre-Dialysis 97.6 degF Sitting Heart Ra te Post-Dialysis 87 BPM Standing Heart Rate Post-Dina lysis 97 BPM Temperature Post-Dialysis 97 .6 degF August 19, 2023 In-Center Hemodialysis Treatment [id number]:20:00.000Z 7225-99-10E76:23:31.000Z BP Sitting (Pre-Dialysis) 172/96 mmHg BP Sitting (Post-Dialysis) 101/61 mmHg Concurrent Access: falseAV Graft Upper Arm (Left) Arterial BP Standing (Pre-Dialysis) 160/86 mmHg Sitti ng Heart Rate Post-Dialysis 95 BPM Sitting Heart Rate Pre-Dialysis 95 BPM Temperatu re Post-Dialysis 97.5 degF Standing Heart Rate Pre-Dialysis 91 BPM Temperature Pre-Dialysis 97.4 degF August 17, 2023 In-Center Hemodialysis Treatment 1208-88-03P79:25:31.000Z 9073-50-21H84:22:31.000Z BP Sitting (Pre-Dialysis) 132/74 mmHg BP Sitting (Post-Dialysis) 146/78 mmHg Concurrent Access: falseAV Graft Upper Arm (Left) Arterial BP Standing (Pre-Dialysis) 131/76 mmHg Sitti ng Heart Rate Post-Dialysis 82 BPM Sitting Heart Rate Pre-Dialysis 92 BPM Temperatu re Post-Dialysis 97.6 degF Standing Heart Rate Pre-Dialysis 95 BPM Temperature Pre-Dialysis 97.8 degF August 14, 2023 In-Center Hemodialysis Treatment 3868-03-43A47:22:00.000Z 1966-06-94I44:16:12.000Z BP Sitting (Pre-Dialysis) 128/66 mmHg BP Sitting (Post-Dialysis) 106/62 mmHg Concurrent Access: falseAV Graft Upper Arm (Left) Arterial BP Standing (Pre-Dialysis) 125/73 mmHg BP Standing (P ost-Dialysis) 100/66 mmHg Sitting Heart Rate Pre-Dialysis 87 BPM Sitting Heart Rate Post-Dialysis 85 BPM Standing Heart Rate Pre-Dialysis 85 BPM Standing Heart Rate Post-Dialysis 91 BPM Temperature Pre-Dialysis 97.5 degF Temperature Post -Dialysis 97.4 degF August 12, 2023 In-Center Hemodialysis Treatment [id number]:30:00.000Z [id number]:33:22.000Z BP Sitting (Pre-Dialysis) 140/86 mmHg BP Sitting (Post-Dialysis) 108/63 mmHg Concurrent Access: falseAV Graft Upper Arm (Left) Arterial BP Standing (Pre-Dialysis) 131/75 mmHg BP Standing (P ost-Dialysis) 109/71 mmHg Sitting Heart Rate Pre-Dialysis 88 BPM Sitting Heart Rate Post-Dialysis 71 BPM Standing Heart Rate Pre-Dialysis 91 BPM Standing Heart Rate Post-Dialysis 87 BPM Temperature Pre-Dialysis 97.6 degF Temperature Post -Dialysis 97.6 degF August 10, 2023 In-Center Hemodialysis Treatment [id number]:22:00.000Z 3549-89-46H78:23:22.000Z BP Sitting (Pre-Dialysis) 172/84 mmHg BP Sitting (Post-Dialysis) 138/80 mmHg Concurrent Access: falseAV Graft Upper Arm (Left) Arterial BP Standing (Pre-Dialysis) 153/74 mmHg BP Standing (P ost-Dialysis) 123/71 mmHg Sitting Heart Rate Pre-Dialysis 86 BPM Sitting Heart Rate Post-Dialysis 86 BPM Standing Heart Rate Pre-Dialysis 89 BPM Standing Heart Rate Post-Dialysis 92 BPM Temperature Pre-Dialysis 97.5 degF Temperature Post -Dialysis 97.8 degF August 07, 2023 In-Center Hemodialysis Treatment 9567-06-46R61:19:00.000Z 9132-44-17B14:22:43.000Z BP Sitting (Pre-Dialysis) 145/71 mmHg BP Sitting (Post-Dialysis) 144/71 mmHg Concurrent Access: falseAV Graft Upper Arm (Left) Arterial BP Standing (Pre-Dialysis) 175/89 mmHg Sitti ng Heart Rate Post-Dialysis 90 BPM Sitting Heart Rate Pre-Dialysis 84 BPM Temperatu re Post-Dialysis 97.6 degF Standing Heart Rate Pre-Dialysis 102 BPM Temperature Pre-Dialysis 97.8 degF August 05, 2023 In-Center Hemodialysis Treatment 6405-07-59N58:10:00.000Z 2428-25-68J30:00:43.000Z BP Sitting (Pre-Dialysis) 185/97 mmHg BP Sitting (Post-Dialysis) 119/64 mmHg Concurrent Access: falseAV Graft Upper Arm (Left) Arterial BP Standing (Pre-Dialysis) 158/87 mmHg BP Standing (P ost-Dialysis) 114/67 mmHg Sitting Heart Rate Pre-Dialysis 97 BPM Sitting Heart Rate Post-Dialysis 90 BPM Standing Heart Rate Pre-Dialysis 103 BPM Standing Heart Rate Post-Dialysis 97 BPM Temperature Pre-Dialysis 97.6 degF August 03, 2023 In-Center Hemodialysis Treatment [id number]:24:00.000Z 6642-94-59T12:14:18.000Z BP Sitting (Pre-Dialysis) 192/83 mmHg BP Sitting (Post-Dialysis) 121/83 mmHg Concurrent Access: falseAV Graft Upper Arm (Left) Arterial BP Standing (Pre-Dialysis) 107/67 mmHg Sitti ng Heart Rate Post-Dialysis 66 BPM Sitting Heart Rate Pre-Dialysis 84 BPM Temperatu re Post-Dialysis 97.9 degF Standing Heart Rate Pre-Dialysis 94 BPM Temperature Pre-Dialysis 97 degF July 31, 2023 In-Center Hemodialysis Treatment [id number]:24:00.000Z 7427-24-68F78:30:46.000Z BP Sitting (Pre-Dialysis) 166/83 mmHg BP Sitting (Post-Dialysis) 158/77 mmHg Concurrent Access: falseAV Graft Upper Arm (Left) Arterial BP Standing (Pre-Dialysis) 155/75 mmHg Sitti ng Heart Rate Post-Dialysis 88 BPM Sitting Heart Rate Pre-Dialysis 92 BPM Temperatu re Post-Dialysis 97.3 degF Standing Heart Rate Pre-Dialysis 95 BPM Temperature Pre-Dialysis 97.9 degF July 29, 2023 In-Center Hemodialysis Treatment 2629-61-25Y46:29:19.000Z 5850-76-88U15:30:19.000Z BP Sitting (Pre-Dialysis) 155/95 mmHg BP Sitting (Post-Dialysis) 135/68 mmHg Concurrent Access: falseAV Graft Upper Arm (Left) Arterial BP Standing (Pre-Dialysis) 133/94 mmHg BP Standing (P ost-Dialysis) 120/72 mmHg Sitting Heart Rate Pre-Dialysis 49 BPM Sitting Heart Rate Post-Dialysis 86 BPM Standing Heart Rate Pre-Dialysis 82 BPM Standing Heart Rate Post-Dialysis 95 BPM Temperature Pre-Dialysis 97.5 degF Temperature Post -Dialysis 97.6 degF July 27, 2023 In-Center Hemodialysis Treatment [id number]:28:19.000Z 6290-68-50O36:32:19.000Z BP Sitting (Pre-Dialysis) 155/136 mmHg BP Sitting (Post-Dialysis) 116/67 mmHg Concurrent Access: falseAV Graft Upper Arm (Left) Arterial BP Standing (Pre-Dialysis) 157/110 mmHg Sitti ng Heart Rate Post-Dialysis 86 BPM Sitting Heart Rate Pre-Dialysis 54 BPM Temperatu re Post-Dialysis 97.4 degF Standing Heart Rate Pre-Dialysis 71 BPM Temperature Pre-Dialysis 97.9 degF July 24, 2023 In-Center Hemodialysis Treatment [id number]:38:21.000Z 7230-35-00I80:42:21.000Z BP Sitting (Pre-Dialysis) 153/84 mmHg BP Sitting (Post-Dialysis) 119/74 mmHg Concurrent Access: falseAV Graft Upper Arm (Left) Arterial BP Standing (Pre-Dialysis) 152/89 mmHg BP Standing (P ost-Dialysis) 124/78 mmHg Sitting Heart Rate Pre-Dialysis 85 BPM Sitting Heart Rate Post-Dialysis 88 BPM Standing Heart Rate Pre-Dialysis 89 BPM Standing Heart Rate Post-Dialysis 84 BPM Temperature Pre-Dialysis 97.6 degF Temperature Post -Dialysis 97.5 degF July 22, 2023 In-Center Hemodialysis Treatment [id number]:42:38.000Z 1660-07-02V74:45:38.000Z BP Sitting (Pre-Dialysis) 142/69 mmHg BP Sitting (Post-Dialysis) 127/79 mmHg Concurrent Access: falseAV Graft Upper Arm (Left) Arterial BP Standing (Pre-Dialysis) 133/73 mmHg BP Standing (P ost-Dialysis) 108/84 mmHg Sitting Heart Rate Pre-Dialysis 94 BPM Sitting Heart Rate Post-Dialysis 91 BPM Standing Heart Rate Pre-Dialysis 93 BPM Standing Heart Rate Post-Dialysis 89 BPM Temperature Pre-Dialysis 97.6 degF Temperature Post -Dialysis 97.6 degF July 20, 2023 In-Center Hemodialysis Treatment [id number]:35:00.000Z 1694-11-23R57:35:38.000Z BP Sitting (Pre-Dialysis) 193/92 mmHg BP Sitting (Post-Dialysis) 163/86 mmHg Concurrent Access: falseAV Graft Upper Arm (Left) Arterial BP Standing (Pre-Dialysis) 161/97 mmHg Sitti ng Heart Rate Post-Dialysis 78 BPM Sitting Heart Rate Pre-Dialysis 87 BPM Temperatu re Post-Dialysis 97.4 degF Standing Heart Rate Pre-Dialysis 88 BPM Temperature Pre-Dialysis 97.3 degF July 17, 2023 In-Center Hemodialysis Treatment 6931-89-42I50:44:08.000Z 1334-84-84P17:37:08.000Z BP Sitting (Pre-Dialysis) 163/80 mmHg BP Sitting (Post-Dialysis) 138/74 mmHg Concurrent Access: falseAV Graft Upper Arm (Left) Arterial BP Standing (Pre-Dialysis) 143/96 mmHg BP Standing (P ost-Dialysis) 138/79 mmHg Sitting Heart Rate Pre-Dialysis 89 BPM Sitting Heart Rate Post-Dialysis 85 BPM Standing Heart Rate Pre-Dialysis 90 BPM Standing Heart Rate Post-Dialysis 91 BPM Temperature Pre-Dialysis 97.8 degF Temperature Post -Dialysis 97.6 degF July 15, 2023 In-Center Hemodialysis Treatment 1231-60-00M54:42:08.000Z 3161-93-09P30:40:08.000Z BP Sitting (Pre-Dialysis) 136/70 mmHg BP Sitting (Post-Dialysis) 103/71 mmHg Concurrent Access: falseAV Graft Upper Arm (Left) Arterial BP Standing (Pre-Dialysis) 141/76 mmHg BP Standing (P ost-Dialysis) 124/87 mmHg Sitting Heart Rate Pre-Dialysis 80 BPM Sitting Heart Rate Post-Dialysis 89 BPM Standing Heart Rate Pre-Dialysis 79 BPM Standing Heart Rate Post-Dialysis 85 BPM Temperature Pre-Dialysis 97.6 degF Temperature Post -Dialysis 97.9 degF July 13, 2023 In-Center Hemodialysis Treatment 0338-52-39C27:42:00.000Z 6222-27-30L49:47:08.000Z BP Sitting (Pre-Dialysis) 169/74 mmHg BP Sitting (Post-Dialysis) 128/64 mmHg Concurrent Access: falseAV Graft Upper Arm (Left) Arterial BP Standing (Pre-Dialysis) 157/78 mmHg BP Standing (P ost-Dialysis) 146/74 mmHg Sitting Heart Rate Pre-Dialysis 84 BPM Sitting Heart Rate Post-Dialysis 81 BPM Standing Heart Rate Pre-Dialysis 71 BPM Standing Heart Rate Post-Dialysis 93 BPM Temperature Pre-Dialysis 97.9 degF Temperature Post -Dialysis 97.9 degF July 10, 2023 In-Center Hemodialysis Treatment 8494-48-62O25:38:00.000Z 6316-17-17T62:45:17.000Z BP Sitting (Pre-Dialysis) 178/81 mmHg BP Sitting (Post-Dialysis) 140/72 mmHg Concurrent Access: falseAV Graft Upper Arm (Left) Arterial BP Standing (Pre-Dialysis) 163/49 mmHg Sitti ng Heart Rate Post-Dialysis 81 BPM Sitting Heart Rate Pre-Dialysis 86 BPM Temperatu re Post-Dialysis 97.6 degF Standing Heart Rate Pre-Dialysis 47 BPM Temperature Pre-Dialysis 97.4 degF July 08, 2023 In-Center Hemodialysis Treatment 7206-13-05T90:41:17.000Z 9098-61-90K81:43:17.000Z BP Sitting (Pre-Dialysis) 163/101 mmHg BP Sitting (Post-Dialysis) 161/79 mmHg Concurrent Access: falseAV Graft Upper Arm (Left) Arterial BP Standing (Pre-Dialysis) 177/100 mmHg Sitti ng Heart Rate Post-Dialysis 86 BPM Sitting Heart Rate Pre-Dialysis 62 BPM Temperatu re Post-Dialysis 97.6 degF Standing Heart Rate Pre-Dialysis 80 BPM Temperature Pre-Dialysis 97.6 degF July 06, 2023 In-Center Hemodialysis Treatment 2756-94-07R53:38:00.000Z 3853-74-69Z01:35:17.000Z BP Sitting (Pre-Dialysis) 160/90 mmHg BP Sitting (Post-Dialysis) 170/89 mmHg Concurrent Access: falseAV Graft Upper Arm (Left) Arterial BP Standing (Pre-Dialysis) 132/76 mmHg Sitti ng Heart Rate Post-Dialysis 87 BPM Sitting Heart Rate Pre-Dialysis 86 BPM Temperatu re Post-Dialysis 97.4 degF Standing Heart Rate Pre-Dialysis 90 BPM Temperature Pre-Dialysis 97.5 degF July 03, 2023 In-Center Hemodialysis Treatment 1857-51-88W35:34:00.000Z 8968-31-39Z19:39:54.000Z BP Sitting (Pre-Dialysis) 159/82 mmHg BP Sitting (Post-Dialysis) 185/95 mmHg Concurrent Access: falseAV Graft Upper Arm (Left) Arterial BP Standing (Pre-Dialysis) 151/71 mmHg BP Standing (P ost-Dialysis) 141/54 mmHg Sitting Heart Rate Pre-Dialysis 87 BPM Sitting Heart Rate Post-Dialysis 84 BPM Standing Heart Rate Pre-Dialysis 92 BPM Standing Heart Rate Post-Dialysis 87 BPM Temperature Pre-Dialysis 97.9 degF Temperature Post -Dialysis 97.9 degF July 01, 2023 In-Center Hemodialysis Treatment [id number]:47:53.000Z 4552-50-12A70:51:54.000Z BP Sitting (Pre-Dialysis) 149/78 mmHg BP Sitting (Post-Dialysis) 107/73 mmHg Concurrent Access: falseAV Graft Upper Arm (Left) Arterial BP Standing (Pre-Dialysis) 158/52 mmHg Sitti ng Heart Rate Post-Dialysis 87 BPM Sitting Heart Rate Pre-Dialysis 90 BPM Temperatu re Post-Dialysis 97.8 degF Standing Heart Rate Pre-Dialysis 94 BPM Temperature Pre-Dialysis 98.4 degF June 29, 2023 In-Center Hemodialysis Treatment 3850-86-61Q93:41:53.000Z 4620-40-35F27:35:53.000Z BP Sitting (Pre-Dialysis) 165/89 mmHg BP Sitting (Post-Dialysis) 145/70 mmHg Concurrent Access: falseAV Graft Upper Arm (Left) Arterial BP Standing (Pre-Dialysis) 151/83 mmHg Sitting Heart Rate Post-Dialysis 91 BPM Sitting Heart Rate Pre-Dialysis 97 BPM Temperatu re Post-Dialysis 97 degF Standing Heart Rate Pre-Dialysis 99 BPM Temperature Pre-Dialysis 97.9 degF June 26, 2023 In-Center Hemodialysis Treatment 3290-59-40G50:46:43.000Z 2589-13-18M31:36:44.000Z BP Sitting (Pre-Dialysis) 149/69 mmHg BP Sitting (Post-Dialysis) 155/77 mmHg Concurrent Access: falseAV Graft Upper Arm (Left) Arterial BP Standing (Pre-Dialysis) 143/80 mmHg BP Standing (P ost-Dialysis) 147/83 mmHg Sitting Heart Rate Pre-Dialysis 90 BPM Sitting Heart Rate Post-Dialysis 91 BPM Standing Heart Rate Pre-Dialysis 93 BPM Standing Heart Rate Post-Dialysis 98 BPM Temperature Pre-Dialysis 97.9 degF Temperature Post -Dialysis 97.7 degF June 24, 2023 In-Center Hemodialysis Treatment 0789-76-71J68:45:20.000Z 1490-55-86U74:32:20.000Z BP Sitting (Pre-Dialysis) 131/71 mmHg BP Sitting (Post-Dialysis) 112/62 mmHg Concurrent Access: falseAV Graft Upper Arm (Left) Arterial BP Standing (Pre-Dialysis) 133/91 mmHg Sitti ng Heart Rate Post-Dialysis 81 BPM Sitting Heart Rate Pre-Dialysis 94 BPM Temperatu re Post-Dialysis 98.2 degF Standing Heart Rate Pre-Dialysis 88 BPM Temperature Pre-Dialysis 98.2 degF 2023 In-Center Hemodialysis Treatment 7112-89-15G70:38:00.000Z 1770-67-38R85:40:20.000Z BP Sitting (Pre-Dialysis) 187/89 mmHg BP Sitting (Post-Dialysis) 133/75 mmHg Concurrent Access: falseAV Graft Upper Arm (Left) Arterial BP Standing (Pre-Dialysis) 172/88 mmHg Sitti ng Heart Rate Post-Dialysis 93 BPM Sitting Heart Rate Pre-Dialysis 94 BPM Temperatu re Post-Dialysis 97.4 degF Standing Heart Rate Pre-Dialysis 95 BPM Temperature Pre-Dialysis 97.9 degF June 19, 2023 In-Center Hemodialysis Treatment 8167-92-57P81:42:52.000Z 9500-39-85W60:45:52.000Z BP Sitting (Pre-Dialysis) 165/81 mmHg BP Sitting (Post-Dialysis) 155/83 mmHg Concurrent Access: falseAV Graft Upper Arm (Left) Arterial BP Standing (Pre-Dialysis) 152/82 mmHg BP Standing (P ost-Dialysis) 140/106 mmHg Sitting Heart Rate Pre-Dialysis 88 BPM Sitting Heart Rate Post-Dialysis 86 BPM Standing Heart Rate Pre-Dialysis 88 BPM Standing Heart Rate Post-Dialysis 76 BPM Temperature Pre-Dialysis 97.8 degF Temperature Post -Dialysis 97.8 degF June 17, 2023 In-Center Hemodialysis Treatment [id number]:40:52.000Z 0288-48-81K34:41:52.000Z BP Sitting (Pre-Dialysis) 156/81 mmHg BP Sitting (Post-Dialysis) 156/73 mmHg Concurrent Access: falseAV Graft Upper Arm (Left) Arterial BP Standing (Pre-Dialysis) 139/101 mmHg Sitti ng Heart Rate Post-Dialysis 90 BPM Sitting Heart Rate Pre-Dialysis 94 BPM Temperatu re Post-Dialysis 97.6 degF Standing Heart Rate Pre-Dialysis 95 BPM Temperature Pre-Dialysis 97.6 degF June 15, 2023 In-Center Hemodialysis Treatment 8701-18-26D58:39:52.000Z 9297-43-12H47:38:52.000Z BP Sitting (Pre-Dialysis) 173/78 mmHg BP Sitting (Post-Dialysis) 147/74 mmHg Concurrent Access: falseAV Graft Upper Arm (Left) Arterial BP Standing (Pre-Dialysis) 162/84 mmHg Sitti ng Heart Rate Post-Dialysis 87 BPM Sitting Heart Rate Pre-Dialysis 99 BPM Temperatu re Post-Dialysis 97.8 degF Standing Heart Rate Pre-Dialysis 99 BPM Temperature Pre-Dialysis 97.6 degF June 12, 2023 In-Center Hemodialysis Treatment [id number]:36:00.000Z 9690-61-23C87:38:34.000Z BP Sitting (Pre-Dialysis) 151/79 mmHg BP Sitting (Post-Dialysis) 119/73 mmHg Concurrent Access: falseAV Graft Upper Arm (Left) Arterial BP Standing (Pre-Dialysis) 155/100 mmHg Sitti ng Heart Rate Post-Dialysis 76 BPM Sitting Heart Rate Pre-Dialysis 53 BPM Temperatu re Post-Dialysis 97.6 degF Standing Heart Rate Pre-Dialysis 87 BPM Temperature Pre-Dialysis 97.5 degF June 10, 2023 In-Center Hemodialysis Treatment 7210-40-81S99:49:34.000Z 5215-60-64H28:49:34.000Z BP Sitting (Pre-Dialysis) 148/72 mmHg BP Sitting (Post-Dialysis) 155/77 mmHg Concurrent Access: falseAV Graft Upper Arm (Left) Arterial BP Standing (Pre-Dialysis) 158/78 mmHg Sitti ng Heart Rate Post-Dialysis 92 BPM Sitting Heart Rate Pre-Dialysis 93 BPM Temperatu re Post-Dialysis 97.9 degF Standing Heart Rate Pre-Dialysis 99 BPM Temperature Pre-Dialysis 97.6 degF June 08, 2023 In-Center Hemodialysis Treatment 5857-60-18K74:40:34.000Z 5662-50-49K56:41:34.000Z BP Sitting (Pre-Dialysis) 146/80 mmHg BP Sitting (Post-Dialysis) 132/71 mmHg Concurrent Access: falseAV Graft Upper Arm (Left) Arterial BP Standing (Pre-Dialysis) 149/84 mmHg BP Standing (P ost-Dialysis) 119/60 mmHg Sitting Heart Rate Pre-Dialysis 89 BPM Sitting Heart Rate Post-Dialysis 92 BPM Standing Heart Rate Pre-Dialysis 87 BPM Standing Heart Rate Post-Dialysis 100 BPM Temperature Pre-Dialysis 97.8 degF Temperature Post -Dialysis 97.5 degF June 05, 2023 In-Center Hemodialysis Treatment 3111-59-68V72:43:08.000Z 3248-35-50P45:42:09.000Z BP Sitting (Pre-Dialysis) 130/71 mmHg BP Sitting (Post-Dialysis) 148/109 mmHg Concurrent Access: falseAV Graft Upper Arm (Left) Arterial BP Standing (Pre-Dialysis) 121/70 mmHg BP Standing (P ost-Dialysis) 148/109 mmHg Sitting Heart Rate Pre-Dialysis 95 BPM Sitting Heart Rate Post-Dialysis 84 BPM Standing Heart Rate Pre-Dialysis 97 BPM Standing Heart Rate Post-Dialysis 84 BPM Temperature Pre-Dialysis 97.9 degF Temperature Post -Dialysis 97.8 degF June 03, 2023 In-Center Hemodialysis Treatment 5534-68-87A43:37:09.000Z 0619-04-90Q67:36:08.000Z BP Sitting (Pre-Dialysis) 165/85 mmHg BP Sitting (Post-Dialysis) 152/77 mmHg Concurrent Access: falseAV Graft Upper Arm (Left) Arterial BP Standing (Pre-Dialysis) 140/87 mmHg Sitti ng Heart Rate Post-Dialysis 87 BPM Sitting Heart Rate Pre-Dialysis 92 BPM Temperatu re Post-Dialysis 97.6 degF Standing Heart Rate Pre-Dialysis 97 BPM Temperature Pre-Dialysis 97.6 degF June 01, 2023 In-Center Hemodialysis Treatment 9704-55-61O29:38:00.000Z 8115-20-60V29:41:09.000Z BP Sitting (Pre-Dialysis) 143/91 mmHg BP Sitting (Post-Dialysis) 132/87 mmHg Concurrent Access: falseAV Graft Upper Arm (Left) Arterial BP Standing (Pre-Dialysis) 140/80 mmHg BP Standing (P ost-Dialysis) 143/84 mmHg Sitting Heart Rate Pre-Dialysis 100 BPM Sitting Heart Rate Post-Dialysis 111 BPM Standing Heart Rate Pre-Dialysis 97 BPM Standing Heart Rate Post-Dialysis 98 BPM Temperature Pre-Dialysis 97.8 degF Temperature Post -Dialysis 97.8 degF May 29, 2023 In-Center Hemodialysis Treatment 9870-73-81B08:31:08.000Z 4378-95-35J79:36:13.000Z BP Sitting (Pre-Dialysis) 157/83 mmHg BP Sitting (Post-Dialysis) 144/93 mmHg Concurrent Access: falseAV Graft Upper Arm (Left) Arterial BP Standing (Pre-Dialysis) 180/83 mmHg BP Standing (P ost-Dialysis) 163/71 mmHg Sitting Heart Rate Pre-Dialysis 75 BPM Sitting Heart Rate Post-Dialysis 91 BPM Standing Heart Rate Pre-Dialysis 97 BPM Standing Heart Rate Post-Dialysis 90 BPM Temperature Pre-Dialysis 97.8 degF Temperature Post -Dialysis 97.8 degF May 27, 2023 In-Center Hemodialysis Treatment [id number]:39:08.000Z 9052-32-23V51:36:08.000Z BP Sitting (Pre-Dialysis) 139/58 mmHg BP Sitting (Post-Dialysis) 152/104 mmHg Concurrent Access: falseAV Graft Upper Arm (Left) Arterial BP Standing (Pre-Dialysis) 189/99 mmHg Sitti ng Heart Rate Post-Dialysis 84 BPM Sitting Heart Rate Pre-Dialysis 68 BPM Temperatu re Post-Dialysis 97.4 degF Standing Heart Rate Pre-Dialysis 97 BPM Temperature Pre-Dialysis 97.4 degF May 25, 2023 In-Center Hemodialysis Treatment 6834-90-85X44:37:00.000Z 4401-88-50J68:36:08.000Z BP Sitting (Pre-Dialysis) 186/80 mmHg BP Sitting (Post-Dialysis) 202/93 mmHg Concurrent Access: falseAV Graft Upper Arm (Left) Arterial BP Standing (Pre-Dialysis) 186/97 mmHg Sitti ng Heart Rate Post-Dialysis 85 BPM Sitting Heart Rate Pre-Dialysis 81 BPM Temperatu re Post-Dialysis 97.7 degF Standing Heart Rate Pre-Dialysis 85 BPM Temperature Pre-Dialysis 97.9 degF May 22, 2023 In-Center Hemodialysis Treatment 4131-35-03R84:46:00.000Z 6302-15-85R14:51:17.000Z BP Sitting (Pre-Dialysis) 162/83 mmHg BP Sitting (Post-Dialysis) 148/109 mmHg Concurrent Access: falseAV Graft Upper Arm (Left) Arterial BP Standing (Pre-Dialysis) 159/77 mmHg Sitti ng Heart Rate Post-Dialysis 79 BPM Sitting Heart Rate Pre-Dialysis 93 BPM Temperatu re Post-Dialysis 97.8 degF Standing Heart Rate Pre-Dialysis 95 BPM Temperature Pre-Dialysis 97.9 degF May 15, 2023 In-Center Hemodialysis Treatment 8490-05-54R38:46:26.000Z 3202-29-09N16:49:26.000Z BP Sitting (Pre-Dialysis) 103/80 mmHg BP Sitting (Post-Dialysis) 145/78 mmHg Concurrent Access: falseAV Graft Upper Arm (Left) Arterial BP Standing (Pre-Dialysis) 144/69 mmHg Sitting Heart Rate Post-Dialysis 98 BPM Sitting Heart Rate Pre-Dialysis 60 BPM Standing Heart Rate Pre-Dialysis 108 BPM Temperature Pre-Dialysis 97.7 degF May 13, 2023 In-Center Hemodialysis Treatment 8095-90-85L13:35:33.000Z 9620-50-21S54:40:34.000Z BP Sitting (Pre-Dialysis) 164/77 mmHg BP Sitting (Post-Dialysis) 154/77 mmHg Concurrent Access: falseAV Graft Upper Arm (Left) Arterial BP Standing (Pre-Dialysis) 148/73 mmHg Sitti ng Heart Rate Post-Dialysis 96 BPM Sitting Heart Rate Pre-Dialysis 96 BPM Temperatu re Post-Dialysis 97.6 degF Standing Heart Rate Pre-Dialysis 95 BPM Temperature Pre-Dialysis 97 degF May 11, 2023 In-Center Hemodialysis Treatment [id number]:39:00.000Z 8278-58-58O14:42:34.000Z BP Sitting (Pre-Dialysis) 148/75 mmHg BP Sitting (Post-Dialysis) 187/91 mmHg Concurrent Access: falseAV Graft Upper Arm (Left) Arterial BP Standing (Pre-Dialysis) 134/72 mmHg Sitti ng Heart Rate Post-Dialysis 88 BPM Sitting Heart Rate Pre-Dialysis 94 BPM Temperatu re Post-Dialysis 97.5 degF Standing Heart Rate Pre-Dialysis 98 BPM Temperature Pre-Dialysis 97.9 degF May 06, 2023 In-Center Hemodialysis Treatment 9772-13-00B22:35:34.000Z 5418-35-90U46:33:35.000Z BP Sitting (Pre-Dialysis) 134/58 mmHg BP Sitting (Post-Dialysis) 136/82 mmHg Concurrent Access: falseAV Graft Upper Arm (Left) Arterial BP Standing (Pre-Dialysis) 153/114 mmHg BP Standing (P ost-Dialysis) 158/109 mmHg Sitting Heart Rate Pre-Dialysis 81 BPM Sitting Heart Rate Post-Dialysis 94 BPM Standing Heart Rate Pre-Dialysis 65 BPM Standing Heart Rate Post-Dialysis 92 BPM Temperature Pre-Dialysis 97 degF Temperature Post -Dialysis 97.5 degF May 04, 2023 In-Center Hemodialysis Treatment [id number]:40:00.000Z 1360-47-52P40:44:35.000Z BP Sitting (Pre-Dialysis) 159/89 mmHg BP Sitting (Post-Dialysis) 131/99 mmHg Concurrent Access: falseAV Graft Upper Arm (Left) Arterial BP Standing (Pre-Dialysis) 145/59 mmHg BP Standing (P ost-Dialysis) 146/81 mmHg Sitting Heart Rate Pre-Dialysis 95 BPM Sitting Heart Rate Post-Dialysis 98 BPM Standing Heart Rate Pre-Dialysis 79 BPM Standing Heart Rate Post-Dialysis 92 BPM Temperature Pre-Dialysis 97.9 degF Temperature Post -Dialysis 97.8 degF May 01, 2023 In-Center Hemodialysis Treatment [id number]:42:00.000Z [id number]:41:43.000Z BP Sitting (Pre-Dialysis) 157/80 mmHg BP Sitting (Post-Dialysis) 108/60 mmHg Concurrent Access: falseAV Graft Upper Arm (Left) Arterial BP Standing (Pre-Dialysis) 144/121 mmHg Sitti ng Heart Rate Post-Dialysis 88 BPM Sitting Heart Rate Pre-Dialysis 89 BPM Temperatu re Post-Dialysis 97.6 degF Standing Heart Rate Pre-Dialysis 69 BPM Temperature Pre-Dialysis 97.6 degF April 28, 2023 In-Center Hemodialysis Treatment [id number]:05:00.000Z [id number]:56:47.000Z BP Sitting (Pre-Dialysis) 100/58 mmHg BP Sitting (Post-Dialysis) 132/66 mmHg Concurrent Access: falseAV Graft Upper Arm (Left) Arterial Sitting Heart Rate Pre-Dialysis 101 BPM BP Standing (Post-Dialysis) 152/94 mmHg Temperature Pre-Dialysis 97.8 degF Sitting Heart Ra te Post-Dialysis 94 BPM Standing Heart Rate Post-Dina lysis 85 BPM Temperature Post-Dialysis 97 .2 degF April 27, 2023 In-Center Hemodialysis Treatment 1559-24-19Q38:35:00.000Z 3511-63-46A60:34:43.000Z BP Sitting (Pre-Dialysis) 125/68 mmHg BP Sitting (Post-Dialysis) 97/56 mmHg Concurrent Access: falseAV Graft Upper Arm (Left) Arterial BP Standing (Pre-Dialysis) 135/70 mmHg BP Standing (P ost-Dialysis) 90/68 mmHg Sitting Heart Rate Pre-Dialysis 80 BPM Sitting Heart Rate Post-Dialysis 91 BPM Standing Heart Rate Pre-Dialysis 96 BPM Standing Heart Rate Post-Dialysis 100 BPM Temperature Pre-Dialysis 97 degF Temperature Post -Dialysis 97.3 degF April 24, 2023 In-Center Hemodialysis Treatment [id number]:44:36.000Z [id number]:46:36.000Z BP Sitting (Pre-Dialysis) 142/78 mmHg BP Sitting (Post-Dialysis) 126/75 mmHg Concurrent Access: falseAV Graft Upper Arm (Left) Arterial BP Standing (Pre-Dialysis) 136/71 mmHg Sitti ng Heart Rate Post-Dialysis 83 BPM Sitting Heart Rate Pre-Dialysis 90 BPM Temperatu re Post-Dialysis 97.9 degF Standing Heart Rate Pre-Dialysis 93 BPM Temperature Pre-Dialysis 97.9 degF April 22, 2023 In-Center Hemodialysis Treatment [id number]:40:44.000Z 6846-75-04M41:47:44.000Z BP Sitting (Pre-Dialysis) 127/72 mmHg BP Sitting (Post-Dialysis) 101/69 mmHg Concurrent Access: falseAV Graft Upper Arm (Left) Arterial BP Standing (Pre-Dialysis) 127/75 mmHg BP Standing (P ost-Dialysis) 118/60 mmHg Sitting Heart Rate Pre-Dialysis 94 BPM Sitting Heart Rate Post-Dialysis 93 BPM Standing Heart Rate Pre-Dialysis 97 BPM Standing Heart Rate Post-Dialysis 53 BPM Temperature Pre-Dialysis 97.6 degF Temperature Post -Dialysis 97.6 degF April 20, 2023 In-Center Hemodialysis Treatment [id number]:45:00.000Z 3428-03-17R15:36:10.000Z BP Sitting (Pre-Dialysis) 153/76 mmHg BP Sitting (Post-Dialysis) 110/69 mmHg Concurrent Access: falseAV Graft Upper Arm (Left) Arterial Sitting Heart Rate Pre-Dialysis 96 BPM BP Standing (Post-Dialysis) 138/89 mmHg Temperature Pre-Dialysis 97.9 degF Sitting Heart Ra te Post-Dialysis 85 BPM Standing Heart Rate Post-Dina lysis 75 BPM Temperature Post-Dialysis 97 .6 degF April 17, 2023 In-Center Hemodialysis Treatment 8214-41-12Z01:38:48.000Z [id number]:40:47.000Z BP Sitting (Pre-Dialysis) 137/72 mmHg BP Sitting (Post-Dialysis) 120/69 mmHg Concurrent Access: falseAV Graft Upper Arm (Left) Arterial BP Standing (Pre-Dialysis) 148/75 mmHg BP Standing (P ost-Dialysis) 151/59 mmHg Sitting Heart Rate Pre-Dialysis 93 BPM Sitting Heart Rate Post-Dialysis 93 BPM Standing Heart Rate Pre-Dialysis 93 BPM Standing Heart Rate Post-Dialysis 99 BPM Temperature Pre-Dialysis 97.3 degF Temperature Post -Dialysis 98 degF April 15, 2023 In-Center Hemodialysis Treatment [id number]:38:00.000Z 7956-74-38A14:43:48.000Z BP Sitting (Pre-Dialysis) 175/86 mmHg BP Sitting (Post-Dialysis) 159/85 mmHg Concurrent Access: falseAV Graft Upper Arm (Left) Arterial BP Standing (Pre-Dialysis) 127/110 mmHg BP Standing (P ost-Dialysis) 136/94 mmHg Sitting Heart Rate Pre-Dialysis 82 BPM Sitting Heart Rate Post-Dialysis 82 BPM Standing Heart Rate Pre-Dialysis 102 BPM Standing Heart Rate Post-Dialysis 89 BPM Temperature Pre-Dialysis 97.6 degF Temperature Post -Dialysis 97 degF April 13, 2023 In-Center Hemodialysis Treatment 350 mL/min 500 mL/min Concurrent Access: false April 10, 2023 In-Center Hemodialysis Treatment T1 1: 39 :4 7. 00 0Z T1 4: 41 :4 7. 00 0Z BP Sitting (Pre-Dial ysis) 184/84 mmHg BP Sitting (Post-Dina lysis) 164/79 mmHg Concurrent Access: falseAV Graft Upper Arm (Left) Arterial BP Standing (Pre-Dialysis) 92/53 mmHg BP Standing (P ost-Dialysis) 152/75 mmHg Sitting Heart Rate Pre-Dialysis 85 BPM Sitting Heart Rate Post-Dialysis 85 BPM Standing Heart Rate Pre-Dialysis 52 BPM Standing Heart Rate Post-Dialysis 85 BPM Temperature Pre-Dialysis 97.8 degF Temperature Post -Dialysis 97.8 degF April 08, 2023 In-Center Hemodialysis Treatment [id number]:42:00.000Z 7370-71-94B79:42:47.000Z BP Sitting (Pre-Dialysis) 188/89 mmHg BP Sitting (Post-Dialysis) 95/55 mmHg Concurrent Access: falseAV Graft Upper Arm (Left) Arterial BP Standing (Pre-Dialysis) 183/82 mmHg BP Standing (P ost-Dialysis) 120/94 mmHg Sitting Heart Rate Pre-Dialysis 87 BPM Sitting Heart Rate Post-Dialysis 75 BPM Standing Heart Rate Pre-Dialysis 87 BPM Standing Heart Rate Post-Dialysis 69 BPM Temperature Pre-Dialysis 97.6 degF Temperature Post -Dialysis 97 degF April 06, 2023 In-Center Hemodialysis Treatment 1225-43-22Q25:44:47.000Z 3378-57-46W85:45:47.000Z BP Sitting (Pre-Dialysis) 171/86 mmHg BP Sitting (Post-Dialysis) 149/69 mmHg Concurrent Access: falseAV Graft Upper Arm (Left) Arterial Sitting Heart Rate Pre-Dialysis 90 BPM Sitting H eart Rate Post-Dialysis 86 BPM Temperature Pre-Dialysis 97.9 degF Temperature Post -Dialysis 97.3 degF April 03, 2023 In-Center Hemodialysis Treatment [id number]:41:36.000Z 0461-92-37K50:43:37.000Z BP Sitting (Pre-Dialysis) 141/70 mmHg BP Sitting (Post-Dialysis) 148/79 mmHg Concurrent Access: falseAV Graft Upper Arm (Left) Arterial BP Standing (Pre-Dialysis) 139/84 mmHg BP Standing (P ost-Dialysis) 150/95 mmHg Sitting Heart Rate Pre-Dialysis 94 BPM Sitting Heart Rate Post-Dialysis 88 BPM Standing Heart Rate Pre-Dialysis 74 BPM Standing Heart Rate Post-Dialysis 94 BPM Temperature Pre-Dialysis 97 degF Temperature Post -Dialysis 97 degF April 01, 2023 In-Center Hemodialysis Treatment [id number]:45:00.000Z 9988-00-73Z41:53:37.000Z BP Sitting (Pre-Dialysis) 117/65 mmHg BP Sitting (Post-Dialysis) 137/72 mmHg Concurrent Access: falseAV Graft Upper Arm (Left) Arterial Sitting Heart Rate Pre-Dialysis 93 BPM Sitting H eart Rate Post-Dialysis 86 BPM Temperature Pre-Dialysis 97.6 degF Temperature Post -Dialysis 97.3 degF March 30, 2023 In-Center Hemodialysis Treatment 6535-59-35M59:36:00.000Z 7242-91-07O36:36:37.000Z BP Sitting (Pre-Dialysis) 145/76 mmHg BP Sitting (Post-Dialysis) 109/66 mmHg Concurrent Access: falseAV Graft Upper Arm (Left) Arterial BP Standing (Pre-Dialysis) 156/78 mmHg BP Standing (P ost-Dialysis) 104/63 mmHg Sitting Heart Rate Pre-Dialysis 89 BPM Sitting Heart Rate Post-Dialysis 93 BPM Standing Heart Rate Pre-Dialysis 91 BPM Standing Heart Rate Post-Dialysis 99 BPM Temperature Pre-Dialysis 97.8 degF Temperature Post -Dialysis 97.5 degF March 27, 2023 In-Center Hemodialysis Treatment [id number]:43:00.000Z [id number]:47:39.000Z BP Sitting (Pre-Dialysis) 168/138 mmHg BP Sitting (Post-Dialysis) 128/75 mmHg Concurrent Access: falseAV Graft Upper Arm (Left) Arterial BP Standing (Pre-Dialysis) 131/110 mmHg BP Standing (P ost-Dialysis) 134/68 mmHg Sitting Heart Rate Pre-Dialysis 113 BPM Sitting Heart Rate Post-Dialysis 90 BPM Standing Heart Rate Pre-Dialysis 77 BPM Standing Heart Rate Post-Dialysis 89 BPM Temperature Pre-Dialysis 97.9 degF Temperature Post -Dialysis 97.9 degF March 25, 2023 In-Center Hemodialysis Treatment 6029-49-11F12:46:41.000Z 2810-43-71E69:51:42.000Z BP Sitting (Pre-Dialysis) 158/80 mmHg BP Sitting (Post-Dialysis) 135/80 mmHg Concurrent Access: falseAV Graft Upper Arm (Left) Arterial BP Standing (Pre-Dialysis) 159/82 mmHg Sitti ng Heart Rate Post-Dialysis 86 BPM Sitting Heart Rate Pre-Dialysis 92 BPM Temperatu re Post-Dialysis 97.6 degF Standing Heart Rate Pre-Dialysis 95 BPM Temperature Pre-Dialysis 97.6 degF March 23, 2023 In-Center Hemodialysis Treatment 5976-72-10G71:38:00.000Z 1506-39-46O35:38:42.000Z BP Sitting (Pre-Dialysis) 161/83 mmHg BP Sitting (Post-Dialysis) 126/63 mmHg Concurrent Access: falseAV Graft Upper Arm (Left) Arterial BP Standing (Pre-Dialysis) 128/67 mmHg Sitti ng Heart Rate Post-Dialysis 95 BPM Sitting Heart Rate Pre-Dialysis 95 BPM Temperatu re Post-Dialysis 97.4 degF Standing Heart Rate Pre-Dialysis 100 BPM Temperature Pre-Dialysis 97.5 degF March 20, 2023 In-Center Hemodialysis Treatment 7600-64-56O77:38:00.000Z 7185-34-94K08:45:12.000Z BP Sitting (Pre-Dialysis) 145/82 mmHg BP Sitting (Post-Dialysis) 148/82 mmHg Concurrent Access: falseAV Graft Upper Arm (Left) Arterial BP Standing (Pre-Dialysis) 139/101 mmHg Sitti ng Heart Rate Post-Dialysis 92 BPM Sitting Heart Rate Pre-Dialysis 82 BPM Temperatu re Post-Dialysis 97.3 degF Standing Heart Rate Pre-Dialysis 69 BPM Temperature Pre-Dialysis 97.9 degF March 18, 2023 In-Center Hemodialysis Treatment 3119-97-65R16:42:00.000Z 7071-07-81V91:48:12.000Z BP Sitting (Pre-Dialysis) 151/79 mmHg BP Sitting (Post-Dialysis) 161/82 mmHg Concurrent Access: falseAV Graft Upper Arm (Left) Arterial BP Standing (Pre-Dialysis) 169/85 mmHg BP Standing (P ost-Dialysis) 177/72 mmHg Sitting Heart Rate Pre-Dialysis 92 BPM Sitting Heart Rate Post-Dialysis 89 BPM Standing Heart Rate Pre-Dialysis 94 BPM Standing Heart Rate Post-Dialysis 100 BPM Temperature Pre-Dialysis 97.9 degF Temperature Post -Dialysis 97.7 degF March 16, 2023 In-Center Hemodialysis Treatment 3563-65-54G40:43:12.000Z 8254-54-33H53:47:12.000Z BP Sitting (Pre-Dialysis) 126/92 mmHg BP Sitting (Post-Dialysis) 118/64 mmHg Concurrent Access: falseAV Graft Upper Arm (Left) Arterial BP Standing (Pre-Dialysis) 135/78 mmHg Sitting Heart Rate Post-Dialysis 84 BPM Sitting Heart Rate Pre-Dialysis 76 BPM Temperatu re Post-Dialysis 97 degF Standing Heart Rate Pre-Dialysis 90 BPM Temperature Pre-Dialysis 97.9 degF March 13, 2023 In-Center Hemodialysis Treatment [id number]:27:21.000Z 8733-23-14A22:28:21.000Z BP Sitting (Pre-Dialysis) 137/72 mmHg BP Sitting (Post-Dialysis) 121/73 mmHg Concurrent Access: falseAV Graft Upper Arm (Left) Arterial BP Standing (Pre-Dialysis) 133/74 mmHg BP Standing (P ost-Dialysis) 111/65 mmHg Sitting Heart Rate Pre-Dialysis 91 BPM Sitting Heart Rate Post-Dialysis 97 BPM Standing Heart Rate Pre-Dialysis 95 BPM Standing Heart Rate Post-Dialysis 103 BPM Temperature Pre-Dialysis 97.8 degF Temperature Post -Dialysis 97.8 degF March 11, 2023 In-Center Hemodialysis Treatment [id number]:56:21.000Z 4960-61-84L75:02:21.000Z BP Sitting (Pre-Dialysis) 159/86 mmHg BP Sitting (Post-Dialysis) 138/74 mmHg Concurrent Access: falseAV Graft Upper Arm (Left) Arterial BP Standing (Pre-Dialysis) 112/76 mmHg Sitting Heart Rate Post-Dialysis 88 BPM Sitting Heart Rate Pre-Dialysis 90 BPM Standing Heart Rate Pre-Dialysis 49 BPM Temperature Pre-Dialysis 97.6 degF March 09, 2023 In-Center Hemodialysis Treatment [id number]:33:00.000Z 0122-63-34T98:37:21.000Z BP Sitting (Pre-Dialysis) 141/112 mmHg BP Sitting (Post-Dialysis) 104/69 mmHg Concurrent Access: falseAV Graft Upper Arm (Left) Arterial BP Standing (Pre-Dialysis) 150/93 mmHg Sitti ng Heart Rate Post-Dialysis 93 BPM Sitting Heart Rate Pre-Dialysis 73 BPM Temperatu re Post-Dialysis 97.9 degF Standing Heart Rate Pre-Dialysis 95 BPM Temperature Pre-Dialysis 97.9 degF March 06, 2023 In-Center Hemodialysis Treatment 6582-65-18M78:33:00.000Z 9011-99-56Y58:36:03.000Z BP Sitting (Pre-Dialysis) 142/103 mmHg BP Sitting (Post-Dialysis) 189/144 mmHg Concurrent Access: falseAV Graft Upper Arm (Left) Arterial BP Standing (Pre-Dialysis) 116/85 mmHg Sitti ng Heart Rate Post-Dialysis 41 BPM Sitting Heart Rate Pre-Dialysis 84 BPM Temperatu re Post-Dialysis 97.6 degF Standing Heart Rate Pre-Dialysis 51 BPM Temperature Pre-Dialysis 97.6 degF March 03, 2023 In-Center Hemodialysis Treatment [id number]:41:00.000Z 0683-84-91Q83:44:12.000Z BP Sitting (Pre-Dialysis) 127/74 mmHg BP Sitting (Post-Dialysis) 175/100 mmHg Concurrent Access: falseAV Graft Upper Arm (Left) Arterial BP Standing (Pre-Dialysis) 132/74 mmHg Sitti ng Heart Rate Post-Dialysis 80 BPM Sitting Heart Rate Pre-Dialysis 89 BPM Temperatu re Post-Dialysis 96.7 degF Standing Heart Rate Pre-Dialysis 93 BPM Temperature Pre-Dialysis 97 degF March 01, 2023 In-Center Hemodialysis Treatment 1358-28-31W19:37:00.000Z 1117-59-51C42:37:22.000Z BP Sitting (Pre-Dialysis) 130/68 mmHg BP Sitting (Post-Dialysis) 149/75 mmHg Concurrent Access: falseAV Graft Upper Arm (Left) Arterial BP Standing (Pre-Dialysis) 124/68 mmHg Sitti ng Heart Rate Post-Dialysis 85 BPM Sitting Heart Rate Pre-Dialysis 85 BPM Temperatu re Post-Dialysis 97.5 degF Standing Heart Rate Pre-Dialysis 90 BPM Temperature Pre-Dialysis 97.8 degF February 27, 2023 In-Center Hemodialysis Treatment [id number]:39:00.000Z 1241-54-95H65:42:18.000Z BP Sitting (Pre-Dialysis) 149/74 mmHg BP Sitting (Post-Dialysis) 124/56 mmHg Concurrent Access: falseAV Graft Upper Arm (Left) Arterial BP Standing (Pre-Dialysis) 123/81 mmHg Sitting Heart Rate Post-Dialysis 91 BPM Sitting Heart Rate Pre-Dialysis 93 BPM Temperatu re Post-Dialysis 97 degF Standing Heart Rate Pre-Dialysis 99 BPM Temperature Pre-Dialysis 97.9 degF February 25, 2023 In-Center Hemodialysis Treatment 9744-01-60P19:38:00.000Z 1422-52-96A60:44:18.000Z BP Sitting (Pre-Dialysis) 164/83 mmHg BP Sitting (Post-Dialysis) 140/74 mmHg Concurrent Access: falseAV Graft Upper Arm (Left) Arterial BP Standing (Pre-Dialysis) 154/84 mmHg BP Standing (P ost-Dialysis) 123/73 mmHg Sitting Heart Rate Pre-Dialysis 94 BPM Sitting Heart Rate Post-Dialysis 88 BPM Standing Heart Rate Pre-Dialysis 96 BPM Standing Heart Rate Post-Dialysis 96 BPM Temperature Pre-Dialysis 97.4 degF Temperature Post -Dialysis 97.6 degF February 23, 2023 In-Center Hemodialysis Treatment [id number]:40:00.000Z 3069-24-66A82:40:57.000Z BP Sitting (Pre-Dialysis) 149/78 mmHg BP Sitting (Post-Dialysis) 165/44 mmHg Concurrent Access: falseAV Graft Upper Arm (Left) Arterial BP Standing (Pre-Dialysis) 139/113 mmHg Sitti ng Heart Rate Post-Dialysis 90 BPM Sitting Heart Rate Pre-Dialysis 96 BPM Temperatu re Post-Dialysis 97 degF Standing Heart Rate Pre-Dialysis 100 BPM Temperature Pre-Dialysis 97.5 degF February 20, 2023 In-Center Hemodialysis Treatment 3226-26-81O73:41:10.000Z 8915-36-97M98:42:09.000Z BP Sitting (Pre-Dialysis) 148/91 mmHg BP Sitting (Post-Dialysis) 128/67 mmHg Concurrent Access: falseAV Graft Upper Arm (Left) Arterial BP Standing (Pre-Dialysis) 151/80 mmHg BP Standing (P ost-Dialysis) 99/68 mmHg Sitting Heart Rate Pre-Dialysis 92 BPM Sitting Heart Rate Post-Dialysis 86 BPM Standing Heart Rate Pre-Dialysis 95 BPM Standing Heart Rate Post-Dialysis 93 BPM Temperature Pre-Dialysis 97.6 degF Temperature Post -Dialysis 97.6 degF February 18, 2023 In-Center Hemodialysis Treatment 7385-87-40Z76:47:09.000Z 3418-62-69H19:54:10.000Z BP Sitting (Pre-Dialysis) 103/20 mmHg BP Sitting (Post-Dialysis) 130/97 mmHg Concurrent Access: falseAV Graft Upper Arm (Left) Arterial BP Standing (Pre-Dialysis) 93/82 mmHg BP Standing (P ost-Dialysis) 136/78 mmHg Sitting Heart Rate Pre-Dialysis 64 BPM Sitting Heart Rate Post-Dialysis 49 BPM Standing Heart Rate Pre-Dialysis 48 BPM Standing Heart Rate Post-Dialysis 94 BPM Temperature Pre-Dialysis 97.6 degF Temperature Post -Dialysis 97.6 degF February 16, 2023 In-Center Hemodialysis Treatment 0452-02-63F14:41:00.000Z 2858-87-38G52:42:15.000Z BP Sitting (Pre-Dialysis) 159/129 mmHg BP Sitting (Post-Dialysis) 119/83 mmHg Concurrent Access: falseAV Graft Upper Arm (Left) Arterial BP Standing (Pre-Dialysis) 166/91 mmHg BP Standing (P ost-Dialysis) 143/113 mmHg Sitting Heart Rate Pre-Dialysis 96 BPM Sitting Heart Rate Post-Dialysis 82 BPM Standing Heart Rate Pre-Dialysis 92 BPM Standing Heart Rate Post-Dialysis 42 BPM Temperature Pre-Dialysis 97.9 degF Temperature Post -Dialysis 98 degF February 13, 2023 In-Center Hemodialysis Treatment 4904-26-22W58:33:00.000Z 4040-79-43G93:34:07.000Z BP Sitting (Pre-Dialysis) 131/77 mmHg BP Sitting (Post-Dialysis) 179/93 mmHg Concurrent Access: falseAV Graft Upper Arm (Left) Arterial BP Standing (Pre-Dialysis) 169/81 mmHg BP Standing (P ost-Dialysis) 162/105 mmHg Sitting Heart Rate Pre-Dialysis 99 BPM Sitting Heart Rate Post-Dialysis 93 BPM Standing Heart Rate Pre-Dialysis 93 BPM Standing Heart Rate Post-Dialysis 88 BPM Temperature Pre-Dialysis 97.9 degF Temperature Post -Dialysis 97.8 degF February 11, 2023 In-Center Hemodialysis Treatment [id number]:35:07.000Z 7851-64-42X77:35:07.000Z BP Sitting (Pre-Dialysis) 148/81 mmHg BP Sitting (Post-Dialysis) 103/83 mmHg Concurrent Access: falseAV Graft Upper Arm (Left) Arterial BP Standing (Pre-Dialysis) 139/76 mmHg Sitti ng Heart Rate Post-Dialysis 81 BPM Sitting Heart Rate Pre-Dialysis 95 BPM Temperatu re Post-Dialysis 97.6 degF Standing Heart Rate Pre-Dialysis 97 BPM Temperature Pre-Dialysis 97.9 degF February 09, 2023 In-Center Hemodialysis Treatment 5518-04-88R74:34:00.000Z 2948-07-77M44:41:07.000Z BP Sitting (Pre-Dialysis) 112/93 mmHg BP Sitting (Post-Dialysis) 152/97 mmHg Concurrent Access: falseAV Graft Upper Arm (Left) Arterial BP Standing (Pre-Dialysis) 135/99 mmHg Sitting Heart Rate Post-Dialysis 92 BPM Sitting Heart Rate Pre-Dialysis 98 BPM Temperatu re Post-Dialysis 97 degF Standing Heart Rate Pre-Dialysis 101 BPM Temperature Pre-Dialysis 97 degF February 06, 2023 In-Center Hemodialysis Treatment 2118-74-85R01:42:00.000Z 0582-54-89R15:43:12.000Z BP Sitting (Pre-Dialysis) 170/116 mmHg BP Sitting (Post-Dialysis) 150/84 mmHg Concurrent Access: falseAV Graft Upper Arm (Left) Arterial BP Standing (Pre-Dialysis) 154/71 mmHg BP Standing (P ost-Dialysis) 144/70 mmHg Sitting Heart Rate Pre-Dialysis 89 BPM Sitting Heart Rate Post-Dialysis 89 BPM Standing Heart Rate Pre-Dialysis 101 BPM Standing Heart Rate Post-Dialysis 99 BPM Temperature Pre-Dialysis 97.3 degF Temperature Post -Dialysis 97.3 degF February 04, 2023 In-Center Hemodialysis Treatment 5780-48-19B99:33:00.000Z 6803-03-50H48:37:12.000Z BP Sitting (Pre-Dialysis) 155/74 mmHg BP Sitting (Post-Dialysis) 145/94 mmHg Concurrent Access: falseAV Graft Upper Arm (Left) Arterial BP Standing (Pre-Dialysis) 163/78 mmHg BP Standing (P ost-Dialysis) 126/72 mmHg Sitting Heart Rate Pre-Dialysis 82 BPM Sitting Heart Rate Post-Dialysis 85 BPM Standing Heart Rate Pre-Dialysis 99 BPM Standing Heart Rate Post-Dialysis 103 BPM Temperature Pre-Dialysis 97 degF Temperature Post -Dialysis 97.6 degF February 02, 2023 In-Center Hemodialysis Treatment 2901-14-98W40:22:12.000Z 6386-18-45G19:06:12.000Z BP Sitting (Pre-Dialysis) 147/88 mmHg BP Sitting (Post-Dialysis) 132/77 mmHg Concurrent Access: falseAV Graft Upper Arm (Left) Arterial BP Standing (Pre-Dialysis) 124/71 mmHg BP Standing (P ost-Dialysis) 124/75 mmHg Sitting Heart Rate Pre-Dialysis 103 BPM Sitting Heart Rate Post-Dialysis 88 BPM Standing Heart Rate Pre-Dialysis 76 BPM Standing Heart Rate Post-Dialysis 99 BPM Temperature Pre-Dialysis 97.5 degF Temperature Post -Dialysis 97.6 degF January 30, 2023 In-Center Hemodialysis Treatment [id number]:38:00.000Z 0144-73-92R85:44:25.000Z BP Sitting (Pre-Dialysis) 153/89 mmHg BP Sitting (Post-Dialysis) 121/69 mmHg Concurrent Access: falseAV Graft Upper Arm (Left) Arterial BP Standing (Pre-Dialysis) 155/87 mmHg BP Standing (P ost-Dialysis) 128/86 mmHg Sitting Heart Rate Pre-Dialysis 100 BPM Sitting Heart Rate Post-Dialysis 99 BPM Standing Heart Rate Pre-Dialysis 101 BPM Standing Heart Rate Post-Dialysis 84 BPM Temperature Pre-Dialysis 97.3 degF Temperature Post -Dialysis 97.6 degF January 28, 2023 In-Center Hemodialysis Treatment 2295-54-70P20:42:00.000Z 8946-34-42P70:46:25.000Z BP Sitting (Pre-Dialysis) 187/98 mmHg BP Sitting (Post-Dialysis) 166/86 mmHg Concurrent Access: falseAV Graft Upper Arm (Left) Arterial BP Standing (Pre-Dialysis) 154/94 mmHg BP Standing (P ost-Dialysis) 124/49 mmHg Sitting Heart Rate Pre-Dialysis 85 BPM Sitting Heart Rate Post-Dialysis 82 BPM Standing Heart Rate Pre-Dialysis 81 BPM Standing Heart Rate Post-Dialysis 79 BPM Temperature Pre-Dialysis 97.6 degF Temperature Post -Dialysis 98 degF January 26, 2023 In-Center Hemodialysis Treatment 7024-20-89K81:41:24.000Z 5181-37-90A67:41:25.000Z BP Sitting (Pre-Dialysis) 147/77 mmHg BP Sitting (Post-Dialysis) 138/83 mmHg Concurrent Access: falseAV Graft Upper Arm (Left) Arterial BP Standing (Pre-Dialysis) 131/76 mmHg BP Standing (P ost-Dialysis) 123/80 mmHg Sitting Heart Rate Pre-Dialysis 90 BPM Sitting Heart Rate Post-Dialysis 93 BPM Standing Heart Rate Pre-Dialysis 106 BPM Standing Heart Rate Post-Dialysis 101 BPM Temperature Pre-Dialysis 97.4 degF Temperature Post -Dialysis 97 degF January 23, 2023 In-Center Hemodialysis Treatment 1106-36-92D99:37:00.000Z 7573-28-27Z10:33:50.000Z BP Sitting (Pre-Dialysis) 172/72 mmHg BP Sitting (Post-Dialysis) 131/75 mmHg Concurrent Access: falseAV Graft Upper Arm (Left) Arterial BP Standing (Pre-Dialysis) 204/129 mmHg Sitti ng Heart Rate Post-Dialysis 94 BPM Sitting Heart Rate Pre-Dialysis 58 BPM Temperatu re Post-Dialysis 97 degF Standing Heart Rate Pre-Dialysis 52 BPM Temperature Pre-Dialysis 97 degF January 21, 2023 In-Center Hemodialysis Treatment [id number]:44:50.000Z 3392-26-89L43:50:50.000Z BP Sitting (Pre-Dialysis) 141/83 mmHg BP Sitting (Post-Dialysis) 118/74 mmHg Concurrent Access: falseAV Graft Upper Arm (Left) Arterial BP Standing (Pre-Dialysis) 154/82 mmHg BP Standing (P ost-Dialysis) 135/100 mmHg Sitting Heart Rate Pre-Dialysis 92 BPM Sitting Heart Rate Post-Dialysis 94 BPM Standing Heart Rate Pre-Dialysis 95 BPM Standing Heart Rate Post-Dialysis 100 BPM Temperature Pre-Dialysis 97.8 degF Temperature Post -Dialysis 97.9 degF January 19, 2023 In-Center Hemodialysis Treatment 4155-40-02W84:37:00.000Z 6986-74-94I01:40:50.000Z BP Sitting (Pre-Dialysis) 124/102 mmHg BP Sitting (Post-Dialysis) 130/72 mmHg Concurrent Access: falseAV Graft Upper Arm (Left) Arterial BP Standing (Pre-Dialysis) 147/120 mmHg Sitting Heart Rate Post-Dialysis 90 BPM Sitting Heart Rate Pre-Dialysis 48 BPM Standing Heart Rate Pre-Dialysis 99 BPM Temperature Pre-Dialysis 97.9 degF January 16, 2023 In-Center Hemodialysis Treatment 9288-70-07R71:44:13.000Z 2852-82-19K44:32:13.000Z BP Sitting (Pre-Dialysis) 162/118 mmHg BP Sitting (Post-Dialysis) 131/72 mmHg Concurrent Access: falseAV Graft Upper Arm (Left) Arterial BP Standing (Pre-Dialysis) 123/69 mmHg BP Standing (P ost-Dialysis) 123/74 mmHg Sitting Heart Rate Pre-Dialysis 64 BPM Sitting Heart Rate Post-Dialysis 90 BPM Standing Heart Rate Pre-Dialysis 101 BPM Standing Heart Rate Post-Dialysis 96 BPM Temperature Pre-Dialysis 97.9 degF Temperature Post -Dialysis 97 degF January 14, 2023 In-Center Hemodialysis Treatment 6261-10-03K23:36:08.000Z 0204-00-73Y77:39:08.000Z BP Sitting (Pre-Dialysis) 113/80 mmHg BP Sitting (Post-Dialysis) 145/78 mmHg Concurrent Access: falseAV Graft Upper Arm (Left) Arterial BP Standing (Pre-Dialysis) 132/85 mmHg BP Standing (P ost-Dialysis) 137/77 mmHg Sitting Heart Rate Pre-Dialysis 53 BPM Sitting Heart Rate Post-Dialysis 79 BPM Standing Heart Rate Pre-Dialysis 83 BPM Standing Heart Rate Post-Dialysis 85 BPM Temperature Pre-Dialysis 97.6 degF Temperature Post -Dialysis 97.3 degF January 12, 2023 In-Center Hemodialysis Treatment 7450-27-20A27:40:08.000Z 4702-51-71O81:44:08.000Z BP Sitting (Pre-Dialysis) 147/74 mmHg BP Sitting (Post-Dialysis) 160/87 mmHg Concurrent Access: falseAV Graft Upper Arm (Left) Arterial BP Standing (Pre-Dialysis) 137/90 mmHg Sitting Heart Rate Post-Dialysis 86 BPM Sitting Heart Rate Pre-Dialysis 89 BPM Temperatu re Post-Dialysis 97 degF Standing Heart Rate Pre-Dialysis 95 BPM Temperature Pre-Dialysis 97 degF January 09, 2023 In-Center Hemodialysis Treatment 4721-08-35P30:47:21.000Z 3354-50-58A34:48:21.000Z BP Sitting (Pre-Dialysis) 148/82 mmHg BP Sitting (Post-Dialysis) 137/82 mmHg Concurrent Access: falseAV Graft Upper Arm (Left) Arterial BP Standing (Pre-Dialysis) 133/90 mmHg BP Standing (P ost-Dialysis) 142/75 mmHg Sitting Heart Rate Pre-Dialysis 88 BPM Sitting Heart Rate Post-Dialysis 87 BPM Standing Heart Rate Pre-Dialysis 50 BPM Standing Heart Rate Post-Dialysis 94 BPM Temperature Pre-Dialysis 97.6 degF Temperature Post -Dialysis 97.6 degF January 07, 2023 In-Center Hemodialysis Treatment [id number]:40:00.000Z [id number]:42:21.000Z BP Sitting (Pre-Dialysis) 124/66 mmHg BP Sitting (Post-Dialysis) 147/95 mmHg Concurrent Access: falseAV Graft Upper Arm (Left) Arterial BP Standing (Pre-Dialysis) 117/48 mmHg Sitti ng Heart Rate Post-Dialysis 85 BPM Sitting Heart Rate Pre-Dialysis 91 BPM Temperatu re Post-Dialysis 97.6 degF Standing Heart Rate Pre-Dialysis 61 BPM Temperature Pre-Dialysis 97.6 degF January 05, 2023 In-Center Hemodialysis Treatment [id number]:37:00.000Z [id number]:40:21.000Z BP Sitting (Pre-Dialysis) 149/75 mmHg BP Sitting (Post-Dialysis) 152/80 mmHg Concurrent Access: falseAV Graft Upper Arm (Left) Arterial BP Standing (Pre-Dialysis) 110/68 mmHg BP Standing (P ost-Dialysis) 114/70 mmHg Sitting Heart Rate Pre-Dialysis 89 BPM Sitting Heart Rate Post-Dialysis 90 BPM Standing Heart Rate Pre-Dialysis 94 BPM Standing Heart Rate Post-Dialysis 95 BPM Temperature Pre-Dialysis 97.7 degF Temperature Post -Dialysis 97.6 degF January 02, 2023 In-Center Hemodialysis Treatment [id number]:36:50.000Z 3799-62-92H79:36:50.000Z BP Sitting (Pre-Dialysis) 139/109 mmHg BP Sitting (Post-Dialysis) 167/81 mmHg Concurrent Access: falseAV Graft Upper Arm (Left) Arterial Sitting Heart Rate Pre-Dialysis 73 BPM BP Standing (Post-Dialysis) 144/77 mmHg Temperature Pre-Dialysis 97.6 degF Sitting Heart Ra te Post-Dialysis 91 BPM Standing Heart Rate Post-Dina lysis 77 BPM Temperature Post-Dialysis 97 .7 degF December 31, 2022 In-Center Hemodialysis Treatment [id number]:38:00.000Z [id number]:44:45.000Z BP Sitting (Pre-Dialysis) 128/112 mmHg BP Sitting (Post-Dialysis) 162/78 mmHg Concurrent Access: falseAV Graft Upper Arm (Left) Arterial BP Standing (Pre-Dialysis) 121/74 mmHg Sitting Heart Rate Post-Dialysis 68 BPM Sitting Heart Rate Pre-Dialysis 97 BPM Temperatu re Post-Dialysis 97 degF Standing Heart Rate Pre-Dialysis 99 BPM Temperature Pre-Dialysis 97.6 degF December 29, 2022 In-Center Hemodialysis Treatment [id number]:40:00.000Z 8615-34-06R03:40:45.000Z BP Sitting (Pre-Dialysis) 121/104 mmHg BP Sitting (Post-Dialysis) 148/80 mmHg Concurrent Access: falseAV Graft Upper Arm (Left) Arterial BP Standing (Pre-Dialysis) 184/114 mmHg BP Standing (P ost-Dialysis) 136/71 mmHg Sitting Heart Rate Pre-Dialysis 94 BPM Sitting Heart Rate Post-Dialysis 92 BPM Standing Heart Rate Pre-Dialysis 98 BPM Standing Heart Rate Post-Dialysis 69 BPM Temperature Pre-Dialysis 97.5 degF Temperature Post -Dialysis 97 degF December 26, 2022 In-Center Hemodialysis Treatment [id number]:49:07.000Z 6913-44-56G22:54:07.000Z BP Sitting (Pre-Dialysis) 147/81 mmHg BP Sitting (Post-Dialysis) 161/73 mmHg Concurrent Access: falseAV Graft Upper Arm (Left) Arterial BP Standing (Pre-Dialysis) 144/83 mmHg Sitti ng Heart Rate Post-Dialysis 76 BPM Sitting Heart Rate Pre-Dialysis 91 BPM Temperatu re Post-Dialysis 97.6 degF Standing Heart Rate Pre-Dialysis 102 BPM Temperature Pre-Dialysis 97.6 degF December 24, 2022 In-Center Hemodialysis Treatment [id number]:43:07.000Z 6292-63-05P52:44:07.000Z BP Sitting (Pre-Dialysis) 122/65 mmHg BP Sitting (Post-Dialysis) 134/73 mmHg Concurrent Access: falseAV Graft Upper Arm (Left) Arterial BP Standing (Pre-Dialysis) 123/69 mmHg BP Standing (P ost-Dialysis) 122/70 mmHg Sitting Heart Rate Pre-Dialysis 88 BPM Sitting Heart Rate Post-Dialysis 96 BPM Standing Heart Rate Pre-Dialysis 88 BPM Standing Heart Rate Post-Dialysis 89 BPM Temperature Pre-Dialysis 97.8 degF Temperature Post -Dialysis 97.6 degF December 22, 2022 In-Center Hemodialysis Treatment [id number]:41:00.000Z [id number]:44:07.000Z BP Sitting (Pre-Dialysis) 155/80 mmHg BP Sitting (Post-Dialysis) 119/72 mmHg Concurrent Access: falseAV Graft Upper Arm (Left) Arterial BP Standing (Pre-Dialysis) 158/82 mmHg BP Standing (P ost-Dialysis) 105/63 mmHg Sitting Heart Rate Pre-Dialysis 90 BPM Sitting Heart Rate Post-Dialysis 90 BPM Standing Heart Rate Pre-Dialysis 91 BPM Standing Heart Rate Post-Dialysis 98 BPM Temperature Pre-Dialysis 97.9 degF Temperature Post -Dialysis 97.6 degF December 19, 2022 In-Center Hemodialysis Treatment [id number]:37:00.000Z 0047-23-59E96:44:40.000Z BP Sitting (Pre-Dialysis) 180/76 mmHg BP Sitting (Post-Dialysis) 108/65 mmHg Concurrent Access: falseAV Graft Upper Arm (Left) Arterial BP Standing (Pre-Dialysis) 156/93 mmHg Sitti ng Heart Rate Post-Dialysis 89 BPM Sitting Heart Rate Pre-Dialysis 92 BPM Temperatu re Post-Dialysis 97.6 degF Standing Heart Rate Pre-Dialysis 98 BPM Temperature Pre-Dialysis 97.8 degF December 17, 2022 In-Center Hemodialysis Treatment [id number]:32:00.000Z 4827-84-68E20:35:24.000Z BP Sitting (Pre-Dialysis) 157/67 mmHg BP Sitting (Post-Dialysis) 170/106 mmHg Concurrent Access: falseAV Graft Upper Arm (Left) Arterial BP Standing (Pre-Dialysis) 139/76 mmHg BP Standing (P ost-Dialysis) 148/83 mmHg Sitting Heart Rate Pre-Dialysis 62 BPM Sitting Heart Rate Post-Dialysis 88 BPM Standing Heart Rate Pre-Dialysis 90 BPM Standing Heart Rate Post-Dialysis 93 BPM Temperature Pre-Dialysis 97.6 degF Temperature Post -Dialysis 97.8 degF December 15, 2022 In-Center Hemodialysis Treatment [id number]:42:00.000Z [id number]:44:24.000Z BP Sitting (Pre-Dialysis) 194/92 mmHg BP Sitting (Post-Dialysis) 164/58 mmHg Concurrent Access: falseAV Graft Upper Arm (Left) Arterial BP Standing (Pre-Dialysis) 183/104 mmHg BP Standing (P ost-Dialysis) 170/60 mmHg Sitting Heart Rate Pre-Dialysis 82 BPM Sitting Heart Rate Post-Dialysis 81 BPM Standing Heart Rate Pre-Dialysis 57 BPM Standing Heart Rate Post-Dialysis 84 BPM Temperature Pre-Dialysis 97.8 degF Temperature Post -Dialysis 97.8 degF December 12, 2022 In-Center Hemodialysis Treatment [id number]:45:04.000Z 9594-31-03N06:47:05.000Z BP Sitting (Pre-Dialysis) 198/84 mmHg BP Sitting (Post-Dialysis) 159/106 mmHg Concurrent Access: falseAV Graft Upper Arm (Left) Arterial Sitting Heart Rate Pre-Dialysis 92 BPM BP Standing (Post-Dialysis) 165/81 mmHg Temperature Pre-Dialysis 97.9 degF Sitting Heart Ra te Post-Dialysis 82 BPM Standing Heart Rate Post-Dina lysis 90 BPM Temperature Post-Dialysis 97 .6 degF December 10, 2022 In-Center Hemodialysis Treatment [id number]:43:04.000Z 8382-29-91L16:48:04.000Z BP Sitting (Pre-Dialysis) 176/96 mmHg BP Sitting (Post-Dialysis) 138/76 mmHg Concurrent Access: falseAV Graft Upper Arm (Left) Arterial Sitting Heart Rate Pre-Dialysis 95 BPM BP Standing (Post-Dialysis) 160/77 mmHg Temperature Pre-Dialysis 97.9 degF Sitting Heart Ra te Post-Dialysis 92 BPM Standing Heart Rate Post-Dina lysis 88 BPM Temperature Post-Dialysis 97 .7 degF December 08, 2022 In-Center Hemodialysis Treatment [id number]:32:00.000Z 1467-96-89W03:35:05.000Z BP Sitting (Pre-Dialysis) 160/79 mmHg BP Sitting (Post-Dialysis) 185/90 mmHg Concurrent Access: falseAV Graft Upper Arm (Left) Arterial BP Standing (Pre-Dialysis) 166/79 mmHg BP Standing (P ost-Dialysis) 192/94 mmHg Sitting Heart Rate Pre-Dialysis 88 BPM Sitting Heart Rate Post-Dialysis 90 BPM Standing Heart Rate Pre-Dialysis 86 BPM Standing Heart Rate Post-Dialysis 87 BPM Temperature Pre-Dialysis 97.5 degF Temperature Post -Dialysis 97.6 degF December 05, 2022 In-Center Hemodialysis Treatment 5547-03-37Y04:35:06.000Z 8233-29-25I53:34:07.000Z BP Sitting (Pre-Dialysis) 134/84 mmHg BP Sitting (Post-Dialysis) 164/87 mmHg Concurrent Access: falseAV Graft Upper Arm (Left) Arterial Sitting Heart Rate Pre-Dialysis 88 BPM Sitting H eart Rate Post-Dialysis 81 BPM Temperature Pre-Dialysis 97 degF Temperature Post -Dialysis 97 degF December 03, 2022 In-Center Hemodialysis Treatment [id number]:38:00.000Z 9213-09-32J02:47:07.000Z BP Sitting (Pre-Dialysis) 159/74 mmHg BP Sitting (Post-Dialysis) 145/81 mmHg Concurrent Access: falseAV Graft Upper Arm (Left) Arterial BP Standing (Pre-Dialysis) 146/86 mmHg Sitting Heart Rate Post-Dialysis 87 BPM Sitting Heart Rate Pre-Dialysis 67 BPM Temperatu re Post-Dialysis 97 degF Standing Heart Rate Pre-Dialysis 97 BPM Temperature Pre-Dialysis 97 degF December 01, 2022 In-Center Hemodialysis Treatment [id number]:37:00.000Z 3817-90-74F62:42:07.000Z BP Sitting (Pre-Dialysis) 163/90 mmHg BP Sitting (Post-Dialysis) 172/79 mmHg Concurrent Access: falseAV Graft Upper Arm (Left) Arterial BP Standing (Pre-Dialysis) 177/93 mmHg BP Standing (P ost-Dialysis) 148/93 mmHg Sitting Heart Rate Pre-Dialysis 78 BPM Sitting Heart Rate Post-Dialysis 85 BPM Standing Heart Rate Pre-Dialysis 94 BPM Standing Heart Rate Post-Dialysis 87 BPM Temperature Pre-Dialysis 97.8 degF Temperature Post -Dialysis 97.6 degF November 28, 2022 In-Center Hemodialysis Treatment [id number]:37:11.000Z 7506-19-88O07:38:12.000Z BP Sitting (Pre-Dialysis) 165/104 mmHg BP Sitting (Post-Dialysis) 158/59 mmHg Concurrent Access: falseAV Graft Upper Arm (Left) Arterial BP Standing (Pre-Dialysis) 131/83 mmHg Sitting Heart Rate Post-Dialysis 74 BPM Sitting Heart Rate Pre-Dialysis 72 BPM Temperatu re Post-Dialysis 98 degF Standing Heart Rate Pre-Dialysis 95 BPM Temperature Pre-Dialysis 97.6 degF November 26, 2022 In-Center Hemodialysis Treatment [id number]:00:11.000Z 7426-52-11M74:50:12.000Z BP Sitting (Pre-Dialysis) 221/118 mmHg BP Sitting (Post-Dialysis) 171/96 mmHg Concurrent Access: falseAV Graft Upper Arm (Left) Arterial BP Standing (Pre-Dialysis) 185/93 mmHg Sitti ng Heart Rate Post-Dialysis 84 BPM Sitting Heart Rate Pre-Dialysis 79 BPM Temperatu re Post-Dialysis 97.6 degF Standing Heart Rate Pre-Dialysis 83 BPM Temperature Pre-Dialysis 97.2 degF November 24, 2022 In-Center Hemodialysis Treatment 2992-29-56O68:41:11.000Z [id number]:47:12.000Z BP Sitting (Pre-Dialysis) 162/94 mmHg BP Sitting (Post-Dialysis) 160/76 mmHg Concurrent Access: falseAV Graft Upper Arm (Left) Arterial BP Standing (Pre-Dialysis) 162/94 mmHg BP Standing (P ost-Dialysis) 131/81 mmHg Sitting Heart Rate Pre-Dialysis 106 BPM Sitting Heart Rate Post-Dialysis 89 BPM Standing Heart Rate Pre-Dialysis 106 BPM Standing Heart Rate Post-Dialysis 97 BPM Temperature Pre-Dialysis 97 degF November 21, 2022 In-Center Hemodialysis Treatment 2421-25-21Z57:45:00.000Z 4926-94-85O75:53:14.000Z BP Sitting (Pre-Dialysis) 146/112 mmHg BP Sitting (Post-Dialysis) 161/135 mmHg Concurrent Access: falseAV Graft Upper Arm (Left) Arterial BP Standing (Pre-Dialysis) 144/79 mmHg BP Standing (P ost-Dialysis) 180/130 mmHg Sitting Heart Rate Pre-Dialysis 68 BPM Sitting Heart Rate Post-Dialysis 77 BPM Standing Heart Rate Pre-Dialysis 102 BPM Standing Heart Rate Post-Dialysis 79 BPM Temperature Pre-Dialysis 97.8 degF Temperature Post -Dialysis 97.9 degF November 19, 2022 In-Center Hemodialysis Treatment [id number]:46:18.000Z 9981-89-63Y40:48:18.000Z BP Sitting (Pre-Dialysis) 151/77 mmHg BP Sitting (Post-Dialysis) 144/70 mmHg Concurrent Access: falseAV Graft Upper Arm (Left) Arterial BP Standing (Pre-Dialysis) 158/82 mmHg BP Standing (P ost-Dialysis) 140/62 mmHg Sitting Heart Rate Pre-Dialysis 91 BPM Sitting Heart Rate Post-Dialysis 86 BPM Standing Heart Rate Pre-Dialysis 93 BPM Standing Heart Rate Post-Dialysis 86 BPM Temperature Pre-Dialysis 97.6 degF Temperature Post -Dialysis 97.9 degF November 17, 2022 In-Center Hemodialysis Treatment [id number]:38:00.000Z 1219-28-93Q65:41:18.000Z BP Sitting (Pre-Dialysis) 184/117 mmHg BP Sitting (Post-Dialysis) 177/93 mmHg Concurrent Access: falseAV Graft Upper Arm (Left) Arterial BP Standing (Pre-Dialysis) 184/97 mmHg BP Standing (P ost-Dialysis) 182/80 mmHg Sitting Heart Rate Pre-Dialysis 58 BPM Sitting Heart Rate Post-Dialysis 89 BPM Standing Heart Rate Pre-Dialysis 89 BPM Standing Heart Rate Post-Dialysis 91 BPM Temperature Pre-Dialysis 97.9 degF Temperature Post -Dialysis 97.6 degF November 14, 2022 In-Center Hemodialysis Treatment [id number]:34:00.000Z 8699-94-96S50:42:06.000Z BP Sitting (Pre-Dialysis) 196/86 mmHg BP Sitting (Post-Dialysis) 195/99 mmHg Concurrent Access: falseAV Graft Upper Arm (Left) Arterial BP Standing (Pre-Dialysis) 203/111 mmHg BP Standing (P ost-Dialysis) 165/90 mmHg Sitting Heart Rate Pre-Dialysis 85 BPM Sitting Heart Rate Post-Dialysis 81 BPM Standing Heart Rate Pre-Dialysis 85 BPM Standing Heart Rate Post-Dialysis 88 BPM Temperature Pre-Dialysis 97.6 degF Temperature Post -Dialysis 97.3 degF November 12, 2022 In-Center Hemodialysis Treatment [id number]:39:00.000Z [id number]:45:30.000Z BP Sitting (Pre-Dialysis) 148/70 mmHg BP Sitting (Post-Dialysis) 164/82 mmHg Concurrent Access: falseAV Graft Upper Arm (Left) Arterial BP Standing (Pre-Dialysis) 144/68 mmHg BP Standing (P ost-Dialysis) 137/59 mmHg Sitting Heart Rate Pre-Dialysis 86 BPM Sitting Heart Rate Post-Dialysis 86 BPM Standing Heart Rate Pre-Dialysis 78 BPM Standing Heart Rate Post-Dialysis 93 BPM Temperature Pre-Dialysis 97.4 degF Temperature Post -Dialysis 96.9 degF November 10, 2022 In-Center Hemodialysis Treatment 4937-09-89P10:38:00.000Z 0602-06-49B90:42:30.000Z BP Sitting (Pre-Dialysis) 166/78 mmHg BP Sitting (Post-Dialysis) 157/79 mmHg Concurrent Access: falseAV Graft Upper Arm (Left) Arterial BP Standing (Pre-Dialysis) 142/81 mmHg BP Standing (P ost-Dialysis) 144/76 mmHg Sitting Heart Rate Pre-Dialysis 83 BPM Sitting Heart Rate Post-Dialysis 78 BPM Standing Heart Rate Pre-Dialysis 88 BPM Standing Heart Rate Post-Dialysis 87 BPM Temperature Pre-Dialysis 97.6 degF Temperature Post -Dialysis 97.6 degF November 07, 2022 In-Center Hemodialysis Treatment [id number]:39:00.000Z 6296-65-22P77:45:09.000Z BP Sitting (Pre-Dialysis) 146/77 mmHg BP Sitting (Post-Dialysis) 148/86 mmHg Concurrent Access: falseAV Graft Upper Arm (Left) Arterial BP Standing (Pre-Dialysis) 139/57 mmHg BP Standing (P ost-Dialysis) 161/82 mmHg Sitting Heart Rate Pre-Dialysis 84 BPM Sitting Heart Rate Post-Dialysis 83 BPM Standing Heart Rate Pre-Dialysis 88 BPM Standing Heart Rate Post-Dialysis 88 BPM Temperature Pre-Dialysis 97.9 degF Temperature Post -Dialysis 98 degF November 05, 2022 In-Center Hemodialysis Treatment [id number]:43:00.000Z 7809-87-41B20:46:09.000Z BP Sitting (Pre-Dialysis) 159/86 mmHg BP Sitting (Post-Dialysis) 151/85 mmHg Concurrent Access: falseAV Graft Upper Arm (Left) Arterial BP Standing (Pre-Dialysis) 153/85 mmHg BP Standing (P ost-Dialysis) 140/83 mmHg Sitting Heart Rate Pre-Dialysis 83 BPM Sitting Heart Rate Post-Dialysis 85 BPM Standing Heart Rate Pre-Dialysis 88 BPM Standing Heart Rate Post-Dialysis 90 BPM Temperature Pre-Dialysis 97.9 degF Temperature Post -Dialysis 97.9 degF November 03, 2022 In-Center Hemodialysis Treatment [id number]:38:00.000Z [id number]:41:09.000Z BP Sitting (Pre-Dialysis) 148/79 mmHg BP Sitting (Post-Dialysis) 136/72 mmHg Concurrent Access: falseAV Graft Upper Arm (Left) Arterial BP Standing (Pre-Dialysis) 143/79 mmHg BP Standing (P ost-Dialysis) 141/80 mmHg Sitting Heart Rate Pre-Dialysis 85 BPM Sitting Heart Rate Post-Dialysis 86 BPM Standing Heart Rate Pre-Dialysis 84 BPM Standing Heart Rate Post-Dialysis 91 BPM Temperature Pre-Dialysis 97 degF Temperature Post -Dialysis 97.6 degF October 31, 2022 In-Center Hemodialysis Treatment [id number]:45:25.000Z 7850-53-05F36:50:26.000Z BP Sitting (Pre-Dialysis) 181/85 mmHg BP Sitting (Post-Dialysis) 168/90 mmHg Concurrent Access: falseAV Graft Upper Arm (Left) Arterial BP Standing (Pre-Dialysis) 162/80 mmHg Sitti ng Heart Rate Post-Dialysis 82 BPM Sitting Heart Rate Pre-Dialysis 82 BPM Temperatu re Post-Dialysis 97.6 degF Standing Heart Rate Pre-Dialysis 80 BPM Temperature Pre-Dialysis 97.6 degF October 29, 2022 In-Center Hemodialysis Treatment [id number]:37:00.000Z 1454-30-62L27:46:52.000Z BP Sitting (Pre-Dialysis) 157/83 mmHg BP Sitting (Post-Dialysis) 153/71 mmHg Concurrent Access: falseAV Graft Upper Arm (Left) Arterial BP Standing (Pre-Dialysis) 157/83 mmHg BP Standing (P ost-Dialysis) 152/88 mmHg Sitting Heart Rate Pre-Dialysis 95 BPM Sitting Heart Rate Post-Dialysis 85 BPM Standing Heart Rate Pre-Dialysis 95 BPM Standing Heart Rate Post-Dialysis 90 BPM Temperature Pre-Dialysis 97.6 degF Temperature Post -Dialysis 97.8 degF October 27, 2022 In-Center Hemodialysis Treatment [id number]:38:12.000Z 9469-28-20K46:44:13.000Z BP Sitting (Pre-Dialysis) 141/78 mmHg BP Sitting (Post-Dialysis) 137/71 mmHg Concurrent Access: falseAV Graft Upper Arm (Left) Arterial BP Standing (Pre-Dialysis) 153/77 mmHg Sitti ng Heart Rate Post-Dialysis 86 BPM Sitting Heart Rate Pre-Dialysis 92 BPM Temperatu re Post-Dialysis 97.9 degF Standing Heart Rate Pre-Dialysis 91 BPM Temperature Pre-Dialysis 97.9 degF October 24, 2022 In-Center Hemodialysis Treatment 6005-80-60P91:40:00.000Z 5864-43-78K36:42:55.000Z BP Sitting (Pre-Dialysis) 154/79 mmHg BP Sitting (Post-Dialysis) 150/81 mmHg Concurrent Access: falseAV Graft Upper Arm (Left) Arterial BP Standing (Pre-Dialysis) 155/58 mmHg BP Standing (P ost-Dialysis) 135/75 mmHg Sitting Heart Rate Pre-Dialysis 97 BPM Sitting Heart Rate Post-Dialysis 85 BPM Standing Heart Rate Pre-Dialysis 96 BPM Standing Heart Rate Post-Dialysis 94 BPM Temperature Pre-Dialysis 97.8 degF Temperature Post -Dialysis 97.4 degF October 20, 2022 In-Center Hemodialysis Treatment [id number]:42:00.000Z 2155-39-26P47:33:28.000Z BP Sitting (Pre-Dialysis) 179/91 mmHg BP Sitting (Post-Dialysis) 185/94 mmHg Concurrent Access: falseAV Graft Upper Arm (Left) Arterial BP Standing (Pre-Dialysis) 188/94 mmHg BP Standing (P ost-Dialysis) 149/85 mmHg Sitting Heart Rate Pre-Dialysis 79 BPM Sitting Heart Rate Post-Dialysis 78 BPM Standing Heart Rate Pre-Dialysis 81 BPM Standing Heart Rate Post-Dialysis 84 BPM Temperature Pre-Dialysis 97.8 degF Temperature Post -Dialysis 97.6 degF October 17, 2022 In-Center Hemodialysis Treatment 7625-92-23R26:36:00.000Z 3373-23-41G94:35:32.000Z BP Sitting (Pre-Dialysis) 166/57 mmHg BP Sitting (Post-Dialysis) 175/84 mmHg Concurrent Access: falseAV Graft Upper Arm (Left) Arterial BP Standing (Pre-Dialysis) 161/87 mmHg BP Standing (P ost-Dialysis) 163/81 mmHg Sitting Heart Rate Pre-Dialysis 78 BPM Sitting Heart Rate Post-Dialysis 83 BPM Standing Heart Rate Pre-Dialysis 88 BPM Standing Heart Rate Post-Dialysis 87 BPM Temperature Pre-Dialysis 97.8 degF Temperature Post -Dialysis 97.6 degF October 15, 2022 In-Center Hemodialysis Treatment [id number]:36:31.000Z 0446-19-43U37:32:32.000Z BP Sitting (Pre-Dialysis) 154/80 mmHg BP Sitting (Post-Dialysis) 153/83 mmHg Concurrent Access: falseAV Graft Upper Arm (Left) Arterial BP Standing (Pre-Dialysis) 148/79 mmHg BP Standing (P ost-Dialysis) 147/59 mmHg Sitting Heart Rate Pre-Dialysis 78 BPM Sitting Heart Rate Post-Dialysis 89 BPM Standing Heart Rate Pre-Dialysis 83 BPM Standing Heart Rate Post-Dialysis 84 BPM Temperature Pre-Dialysis 97.6 degF Temperature Post -Dialysis 97.9 degF October 13, 2022 In-Center Hemodialysis Treatment [id number]:40:00.000Z 2527-65-32T94:44:32.000Z BP Sitting (Pre-Dialysis) 146/77 mmHg BP Sitting (Post-Dialysis) 124/78 mmHg Concurrent Access: falseAV Graft Upper Arm (Left) Arterial BP Standing (Pre-Dialysis) 154/84 mmHg Sitting Heart Rate Post-Dialysis 64 BPM Sitting Heart Rate Pre-Dialysis 75 BPM Temperatu re Post-Dialysis 97 degF Standing Heart Rate Pre-Dialysis 84 BPM Temperature Pre-Dialysis 97.8 degF October 10, 2022 In-Center Hemodialysis Treatment [id number]:37:46.000Z 5895-70-35D74:39:47.000Z BP Sitting (Pre-Dialysis) 143/76 mmHg BP Sitting (Post-Dialysis) 159/84 mmHg Concurrent Access: falseAV Graft Upper Arm (Left) Arterial BP Standing (Pre-Dialysis) 143/82 mmHg BP Standing (P ost-Dialysis) 137/69 mmHg Sitting Heart Rate Pre-Dialysis 80 BPM Sitting Heart Rate Post-Dialysis 82 BPM Standing Heart Rate Pre-Dialysis 80 BPM Standing Heart Rate Post-Dialysis 80 BPM Temperature Pre-Dialysis 97.6 degF October 08, 2022 In-Center Hemodialysis Treatment 5317-79-61I28:45:00.000Z 4651-43-25E67:52:47.000Z BP Sitting (Pre-Dialysis) 154/83 mmHg BP Sitting (Post-Dialysis) 171/88 mmHg Concurrent Access: falseAV Graft Upper Arm (Left) Arterial BP Standing (Pre-Dialysis) 160/89 mmHg BP Standing (P ost-Dialysis) 164/94 mmHg Sitting Heart Rate Pre-Dialysis 77 BPM Sitting Heart Rate Post-Dialysis 83 BPM Standing Heart Rate Pre-Dialysis 84 BPM Standing Heart Rate Post-Dialysis 85 BPM Temperature Pre-Dialysis 97.6 degF Temperature Post -Dialysis 97.6 degF October 06, 2022 In-Center Hemodialysis Treatment 9926-24-84O12:29:00.000Z 8789-83-18R84:31:47.000Z BP Sitting (Pre-Dialysis) 135/74 mmHg BP Sitting (Post-Dialysis) 148/77 mmHg Concurrent Access: falseAV Graft Upper Arm (Left) Arterial BP Standing (Pre-Dialysis) 149/76 mmHg Sitti ng Heart Rate Post-Dialysis 83 BPM Sitting Heart Rate Pre-Dialysis 85 BPM Temperatu re Post-Dialysis 97.3 degF Standing Heart Rate Pre-Dialysis 87 BPM Temperature Pre-Dialysis 97.8 degF October 03, 2022 In-Center Hemodialysis Treatment 1441-90-97S31:37:08.000Z 0770-63-70K82:38:08.000Z BP Sitting (Pre-Dialysis) 167/59 mmHg BP Sitting (Post-Dialysis) 188/98 mmHg Concurrent Access: falseAV Graft Upper Arm (Left) Arterial BP Standing (Pre-Dialysis) 207/121 mmHg BP Standing (P ost-Dialysis) 183/91 mmHg Sitting Heart Rate Pre-Dialysis 86 BPM Sitting Heart Rate Post-Dialysis 85 BPM Standing Heart Rate Pre-Dialysis 91 BPM Standing Heart Rate Post-Dialysis 85 BPM Temperature Pre-Dialysis 97.6 degF Temperature Post -Dialysis 97.2 degF October 01, 2022 In-Center Hemodialysis Treatment 3052-70-93D65:37:00.000Z 7077-26-26G13:41:08.000Z BP Sitting (Pre-Dialysis) 159/83 mmHg BP Sitting (Post-Dialysis) 168/96 mmHg Concurrent Access: falseAV Graft Upper Arm (Left) Arterial BP Standing (Pre-Dialysis) 159/83 mmHg BP Standing (P ost-Dialysis) 155/80 mmHg Sitting Heart Rate Pre-Dialysis 85 BPM Sitting Heart Rate Post-Dialysis 82 BPM Standing Heart Rate Pre-Dialysis 85 BPM Standing Heart Rate Post-Dialysis 80 BPM Temperature Pre-Dialysis 97.8 degF Temperature Post -Dialysis 97.8 degF September 29, 2022 In-Center Hemodialysis Treatment 7913-28-20E09:47:08.000Z 5571-20-31M56:48:08.000Z BP Sitting (Pre-Dialysis) 178/91 mmHg BP Sitting (Post-Dialysis) 138/83 mmHg Concurrent Access: falseAV Graft Upper Arm (Left) Arterial BP Standing (Pre-Dialysis) 188/85 mmHg BP Standing (P ost-Dialysis) 143/84 mmHg Sitting Heart Rate Pre-Dialysis 84 BPM Sitting Heart Rate Post-Dialysis 77 BPM Standing Heart Rate Pre-Dialysis 84 BPM Standing Heart Rate Post-Dialysis 85 BPM Temperature Pre-Dialysis 97.8 degF Temperature Post -Dialysis 97.6 degF September 26, 2022 In-Center Hemodialysis Treatment [id number]:40:00.000Z 2826-78-60W01:41:22.000Z BP Sitting (Pre-Dialysis) 163/81 mmHg BP Sitting (Post-Dialysis) 142/73 mmHg Concurrent Access: falseAV Graft Upper Arm (Left) Arterial BP Standing (Pre-Dialysis) 152/71 mmHg Sitti ng Heart Rate Post-Dialysis 84 BPM Sitting Heart Rate Pre-Dialysis 87 BPM Temperatu re Post-Dialysis 97.8 degF Standing Heart Rate Pre-Dialysis 94 BPM Temperature Pre-Dialysis 97.8 degF September 24, 2022 In-Center Hemodialysis Treatment 9028-11-94Z78:46:00.000Z 8188-99-20W82:46:22.000Z BP Sitting (Pre-Dialysis) 169/82 mmHg BP Sitting (Post-Dialysis) 141/54 mmHg Concurrent Access: falseAV Graft Upper Arm (Left) Arterial Sitting Heart Rate Pre-Dialysis 83 BPM Sitting H eart Rate Post-Dialysis 93 BPM Temperature Pre-Dialysis 97.9 degF Temperature Post -Dialysis 97 degF September 22, 2022 In-Center Hemodialysis Treatment [id number]:40:00.000Z 9731-46-63E16:56:22.000Z BP Sitting (Pre-Dialysis) 189/96 mmHg BP Sitting (Post-Dialysis) 172/88 mmHg Concurrent Access: falseAV Graft Upper Arm (Left) Arterial BP Standing (Pre-Dialysis) 160/88 mmHg BP Standing (P ost-Dialysis) 172/99 mmHg Sitting Heart Rate Pre-Dialysis 94 BPM Sitting Heart Rate Post-Dialysis 83 BPM Standing Heart Rate Pre-Dialysis 94 BPM Standing Heart Rate Post-Dialysis 83 BPM Temperature Pre-Dialysis 97.9 degF Temperature Post -Dialysis 97.6 degF September 19, 2022 In-Center Hemodialysis Treatment [id number]:25:17.000Z [id number]:12:17.000Z BP Sitting (Pre-Dialysis) 150/86 mmHg BP Sitting (Post-Dialysis) 164/84 mmHg Concurrent Access: falseAV Graft Upper Arm (Left) Arterial BP Standing (Pre-Dialysis) 150/86 mmHg Sitti ng Heart Rate Post-Dialysis 88 BPM Sitting Heart Rate Pre-Dialysis 92 BPM Temperatu re Post-Dialysis 97.6 degF Standing Heart Rate Pre-Dialysis 92 BPM Temperature Pre-Dialysis 97.6 degF September 15, 2022 In-Center Hemodialysis Treatment [id number]:39:00.000Z [id number]:59:17.000Z BP Sitting (Pre-Dialysis) 179/89 mmHg BP Sitting (Post-Dialysis) 158/79 mmHg Concurrent Access: falseAV Graft Upper Arm (Left) Arterial BP Standing (Pre-Dialysis) 183/96 mmHg BP Standing (P ost-Dialysis) 157/83 mmHg Sitting Heart Rate Pre-Dialysis 85 BPM Sitting Heart Rate Post-Dialysis 90 BPM Standing Heart Rate Pre-Dialysis 86 BPM Standing Heart Rate Post-Dialysis 92 BPM Temperature Pre-Dialysis 97.8 degF Temperature Post -Dialysis 97.6 degF September 12, 2022 In-Center Hemodialysis Treatment [id number]:42:19.000Z [id number]:57:20.000Z BP Sitting (Pre-Dialysis) 207/104 mmHg BP Sitting (Post-Dialysis) 189/103 mmHg Concurrent Access: falseAV Graft Upper Arm (Left) Arterial BP Standing (Pre-Dialysis) 194/106 mmHg Sitti ng Heart Rate Post-Dialysis 85 BPM Sitting Heart Rate Pre-Dialysis 83 BPM Temperatu re Post-Dialysis 98.1 degF Standing Heart Rate Pre-Dialysis 81 BPM Temperature Pre-Dialysis 97.6 degF September 10, 2022 In-Center Hemodialysis Treatment [id number]:43:19.000Z 3983-35-34E96:03:20.000Z BP Sitting (Pre-Dialysis) 163/81 mmHg BP Sitting (Post-Dialysis) 176/85 mmHg Concurrent Access: falseAV Graft Upper Arm (Left) Arterial BP Standing (Pre-Dialysis) 161/89 mmHg BP Standing (P ost-Dialysis) 156/88 mmHg Sitting Heart Rate Pre-Dialysis 87 BPM Sitting Heart Rate Post-Dialysis 87 BPM Standing Heart Rate Pre-Dialysis 89 BPM Standing Heart Rate Post-Dialysis 86 BPM Temperature Pre-Dialysis 97.6 degF Temperature Post -Dialysis 97.6 degF September 08, 2022 In-Center Hemodialysis Treatment [id number]:42:19.000Z 6419-74-93Y65:59:20.000Z BP Sitting (Pre-Dialysis) 148/63 mmHg BP Sitting (Post-Dialysis) 143/83 mmHg Concurrent Access: falseAV Graft Upper Arm (Left) Arterial BP Standing (Pre-Dialysis) 152/79 mmHg BP Standing (P ost-Dialysis) 134/72 mmHg Sitting Heart Rate Pre-Dialysis 89 BPM Sitting Heart Rate Post-Dialysis 88 BPM Standing Heart Rate Pre-Dialysis 92 BPM Standing Heart Rate Post-Dialysis 92 BPM Temperature Pre-Dialysis 97.9 degF Temperature Post -Dialysis 97.6 degF September 05, 2022 In-Center Hemodialysis Treatment 1604-74-43O97:37:00.000Z 3598-62-47C56:46:53.000Z BP Sitting (Pre-Dialysis) 181/92 mmHg BP Sitting (Post-Dialysis) 159/81 mmHg Concurrent Access: falseAV Graft Upper Arm (Left) Arterial BP Standing (Pre-Dialysis) 160/85 mmHg Sitti ng Heart Rate Post-Dialysis 89 BPM Sitting Heart Rate Pre-Dialysis 93 BPM Temperatu re Post-Dialysis 98.1 degF Standing Heart Rate Pre-Dialysis 96 BPM Temperature Pre-Dialysis 97.9 degF September 03, 2022 In-Center Hemodialysis Treatment 3022-30-78U07:40:53.000Z 5765-72-81F96:56:54.000Z BP Sitting (Pre-Dialysis) 162/103 mmHg BP Sitting (Post-Dialysis) 202/99 mmHg Concurrent Access: falseAV Graft Upper Arm (Left) Arterial BP Standing (Pre-Dialysis) 183/72 mmHg Sitting Heart Rate Post-Dialysis 81 BPM Sitting Heart Rate Pre-Dialysis 76 BPM Standing Heart Rate Pre-Dialysis 84 BPM Temperature Pre-Dialysis 97.8 degF September 01, 2022 In-Center Hemodialysis Treatment [id number]:41:53.000Z 5955-21-45R44:58:53.000Z BP Sitting (Pre-Dialysis) 173/82 mmHg BP Sitting (Post-Dialysis) 170/90 mmHg Concurrent Access: falseAV Graft Upper Arm (Left) Arterial BP Standing (Pre-Dialysis) 146/76 mmHg BP Standing (P ost-Dialysis) 163/92 mmHg Sitting Heart Rate Pre-Dialysis 86 BPM Sitting Heart Rate Post-Dialysis 85 BPM Standing Heart Rate Pre-Dialysis 85 BPM Standing Heart Rate Post-Dialysis 90 BPM Temperature Pre-Dialysis 97.6 degF Temperature Post -Dialysis 97.1 degF August 29, 2022 In-Center Hemodialysis Treatment [id number]:44:11.000Z [id number]:58:12.000Z BP Sitting (Pre-Dialysis) 173/82 mmHg BP Sitting (Post-Dialysis) 193/91 mmHg Concurrent Access: falseAV Graft Upper Arm (Left) Arterial BP Standing (Pre-Dialysis) 175/85 mmHg BP Standing (P ost-Dialysis) 183/87 mmHg Sitting Heart Rate Pre-Dialysis 87 BPM Sitting Heart Rate Post-Dialysis 80 BPM Standing Heart Rate Pre-Dialysis 88 BPM Standing Heart Rate Post-Dialysis 86 BPM Temperature Pre-Dialysis 97.6 degF Temperature Post -Dialysis 97.8 degF August 27, 2022 In-Center Hemodialysis Treatment [id number]:42:11.000Z 6439-49-98D35:57:12.000Z BP Sitting (Pre-Dialysis) 160/86 mmHg BP Sitting (Post-Dialysis) 170/75 mmHg Concurrent Access: falseAV Graft Upper Arm (Left) Arterial BP Standing (Pre-Dialysis) 156/86 mmHg BP Standing (P ost-Dialysis) 144/99 mmHg Sitting Heart Rate Pre-Dialysis 93 BPM Sitting Heart Rate Post-Dialysis 85 BPM Standing Heart Rate Pre-Dialysis 102 BPM Standing Heart Rate Post-Dialysis 45 BPM Temperature Pre-Dialysis 97.6 degF Temperature Post -Dialysis 97.6 degF August 25, 2022 In-Center Hemodialysis Treatment [id number]:45:00.000Z 3168-34-82M43:12:12.000Z BP Sitting (Pre-Dialysis) 171/88 mmHg BP Sitting (Post-Dialysis) 181/89 mmHg Concurrent Access: falseAV Graft Upper Arm (Left) Arterial BP Standing (Pre-Dialysis) 183/92 mmHg BP Standing (P ost-Dialysis) 159/75 mmHg Sitting Heart Rate Pre-Dialysis 87 BPM Sitting Heart Rate Post-Dialysis 87 BPM Standing Heart Rate Pre-Dialysis 87 BPM Standing Heart Rate Post-Dialysis 93 BPM Temperature Pre-Dialysis 97.6 degF Temperature Post -Dialysis 97 degF August 22, 2022 In-Center Hemodialysis Treatment [id number]:36:00.000Z 0328-74-07K87:52:30.000Z BP Sitting (Pre-Dialysis) 153/60 mmHg BP Sitting (Post-Dialysis) 151/80 mmHg Concurrent Access: falseAV Graft Upper Arm (Left) Arterial BP Standing (Pre-Dialysis) 172/88 mmHg BP Standing (P ost-Dialysis) 170/87 mmHg Sitting Heart Rate Pre-Dialysis 91 BPM Sitting Heart Rate Post-Dialysis 90 BPM Standing Heart Rate Pre-Dialysis 88 BPM Standing Heart Rate Post-Dialysis 86 BPM Temperature Pre-Dialysis 97.6 degF Temperature Post -Dialysis 97.6 degF August 20, 2022 In-Center Hemodialysis Treatment [id number]:40:00.000Z 3665-16-68Z95:56:30.000Z BP Sitting (Pre-Dialysis) 153/78 mmHg BP Sitting (Post-Dialysis) 180/91 mmHg Concurrent Access: falseAV Graft Upper Arm (Left) Arterial BP Standing (Pre-Dialysis) 146/77 mmHg BP Standing (P ost-Dialysis) 150/82 mmHg Sitting Heart Rate Pre-Dialysis 84 BPM Sitting Heart Rate Post-Dialysis 85 BPM Standing Heart Rate Pre-Dialysis 86 BPM Standing Heart Rate Post-Dialysis 90 BPM Temperature Pre-Dialysis 98.1 degF Temperature Post -Dialysis 97.6 degF August 18, 2022 In-Center Hemodialysis Treatment [id number]:45:00.000Z 9967-60-49E40:02:31.000Z BP Sitting (Pre-Dialysis) 177/90 mmHg BP Sitting (Post-Dialysis) 161/84 mmHg Concurrent Access: falseAV Graft Upper Arm (Left) Arterial BP Standing (Pre-Dialysis) 169/92 mmHg BP Standing (P ost-Dialysis) 138/79 mmHg Sitting Heart Rate Pre-Dialysis 80 BPM Sitting Heart Rate Post-Dialysis 86 BPM Standing Heart Rate Pre-Dialysis 83 BPM Standing Heart Rate Post-Dialysis 90 BPM Temperature Pre-Dialysis 97.2 degF Temperature Post -Dialysis 97.8 degF August 15, 2022 In-Center Hemodialysis Treatment [id number]:36:00.000Z 6078-21-66O24:50:23.000Z BP Sitting (Pre-Dialysis) 158/74 mmHg BP Sitting (Post-Dialysis) 168/86 mmHg Concurrent Access: falseAV Graft Upper Arm (Left) Arterial BP Standing (Pre-Dialysis) 137/70 mmHg Sitti ng Heart Rate Post-Dialysis 82 BPM Sitting Heart Rate Pre-Dialysis 88 BPM Temperatu re Post-Dialysis 97.9 degF Standing Heart Rate Pre-Dialysis 92 BPM Temperature Pre-Dialysis 97.9 degF August 13, 2022 In-Center Hemodialysis Treatment [id number]:41:23.000Z 8810-66-50U46:53:23.000Z BP Sitting (Pre-Dialysis) 188/96 mmHg BP Sitting (Post-Dialysis) 168/87 mmHg Concurrent Access: falseAV Graft Upper Arm (Left) Arterial BP Standing (Pre-Dialysis) 185/96 mmHg BP Standing (P ost-Dialysis) 181/98 mmHg Sitting Heart Rate Pre-Dialysis 88 BPM Sitting Heart Rate Post-Dialysis 86 BPM Standing Heart Rate Pre-Dialysis 89 BPM Standing Heart Rate Post-Dialysis 86 BPM Temperature Pre-Dialysis 97.6 degF Temperature Post -Dialysis 97.6 degF August 11, 2022 In-Center Hemodialysis Treatment [id number]:40:23.000Z [id number]:28:23.000Z BP Sitting (Pre-Dialysis) 171/92 mmHg BP Sitting (Post-Dialysis) 173/91 mmHg Concurrent Access: falseAV Graft Upper Arm (Left) Arterial BP Standing (Pre-Dialysis) 158/86 mmHg BP Standing (P ost-Dialysis) 138/75 mmHg Sitting Heart Rate Pre-Dialysis 92 BPM Sitting Heart Rate Post-Dialysis 93 BPM Standing Heart Rate Pre-Dialysis 94 BPM Standing Heart Rate Post-Dialysis 99 BPM Temperature Pre-Dialysis 97.3 degF Temperature Post -Dialysis 97.9 degF August 08, 2022 In-Center Hemodialysis Treatment [id number]:49:00.000Z 9158-36-20J40:06:42.000Z BP Sitting (Pre-Dialysis) 163/86 mmHg BP Sitting (Post-Dialysis) 134/78 mmHg Concurrent Access: falseAV Graft Upper Arm (Left) Arterial BP Standing (Pre-Dialysis) 148/83 mmHg BP Standing (P ost-Dialysis) 136/81 mmHg Sitting Heart Rate Pre-Dialysis 81 BPM Sitting Heart Rate Post-Dialysis 67 BPM Standing Heart Rate Pre-Dialysis 97 BPM Standing Heart Rate Post-Dialysis 82 BPM Temperature Pre-Dialysis 97.6 degF Temperature Post -Dialysis 97.6 degF August 06, 2022 In-Center Hemodialysis Treatment 6217-92-58J13:23:00.000Z 1371-16-68P74:46:36.000Z BP Sitting (Pre-Dialysis) 160/90 mmHg BP Sitting (Post-Dialysis) 146/80 mmHg Concurrent Access: falseAV Graft Upper Arm (Left) Arterial BP Standing (Pre-Dialysis) 172/91 mmHg Sitti ng Heart Rate Post-Dialysis 86 BPM Sitting Heart Rate Pre-Dialysis 81 BPM Temperatu re Post-Dialysis 97.1 degF Standing Heart Rate Pre-Dialysis 82 BPM Temperature Pre-Dialysis 97.6 degF August 04, 2022 In-Center Hemodialysis Treatment [id number]:23:00.000Z 5933-56-48W62:41:36.000Z BP Sitting (Pre-Dialysis) 197/103 mmHg BP Sitting (Post-Dialysis) 191/97 mmHg Concurrent Access: falseAV Graft Upper Arm (Left) Arterial BP Standing (Pre-Dialysis) 202/108 mmHg BP Standing (P ost-Dialysis) 156/85 mmHg Sitting Heart Rate Pre-Dialysis 81 BPM Sitting Heart Rate Post-Dialysis 83 BPM Standing Heart Rate Pre-Dialysis 82 BPM Standing Heart Rate Post-Dialysis 88 BPM Temperature Pre-Dialysis 97.8 degF Temperature Post -Dialysis 97.6 degF August 01, 2022 In-Center Hemodialysis Treatment [id number]:23:10.000Z 7627-92-56V06:38:11.000Z BP Sitting (Pre-Dialysis) 180/96 mmHg BP Sitting (Post-Dialysis) 162/83 mmHg Concurrent Access: falseAV Graft Upper Arm (Left) Arterial BP Standing (Pre-Dialysis) 195/100 mmHg BP Standing (P ost-Dialysis) 154/67 mmHg Sitting Heart Rate Pre-Dialysis 86 BPM Sitting Heart Rate Post-Dialysis 81 BPM Standing Heart Rate Pre-Dialysis 88 BPM Standing Heart Rate Post-Dialysis 90 BPM Temperature Pre-Dialysis 97.6 degF Temperature Post -Dialysis 97.6 degF July 30, 2022 In-Center Hemodialysis Treatment [id number]:31:10.000Z [id number]:50:11.000Z BP Sitting (Pre-Dialysis) 197/99 mmHg BP Sitting (Post-Dialysis) 178/96 mmHg Concurrent Access: falseAV Graft Upper Arm (Left) Arterial BP Standing (Pre-Dialysis) 186/94 mmHg BP Standing (P ost-Dialysis) 128/77 mmHg Sitting Heart Rate Pre-Dialysis 74 BPM Sitting Heart Rate Post-Dialysis 82 BPM Standing Heart Rate Pre-Dialysis 78 BPM Standing Heart Rate Post-Dialysis 89 BPM Temperature Pre-Dialysis 97.8 degF Temperature Post -Dialysis 97.6 degF July 27, 2022 In-Center Hemodialysis Treatment [id number]:16:00.000Z 4229-77-07R47:32:26.000Z BP Sitting (Pre-Dialysis) 175/89 mmHg BP Sitting (Post-Dialysis) 160/86 mmHg Concurrent Access: falseAV Graft Upper Arm (Left) Arterial BP Standing (Pre-Dialysis) 181/90 mmHg Sitting Heart Rate Post-Dialysis 94 BPM Sitting Heart Rate Pre-Dialysis 75 BPM Standing Heart Rate Pre-Dialysis 78 BPM Temperature Pre-Dialysis 97.6 degF July 25, 2022 In-Center Hemodialysis Treatment [id number]:22:00.000Z 5128-27-58V50:40:46.000Z BP Sitting (Pre-Dialysis) 157/85 mmHg BP Sitting (Post-Dialysis) 165/91 mmHg Concurrent Access: falseAV Graft Upper Arm (Left) Arterial BP Standing (Pre-Dialysis) 148/79 mmHg Sitting Heart Rate Post-Dialysis 79 BPM Sitting Heart Rate Pre-Dialysis 85 BPM Temperatu re Post-Dialysis 97 degF Standing Heart Rate Pre-Dialysis 87 BPM Temperature Pre-Dialysis 97.6 degF July 23, 2022 In-Center Hemodialysis Treatment 7614-05-90D35:26:00.000Z 7789-86-14A03:45:46.000Z BP Sitting (Pre-Dialysis) 168/92 mmHg BP Sitting (Post-Dialysis) 175/85 mmHg Concurrent Access: falseAV Graft Upper Arm (Left) Arterial Sitting Heart Rate Pre-Dialysis 80 BPM Sitting H eart Rate Post-Dialysis 82 BPM Temperature Pre-Dialysis 97.6 degF July 21, 2022 In-Center Hemodialysis Treatment [id number]:23:00.000Z 5497-60-30A23:40:46.000Z BP Sitting (Pre-Dialysis) 164/88 mmHg BP Sitting (Post-Dialysis) 160/90 mmHg Concurrent Access: falseAV Graft Upper Arm (Left) Arterial Sitting Heart Rate Pre-Dialysis 82 BPM BP Standing (Post-Dialysis) 136/87 mmHg Temperature Pre-Dialysis 97.6 degF Sitting Heart Ra te Post-Dialysis 90 BPM Standing Heart Rate Post-Dina lysis 92 BPM July 18, 2022 In-Center Hemodialysis Treatment 0939-01-25H68:22:00.000Z 5143-00-54A82:40:18.000Z BP Sitting (Pre-Dialysis) 156/74 mmHg BP Sitting (Post-Dialysis) 139/73 mmHg Concurrent Access: falseAV Graft Upper Arm (Left) Arterial BP Standing (Pre-Dialysis) 158/90 mmHg Sitti ng Heart Rate Post-Dialysis 88 BPM Sitting Heart Rate Pre-Dialysis 87 BPM Temperatu re Post-Dialysis 97.8 degF Standing Heart Rate Pre-Dialysis 101 BPM Temperature Pre-Dialysis 97.6 degF July 14, 2022 In-Center Hemodialysis Treatment 6087-25-07P97:28:00.000Z 7653-79-37P73:45:42.000Z BP Sitting (Pre-Dialysis) 141/84 mmHg BP Sitting (Post-Dialysis) 141/80 mmHg Concurrent Access: falseAV Graft Upper Arm (Left) Arterial BP Standing (Pre-Dialysis) 127/72 mmHg Sitti ng Heart Rate Post-Dialysis 83 BPM Sitting Heart Rate Pre-Dialysis 100 BPM Temperatu re Post-Dialysis 97.8 degF Standing Heart Rate Pre-Dialysis 92 BPM Temperature Pre-Dialysis 97.8 degF July 11, 2022 In-Center Hemodialysis Treatment [id number]:22:00.000Z 4937-76-59G69:25:55.000Z BP Sitting (Pre-Dialysis) 126/67 mmHg BP Sitting (Post-Dialysis) 124/68 mmHg Concurrent Access: falseAV Graft Upper Arm (Left) Arterial BP Standing (Pre-Dialysis) 134/77 mmHg Sitti ng Heart Rate Post-Dialysis 98 BPM Sitting Heart Rate Pre-Dialysis 78 BPM Temperatu re Post-Dialysis 97.6 degF Standing Heart Rate Pre-Dialysis 86 BPM Temperature Pre-Dialysis 97.2 degF July 09, 2022 In-Center Hemodialysis Treatment [id number]:23:14.000Z 0671-90-42T09:40:15.000Z BP Sitting (Pre-Dialysis) 141/66 mmHg BP Sitting (Post-Dialysis) 123/66 mmHg Concurrent Access: falseAV Graft Upper Arm (Left) Arterial Sitting Heart Rate Pre-Dialysis 87 BPM Sitting H eart Rate Post-Dialysis 88 BPM Temperature Pre-Dialysis 97.8 degF Temperature Post -Dialysis 97 degF July 07, 2022 In-Center Hemodialysis Treatment [id number]:25:00.000Z 5984-60-38Z72:32:15.000Z BP Sitting (Pre-Dialysis) 140/79 mmHg BP Sitting (Post-Dialysis) 117/63 mmHg Concurrent Access: falseAV Graft Upper Arm (Left) Arterial Sitting Heart Rate Pre-Dialysis 86 BPM Sitting H eart Rate Post-Dialysis 83 BPM Temperature Pre-Dialysis 98.1 degF Temperature Post -Dialysis 97.8 degF July 04, 2022 In-Center Hemodialysis Treatment 3847-51-07Y96:22:00.000Z 6952-59-65J32:44:09.000Z BP Sitting (Pre-Dialysis) 161/89 mmHg BP Sitting (Post-Dialysis) 104/82 mmHg Concurrent Access: falseAV Graft Upper Arm (Left) Arterial BP Standing (Pre-Dialysis) 164/93 mmHg Sitting Heart Rate Post-Dialysis 92 BPM Sitting Heart Rate Pre-Dialysis 82 BPM Temperatu re Post-Dialysis 97 degF Standing Heart Rate Pre-Dialysis 83 BPM Temperature Pre-Dialysis 97.6 degF July 02, 2022 In-Center Hemodialysis Treatment 1259-47-08T97:21:00.000Z 2550-78-74Q77:39:09.000Z BP Sitting (Pre-Dialysis) 163/85 mmHg BP Sitting (Post-Dialysis) 120/91 mmHg Concurrent Access: falseAV Graft Upper Arm (Left) Arterial BP Standing (Pre-Dialysis) 158/86 mmHg Sitti ng Heart Rate Post-Dialysis 104 BPM Sitting Heart Rate Pre-Dialysis 91 BPM Temperatu re Post-Dialysis 97.6 degF Standing Heart Rate Pre-Dialysis 91 BPM Temperature Pre-Dialysis 97.6 degF June 30, 2022 In-Center Hemodialysis Treatment 2179-72-05V65:25:00.000Z 2848-28-84W82:49:08.000Z BP Sitting (Pre-Dialysis) 151/79 mmHg BP Sitting (Post-Dialysis) 101/59 mmHg Concurrent Access: falseAV Graft Upper Arm (Left) Arterial BP Standing (Pre-Dialysis) 151/79 mmHg BP Standing (P ost-Dialysis) 112/69 mmHg Sitting Heart Rate Pre-Dialysis 86 BPM Sitting Heart Rate Post-Dialysis 91 BPM Standing Heart Rate Pre-Dialysis 86 BPM Standing Heart Rate Post-Dialysis 96 BPM Temperature Pre-Dialysis 97.6 degF Temperature Post -Dialysis 97.6 degF June 27, 2022 In-Center Hemodialysis Treatment 7232-02-13L83:22:00.000Z 2520-33-54P00:38:11.000Z BP Sitting (Pre-Dialysis) 164/86 mmHg BP Sitting (Post-Dialysis) 162/78 mmHg Concurrent Access: falseAV Graft Upper Arm (Left) Arterial Sitting Heart Rate Pre-Dialysis 84 BPM Sitting H eart Rate Post-Dialysis 86 BPM Temperature Pre-Dialysis 97.6 degF June 25, 2022 In-Center Hemodialysis Treatment 5260-01-99G34:24:00.000Z 2456-90-01A03:43:14.000Z BP Sitting (Pre-Dialysis) 162/76 mmHg BP Sitting (Post-Dialysis) 139/86 mmHg Concurrent Access: falseAV Graft Upper Arm (Left) Arterial BP Standing (Pre-Dialysis) 152/99 mmHg Sitti ng Heart Rate Post-Dialysis 85 BPM Sitting Heart Rate Pre-Dialysis 78 BPM Temperatu re Post-Dialysis 96.8 degF Standing Heart Rate Pre-Dialysis 83 BPM Temperature Pre-Dialysis 97.6 degF June 23, 2022 In-Center Hemodialysis Treatment [id number]:21:00.000Z 0841-52-27D66:40:14.000Z BP Sitting (Pre-Dialysis) 169/82 mmHg BP Sitting (Post-Dialysis) 124/68 mmHg Concurrent Access: falseAV Graft Upper Arm (Left) Arterial Sitting Heart Rate Pre-Dialysis 83 BPM BP Standing (Post-Dialysis) 112/75 mmHg Temperature Pre-Dialysis 97.6 degF Sitting Heart Ra te Post-Dialysis 85 BPM Standing Heart Rate Post-Dina lysis 95 BPM Temperature Post-Dialysis 97 .6 degF June 20, 2022 In-Center Hemodialysis Treatment 0252-73-31K31:21:00.000Z 0063-21-86J43:34:32.000Z BP Sitting (Pre-Dialysis) 149/78 mmHg BP Sitting (Post-Dialysis) 139/70 mmHg Concurrent Access: falseAV Graft Upper Arm (Left) Arterial BP Standing (Pre-Dialysis) 159/77 mmHg BP Standing (P ost-Dialysis) 112/81 mmHg Sitting Heart Rate Pre-Dialysis 89 BPM Sitting Heart Rate Post-Dialysis 94 BPM Standing Heart Rate Pre-Dialysis 92 BPM Standing Heart Rate Post-Dialysis 99 BPM Temperature Pre-Dialysis 97.6 degF Temperature Post -Dialysis 97.8 degF June 18, 2022 In-Center Hemodialysis Treatment 2212-19-01K28:21:00.000Z 3010-46-84Z91:42:32.000Z BP Sitting (Pre-Dialysis) 144/79 mmHg BP Sitting (Post-Dialysis) 122/65 mmHg Concurrent Access: falseAV Graft Upper Arm (Left) Arterial BP Standing (Pre-Dialysis) 145/81 mmHg BP Standing (P ost-Dialysis) 127/66 mmHg Sitting Heart Rate Pre-Dialysis 88 BPM Sitting Heart Rate Post-Dialysis 98 BPM Standing Heart Rate Pre-Dialysis 89 BPM Standing Heart Rate Post-Dialysis 102 BPM Temperature Pre-Dialysis 97.6 degF Temperature Post -Dialysis 97.6 degF June 16, 2022 In-Center Hemodialysis Treatment 6192-03-88N10:28:00.000Z 4480-23-88V12:47:31.000Z BP Sitting (Pre-Dialysis) 158/81 mmHg BP Sitting (Post-Dialysis) 107/63 mmHg Concurrent Access: falseAV Graft Upper Arm (Left) Arterial BP Standing (Pre-Dialysis) 155/88 mmHg Sitti ng Heart Rate Post-Dialysis 86 BPM Sitting Heart Rate Pre-Dialysis 81 BPM Temperatu re Post-Dialysis 97.6 degF Standing Heart Rate Pre-Dialysis 84 BPM Temperature Pre-Dialysis 97.6 degF June 13, 2022 In-Center Hemodialysis Treatment [id number]:25:00.000Z 9097-24-19D25:59:31.000Z BP Sitting (Pre-Dialysis) 150/80 mmHg BP Sitting (Post-Dialysis) 125/70 mmHg Concurrent Access: falseAV Graft Upper Arm (Left) Arterial BP Standing (Pre-Dialysis) 153/83 mmHg Sitti ng Heart Rate Post-Dialysis 84 BPM Sitting Heart Rate Pre-Dialysis 84 BPM Temperatu re Post-Dialysis 98.1 degF Standing Heart Rate Pre-Dialysis 84 BPM Temperature Pre-Dialysis 97.6 degF June 11, 2022 In-Center Hemodialysis Treatment [id number]:25:00.000Z 1081-38-50P81:49:32.000Z BP Sitting (Pre-Dialysis) 187/101 mmHg BP Sitting (Post-Dialysis) 141/74 mmHg Concurrent Access: falseAV Graft Upper Arm (Left) Arterial BP Standing (Pre-Dialysis) 186/97 mmHg BP Standing (P ost-Dialysis) 114/43 mmHg Sitting Heart Rate Pre-Dialysis 86 BPM Sitting Heart Rate Post-Dialysis 89 BPM Standing Heart Rate Pre-Dialysis 87 BPM Standing Heart Rate Post-Dialysis 75 BPM Temperature Pre-Dialysis 98.1 degF Temperature Post -Dialysis 97.6 degF June 09, 2022 In-Center Hemodialysis Treatment 1157-19-22H63:27:00.000Z 1944-08-81B54:42:32.000Z BP Sitting (Pre-Dialysis) 149/73 mmHg BP Sitting (Post-Dialysis) 119/68 mmHg Concurrent Access: falseAV Graft Upper Arm (Left) Arterial BP Standing (Pre-Dialysis) 149/73 mmHg BP Standing (P ost-Dialysis) 106/58 mmHg Sitting Heart Rate Pre-Dialysis 89 BPM Sitting Heart Rate Post-Dialysis 90 BPM Standing Heart Rate Pre-Dialysis 89 BPM Standing Heart Rate Post-Dialysis 98 BPM Temperature Pre-Dialysis 97.6 degF Temperature Post -Dialysis 97.8 degF June 06, 2022 In-Center Hemodialysis Treatment 1589-08-42H67:24:00.000Z 0787-18-01Z71:41:14.000Z BP Sitting (Pre-Dialysis) 145/83 mmHg BP Sitting (Post-Dialysis) 104/61 mmHg Concurrent Access: falseAV Graft Upper Arm (Left) Arterial BP Standing (Pre-Dialysis) 151/75 mmHg Sitti ng Heart Rate Post-Dialysis 85 BPM Sitting Heart Rate Pre-Dialysis 82 BPM Temperatu re Post-Dialysis 96.8 degF Standing Heart Rate Pre-Dialysis 86 BPM Temperature Pre-Dialysis 97.6 degF June 04, 2022 In-Center Hemodialysis Treatment [id number]:26:00.000Z 8397-32-81K41:41:14.000Z BP Sitting (Pre-Dialysis) 167/82 mmHg BP Sitting (Post-Dialysis) 140/70 mmHg Concurrent Access: falseAV Graft Upper Arm (Left) Arterial BP Standing (Pre-Dialysis) 143/73 mmHg BP Standing (P ost-Dialysis) 106/57 mmHg Sitting Heart Rate Pre-Dialysis 89 BPM Sitting Heart Rate Post-Dialysis 92 BPM Standing Heart Rate Pre-Dialysis 89 BPM Standing Heart Rate Post-Dialysis 99 BPM Temperature Pre-Dialysis 97.2 degF Temperature Post -Dialysis 97 degF June 02, 2022 In-Center Hemodialysis Treatment 1172-69-37S17:27:00.000Z 9038-30-35D69:42:11.000Z BP Sitting (Pre-Dialysis) 161/86 mmHg BP Sitting (Post-Dialysis) 139/77 mmHg Concurrent Access: falseAV Graft Upper Arm (Left) Arterial BP Standing (Pre-Dialysis) 158/80 mmHg Sitti ng Heart Rate Post-Dialysis 90 BPM Sitting Heart Rate Pre-Dialysis 93 BPM Temperatu re Post-Dialysis 97.3 degF Standing Heart Rate Pre-Dialysis 98 BPM Temperature Pre-Dialysis 98.1 degF May 30, 2022 In-Center Hemodialysis Treatment 4949-04-20J99:23:00.000Z 8780-66-18G93:42:34.000Z BP Sitting (Pre-Dialysis) 158/84 mmHg BP Sitting (Post-Dialysis) 130/76 mmHg Concurrent Access: falseAV Graft Upper Arm (Left) Arterial Sitting Heart Rate Pre-Dialysis 89 BPM BP Standing (Post-Dialysis) 118/69 mmHg Temperature Pre-Dialysis 97.9 degF Sitting Heart Ra te Post-Dialysis 85 BPM Standing Heart Rate Post-Dina lysis 94 BPM Temperature Post-Dialysis 98 .1 degF May 28, 2022 In-Center Hemodialysis Treatment 3966-17-97G36:24:00.000Z 9398-19-41Y62:42:34.000Z BP Sitting (Pre-Dialysis) 163/90 mmHg BP Sitting (Post-Dialysis) 130/74 mmHg Concurrent Access: falseAV Graft Upper Arm (Left) Arterial BP Standing (Pre-Dialysis) 169/85 mmHg BP Standing (P ost-Dialysis) 111/67 mmHg Sitting Heart Rate Pre-Dialysis 90 BPM Sitting Heart Rate Post-Dialysis 89 BPM Standing Heart Rate Pre-Dialysis 94 BPM Standing Heart Rate Post-Dialysis 93 BPM Temperature Pre-Dialysis 98.1 degF Temperature Post -Dialysis 97.8 degF May 26, 2022 In-Center Hemodialysis Treatment [id number]:22:00.000Z 9490-00-29U15:37:34.000Z BP Sitting (Pre-Dialysis) 179/94 mmHg BP Sitting (Post-Dialysis) 140/79 mmHg Concurrent Access: falseAV Graft Upper Arm (Left) Arterial BP Standing (Pre-Dialysis) 155/84 mmHg Sitting Heart Rate Post-Dialysis 90 BPM Sitting Heart Rate Pre-Dialysis 89 BPM Standing Heart Rate Pre-Dialysis 92 BPM Temperature Pre-Dialysis 97.8 degF May 23, 2022 In-Center Hemodialysis Treatment [id number]:24:28.000Z [id number]:37:28.000Z BP Sitting (Pre-Dialysis) 176/95 mmHg BP Sitting (Post-Dialysis) 148/84 mmHg Concurrent Access: falseAV Graft Upper Arm (Left) Arterial BP Standing (Pre-Dialysis) 176/95 mmHg BP Standing (P ost-Dialysis) 133/58 mmHg Sitting Heart Rate Pre-Dialysis 83 BPM Sitting Heart Rate Post-Dialysis 86 BPM Standing Heart Rate Pre-Dialysis 83 BPM Standing Heart Rate Post-Dialysis 86 BPM Temperature Pre-Dialysis 97.6 degF Temperature Post -Dialysis 97 degF May 21, 2022 In-Center Hemodialysis Treatment [id number]:28:00.000Z [id number]:46:30.000Z BP Sitting (Pre-Dialysis) 182/93 mmHg BP Sitting (Post-Dialysis) 173/87 mmHg Concurrent Access: falseAV Graft Upper Arm (Left) Arterial BP Standing (Pre-Dialysis) 193/78 mmHg BP Standing (P ost-Dialysis) 147/74 mmHg Sitting Heart Rate Pre-Dialysis 78 BPM Sitting Heart Rate Post-Dialysis 80 BPM Standing Heart Rate Pre-Dialysis 80 BPM Standing Heart Rate Post-Dialysis 83 BPM Temperature Pre-Dialysis 97.6 degF Temperature Post -Dialysis 97.6 degF May 19, 2022 In-Center Hemodialysis Treatment [id number]:17:29.000Z [id number]:32:30.000Z BP Sitting (Pre-Dialysis) 196/92 mmHg BP Sitting (Post-Dialysis) 18/99 mmHg Concurrent Access: falseAV Graft Upper Arm (Left) Arterial BP Standing (Pre-Dialysis) 196/92 mmHg BP Standing (P ost-Dialysis) 143/82 mmHg Sitting Heart Rate Pre-Dialysis 78 BPM Sitting Heart Rate Post-Dialysis 83 BPM Standing Heart Rate Pre-Dialysis 78 BPM Standing Heart Rate Post-Dialysis 86 BPM Temperature Pre-Dialysis 97.6 degF Temperature Post -Dialysis 97.6 degF May 16, 2022 In-Center Hemodialysis Treatment [id number]:24:00.000Z [id number]:44:10.000Z BP Sitting (Pre-Dialysis) 178/94 mmHg BP Sitting (Post-Dialysis) 140/71 mmHg Concurrent Access: falseAV Graft Upper Arm (Left) Arterial BP Standing (Pre-Dialysis) 181/98 mmHg BP Standing (P ost-Dialysis) 105/61 mmHg Sitting Heart Rate Pre-Dialysis 78 BPM Sitting Heart Rate Post-Dialysis 83 BPM Standing Heart Rate Pre-Dialysis 78 BPM Standing Heart Rate Post-Dialysis 93 BPM Temperature Pre-Dialysis 97.6 degF Temperature Post -Dialysis 97.9 degF May 14, 2022 In-Center Hemodialysis Treatment [id number]:23:00.000Z [id number]:44:32.000Z BP Sitting (Pre-Dialysis) 193/98 mmHg BP Sitting (Post-Dialysis) 141/81 mmHg Concurrent Access: falseAV Graft Upper Arm (Left) Arterial BP Standing (Pre-Dialysis) 202/103 mmHg Sitti ng Heart Rate Post-Dialysis 89 BPM Sitting Heart Rate Pre-Dialysis 81 BPM Temperatu re Post-Dialysis 97.4 degF Standing Heart Rate Pre-Dialysis 82 BPM Temperature Pre-Dialysis 97.6 degF May 12, 2022 In-Center Hemodialysis Treatment [id number]:31:00.000Z [id number]:50:32.000Z BP Sitting (Pre-Dialysis) 169/84 mmHg BP Sitting (Post-Dialysis) 127/67 mmHg Concurrent Access: falseAV Graft Upper Arm (Left) Arterial BP Standing (Pre-Dialysis) 180/99 mmHg BP Standing (P ost-Dialysis) 153/117 mmHg Sitting Heart Rate Pre-Dialysis 78 BPM Sitting Heart Rate Post-Dialysis 80 BPM Standing Heart Rate Pre-Dialysis 82 BPM Standing Heart Rate Post-Dialysis 63 BPM Temperature Pre-Dialysis 97.6 degF Temperature Post -Dialysis 97.6 degF May 09, 2022 In-Center Hemodialysis Treatment [id number]:22:00.000Z [id number]:40:42.000Z BP Sitting (Pre-Dialysis) 166/68 mmHg BP Sitting (Post-Dialysis) 122/55 mmHg Concurrent Access: falseAV Graft Upper Arm (Left) Arterial BP Standing (Pre-Dialysis) 154/87 mmHg Sitti ng Heart Rate Post-Dialysis 92 BPM Sitting Heart Rate Pre-Dialysis 83 BPM Temperatu re Post-Dialysis 97.7 degF Standing Heart Rate Pre-Dialysis 89 BPM Temperature Pre-Dialysis 97.6 degF May 07, 2022 In-Center Hemodialysis Treatment [id number]:28:00.000Z [id number]:46:42.000Z BP Sitting (Pre-Dialysis) 179/93 mmHg BP Sitting (Post-Dialysis) 184/90 mmHg Concurrent Access: falseAV Graft Upper Arm (Left) Arterial BP Standing (Pre-Dialysis) 195/87 mmHg BP Standing (P ost-Dialysis) 103/72 mmHg Sitting Heart Rate Pre-Dialysis 80 BPM Sitting Heart Rate Post-Dialysis 88 BPM Standing Heart Rate Pre-Dialysis 81 BPM Standing Heart Rate Post-Dialysis 102 BPM Temperature Pre-Dialysis 97.6 degF Temperature Post -Dialysis 98.2 degF May 04, 2022 In-Center Hemodialysis Treatment [id number]:05:09.000Z [id number]:23:10.000Z BP Sitting (Pre-Dialysis) 185/98 mmHg BP Sitting (Post-Dialysis) 188/88 mmHg Concurrent Access: falseAV Graft Upper Arm (Left) Arterial BP Standing (Pre-Dialysis) 190/90 mmHg BP Standing (P ost-Dialysis) 160/85 mmHg Sitting Heart Rate Pre-Dialysis 80 BPM Sitting Heart Rate Post-Dialysis 82 BPM Standing Heart Rate Pre-Dialysis 83 BPM Standing Heart Rate Post-Dialysis 88 BPM Temperature Pre-Dialysis 97.6 degF Temperature Post -Dialysis 97.4 degF May 02, 2022 In-Center Hemodialysis Treatment [id number]:25:00.000Z [id number]:45:22.000Z BP Sitting (Pre-Dialysis) 168/91 mmHg BP Sitting (Post-Dialysis) 145/84 mmHg Concurrent Access: falseAV Graft Upper Arm (Left) Arterial BP Standing (Pre-Dialysis) 168/91 mmHg BP Standing (P ost-Dialysis) 131/74 mmHg Sitting Heart Rate Pre-Dialysis 92 BPM Sitting Heart Rate Post-Dialysis 83 BPM Standing Heart Rate Pre-Dialysis 92 BPM Standing Heart Rate Post-Dialysis 95 BPM Temperature Pre-Dialysis 97.6 degF Temperature Post -Dialysis 98.1 degF April 30, 2022 In-Center Hemodialysis Treatment [id number]:23:00.000Z [id number]:40:22.000Z BP Sitting (Pre-Dialysis) 177/92 mmHg BP Sitting (Post-Dialysis) 147/76 mmHg Concurrent Access: falseAV Graft Upper Arm (Left) Arterial BP Standing (Pre-Dialysis) 145/80 mmHg BP Standing (P ost-Dialysis) 136/67 mmHg Sitting Heart Rate Pre-Dialysis 80 BPM Sitting Heart Rate Post-Dialysis 80 BPM Standing Heart Rate Pre-Dialysis 85 BPM Standing Heart Rate Post-Dialysis 93 BPM Temperature Pre-Dialysis 97.9 degF Temperature Post -Dialysis 97.8 degF April 28, 2022 In-Center Hemodialysis Treatment [id number]:28:00.000Z [id number]:46:31.000Z BP Sitting (Pre-Dialysis) 164/89 mmHg BP Sitting (Post-Dialysis) 149/73 mmHg Concurrent Access: falseAV Graft Upper Arm (Left) Arterial BP Standing (Pre-Dialysis) 163/85 mmHg BP Standing (P ost-Dialysis) 117/63 mmHg Sitting Heart Rate Pre-Dialysis 85 BPM Sitting Heart Rate Post-Dialysis 85 BPM Standing Heart Rate Pre-Dialysis 87 BPM Standing Heart Rate Post-Dialysis 90 BPM Temperature Pre-Dialysis 97.6 degF Temperature Post -Dialysis 97.6 degF April 25, 2022 In-Center Hemodialysis Treatment [id number]:28:00.000Z [id number]:47:33.000Z BP Sitting (Pre-Dialysis) 148/86 mmHg BP Sitting (Post-Dialysis) 136/66 mmHg Concurrent Access: falseAV Graft Upper Arm (Left) Arterial BP Standing (Pre-Dialysis) 149/72 mmHg BP Standing (P ost-Dialysis) 108/58 mmHg Sitting Heart Rate Pre-Dialysis 84 BPM Sitting Heart Rate Post-Dialysis 97 BPM Standing Heart Rate Pre-Dialysis 85 BPM Standing Heart Rate Post-Dialysis 95 BPM Temperature Pre-Dialysis 97.9 degF Temperature Post -Dialysis 98.1 degF April 23, 2022 In-Center Hemodialysis Treatment [id number]:27:00.000Z [id number]:48:33.000Z BP Sitting (Pre-Dialysis) 149/70 mmHg BP Sitting (Post-Dialysis) 128/62 mmHg Concurrent Access: falseAV Graft Upper Arm (Left) Arterial BP Standing (Pre-Dialysis) 15/81 mmHg Sitti ng Heart Rate Post-Dialysis 87 BPM Sitting Heart Rate Pre-Dialysis 88 BPM Temperatu re Post-Dialysis 97.8 degF Standing Heart Rate Pre-Dialysis 90 BPM Temperature Pre-Dialysis 97.9 degF April 20, 2022 In-Center Hemodialysis Treatment [id number]:55:00.000Z [id number]:15:16.000Z BP Sitting (Pre-Dialysis) 131/75 mmHg BP Sitting (Post-Dialysis) 113/67 mmHg Concurrent Access: falseAV Graft Upper Arm (Left) Arterial BP Standing (Pre-Dialysis) 125/71 mmHg BP Standing (P ost-Dialysis) 95/66 mmHg Sitting Heart Rate Pre-Dialysis 88 BPM Sitting Heart Rate Post-Dialysis 92 BPM Standing Heart Rate Pre-Dialysis 92 BPM Standing Heart Rate Post-Dialysis 94 BPM Temperature Pre-Dialysis 97.4 degF Temperature Post -Dialysis 97.5 degF April 18, 2022 In-Center Hemodialysis Treatment [id number]:14:00.000Z [id number]:32:13.000Z BP Sitting (Pre-Dialysis) 134/73 mmHg BP Sitting (Post-Dialysis) 93/59 mmHg Concurrent Access: falseAV Graft Upper Arm (Left) Arterial BP Standing (Pre-Dialysis) 156/81 mmHg BP Standing (P ost-Dialysis) 107/56 mmHg Sitting Heart Rate Pre-Dialysis 90 BPM Sitting Heart Rate Post-Dialysis 94 BPM Standing Heart Rate Pre-Dialysis 96 BPM Standing Heart Rate Post-Dialysis 95 BPM Temperature Pre-Dialysis 97.9 degF Temperature Post -Dialysis 97.6 degF April 16, 2022 In-Center Hemodialysis Treatment [id number]:27:00.000Z [id number]:42:13.000Z BP Sitting (Pre-Dialysis) 175/89 mmHg BP Sitting (Post-Dialysis) 158/84 mmHg Concurrent Access: falseAV Graft Upper Arm (Left) Arterial BP Standing (Pre-Dialysis) 155/85 mmHg BP Standing (P ost-Dialysis) 139/75 mmHg Sitting Heart Rate Pre-Dialysis 86 BPM Sitting Heart Rate Post-Dialysis 90 BPM Standing Heart Rate Pre-Dialysis 94 BPM Standing Heart Rate Post-Dialysis 96 BPM Temperature Pre-Dialysis 97.9 degF Temperature Post -Dialysis 97.8 degF April 14, 2022 In-Center Hemodialysis Treatment [id number]:28:00.000Z [id number]:49:13.000Z BP Sitting (Pre-Dialysis) 187/90 mmHg BP Sitting (Post-Dialysis) 175/89 mmHg Concurrent Access: falseAV Graft Upper Arm (Left) Arterial BP Standing (Pre-Dialysis) 187/90 mmHg BP Standing (P ost-Dialysis) 136/79 mmHg Sitting Heart Rate Pre-Dialysis 82 BPM Sitting Heart Rate Post-Dialysis 88 BPM Standing Heart Rate Pre-Dialysis 82 BPM Standing Heart Rate Post-Dialysis 94 BPM Temperature Pre-Dialysis 97.8 degF Temperature Post -Dialysis 97.6 degF April 11, 2022 In-Center Hemodialysis Treatment [id number]:19:00.000Z [id number]:35:59.000Z BP Sitting (Pre-Dialysis) 151/68 mmHg BP Sitting (Post-Dialysis) 143/80 mmHg Concurrent Access: falseAV Graft Upper Arm (Left) Arterial BP Standing (Pre-Dialysis) 146/78 mmHg Sitting Heart Rate Post-Dialysis 88 BPM Sitting Heart Rate Pre-Dialysis 87 BPM Temperatu re Post-Dialysis 97 degF Standing Heart Rate Pre-Dialysis 94 BPM Temperature Pre-Dialysis 97.4 degF April 09, 2022 In-Center Hemodialysis Treatment [id number]:25:00.000Z [id number]:40:59.000Z BP Sitting (Pre-Dialysis) 177/93 mmHg BP Sitting (Post-Dialysis) 171/82 mmHg Concurrent Access: falseAV Graft Upper Arm (Left) Arterial BP Standing (Pre-Dialysis) 138/83 mmHg BP Standing (P ost-Dialysis) 143/86 mmHg Sitting Heart Rate Pre-Dialysis 81 BPM Sitting Heart Rate Post-Dialysis 88 BPM Standing Heart Rate Pre-Dialysis 88 BPM Standing Heart Rate Post-Dialysis 91 BPM Temperature Pre-Dialysis 97.5 degF Temperature Post -Dialysis 97.4 degF April 07, 2022 In-Center Hemodialysis Treatment [id number]:25:00.000Z [id number]:45:59.000Z BP Sitting (Pre-Dialysis) 159/89 mmHg BP Sitting (Post-Dialysis) 131/62 mmHg Concurrent Access: falseAV Graft Upper Arm (Left) Arterial BP Standing (Pre-Dialysis) 151/73 mmHg BP Standing (P ost-Dialysis) 120/69 mmHg Sitting Heart Rate Pre-Dialysis 89 BPM Sitting Heart Rate Post-Dialysis 83 BPM Standing Heart Rate Pre-Dialysis 89 BPM Standing Heart Rate Post-Dialysis 67 BPM Temperature Pre-Dialysis 97.6 degF Temperature Post -Dialysis 97.6 degF April 02, 2022 In-Center Hemodialysis Treatment [id number]:28:41.000Z [id number]:47:01.000Z BP Sitting (Pre-Dialysis) 156/85 mmHg BP Sitting (Post-Dialysis) 144/81 mmHg Concurrent Access: falseAV Graft Upper Arm (Left) Arterial BP Standing (Pre-Dialysis) 139/78 mmHg BP Standing (P ost-Dialysis) 124/74 mmHg Sitting Heart Rate Pre-Dialysis 96 BPM Sitting Heart Rate Post-Dialysis 93 BPM Standing Heart Rate Pre-Dialysis 97 BPM Standing Heart Rate Post-Dialysis 96 BPM Temperature Pre-Dialysis 97.3 degF Temperature Post -Dialysis 97.3 degF March 31, 2022 In-Center Hemodialysis Treatment [id number]:26:41.000Z [id number]:45:41.000Z BP Sitting (Pre-Dialysis) 137/84 mmHg BP Sitting (Post-Dialysis) 123/78 mmHg Concurrent Access: falseAV Graft Upper Arm (Left) Arterial BP Standing (Pre-Dialysis) 159/85 mmHg BP Standing (P ost-Dialysis) 123/63 mmHg Sitting Heart Rate Pre-Dialysis 86 BPM Sitting Heart Rate Post-Dialysis 81 BPM Standing Heart Rate Pre-Dialysis 88 BPM Standing Heart Rate Post-Dialysis 94 BPM Temperature Pre-Dialysis 97.6 degF Temperature Post -Dialysis 97.6 degF March 28, 2022 In-Center Hemodialysis Treatment [id number]:25:00.000Z [id number]:41:00.000Z BP Sitting (Pre-Dialysis) 177/95 mmHg BP Sitting (Post-Dialysis) 94/53 mmHg Concurrent Access: falseAV Graft Upper Arm (Left) Arterial BP Standing (Pre-Dialysis) 158/86 mmHg BP Standing (P ost-Dialysis) 115/70 mmHg Sitting Heart Rate Pre-Dialysis 89 BPM Sitting Heart Rate Post-Dialysis 81 BPM Standing Heart Rate Pre-Dialysis 92 BPM Standing Heart Rate Post-Dialysis 104 BPM Temperature Pre-Dialysis 97.5 degF Temperature Post -Dialysis 97.8 degF March 26, 2022 In-Center Hemodialysis Treatment [id number]:27:00.000Z [id number]:50:12.000Z BP Sitting (Pre-Dialysis) 167/78 mmHg BP Sitting (Post-Dialysis) 139/64 mmHg Concurrent Access: falseAV Graft Upper Arm (Left) Arterial BP Standing (Pre-Dialysis) 174/95 mmHg BP Standing (P ost-Dialysis) 122/73 mmHg Sitting Heart Rate Pre-Dialysis 65 BPM Sitting Heart Rate Post-Dialysis 90 BPM Standing Heart Rate Pre-Dialysis 84 BPM Standing Heart Rate Post-Dialysis 94 BPM Temperature Pre-Dialysis 97.4 degF Temperature Post -Dialysis 97.5 degF March 24, 2022 In-Center Hemodialysis Treatment [id number]:35:11.000Z [id number]:54:12.000Z BP Sitting (Pre-Dialysis) 149/85 mmHg BP Sitting (Post-Dialysis) 236/31 mmHg Concurrent Access: falseAV Graft Upper Arm (Left) Arterial BP Standing (Pre-Dialysis) 165/86 mmHg Sitti ng Heart Rate Post-Dialysis 93 BPM Sitting Heart Rate Pre-Dialysis 90 BPM Temperatu re Post-Dialysis 97.3 degF Standing Heart Rate Pre-Dialysis 93 BPM Temperature Pre-Dialysis 97.8 degF DIALYSIS ORDER Dialysis Procedure Orders Type of Dialysis Procedure Order Order Date/Time Observations In-Center Hemodialysis Treatment January 11, 2025 Target Weight 57.5 kg Dialysate Flow Rate 800 mL/min Blood Flow Rate 350 mL/min Treatment Time 195 min(total) Max UF Rate 13 mL/kg/hr Base Sodium Dialysate Base Sodium 138 mE q/L dialysate_temp 36.5 C BiCarb Dialysate BiCarbonate 38 mEq/L Access Concurrent No Arterial Access AV Graft (Upper Arm (Left)) Venous Access AV Graft (Upper Arm (Left)) Arterial Needle Display JAZIEL DUNLAP, 16 G x 1, SHARP , TWIN Venous Needle JAZIEL DUNLAP, 16G x 1, SHARP , TWIN Dialyzer Evonro Elisio 17H 145 5 [email or web address] Dialysate Bath Potassium Potassium 2 mEq /L Dialysate Bath Calcium Calcium 2.5 mEq/L In-Center Hemodialysis TreatmentSept2024 Observation Value Target Weight 57.5 kg Dialysate Flow Rate 800 mL/min Blood Flow Rate 350 mL/min Treatment Time 180 min(total) Max UF Rate 13 mL/kg/hr Base Sodium Dialysate Base Sodium 138 mE q/L dialysate_temp 36.5 C BiCarb Dialysate BiCarbonate 38 mEq/L Access Concurrent No Arterial Access AV Graft (Upper Arm (Left)) Venous Access AV Graft (Upper Arm (Left)) Arterial Needle Display NIPRO, [place], 16 G x 1, SHARP , TWIN Venous Needle NIPRO, [place], 16G x 1, SHARP , TWIN Dialyzer Nipro Elisio 17H 145 5 [email or web address] Dialysate Bath Potassium Potassium 2 mEq /L Dialysate Bath Calcium Calcium 2.5 mEq/L In-Center Hemodialysis TreatmentSept2024 Observation Value Target Weight 57.5 kg Dialysate Flow Rate 500 mL/min Blood Flow Rate 350 mL/min Treatment Time 180 min(total) Max UF Rate 13 mL/kg/hr Base Sodium Dialysate Base Sodium 138 mE q/L dialysate_temp 36.5 C BiCarb Dialysate BiCarbonate 38 mEq/L Access Concurrent No Arterial Access AV Graft (Upper Arm (Left)) Venous Access AV Graft (Upper Arm (Left)) Arterial Needle Display NIPRO, [place], 16 G x 1, SHARP , TWIN Venous Needle NIPRO, [place], 16G x 1, SHARP , TWIN Dialyzer Nipro Elisio 15H 126 4 [email or web address] Dialysate Bath Potassium Potassium 2 mEq /L Dialysate Bath Calcium Calcium 2.5 mEq/L Results Adequacy Description Draw Date Result/Unit Status Ref Range Result Comments PATIENT AGE 2025-01-11 18:49:45 59 Years F WEIGHT (KG) 2025-01-11 18:49:45 57.5 kg F HEIGHT IN INCHES 2025-01-11 18:49:45 61 Inches F AMPUTATE FACTOR 2025-01-11 18:49:45 0 F BSA CRISTELA 2025-01-09 15:30:55 1.56 sq m F DIALYZER FLOW-QD 2025-01-09 15:30:55 800 mL/min F PRESCRIBED DAYS/WEEK 2025-01-09 15:30:55 3 Day/Wk F URR% 2025-01-09 15:30:55 53 % F LENGTH OF DIALYSIS 2025-01-09 15:30:55 181 min F KT/V PRESCRIBED 2025-01-09 15:30:55 2.09 F spKt/V 2025-01-09 15:30:55 0.83 F Residual kt/v 2025-01-09 15:30:55 F Unable to calculate: Post BUN lab result is unknown WEIGHT (KG) 2025-01-09 15:30:55 57.5 kg F WEIGHT - POST DAY 1 2025-01-09 15:30:55 57.4 kg F PATIENT AGE 2025-01-09 15:30:55 59 Years F Std Renal KT/V 2025-01-09 15:30:55 N/A F HEIGHT IN INCHES 2025-01-09 15:30:55 61 Inches F VM (KT/V MEAN VOL) 2025-01-09 15:30:55 37.7 F CURRENT KRU 2025-01-09 15:30:55 F Unable to calculate: Post BUN lab result is unknown AMPUTATE FACTOR 2025-01-09 15:30:55 0 F BLOOD FLOW-QWB 2025-01-09 15:30:55 308 F stdKT/V Total 2025-01-09 15:30:55 N/A F TBW (Lieberman) 2025-01-09 15:30:55 28.62 Liters F Total Kt/V 2025-01-09 15:30:55 0.83 F Dialyzer VAMSHI 2025-01-09 15:30:55 1455 Calc F TOTAL HOURS/WEEK DIALYSIS 2025-01-09 15:30:55 5 hrs F eKt/V 2025-01-09 15:30:55 0.72 F nPCR 2025-01-09 15:30:55 0.69 G/KG/D F VT (KT/V TX VOL) 2025-01-09 15:30:55 55.1 L F WEIGHT - PRE DAY 1 2025-01-09 15:30:55 59.7 kg F stdKt/V (DIAL) 2025-01-09 15:30:55 N/A F Urea nitrogen [Mass/volume] in Serum or Plasma --post dialysis 2025-01-09 15:29:08 37 mg/dL F 9.0-23.0 Urea nitrogen [Mass/volume] in Serum or Plasma 2025-01-09 15:22:08 78 mg/dL F 9.0-23.0 VM (KT/V MEAN VOL) 2025-01-03 21:08:08 37.7 F WEIGHT (KG) 2025-01-03 21:08:08 57.5 kg F HEIGHT IN INCHES 2025-01-03 21:08:08 61 Inches F KT/V PRESCRIBED 2025-01-03 21:08:08 2.01 F spKt/V 2025-01-03 21:08:08 1.02 F BSA CRISTELA 2025-01-03 21:08:08 1.56 sq m F BLOOD FLOW-QWB 2025-01-03 21:08:08 350 F eKt/V 2025-01-03 21:08:08 0.86 F LENGTH OF DIALYSIS 2025-01-03 21:08:08 174 min F stdKT/V Total 2025-01-03 21:08:08 N/A F WEIGHT - POST DAY 1 2025-01-03 21:08:08 57.4 kg F Dialyzer VAMSHI 2025-01-03 21:08:08 1455 Calc F CURRENT KRU 2025-01-03 21:08:08 F URR% 2025-01-03 21:08:08 59 % F AMPUTATE FACTOR 2025-01-03 21:08:08 0 F PATIENT AGE 2025-01-03 21:08:08 59 Years F TBW (Lieberman) 2025-01-03 21:08:08 28.62 Liters F DIALYZER FLOW-QD 2025-01-03 21:08:08 800 mL/min F PRESCRIBED DAYS/WEEK 2025-01-03 21:08:08 3 Day/Wk F stdKt/V (DIAL) 2025-01-03 21:08:08 N/A F TOTAL HOURS/WEEK DIALYSIS 2025-01-03 21:08:08 8 hrs F Total Kt/V 2025-01-03 21:08:08 1.02 F VT (KT/V TX VOL) 2025-01-03 21:08:08 47.6 L F nPCR 2025-01-03 21:08:08 0.69 G/KG/D F Std Renal KT/V 2025-01-03 21:08:08 N/A F WEIGHT - PRE DAY 1 2025-01-03 21:08:08 59.6 kg F Residual kt/v 2025-01-03 21:08:08 F Urea nitrogen [Mass/volume] in Serum or Plasma 2025-01-03 21:06:22 49 mg/dL F 9.0-23.0 Urea nitrogen [Mass/volume] in Serum or Plasma --post dialysis 2025-01-03 18:37:17 20 mg/dL F 9.0-23.0 Urea nitrogen [Mass/volume] in Serum or Plasma --post dialysis 2025-01-03 18:37:17 20 mg/dL F 9.0-23.0 AMPUTATE FACTOR 2025-01-02 15:44:18 0 F HEIGHT IN INCHES 2025-01-02 15:44:18 61 Inches F PATIENT AGE 2025-01-02 15:44:18 59 Years F WEIGHT (KG) 2025-01-02 15:44:18 57.5 kg F Std Renal KT/V 2024-12-29 20:34:06 N/A F stdKT/V Total 2024-12-29 20:34:06 N/A F TOTAL HOURS/WEEK DIALYSIS 2024-12-29 20:34:06 8 hrs F BLOOD FLOW-QWB 2024-12-29 20:34:06 350 F CURRENT KRU 2024-12-29 20:34:06 F Unable to calculate: Post BUN lab result is unknown WEIGHT - POST DAY 1 2024-12-29 20:34:06 57.3 kg F KT/V PRESCRIBED 2024-12-29 20:34:06 2.06 F BLOOD FLOW-QWB 2024-12-29 20:34:06 350 F AMPUTATE FACTOR 2024-12-29 20:34:06 0 F eKt/V 2024-12-29 20:34:06 0.89 F CURRENT KRU 2024-12-29 20:34:06 F Unable to calculate: Post BUN lab result is unknown HEIGHT IN INCHES 2024-12-29 20:34:06 61 Inches F spKt/V 2024-12-29 20:34:06 1.05 F PRESCRIBED DAYS/WEEK 2024-12-29 20:34:06 3 Day/Wk F VM (KT/V MEAN VOL) 2024-12-29 20:34:06 37.7 F nPCR 2024-12-29 20:34:06 0.89 G/KG/D F LENGTH OF DIALYSIS 2024-12-29 20:34:06 183 min F DIALYZER FLOW-QD 2024-12-29 20:34:06 800 mL/min F PATIENT AGE 2024-12-29 20:34:06 59 Years F BSA CRISTELA 2024-12-29 20:34:06 1.56 sq m F WEIGHT - PRE DAY 1 2024-12-29 20:34:06 59.6 kg F WEIGHT (KG) 2024-12-29 20:34:06 57.5 kg F VT (KT/V TX VOL) 2024-12-29 20:34:06 47.3 L F TBW (Lieberman) 2024-12-29 20:34:06 28.6 Liters F Dialyzer VAMSHI 2024-12-29 20:34:06 1264 Calc F Residual kt/v 2024-12-29 20:34:06 F Unable to calculate: Post BUN lab result is unknown TOTAL HOURS/WEEK DIALYSIS 2024-12-29 20:34:06 8 hrs F Total Kt/V 2024-12-29 20:34:06 1.05 F stdKT/V Total 2024-12-29 20:34:06 N/A F URR% 2024-12-29 20:34:06 60 % F stdKt/V (DIAL) 2024-12-29 20:34:06 N/A F Std Renal KT/V 2024-12-29 20:34:06 N/A F DIALYZER FLOW-QD 2024-12-29 20:34:06 800 mL/min F URR% 2024-12-29 20:34:06 60 % F Dialyzer VAMSHI 2024-12-29 20:34:06 1264 Calc F LENGTH OF DIALYSIS 2024-12-29 20:34:06 183 min F BSA CRISTELA 2024-12-29 20:34:06 1.56 sq m F WEIGHT - POST DAY 1 2024-12-29 20:34:06 57.3 kg F PATIENT AGE 2024-12-29 20:34:06 59 Years F WEIGHT - PRE DAY 1 2024-12-29 20:34:06 59.6 kg F HEIGHT IN INCHES 2024-12-29 20:34:06 61 Inches F WEIGHT (KG) 2024-12-29 20:34:06 57.5 kg F PRESCRIBED DAYS/WEEK 2024-12-29 20:34:06 3 Day/Wk F VM (KT/V MEAN VOL) 2024-12-29 20:34:06 37.7 F VT (KT/V TX VOL) 2024-12-29 20:34:06 47.3 L F Residual kt/v 2024-12-29 20:34:06 F Unable to calculate: Post BUN lab result is unknown Total Kt/V 2024-12-29 20:34:06 1.05 F KT/V PRESCRIBED 2024-12-29 20:34:06 2.06 F nPCR 2024-12-29 20:34:06 0.89 G/KG/D F TBW (Lieberman) 2024-12-29 20:34:06 28.6 Liters F AMPUTATE FACTOR 2024-12-29 20:34:06 0 F stdKt/V (DIAL) 2024-12-29 20:34:06 N/A F spKt/V 2024-12-29 20:34:06 1.05 F eKt/V 2024-12-29 20:34:06 0.89 F Urea nitrogen [Mass/volume] in Serum or Plasma --post dialysis 2024-12-29 20:32:16 22 mg/dL F 9.0-23.0 Urea nitrogen [Mass/volume] in Serum or Plasma --post dialysis 2024-12-29 20:32:16 22 mg/dL F 9.0-23.0 Urea nitrogen [Mass/volume] in Serum or Plasma 2024-12-29 20:00:21 55 mg/dL F 9.0-23.0 Urea nitrogen [Mass/volume] in Serum or Plasma 2024-12-29 20:00:21 55 mg/dL F 9.0-23.0 URR% 2024-12-27 22:53:16 60 % F DIALYZER FLOW-QD 2024-12-27 22:53:16 500 mL/min F Dialyzer VAMSHI 2024-12-27 22:53:16 1264 Calc F LENGTH OF DIALYSIS 2024-12-27 22:53:16 166 min F PATIENT AGE 2024-12-27 22:53:16 59 Years F WEIGHT - POST DAY 1 2024-12-27 22:53:16 58.4 kg F BSA CRISTELA 2024-12-27 22:53:16 1.56 sq m F WEIGHT - PRE DAY 1 2024-12-27 22:53:16 60.7 kg F HEIGHT IN INCHES 2024-12-27 22:53:16 61 Inches F WEIGHT (KG) 2024-12-27 22:53:16 57.5 kg F PRESCRIBED DAYS/WEEK 2024-12-27 22:53:16 3 Day/Wk F VM (KT/V MEAN VOL) 2024-12-27 22:53:16 37.7 F Residual kt/v 2024-12-27 22:53:16 F KT/V PRESCRIBED 2024-12-27 22:53:16 1.76 F VT (KT/V TX VOL) 2024-12-27 22:53:16 39.9 L F Total Kt/V 2024-12-27 22:53:16 1.06 F nPCR 2024-12-27 22:53:16 0.81 G/KG/D F AMPUTATE FACTOR 2024-12-27 22:53:16 0 F TBW (Lieberman) 2024-12-27 22:53:16 28.87 Liters F eKt/V 2024-12-27 22:53:16 0.89 F Std Renal KT/V 2024-12-27 22:53:16 N/A F spKt/V 2024-12-27 22:53:16 1.06 F stdKT/V Total 2024-12-27 22:53:16 N/A F stdKt/V (DIAL) 2024-12-27 22:53:16 N/A F TOTAL HOURS/WEEK DIALYSIS 2024-12-27 22:53:16 8 hrs F BLOOD FLOW-QWB 2024-12-27 22:53:16 350 F CURRENT KRU 2024-12-27 22:53:16 F Urea nitrogen [Mass/volume] in Serum or Plasma 2024-12-27 22:51:20 58 mg/dL F 9.0-23.0 Urea nitrogen [Mass/volume] in Serum or Plasma --post dialysis 2024-12-27 20:45:14 23 mg/dL F 9.0-23.0 URR% 2024-12-27 07:53:17 F Canceled - Specimen not received 5 days past draw date,Unable to Calculate. URR% 2024-12-27 07:53:17 F Unable to Calculate.,Cancele d - Specimen not received 5 days past draw date Urea nitrogen [Mass/volume] in Serum or Plasma 2024-12-27 07:40:23 F Canceled - Specimen not received 5 days past draw date Urea nitrogen [Mass/volume] in Serum or Plasma 2024-12-27 07:40:23 F Canceled - Specimen not received 5 days past draw date Urea nitrogen [Mass/volume] in Serum or Plasma --post dialysis 2024-12-27 07:40:03 F Canceled - Specimen not received 5 days past draw date Urea nitrogen [Mass/volume] in Serum or Plasma --post dialysis 2024-12-27 07:40:03 F Canceled - Specimen not received 5 days past draw date PATIENT AGE 2024-12-25 19:34:55 59 Years F HEIGHT IN INCHES 2024-12-25 19:34:55 61 Inches F WEIGHT (KG) 2024-12-25 19:34:55 57.5 kg F AMPUTATE FACTOR 2024-12-25 19:34:55 0 F PATIENT AGE 2024-12-25 19:34:55 59 Years F WEIGHT (KG) 2024-12-25 19:34:55 57.5 kg F HEIGHT IN INCHES 2024-12-25 19:34:55 61 Inches F AMPUTATE FACTOR 2024-12-25 19:34:55 0 F Creatinine [Mass/volume] in Serum or Plasma 2024-12-22 22:54:22 7.86 mg/dL F 0.55-1.02 Creatinine [Mass/volume] in Serum or Plasma 2024-12-22 22:54:22 7.86 mg/dL F 0.55-1.02 Dialyzer VAMSHI 2024-12-16 03:25:49 1264 Calc F DIALYZER FLOW-QD 2024-12-16 03:25:49 500 mL/min F URR% 2024-12-16 03:25:49 67 % F PATIENT AGE 2024-12-16 03:25:49 59 Years F LENGTH OF DIALYSIS 2024-12-16 03:25:49 171 min F BSA CRISTELA 2024-12-16 03:25:49 1.57 sq m F WEIGHT - POST DAY 1 2024-12-16 03:25:49 58.2 kg F HEIGHT IN INCHES 2024-12-16 03:25:49 61 Inches F PRESCRIBED DAYS/WEEK 2024-12-16 03:25:49 3 Day/Wk F VT (KT/V TX VOL) 2024-12-16 03:25:49 36.7 L F WEIGHT (KG) 2024-12-16 03:25:49 58.5 kg F WEIGHT - PRE DAY 1 2024-12-16 03:25:49 59.3 kg F VM (KT/V MEAN VOL) 2024-12-16 03:25:49 37 F Residual kt/v 2024-12-16 03:25:49 F KT/V PRESCRIBED 2024-12-16 03:25:49 1.8 F TBW (Lieberman) 2024-12-16 03:25:49 28.82 Liters F nPCR 2024-12-16 03:25:49 0.59 G/KG/D F AMPUTATE FACTOR 2024-12-16 03:25:49 0 F Total Kt/V 2024-12-16 03:25:49 1.18 F spKt/V 2024-12-16 03:25:49 1.18 F eKt/V 2024-12-16 03:25:49 0.98 F stdKT/V Total 2024-12-16 03:25:49 N/A F Std Renal KT/V 2024-12-16 03:25:49 N/A F stdKt/V (DIAL) 2024-12-16 03:25:49 N/A F TOTAL HOURS/WEEK DIALYSIS 2024-12-16 03:25:49 5 hrs F BLOOD FLOW-QWB 2024-12-16 03:25:49 350 F CURRENT KRU 2024-12-16 03:25:49 F DIALYZER FLOW-QD 2024-12-16 03:25:49 500 mL/min F URR% 2024-12-16 03:25:49 67 % F Dialyzer VAMSHI 2024-12-16 03:25:49 1264 Calc F LENGTH OF DIALYSIS 2024-12-16 03:25:49 171 min F PATIENT AGE 2024-12-16 03:25:49 59 Years F BSA CRISTELA 2024-12-16 03:25:49 1.57 sq m F WEIGHT - PRE DAY 1 2024-12-16 03:25:49 59.3 kg F HEIGHT IN INCHES 2024-12-16 03:25:49 61 Inches F WEIGHT - POST DAY 1 2024-12-16 03:25:49 58.2 kg F WEIGHT (KG) 2024-12-16 03:25:49 58.5 kg F PRESCRIBED DAYS/WEEK 2024-12-16 03:25:49 3 Day/Wk F VM (KT/V MEAN VOL) 2024-12-16 03:25:49 37 F Residual kt/v 2024-12-16 03:25:49 F KT/V PRESCRIBED 2024-12-16 03:25:49 1.8 F VT (KT/V TX VOL) 2024-12-16 03:25:49 36.7 L F Total Kt/V 2024-12-16 03:25:49 1.18 F nPCR 2024-12-16 03:25:49 0.59 G/KG/D F TBW (Lieberman) 2024-12-16 03:25:49 28.82 Liters F AMPUTATE FACTOR 2024-12-16 03:25:49 0 F spKt/V 2024-12-16 03:25:49 1.18 F eKt/V 2024-12-16 03:25:49 0.98 F stdKt/V (DIAL) 2024-12-16 03:25:49 N/A F Std Renal KT/V 2024-12-16 03:25:49 N/A F stdKT/V Total 2024-12-16 03:25:49 N/A F TOTAL HOURS/WEEK DIALYSIS 2024-12-16 03:25:49 5 hrs F CURRENT KRU 2024-12-16 03:25:49 F BLOOD FLOW-QWB 2024-12-16 03:25:49 350 F Urea nitrogen [Mass/volume] in Serum or Plasma 2024-12-16 03:24:13 60 mg/dL F 9.0-23.0 Urea nitrogen [Mass/volume] in Serum or Plasma 2024-12-16 03:24:13 60 mg/dL F 9.0-23.0 Urea nitrogen [Mass/volume] in Serum or Plasma --post dialysis 2024-12-15 22:27:27 20 mg/dL F 9.0-23.0 Urea nitrogen [Mass/volume] in Serum or Plasma --post dialysis 2024-12-15 22:27:27 20 mg/dL F 9.0-23.0 URR% 2024-12-14 04:18:44 68 % F DIALYZER FLOW-QD 2024-12-14 04:18:44 500 mL/min F Dialyzer VAMSHI 2024-12-14 04:18:44 1264 Calc F LENGTH OF DIALYSIS 2024-12-14 04:18:44 181 min F PATIENT AGE 2024-12-14 04:18:44 59 Years F BSA CRISTELA 2024-12-14 04:18:44 1.58 sq m F WEIGHT - POST DAY 1 2024-12-14 04:18:44 58.9 kg F WEIGHT - PRE DAY 1 2024-12-14 04:18:44 59.7 kg F WEIGHT (KG) 2024-12-14 04:18:44 59.5 kg F HEIGHT IN INCHES 2024-12-14 04:18:44 61 Inches F PRESCRIBED DAYS/WEEK 2024-12-14 04:18:44 3 Day/Wk F VM (KT/V MEAN VOL) 2024-12-14 04:18:44 37.1 F VT (KT/V TX VOL) 2024-12-14 04:18:44 37.5 L F Residual kt/v 2024-12-14 04:18:44 F KT/V PRESCRIBED 2024-12-14 04:18:44 1.88 F Total Kt/V 2024-12-14 04:18:44 1.23 F nPCR 2024-12-14 04:18:44 0.59 G/KG/D F AMPUTATE FACTOR 2024-12-14 04:18:44 0 F TBW (Lieberman) 2024-12-14 04:18:44 28.99 Liters F spKt/V 2024-12-14 04:18:44 1.23 F eKt/V 2024-12-14 04:18:44 1.03 F stdKt/V (DIAL) 2024-12-14 04:18:44 N/A F Std Renal KT/V 2024-12-14 04:18:44 N/A F stdKT/V Total 2024-12-14 04:18:44 N/A F TOTAL HOURS/WEEK DIALYSIS 2024-12-14 04:18:44 8 hrs F BLOOD FLOW-QWB 2024-12-14 04:18:44 350 F CURRENT KRU 2024-12-14 04:18:44 F HEIGHT IN INCHES 2024-12-14 04:18:44 61 Inches F nPCR 2024-12-14 04:18:44 0.59 G/KG/D F Residual kt/v 2024-12-14 04:18:44 F WEIGHT (KG) 2024-12-14 04:18:44 59.5 kg F VM (KT/V MEAN VOL) 2024-12-14 04:18:44 37.1 F KT/V PRESCRIBED 2024-12-14 04:18:44 1.88 F AMPUTATE FACTOR 2024-12-14 04:18:44 0 F spKt/V 2024-12-14 04:18:44 1.23 F eKt/V 2024-12-14 04:18:44 1.03 F WEIGHT - PRE DAY 1 2024-12-14 04:18:44 59.7 kg F VT (KT/V TX VOL) 2024-12-14 04:18:44 37.5 L F PRESCRIBED DAYS/WEEK 2024-12-14 04:18:44 3 Day/Wk F BSA CRISTELA 2024-12-14 04:18:44 1.58 sq m F DIALYZER FLOW-QD 2024-12-14 04:18:44 500 mL/min F URR% 2024-12-14 04:18:44 68 % F Dialyzer VAMSHI 2024-12-14 04:18:44 1264 Calc F CURRENT KRU 2024-12-14 04:18:44 F TBW ([facility]berman) 2024-12-14 04:18:44 28.99 Liters F WEIGHT - POST DAY 1 2024-12-14 04:18:44 58.9 kg F Std Renal KT/V 2024-12-14 04:18:44 N/A F BLOOD FLOW-QWB 2024-12-14 04:18:44 350 F stdKT/V Total 2024-12-14 04:18:44 N/A F PATIENT AGE 2024-12-14 04:18:44 59 Years F TOTAL HOURS/WEEK DIALYSIS 2024-12-14 04:18:44 8 hrs F Total Kt/V 2024-12-14 04:18:44 1.23 F stdKt/V (DIAL) 2024-12-14 04:18:44 N/A F LENGTH OF DIALYSIS 2024-12-14 04:18:44 181 min F Urea nitrogen [Mass/volume] in Serum or Plasma 2024-12-14 04:17:19 37 mg/dL F 9.0-23.0 Urea nitrogen [Mass/volume] in Serum or Plasma 2024-12-14 04:17:19 37 mg/dL F 9.0-23.0 Urea nitrogen [Mass/volume] in Serum or Plasma --post dialysis 2024-12-13 17:15:14 12 mg/dL F 9.0-23.0 Urea nitrogen [Mass/volume] in Serum or Plasma --post dialysis 2024-12-13 17:15:14 12 mg/dL F 9.0-23.0 URR% 2024-12-08 14:06:46 63 % F Dialyzer VAMSHI 2024-12-08 14:06:46 1264 Calc F DIALYZER FLOW-QD 2024-12-08 14:06:46 500 mL/min F LENGTH OF DIALYSIS 2024-12-08 14:06:46 175 min F PATIENT AGE 2024-12-08 14:06:46 59 Years F BSA CRISTELA 2024-12-08 14:06:46 1.58 sq m F WEIGHT - POST DAY 1 2024-12-08 14:06:46 59.3 kg F HEIGHT IN INCHES 2024-12-08 14:06:46 61 Inches F WEIGHT - PRE DAY 1 2024-12-08 14:06:46 61.3 kg F VT (KT/V TX VOL) 2024-12-08 14:06:46 39.5 L F Residual kt/v 2024-12-08 14:06:46 F WEIGHT (KG) 2024-12-08 14:06:46 59.5 kg F PRESCRIBED DAYS/WEEK 2024-12-08 14:06:46 3 Day/Wk F VM (KT/V MEAN VOL) 2024-12-08 14:06:46 37 F KT/V PRESCRIBED 2024-12-08 14:06:46 1.82 F Total Kt/V 2024-12-08 14:06:46 1.13 F AMPUTATE FACTOR 2024-12-08 14:06:46 0 F nPCR 2024-12-08 14:06:46 0.66 G/KG/D F TBW (Lieberman) 2024-12-08 14:06:46 29.09 Liters F spKt/V 2024-12-08 14:06:46 1.13 F eKt/V 2024-12-08 14:06:46 0.94 F stdKt/V (DIAL) 2024-12-08 14:06:46 N/A F Std Renal KT/V 2024-12-08 14:06:46 N/A F stdKT/V Total 2024-12-08 14:06:46 N/A F TOTAL HOURS/WEEK DIALYSIS 2024-12-08 14:06:46 5 hrs F BLOOD FLOW-QWB 2024-12-08 14:06:46 350 F CURRENT KRU 2024-12-08 14:06:46 F LENGTH OF DIALYSIS 2024-12-08 14:06:46 175 min F KT/V PRESCRIBED 2024-12-08 14:06:46 1.82 F BLOOD FLOW-QWB 2024-12-08 14:06:46 350 F spKt/V 2024-12-08 14:06:46 1.13 F VM (KT/V MEAN VOL) 2024-12-08 14:06:46 37 F URR% 2024-12-08 14:06:46 63 % F WEIGHT (KG) 2024-12-08 14:06:46 59.5 kg F DIALYZER FLOW-QD 2024-12-08 14:06:46 500 mL/min F BSA CRISTELA 2024-12-08 14:06:46 1.58 sq m F HEIGHT IN INCHES 2024-12-08 14:06:46 61 Inches F stdKT/V Total 2024-12-08 14:06:46 N/A F PATIENT AGE 2024-12-08 14:06:46 59 Years F eKt/V 2024-12-08 14:06:46 0.94 F Std Renal KT/V 2024-12-08 14:06:46 N/A F TOTAL HOURS/WEEK DIALYSIS 2024-12-08 14:06:46 5 hrs F WEIGHT - POST DAY 1 2024-12-08 14:06:46 59.3 kg F TBW (Lieberman) 2024-12-08 14:06:46 29.09 Liters F Dialyzer VAMSHI 2024-12-08 14:06:46 1264 Calc F WEIGHT - PRE DAY 1 2024-12-08 14:06:46 61.3 kg F VT (KT/V TX VOL) 2024-12-08 14:06:46 39.5 L F CURRENT KRU 2024-12-08 14:06:46 F nPCR 2024-12-08 14:06:46 0.66 G/KG/D F Total Kt/V 2024-12-08 14:06:46 1.13 F AMPUTATE FACTOR 2024-12-08 14:06:46 0 F PRESCRIBED DAYS/WEEK 2024-12-08 14:06:46 3 Day/Wk F Residual kt/v 2024-12-08 14:06:46 F stdKt/V (DIAL) 2024-12-08 14:06:46 N/A F Urea nitrogen [Mass/volume] in Serum or Plasma 2024-12-08 14:05:12 46 mg/dL F 9.0-23.0 Urea nitrogen [Mass/volume] in Serum or Plasma 2024-12-08 14:05:12 46 mg/dL F 9.0-23.0 Urea nitrogen [Mass/volume] in Serum or Plasma --post dialysis 2024-12-08 13:43:39 17 mg/dL F 9.0-23.0 Urea nitrogen [Mass/volume] in Serum or Plasma --post dialysis 2024-12-08 13:43:39 17 mg/dL F 9.0-23.0 URR% 2024-11-29 00:15:40 66 % F DIALYZER FLOW-QD 2024-11-29 00:15:40 500 mL/min F Dialyzer VAMSHI 2024-11-29 00:15:40 1264 Calc F LENGTH OF DIALYSIS 2024-11-29 00:15:40 182 min F BSA CRISTELA 2024-11-29 00:15:40 1.58 sq m F PATIENT AGE 2024-11-29 00:15:40 59 Years F WEIGHT - POST DAY 1 2024-11-29 00:15:40 59.3 kg F WEIGHT - PRE DAY 1 2024-11-29 00:15:40 59.3 kg F HEIGHT IN INCHES 2024-11-29 00:15:40 61 Inches F WEIGHT (KG) 2024-11-29 00:15:40 59.5 kg F PRESCRIBED DAYS/WEEK 2024-11-29 00:15:40 3 Day/Wk F VT (KT/V TX VOL) 2024-11-29 00:15:40 39 L F VM (KT/V MEAN VOL) 2024-11-29 00:15:40 36.1 F Residual kt/v 2024-11-29 00:15:40 F KT/V PRESCRIBED 2024-11-29 00:15:40 1.9 F Total Kt/V 2024-11-29 00:15:40 1.13 F nPCR 2024-11-29 00:15:40 0.64 G/KG/D F AMPUTATE FACTOR 2024-11-29 00:15:40 0 F TBW ([facility]berman) 2024-11-29 00:15:40 29.09 Liters F spKt/V 2024-11-29 00:15:40 1.13 F eKt/V 2024-11-29 00:15:40 0.95 F stdKt/V (DIAL) 2024-11-29 00:15:40 N/A F Std Renal KT/V 2024-11-29 00:15:40 N/A F stdKT/V Total 2024-11-29 00:15:40 N/A F TOTAL HOURS/WEEK DIALYSIS 2024-11-29 00:15:40 5 hrs F BLOOD FLOW-QWB 2024-11-29 00:15:40 319 F CURRENT KRU 2024-11-29 00:15:40 F LENGTH OF DIALYSIS 2024-11-29 00:15:40 182 min F HEIGHT IN INCHES 2024-11-29 00:15:40 61 Inches F stdKT/V Total 2024-11-29 00:15:40 N/A F spKt/V 2024-11-29 00:15:40 1.13 F Std Renal KT/V 2024-11-29 00:15:40 N/A F URR% 2024-11-29 00:15:40 66 % F BLOOD FLOW-QWB 2024-11-29 00:15:40 319 F WEIGHT - POST DAY 1 2024-11-29 00:15:40 59.3 kg F Dialyzer VAMSHI 2024-11-29 00:15:40 1264 Calc F CURRENT KRU 2024-11-29 00:15:40 F PATIENT AGE 2024-11-29 00:15:40 59 Years F WEIGHT (KG) 2024-11-29 00:15:40 59.5 kg F nPCR 2024-11-29 00:15:40 0.64 G/KG/D F DIALYZER FLOW-QD 2024-11-29 00:15:40 500 mL/min F eKt/V 2024-11-29 00:15:40 0.95 F AMPUTATE FACTOR 2024-11-29 00:15:40 0 F Residual kt/v 2024-11-29 00:15:40 F WEIGHT - PRE DAY 1 2024-11-29 00:15:40 59.3 kg F Total Kt/V 2024-11-29 00:15:40 1.13 F TBW (Lieberman) 2024-11-29 00:15:40 29.09 Liters F PRESCRIBED DAYS/WEEK 2024-11-29 00:15:40 3 Day/Wk F stdKt/V (DIAL) 2024-11-29 00:15:40 N/A F BSA CRISTELA 2024-11-29 00:15:40 1.58 sq m F KT/V PRESCRIBED 2024-11-29 00:15:40 1.9 F VT (KT/V TX VOL) 2024-11-29 00:15:40 39 L F VM (KT/V MEAN VOL) 2024-11-29 00:15:40 36.1 F TOTAL HOURS/WEEK DIALYSIS 2024-11-29 00:15:40 5 hrs F Urea nitrogen [Mass/volume] in Serum or Plasma 2024-11-29 00:14:14 62 mg/dL F 9.0-23.0 Creatinine [Mass/volume] in Serum or Plasma 2024-11-29 00:14:14 8.11 mg/dL F 0.55-1.02 Creatinine [Mass/volume] in Serum or Plasma 2024-11-29 00:14:14 8.11 mg/dL F 0.55-1.02 Urea nitrogen [Mass/volume] in Serum or Plasma 2024-11-29 00:14:14 62 mg/dL F 9.0-23.0 Urea nitrogen [Mass/volume] in Serum or Plasma --post dialysis 2024-11-28 14:59:16 21 mg/dL F 9.0-23.0 Urea nitrogen [Mass/volume] in Serum or Plasma --post dialysis 2024-11-28 14:59:16 21 mg/dL F 9.0-23.0 URR% 2024-11-17 22:40:43 66 % F DIALYZER FLOW-QD 2024-11-17 22:40:43 500 mL/min F Dialyzer VAMSHI 2024-11-17 22:40:43 1264 Calc F LENGTH OF DIALYSIS 2024-11-17 22:40:43 180 min F PATIENT AGE 2024-11-17 22:40:43 59 Years F BSA CRISTELA 2024-11-17 22:40:43 1.58 sq m F WEIGHT - POST DAY 1 2024-11-17 22:40:43 59.3 kg F WEIGHT - PRE DAY 1 2024-11-17 22:40:43 62 kg F HEIGHT IN INCHES 2024-11-17 22:40:43 61 Inches F WEIGHT (KG) 2024-11-17 22:40:43 59.5 kg F PRESCRIBED DAYS/WEEK 2024-11-17 22:40:43 3 Day/Wk F VM (KT/V MEAN VOL) 2024-11-17 22:40:43 35.2 F VT (KT/V TX VOL) 2024-11-17 22:40:43 35.9 L F Residual kt/v 2024-11-17 22:40:43 F Unable to calculate: Post BUN lab result is unknown KT/V PRESCRIBED 2024-11-17 22:40:43 1.87 F Total Kt/V 2024-11-17 22:40:43 1.28 F nPCR 2024-11-17 22:40:43 0.88 G/KG/D F AMPUTATE FACTOR 2024-11-17 22:40:43 0 F TBW (Lieberman) 2024-11-17 22:40:43 29.09 Liters F spKt/V 2024-11-17 22:40:43 1.28 F stdKt/V (DIAL) 2024-11-17 22:40:43 N/A F eKt/V 2024-11-17 22:40:43 1.07 F Std Renal KT/V 2024-11-17 22:40:43 N/A F stdKT/V Total 2024-11-17 22:40:43 N/A F TOTAL HOURS/WEEK DIALYSIS 2024-11-17 22:40:43 8 hrs F BLOOD FLOW-QWB 2024-11-17 22:40:43 350 F CURRENT KRU 2024-11-17 22:40:43 F Unable to calculate: Post BUN lab result is unknown Urea nitrogen [Mass/volume] in Serum or Plasma --post dialysis 2024-11-17 22:39:16 16 mg/dL F 9.0-23.0 Urea nitrogen [Mass/volume] in Serum or Plasma 2024-11-17 19:26:15 47 mg/dL F 9.0-23.0 Creatinine [Mass/volume] in Serum or Plasma 2024-10-27 12:49:20 6.83 mg/dL F 0.55-1.02 Creatinine [Mass/volume] in Serum or Plasma 2024-10-27 12:49:20 6.83 mg/dL F 0.55-1.02 URR% 2024-10-26 02:43:21 67 % F DIALYZER FLOW-QD 2024-10-26 02:43:21 500 mL/min F Dialyzer VAMSHI 2024-10-26 02:43:21 1264 Calc F LENGTH OF DIALYSIS 2024-10-26 02:43:21 177 min F PATIENT AGE 2024-10-26 02:43:21 59 Years F BSA CRISTELA 2024-10-26 02:43:21 1.61 sq m F WEIGHT - POST DAY 1 2024-10-26 02:43:21 62.4 kg F HEIGHT IN INCHES 2024-10-26 02:43:21 61 Inches F WEIGHT (KG) 2024-10-26 02:43:21 62.5 kg F WEIGHT - PRE DAY 1 2024-10-26 02:43:21 63 kg F PRESCRIBED DAYS/WEEK 2024-10-26 02:43:21 3 Day/Wk F VT (KT/V TX VOL) 2024-10-26 02:43:21 37.1 L F VM (KT/V MEAN VOL) 2024-10-26 02:43:21 34.9 F KT/V PRESCRIBED 2024-10-26 02:43:21 1.8 F Residual kt/v 2024-10-26 02:43:21 F Total Kt/V 2024-10-26 02:43:21 1.21 F AMPUTATE FACTOR 2024-10-26 02:43:21 0 F TBW ([place]berman) 2024-10-26 02:43:21 29.85 Liters F spKt/V 2024-10-26 02:43:21 1.21 F nPCR 2024-10-26 02:43:21 0.82 G/KG/D F eKt/V 2024-10-26 02:43:21 1.01 F Std Renal KT/V 2024-10-26 02:43:21 N/A F stdKT/V Total 2024-10-26 02:43:21 N/A F TOTAL HOURS/WEEK DIALYSIS 2024-10-26 02:43:21 7 hrs F stdKt/V (DIAL) 2024-10-26 02:43:21 N/A F BLOOD FLOW-QWB 2024-10-26 02:43:21 350 F CURRENT KRU 2024-10-26 02:43:21 F URR% 2024-10-26 02:43:21 67 % F DIALYZER FLOW-QD 2024-10-26 02:43:21 500 mL/min F Dialyzer VAMSHI 2024-10-26 02:43:21 1264 Calc F LENGTH OF DIALYSIS 2024-10-26 02:43:21 177 min F PATIENT AGE 2024-10-26 02:43:21 59 Years F WEIGHT - POST DAY 1 2024-10-26 02:43:21 62.4 kg F BSA CRISTELA 2024-10-26 02:43:21 1.61 sq m F WEIGHT - PRE DAY 1 2024-10-26 02:43:21 63 kg F HEIGHT IN INCHES 2024-10-26 02:43:21 61 Inches F WEIGHT (KG) 2024-10-26 02:43:21 62.5 kg F PRESCRIBED DAYS/WEEK 2024-10-26 02:43:21 3 Day/Wk F VT (KT/V TX VOL) 2024-10-26 02:43:21 37.1 L F VM (KT/V MEAN VOL) 2024-10-26 02:43:21 34.9 F Residual kt/v 2024-10-26 02:43:21 F KT/V PRESCRIBED 2024-10-26 02:43:21 1.8 F Total Kt/V 2024-10-26 02:43:21 1.21 F AMPUTATE FACTOR 2024-10-26 02:43:21 0 F nPCR 2024-10-26 02:43:21 0.82 G/KG/D F TBW (Lieberman) 2024-10-26 02:43:21 29.85 Liters F eKt/V 2024-10-26 02:43:21 1.01 F spKt/V 2024-10-26 02:43:21 1.21 F stdKt/V (DIAL) 2024-10-26 02:43:21 N/A F Std Renal KT/V 2024-10-26 02:43:21 N/A F stdKT/V Total 2024-10-26 02:43:21 N/A F TOTAL HOURS/WEEK DIALYSIS 2024-10-26 02:43:21 7 hrs F BLOOD FLOW-QWB 2024-10-26 02:43:21 350 F CURRENT KRU 2024-10-26 02:43:21 F Urea nitrogen [Mass/volume] in Serum or Plasma 2024-10-26 02:22:20 55 mg/dL F 9.0-23.0 Urea nitrogen [Mass/volume] in Serum or Plasma 2024-10-26 02:22:20 55 mg/dL F 9.0-23.0 Urea nitrogen [Mass/volume] in Serum or Plasma --post dialysis 2024-10-25 23:29:19 18 mg/dL F 9.0-23.0 Urea nitrogen [Mass/volume] in Serum or Plasma --post dialysis 2024-10-25 23:29:19 18 mg/dL F 9.0-23.0 URR% 2024-10-19 02:40:16 63 % F DIALYZER FLOW-QD 2024-10-19 02:40:16 500 mL/min F LENGTH OF DIALYSIS 2024-10-19 02:40:16 182 min F PATIENT AGE 2024-10-19 02:40:16 59 Years F Dialyzer VAMSHI 2024-10-19 02:40:16 1264 Calc F BSA CRISTELA 2024-10-19 02:40:16 1.62 sq m F WEIGHT - POST DAY 1 2024-10-19 02:40:16 63.5 kg F WEIGHT - PRE DAY 1 2024-10-19 02:40:16 65.6 kg F HEIGHT IN INCHES 2024-10-19 02:40:16 61 Inches F WEIGHT (KG) 2024-10-19 02:40:16 63.5 kg F VT (KT/V TX VOL) 2024-10-19 02:40:16 39.9 L F VM (KT/V MEAN VOL) 2024-10-19 02:40:16 34.1 F Residual kt/v 2024-10-19 02:40:16 F Unable to calculate: Post BUN lab result is unknown PRESCRIBED DAYS/WEEK 2024-10-19 02:40:16 3 Day/Wk F KT/V PRESCRIBED 2024-10-19 02:40:16 1.83 F Total Kt/V 2024-10-19 02:40:16 1.16 F AMPUTATE FACTOR 2024-10-19 02:40:16 0 F nPCR 2024-10-19 02:40:16 0.74 G/KG/D F spKt/V 2024-10-19 02:40:16 1.16 F eKt/V 2024-10-19 02:40:16 0.98 F TBW ([facility]) 2024-10-19 02:40:16 30.13 Liters F Std Renal KT/V 2024-10-19 02:40:16 N/A F stdKt/V (DIAL) 2024-10-19 02:40:16 N/A F stdKT/V Total 2024-10-19 02:40:16 N/A F TOTAL HOURS/WEEK DIALYSIS 2024-10-19 02:40:16 9 hrs F BLOOD FLOW-QWB 2024-10-19 02:40:16 350 F CURRENT KRU 2024-10-19 02:40:16 F Unable to calculate: Post BUN lab result is unknown DIALYZER FLOW-QD 2024-10-19 02:40:16 500 mL/min F URR% 2024-10-19 02:40:16 63 % F Dialyzer VAMSHI 2024-10-19 02:40:16 1264 Calc F LENGTH OF DIALYSIS 2024-10-19 02:40:16 182 min F BSA CRISTELA 2024-10-19 02:40:16 1.62 sq m F WEIGHT - PRE DAY 1 2024-10-19 02:40:16 65.6 kg F PATIENT AGE 2024-10-19 02:40:16 59 Years F WEIGHT - POST DAY 1 2024-10-19 02:40:16 63.5 kg F HEIGHT IN INCHES 2024-10-19 02:40:16 61 Inches F WEIGHT (KG) 2024-10-19 02:40:16 63.5 kg F PRESCRIBED DAYS/WEEK 2024-10-19 02:40:16 3 Day/Wk F VM (KT/V MEAN VOL) 2024-10-19 02:40:16 34.1 F VT (KT/V TX VOL) 2024-10-19 02:40:16 39.9 L F KT/V PRESCRIBED 2024-10-19 02:40:16 1.83 F Residual kt/v 2024-10-19 02:40:16 F Unable to calculate: Post BUN lab result is unknown Total Kt/V 2024-10-19 02:40:16 1.16 F nPCR 2024-10-19 02:40:16 0.74 G/KG/D F AMPUTATE FACTOR 2024-10-19 02:40:16 0 F TBW ([facility]) 2024-10-19 02:40:16 30.13 Liters F spKt/V 2024-10-19 02:40:16 1.16 F eKt/V 2024-10-19 02:40:16 0.98 F stdKt/V (DIAL) 2024-10-19 02:40:16 N/A F Std Renal KT/V 2024-10-19 02:40:16 N/A F stdKT/V Total 2024-10-19 02:40:16 N/A F TOTAL HOURS/WEEK DIALYSIS 2024-10-19 02:40:16 9 hrs F BLOOD FLOW-QWB 2024-10-19 02:40:16 350 F CURRENT KRU 2024-10-19 02:40:16 F Unable to calculate: Post BUN lab result is unknown Urea nitrogen [Mass/volume] in Serum or Plasma --post dialysis 2024-10-19 02:27:14 15 mg/dL F 9.0-23.0 Urea nitrogen [Mass/volume] in Serum or Plasma --post dialysis 2024-10-19 02:27:14 15 mg/dL F 9.0-23.0 Urea nitrogen [Mass/volume] in Serum or Plasma 2024-10-18 21:42:18 41 mg/dL F 9.0-23.0 Urea nitrogen [Mass/volume] in Serum or Plasma 2024-10-18 21:42:18 41 mg/dL F 9.0-23.0 Creatinine [Mass/volume] in Serum or Plasma 2024-09-22 18:54:16 6.96 mg/dL F 0.55-1.02 Urea nitrogen [Mass/volume] in Serum or Plasma --post dialysis eKt/V Total Kt/V WEIGHT - POST DAY 1 TBW ([facility]) spKt/V PRESCRIBED DAYS/WEEK Dialyzer VAMSHI WEIGHT - PRE DAY 1 VT (KT/V TX VOL) URR% LENGTH OF DIALYSIS TOTAL HOURS/WEEK DIALYSIS DIALYZER FLOW-QD Residual kt/v CURRENT KRU nPCR VM (KT/V MEAN VOL) Urea nitrogen [Mass/volume] in Serum or Plasma Std Renal KT/V stdKT/V Total BLOOD FLOW-QWB KT/V PRESCRIBED BSA CRISTELA stdKt/V (DIAL) Std Renal KT/V spKt/V LENGTH OF DIALYSIS CURRENT KRU nPCR WEIGHT - PRE DAY 1 Urea nitrogen [Mass/volume] in Serum or Plasma TBW ([place]) KT/V PRESCRIBED DIALYZER FLOW-QD stdKT/V Total Residual kt/v BLOOD FLOW-QWB stdKt/V (DIAL) Dialyzer VAMSHI TOTAL HOURS/WEEK DIALYSIS BSA CRISTELA WEIGHT - POST DAY 1 Total Kt/V VM (KT/V MEAN VOL) PRESCRIBED DAYS/WEEK URR% VT (KT/V TX VOL) eKt/V DIALYZER FLOW-QD Dialyzer VAMSHI LENGTH OF DIALYSIS BSA CRISTELA WEIGHT - POST DAY 1 WEIGHT - PRE DAY 1 PRESCRIBED DAYS/WEEK VT (KT/V TX VOL) VM (KT/V MEAN VOL) Residual kt/v KT/V PRESCRIBED Total Kt/V TBW ([place]) nPCR spKt/V eKt/V stdKt/V (DIAL) Std Renal KT/V stdKT/V Total CURRENT KRU BLOOD FLOW-QWB TOTAL HOURS/WEEK DIALYSIS PRESCRIBED DAYS/WEEK LENGTH OF DIALYSIS Dialyzer VAMSHI WEIGHT - PRE DAY 1 WEIGHT - POST DAY 1 TOTAL HOURS/WEEK DIALYSIS DIALYZER FLOW-QD BLOOD FLOW-QWB Residual kt/v VT (KT/V TX VOL) VM (KT/V MEAN VOL) stdKT/V Total Total Kt/V CURRENT KRU KT/V PRESCRIBED Std Renal KT/V spKt/V TBW ([place]) stdKt/V (DIAL) nPCR BSA CRISTELA eKt/V Urea nitrogen [Mass/volume] in Serum or Plasma DIALYZER FLOW-QD URR% LENGTH OF DIALYSIS Dialyzer VAMSHI PATIENT AGE WEIGHT - POST DAY 1 BSA CRISTELA WEIGHT - PRE DAY 1 HEIGHT IN INCHES PRESCRIBED DAYS/WEEK WEIGHT (KG) VM (KT/V MEAN VOL) VT (KT/V TX VOL) Residual kt/v KT/V PRESCRIBED AMPUTATE FACTOR Total Kt/V TBW ([place]) nPCR spKt/V stdKt/V (DIAL) eKt/V Std Renal KT/V TOTAL HOURS/WEEK DIALYSIS stdKT/V Total BLOOD FLOW-QWB CURRENT KRU Anemia Description Draw Date Result/Unit Status Ref Range Result Comments HCT CALC HGBX3 2025-01-09 16:21:22 see comments F 37.0-47.0 Unable to Calculate. Hemoglobin [Mass/volume] in Blood 2025-01-09 16:20:52 F RECOLLECT - OUTDATED SPECIMEN IRON SATURATION 2024-12-28 06:24:49 18 % F 16.0-46.0 TIBC 2024-12-28 06:24:49 220 ug/dL F 250.0-425.0 Iron [Mass/volume] in Serum or Plasma 2024-12-28 06:01:58 40 ug/dL F 50.0-170.0 Iron binding capacity.unsaturated [Mass/volume] in Serum or Plasma 2024-12-28 06:01:58 180 ug/dL F 80.0-375.0 Ferritin [Mass/volume] in Serum or Plasma 2024-12-27 21:53:23 840 ng/mL F 7.0-271.0 HCT CALC HGBX3 2024-12-22 22:20:22 34.8 % F 37.0-47.0 HCT CALC HGBX3 2024-12-22 22:20:22 34.8 % F 37.0-47.0 Erythrocyte distribution width [Ratio] by Automated count 2024-12-22 22:19:15 18 % F 11.0-15.0 Erythrocytes [#/volume] in Blood by Automated count 2024-12-22 22:19:15 4.52 x 10^6 cells/uL F 3.85-5.2 Hematocrit [Volume Fraction] of Blood by Automated count 2024-12-22 22:19:15 39.4 % F 37.0-47.0 Hemoglobin [Mass/volume] in Blood 2024-12-22 22:19:15 11.6 g/dL F 12.0-16.0 MCV [Entitic volume] by Automated count 2024-12-22 22:19:15 87.2 fL F 80.0-100.0 MCH [Entitic mass] by Automated count 2024-12-22 22:19:15 25.7 pg F 25.9-34.2 MCHC [Mass/volume] by Automated count 2024-12-22 22:19:15 29.4 g/dL F 29.6-35.3 Platelets [#/volume] in Blood by Automated count 2024-12-22 22:19:15 174 x 10^3 cells/uL F 140.0-450.0 Erythrocyte distribution width [Ratio] by Automated count 2024-12-22 22:19:15 18 % F 11.0-15.0 Hemoglobin [Mass/volume] in Blood 2024-12-22 22:19:15 11.6 g/dL F 12.0-16.0 Platelets [#/volume] in Blood by Automated count 2024-12-22 22:19:15 174 x 10^3 cells/uL F 140.0-450.0 MCHC [Mass/volume] by Automated count 2024-12-22 22:19:15 29.4 g/dL F 29.6-35.3 MCH [Entitic mass] by Automated count 2024-12-22 22:19:15 25.7 pg F 25.9-34.2 Hematocrit [Volume Fraction] of Blood by Automated count 2024-12-22 22:19:15 39.4 % F 37.0-47.0 Erythrocytes [#/volume] in Blood by Automated count 2024-12-22 22:19:15 4.52 x 10^6 cells/uL F 3.85-5.2 MCV [Entitic volume] by Automated count 2024-12-22 22:19:15 87.2 fL F 80.0-100.0 Ferritin [Mass/volume] in Serum or Plasma 2024-12-08 14:48:10 894 ng/mL F 7.0-271.0 Ferritin [Mass/volume] in Serum or Plasma 2024-12-08 14:48:10 894 ng/mL F 7.0-271.0 HCT CALC HGBX3 2024-12-08 13:51:45 32.7 % F 37.0-47.0 HCT CALC HGBX3 2024-12-08 13:51:45 32.7 % F 37.0-47.0 Hemoglobin [Mass/volume] in Blood 2024-12-08 13:51:10 10.9 g/dL F 12.0-16.0 Hemoglobin [Mass/volume] in Blood 2024-12-08 13:51:10 10.9 g/dL F 12.0-16.0 Ferritin [Mass/volume] in Serum or Plasma 2024-12-01 14:25:12 570 ng/mL F 10.0-291.0 Ferritin [Mass/volume] in Serum or Plasma 2024-12-01 14:25:12 570 ng/mL F 10.0-291.0 HCT CALC HGBX3 2024-12-01 14:10:44 32.7 % F 37.0-47.0 HCT CALC HGBX3 2024-12-01 14:10:44 32.7 % F 37.0-47.0 Erythrocyte distribution width [Ratio] by Automated count 2024-12-01 14:10:13 17.6 % F 11.0-15.0 Erythrocytes [#/volume] in Blood by Automated count 2024-12-01 14:10:13 4.31 x 10^6 cells/uL F 3.85-5.2 Hematocrit [Volume Fraction] of Blood by Automated count 2024-12-01 14:10:13 36.7 % F 37.0-47.0 Hemoglobin [Mass/volume] in Blood 2024-12-01 14:10:13 10.9 g/dL F 12.0-16.0 MCV [Entitic volume] by Automated count 2024-12-01 14:10:13 85.2 fL F 80.0-100.0 MCH [Entitic mass] by Automated count 2024-12-01 14:10:13 25.4 pg F 25.9-34.2 MCHC [Mass/volume] by Automated count 2024-12-01 14:10:13 29.8 g/dL F 29.6-35.3 Platelets [#/volume] in Blood by Automated count 2024-12-01 14:10:13 280 x 10^3 cells/uL F 140.0-450.0 Erythrocyte distribution width [Ratio] by Automated count 2024-12-01 14:10:13 17.6 % F 11.0-15.0 Hemoglobin [Mass/volume] in Blood 2024-12-01 14:10:13 10.9 g/dL F 12.0-16.0 Platelets [#/volume] in Blood by Automated count 2024-12-01 14:10:13 280 x 10^3 cells/uL F 140.0-450.0 MCH [Entitic mass] by Automated count 2024-12-01 14:10:13 25.4 pg F 25.9-34.2 MCHC [Mass/volume] by Automated count 2024-12-01 14:10:13 29.8 g/dL F 29.6-35.3 Erythrocytes [#/volume] in Blood by Automated count 2024-12-01 14:10:13 4.31 x 10^6 cells/uL F 3.85-5.2 Hematocrit [Volume Fraction] of Blood by Automated count 2024-12-01 14:10:13 36.7 % F 37.0-47.0 MCV [Entitic volume] by Automated count 2024-12-01 14:10:13 85.2 fL F 80.0-100.0 IRON SATURATION 2024-11-29 07:09:08 11 % F 16.0-46.0 TIBC 2024-11-29 07:09:08 198 ug/dL F 250.0-425.0 IRON SATURATION 2024-11-29 07:09:08 11 % F 16.0-46.0 TIBC 2024-11-29 07:09:08 198 ug/dL F 250.0-425.0 Iron [Mass/volume] in Serum or Plasma 2024-11-29 06:47:41 21 ug/dL F 50.0-170.0 Iron binding capacity.unsaturated [Mass/volume] in Serum or Plasma 2024-11-29 06:47:41 177 ug/dL F 80.0-375.0 Iron [Mass/volume] in Serum or Plasma 2024-11-29 06:47:41 21 ug/dL F 50.0-170.0 Iron binding capacity.unsaturated [Mass/volume] in Serum or Plasma 2024-11-29 06:47:41 177 ug/dL F 80.0-375.0 HCT CALC HGBX3 2024-11-10 18:13:04 33.3 % F 37.0-47.0 Hemoglobin [Mass/volume] in Blood 2024-11-10 18:12:11 11.1 g/dL F 12.0-16.0 IRON SATURATION 2024-10-28 05:13:13 20 % F 16.0-46.0 TIBC 2024-10-28 05:13:13 201 ug/dL F 250.0-425.0 IRON SATURATION 2024-10-28 05:13:13 20 % F 16.0-46.0 TIBC 2024-10-28 05:13:13 201 ug/dL F 250.0-425.0 Iron [Mass/volume] in Serum or Plasma 2024-10-28 05:09:23 40 ug/dL F 50.0-170.0 Iron binding capacity.unsaturated [Mass/volume] in Serum or Plasma 2024-10-28 05:09:23 161 ug/dL F 80.0-375.0 Iron [Mass/volume] in Serum or Plasma 2024-10-28 05:09:23 40 ug/dL F 50.0-170.0 Iron binding capacity.unsaturated [Mass/volume] in Serum or Plasma 2024-10-28 05:09:23 161 ug/dL F 80.0-375.0 Ferritin [Mass/volume] in Serum or Plasma 2024-10-27 13:26:15 1004 ng/mL F 10.0-291.0 Ferritin [Mass/volume] in Serum or Plasma 2024-10-27 13:26:15 1004 ng/mL F 10.0-291.0 HCT CALC HGBX3 2024-10-27 13:11:08 32.4 % F 37.0-47.0 HCT CALC HGBX3 2024-10-27 13:11:08 32.4 % F 37.0-47.0 Erythrocyte distribution width [Ratio] by Automated count 2024-10-27 13:10:12 16.7 % F 11.0-15.0 Erythrocytes [#/volume] in Blood by Automated count 2024-10-27 13:10:12 4.11 x 10^6 cells/uL F 3.85-5.2 Hematocrit [Volume Fraction] of Blood by Automated count 2024-10-27 13:10:12 35.1 % F 37.0-47.0 Hemoglobin [Mass/volume] in Blood 2024-10-27 13:10:12 10.8 g/dL F 12.0-16.0 MCH [Entitic mass] by Automated count 2024-10-27 13:10:12 26.3 pg F 25.9-34.2 MCV [Entitic volume] by Automated count 2024-10-27 13:10:12 85.3 fL F 80.0-100.0 Platelets [#/volume] in Blood by Automated count 2024-10-27 13:10:12 252 x 10^3 cells/uL F 140.0-450.0 MCHC [Mass/volume] by Automated count 2024-10-27 13:10:12 30.9 g/dL F 29.6-35.3 Erythrocyte distribution width [Ratio] by Automated count 2024-10-27 13:10:12 16.7 % F 11.0-15.0 Erythrocytes [#/volume] in Blood by Automated count 2024-10-27 13:10:12 4.11 x 10^6 cells/uL F 3.85-5.2 Hematocrit [Volume Fraction] of Blood by Automated count 2024-10-27 13:10:12 35.1 % F 37.0-47.0 Hemoglobin [Mass/volume] in Blood 2024-10-27 13:10:12 10.8 g/dL F 12.0-16.0 MCV [Entitic volume] by Automated count 2024-10-27 13:10:12 85.3 fL F 80.0-100.0 Platelets [#/volume] in Blood by Automated count 2024-10-27 13:10:12 252 x 10^3 cells/uL F 140.0-450.0 MCHC [Mass/volume] by Automated count 2024-10-27 13:10:12 30.9 g/dL F 29.6-35.3 MCH [Entitic mass] by Automated count 2024-10-27 13:10:12 26.3 pg F 25.9-34.2 IRON SATURATION 2024-10-26 07:01:32 9 % F 16.0-46.0 TIBC 2024-10-26 07:01:32 203 ug/dL F 250.0-425.0 IRON SATURATION 2024-10-26 07:01:32 9 % F 16.0-46.0 TIBC 2024-10-26 07:01:32 203 ug/dL F 250.0-425.0 Iron [Mass/volume] in Serum or Plasma 2024-10-26 06:44:13 19 ug/dL F 50.0-170.0 Iron binding capacity.unsaturated [Mass/volume] in Serum or Plasma 2024-10-26 06:44:13 184 ug/dL F 80.0-375.0 Iron [Mass/volume] in Serum or Plasma 2024-10-26 06:44:13 19 ug/dL F 50.0-170.0 Iron binding capacity.unsaturated [Mass/volume] in Serum or Plasma 2024-10-26 06:44:13 184 ug/dL F 80.0-375.0 Ferritin [Mass/volume] in Serum or Plasma 2024-10-26 06:14:15 900 ng/mL F 10.0-291.0 HCT CALC HGBX3 2024-10-06 15:26:02 29.7 % F 37.0-47.0 Hemoglobin [Mass/volume] in Blood 2024-10-06 15:25:07 9.9 g/dL F 12.0-16.0 IRON SATURATION 2024-09-23 00:36:15 11 % F 16.0-46.0 TIBC 2024-09-23 00:36:15 189 ug/dL F 250.0-425.0 Iron [Mass/volume] in Serum or Plasma 2024-09-23 00:28:52 20 ug/dL F 50.0-170.0 Iron binding capacity.unsaturated [Mass/volume] in Serum or Plasma 2024-09-23 00:28:52 169 ug/dL F 80.0-375.0 HCT CALC HGBX3 2024-09-22 20:59:44 29.7 % F 37.0-47.0 Erythrocyte distribution width [Ratio] by Automated count 2024-09-22 20:59:07 17.3 % F 11.0-15.0 Erythrocytes [#/volume] in Blood by Automated count 2024-09-22 20:59:07 3.62 x 10^6 cells/uL F 3.85-5.2 Hematocrit [Volume Fraction] of Blood by Automated count 2024-09-22 20:59:07 32.4 % F 37.0-47.0 Hemoglobin [Mass/volume] in Blood 2024-09-22 20:59:07 9.9 g/dL F 12.0-16.0 MCH [Entitic mass] by Automated count 2024-09-22 20:59:07 27.4 pg F 25.9-34.2 MCV [Entitic volume] by Automated count 2024-09-22 20:59:07 89.5 fL F 80.0-100.0 Platelets [#/volume] in Blood by Automated count 2024-09-22 20:59:07 246 x 10^3 cells/uL F 140.0-450.0 MCHC [Mass/volume] by Automated count 2024-09-22 20:59:07 30.7 g/dL F 29.6-35.3 Ferritin [Mass/volume] in Serum or Plasma 2024-09-22 20:04:15 1367 ng/mL F 10.0-291.0 Comorbidities Description Draw Date Result/Unit Status Ref Range Result Comments Hemoglobin A1c/Hemoglobin.total in Blood 2024-12-01 14:35:12 4.9 %A1c F 0.0-5.6 Hemoglobin A1c/Hemoglobin.total in Blood 2024-12-01 14:35:12 4.9 %A1c F 0.0-5.6 Hemoglobin A1c/Hemoglobin.total in Blood 2024-09-22 22:51:14 5.9 %A1c F 0.0-5.6 FluidBP Description Draw Date Result/Unit Status Ref Range Result Comments Sodium [Moles/volume] in Serum or Plasma 2024-12-23 06:10:41 142 mEq/L F 136.0-145.0 Sodium [Moles/volume] in Serum or Plasma 2024-12-23 06:10:41 142 mEq/L F 136.0-145.0 Sodium [Moles/volume] in Serum or Plasma 2024-11-29 06:47:41 144 mEq/L F 136.0-145.0 Sodium [Moles/volume] in Serum or Plasma 2024-11-29 06:47:41 144 mEq/L F 136.0-145.0 Sodium [Moles/volume] in Serum or Plasma 2024-10-28 05:09:24 143 mEq/L F 136.0-145.0 Sodium [Moles/volume] in Serum or Plasma 2024-10-28 05:09:24 143 mEq/L F 136.0-145.0 Sodium [Moles/volume] in Serum or Plasma 2024-09-23 00:28:52 146 mEq/L F 136.0-145.0 General Description Draw Date Result/Unit Status Ref Range Result Comments Chloride [Moles/volume] in Serum or Plasma 2024-12-23 06:10:41 102 mEq/L F 98.0-107.0 Chloride [Moles/volume] in Serum or Plasma 2024-12-23 06:10:41 102 mEq/L F 98.0-107.0 Alanine aminotransferase [Enzymatic activity/volume] in Serum or Plasma 2024-12-22 22:54:22 19 U/L F 10.0-49.0 Aspartate aminotransferase [Enzymatic activity/volume] in Serum or Plasma 2024-12-22 22:54:22 18 U/L F 0.0-33.0 Aspartate aminotransferase [Enzymatic activity/volume] in Serum or Plasma 2024-12-22 22:54:22 18 U/L F 0.0-33.0 Alanine aminotransferase [Enzymatic activity/volume] in Serum or Plasma 2024-12-22 22:54:22 19 U/L F 10.0-49.0 Chloride [Moles/volume] in Serum or Plasma 2024-11-29 06:47:41 106 mEq/L F 98.0-107.0 Chloride [Moles/volume] in Serum or Plasma 2024-11-29 06:47:41 106 mEq/L F 98.0-107.0 Alanine aminotransferase [Enzymatic activity/volume] in Serum or Plasma 2024-11-29 00:14:14 31 U/L F 10.0-49.0 Aspartate aminotransferase [Enzymatic activity/volume] in Serum or Plasma 2024-11-29 00:14:14 43 U/L F 0.0-33.0 Aspartate aminotransferase [Enzymatic activity/volume] in Serum or Plasma 2024-11-29 00:14:14 43 U/L F 0.0-33.0 Alanine aminotransferase [Enzymatic activity/volume] in Serum or Plasma 2024-11-29 00:14:14 31 U/L F 10.0-49.0 Chloride [Moles/volume] in Serum or Plasma 2024-10-28 05:09:23 103 mEq/L F 98.0-107.0 Chloride [Moles/volume] in Serum or Plasma 2024-10-28 05:09:23 103 mEq/L F 98.0-107.0 Alanine aminotransferase [Enzymatic activity/volume] in Serum or Plasma 2024-10-27 12:49:20 8 U/L F 10.0-49.0 Aspartate aminotransferase [Enzymatic activity/volume] in Serum or Plasma 2024-10-27 12:49:20 14 U/L F 0.0-33.0 Alanine aminotransferase [Enzymatic activity/volume] in Serum or Plasma 2024-10-27 12:49:20 8 U/L F 10.0-49.0 Aspartate aminotransferase [Enzymatic activity/volume] in Serum or Plasma 2024-10-27 12:49:20 14 U/L F 0.0-33.0 Chloride [Moles/volume] in Serum or Plasma 2024-09-23 00:28:52 107 mEq/L F 98.0-107.0 Aluminum [Mass/volume] in Serum or Plasma 2024-09-22 19:49:57 10 ug/L F 0.0-9.0 Alanine aminotransferase [Enzymatic activity/volume] in Serum or Plasma 2024-09-22 18:54:16 27 U/L F 10.0-49.0 Aspartate aminotransferase [Enzymatic activity/volume] in Serum or Plasma 2024-09-22 18:54:16 29 U/L F 0.0-33.0 InfectionVaccination Description Draw Date Result/Unit Status Ref Range Result Comments Basophils/100 leukocytes in Blood by Automated count 2024-12-22 22:19:15 0.6 % F Lymphocytes/100 leukocytes in Blood by Automated count 2024-12-22 22:19:15 32.9 % F Neutrophils/100 leukocytes in Blood by Automated count 2024-12-22 22:19:15 53.4 % F Monocytes/100 leukocytes in Blood by Automated count 2024-12-22 22:19:15 7.3 % F Eosinophils/100 leukocytes in Blood by Automated count 2024-12-22 22:19:15 5.8 % F Leukocytes [#/volume] in Blood by Automated count 2024-12-22 22:19:15 5.3 x 10^3 cells/uL F 4.0-11.0 Neutrophils [#/volume] in Blood by Automated count 2024-12-22 22:19:15 2830 Cells/uL F 2000.0-8800.0 Lymphocytes [#/volume] in Blood by Automated count 2024-12-22 22:19:15 1744 Cells/uL F 620.0-3660.0 Monocytes [#/volume] in Blood by Automated count 2024-12-22 22:19:15 387 Cells/uL F 0.0-1100.0 Eosinophils [#/volume] in Blood by Automated count 2024-12-22 22:19:15 307 Cells/uL F 0.0-700.0 Basophils [#/volume] in Blood by Automated count 2024-12-22 22:19:15 32 Cells/uL F 0.0-400.0 Basophils/100 leukocytes in Blood by Automated count 2024-12-22 22:19:15 0.6 % F Neutrophils/100 leukocytes in Blood by Automated count 2024-12-22 22:19:15 53.4 % F Eosinophils/100 leukocytes in Blood by Automated count 2024-12-22 22:19:15 5.8 % F Monocytes/100 leukocytes in Blood by Automated count 2024-12-22 22:19:15 7.3 % F Lymphocytes/100 leukocytes in Blood by Automated count 2024-12-22 22:19:15 32.9 % F Monocytes [#/volume] in Blood by Automated count 2024-12-22 22:19:15 387 Cells/uL F 0.0-1100.0 Eosinophils [#/volume] in Blood by Automated count 2024-12-22 22:19:15 307 Cells/uL F 0.0-700.0 Basophils [#/volume] in Blood by Automated count 2024-12-22 22:19:15 32 Cells/uL F 0.0-400.0 Neutrophils [#/volume] in Blood by Automated count 2024-12-22 22:19:15 2830 Cells/uL F 2000.0-8800.0 Leukocytes [#/volume] in Blood by Automated count 2024-12-22 22:19:15 5.3 x 10^3 cells/uL F 4.0-11.0 Lymphocytes [#/volume] in Blood by Automated count 2024-12-22 22:19:15 1744 Cells/uL F 620.0-3660.0 Neutrophils/100 leukocytes in Blood by Automated count 2024-12-01 14:10:13 59.9 % F Lymphocytes/100 leukocytes in Blood by Automated count 2024-12-01 14:10:13 26 % F Basophils/100 leukocytes in Blood by Automated count 2024-12-01 14:10:13 0.2 % F Monocytes/100 leukocytes in Blood by Automated count 2024-12-01 14:10:13 6.6 % F Eosinophils/100 leukocytes in Blood by Automated count 2024-12-01 14:10:13 7.3 % F Leukocytes [#/volume] in Blood by Automated count 2024-12-01 14:10:13 7.4 x 10^3 cells/uL F 4.0-11.0 Neutrophils [#/volume] in Blood by Automated count 2024-12-01 14:10:13 4451 Cells/uL F 2000.0-8800.0 Lymphocytes [#/volume] in Blood by Automated count 2024-12-01 14:10:13 1932 Cells/uL F 620.0-3660.0 Monocytes [#/volume] in Blood by Automated count 2024-12-01 14:10:13 490 Cells/uL F 0.0-1100.0 Basophils [#/volume] in Blood by Automated count 2024-12-01 14:10:13 15 Cells/uL F 0.0-400.0 Eosinophils [#/volume] in Blood by Automated count 2024-12-01 14:10:13 542 Cells/uL F 0.0-700.0 Neutrophils/100 leukocytes in Blood by Automated count 2024-12-01 14:10:13 59.9 % F Monocytes/100 leukocytes in Blood by Automated count 2024-12-01 14:10:13 6.6 % F Eosinophils/100 leukocytes in Blood by Automated count 2024-12-01 14:10:13 7.3 % F Basophils/100 leukocytes in Blood by Automated count 2024-12-01 14:10:13 0.2 % F Lymphocytes/100 leukocytes in Blood by Automated count 2024-12-01 14:10:13 26 % F Monocytes [#/volume] in Blood by Automated count 2024-12-01 14:10:13 490 Cells/uL F 0.0-1100.0 Basophils [#/volume] in Blood by Automated count 2024-12-01 14:10:13 15 Cells/uL F 0.0-400.0 Eosinophils [#/volume] in Blood by Automated count 2024-12-01 14:10:13 542 Cells/uL F 0.0-700.0 Neutrophils [#/volume] in Blood by Automated count 2024-12-01 14:10:13 4451 Cells/uL F 2000.0-8800.0 Leukocytes [#/volume] in Blood by Automated count 2024-12-01 14:10:13 7.4 x 10^3 cells/uL F 4.0-11.0 Lymphocytes [#/volume] in Blood by Automated count 2024-12-01 14:10:13 1932 Cells/uL F 620.0-3660.0 Basophils/100 leukocytes in Blood by Automated count 2024-10-27 13:10:12 0.3 % F Lymphocytes/100 leukocytes in Blood by Automated count 2024-10-27 13:10:12 29 % F Neutrophils/100 leukocytes in Blood by Automated count 2024-10-27 13:10:12 55.5 % F Monocytes/100 leukocytes in Blood by Automated count 2024-10-27 13:10:12 8.2 % F Eosinophils/100 leukocytes in Blood by Automated count 2024-10-27 13:10:12 7 % F Leukocytes [#/volume] in Blood by Automated count 2024-10-27 13:10:12 7.4 x 10^3 cells/uL F 4.0-11.0 Lymphocytes [#/volume] in Blood by Automated count 2024-10-27 13:10:12 2132 Cells/uL F 620.0-3660.0 Neutrophils [#/volume] in Blood by Automated count 2024-10-27 13:10:12 4079 Cells/uL F 2000.0-8800.0 Monocytes [#/volume] in Blood by Automated count 2024-10-27 13:10:12 603 Cells/uL F 0.0-1100.0 Basophils [#/volume] in Blood by Automated count 2024-10-27 13:10:12 22 Cells/uL F 0.0-400.0 Eosinophils [#/volume] in Blood by Automated count 2024-10-27 13:10:12 514 Cells/uL F 0.0-700.0 Basophils/100 leukocytes in Blood by Automated count 2024-10-27 13:10:12 0.3 % F Lymphocytes/100 leukocytes in Blood by Automated count 2024-10-27 13:10:12 29 % F Neutrophils/100 leukocytes in Blood by Automated count 2024-10-27 13:10:12 55.5 % F Monocytes/100 leukocytes in Blood by Automated count 2024-10-27 13:10:12 8.2 % F Eosinophils/100 leukocytes in Blood by Automated count 2024-10-27 13:10:12 7 % F Leukocytes [#/volume] in Blood by Automated count 2024-10-27 13:10:12 7.4 x 10^3 cells/uL F 4.0-11.0 Neutrophils [#/volume] in Blood by Automated count 2024-10-27 13:10:12 4079 Cells/uL F 2000.0-8800.0 Lymphocytes [#/volume] in Blood by Automated count 2024-10-27 13:10:12 2132 Cells/uL F 620.0-3660.0 Monocytes [#/volume] in Blood by Automated count 2024-10-27 13:10:12 603 Cells/uL F 0.0-1100.0 Eosinophils [#/volume] in Blood by Automated count 2024-10-27 13:10:12 514 Cells/uL F 0.0-700.0 Basophils [#/volume] in Blood by Automated count 2024-10-27 13:10:12 22 Cells/uL F 0.0-400.0 Basophils/100 leukocytes in Blood by Automated count 2024-09-22 20:59:07 0.4 % F Neutrophils/100 leukocytes in Blood by Automated count 2024-09-22 20:59:07 70.3 % F Lymphocytes/100 leukocytes in Blood by Automated count 2024-09-22 20:59:07 19.9 % F Monocytes/100 leukocytes in Blood by Automated count 2024-09-22 20:59:07 5.6 % F Eosinophils/100 leukocytes in Blood by Automated count 2024-09-22 20:59:07 3.8 % F Leukocytes [#/volume] in Blood by Automated count 2024-09-22 20:59:07 9.1 x 10^3 cells/uL F 4.0-11.0 Neutrophils [#/volume] in Blood by Automated count 2024-09-22 20:59:07 6397 Cells/uL F 2000.0-8800.0 Lymphocytes [#/volume] in Blood by Automated count 2024-09-22 20:59:07 1811 Cells/uL F 620.0-3660.0 Monocytes [#/volume] in Blood by Automated count 2024-09-22 20:59:07 510 Cells/uL F 0.0-1100.0 Basophils [#/volume] in Blood by Automated count 2024-09-22 20:59:07 36 Cells/uL F 0.0-400.0 Eosinophils [#/volume] in Blood by Automated count 2024-09-22 20:59:07 346 Cells/uL F 0.0-700.0 MineralBone Disorder Description Draw Date Result/Unit Status Ref Range Result Comments CA CORRECTED 2024-12-23 06:23:42 9.2 mg/dL F CA CORRECTED 2024-12-23 06:23:42 9.2 mg/dL F CA/PHOS PRODUCT 2024-12-23 06:20:41 54.6 Calc F 21.0-53.0 CA*PO4 CORRCTD 2024-12-23 06:20:41 55.1 Calc F 21.0-53.0 CA/PHOS PRODUCT 2024-12-23 06:20:41 54.6 Calc F 21.0-53.0 CA*PO4 CORRCTD 2024-12-23 06:20:41 55.1 Calc F 21.0-53.0 Calcium [Mass/volume] in Serum or Plasma 2024-12-23 06:10:41 9.1 mg/dL F 8.7-10.4 Calcium [Mass/volume] in Serum or Plasma 2024-12-23 06:10:41 9.1 mg/dL F 8.7-10.4 Parathyrin.intact [Mass/volume] in Serum or Plasma 2024-12-23 00:30:20 157 pg/mL F 18.0-80.0 Parathyrin.intact [Mass/volume] in Serum or Plasma 2024-12-23 00:30:20 157 pg/mL F 18.0-80.0 Alkaline phosphatase [Enzymatic activity/volume] in Serum or Plasma 2024-12-22 22:54:22 86 U/L F 46.0-116.0 Phosphate [Mass/volume] in Serum or Plasma 2024-12-22 22:54:22 6 mg/dL F 2.4-5.1 Phosphate [Mass/volume] in Serum or Plasma 2024-12-22 22:54:22 6 mg/dL F 2.4-5.1 Alkaline phosphatase [Enzymatic activity/volume] in Serum or Plasma 2024-12-22 22:54:22 86 U/L F 46.0-116.0 Parathyrin.intact [Mass/volume] in Serum or Plasma 2024-12-01 14:25:12 257 pg/mL F 18.0-80.0 Parathyrin.intact [Mass/volume] in Serum or Plasma 2024-12-01 14:25:12 257 pg/mL F 18.0-80.0 CA CORRECTED 2024-11-29 07:10:37 9.2 mg/dL F CA CORRECTED 2024-11-29 07:10:37 9.2 mg/dL F CA/PHOS PRODUCT 2024-11-29 07:09:08 47.3 Calc F 21.0-53.0 CA*PO4 CORRCTD 2024-11-29 07:09:08 47.7 Calc F 21.0-53.0 CA*PO4 CORRCTD 2024-11-29 07:09:08 47.7 Calc F 21.0-53.0 CA/PHOS PRODUCT 2024-11-29 07:09:08 47.3 Calc F 21.0-53.0 Calcium [Mass/volume] in Serum or Plasma 2024-11-29 06:47:41 9.1 mg/dL F 8.7-10.4 Calcium [Mass/volume] in Serum or Plasma 2024-11-29 06:47:41 9.1 mg/dL F 8.7-10.4 Alkaline phosphatase [Enzymatic activity/volume] in Serum or Plasma 2024-11-29 00:14:14 131 U/L F 46.0-116.0 Phosphate [Mass/volume] in Serum or Plasma 2024-11-29 00:14:14 5.2 mg/dL F 2.4-5.1 Phosphate [Mass/volume] in Serum or Plasma 2024-11-29 00:14:14 5.2 mg/dL F 2.4-5.1 Alkaline phosphatase [Enzymatic activity/volume] in Serum or Plasma 2024-11-29 00:14:14 131 U/L F 46.0-116.0 CA CORRECTED 2024-10-28 05:15:22 9.3 mg/dL F CA CORRECTED 2024-10-28 05:15:22 9.3 mg/dL F CA/PHOS PRODUCT 2024-10-28 05:13:13 50.6 Calc F 21.0-53.0 CA*PO4 CORRCTD 2024-10-28 05:13:13 51 Calc F 21.0-53.0 CA/PHOS PRODUCT 2024-10-28 05:13:13 50.6 Calc F 21.0-53.0 CA*PO4 CORRCTD 2024-10-28 05:13:13 51 Calc F 21.0-53.0 Calcium [Mass/volume] in Serum or Plasma 2024-10-28 05:09:23 9.2 mg/dL F 8.7-10.4 Calcium [Mass/volume] in Serum or Plasma 2024-10-28 05:09:23 9.2 mg/dL F 8.7-10.4 Parathyrin.intact [Mass/volume] in Serum or Plasma 2024-10-27 13:26:15 192 pg/mL F 18.0-80.0 Parathyrin.intact [Mass/volume] in Serum or Plasma 2024-10-27 13:26:15 192 pg/mL F 18.0-80.0 Alkaline phosphatase [Enzymatic activity/volume] in Serum or Plasma 2024-10-27 12:49:20 114 U/L F 46.0-116.0 Phosphate [Mass/volume] in Serum or Plasma 2024-10-27 12:49:20 5.5 mg/dL F 2.4-5.1 Alkaline phosphatase [Enzymatic activity/volume] in Serum or Plasma 2024-10-27 12:49:20 114 U/L F 46.0-116.0 Phosphate [Mass/volume] in Serum or Plasma 2024-10-27 12:49:20 5.5 mg/dL F 2.4-5.1 25-Hydroxyvitamin D3+25-Hydroxyvitamin D2 [Mass/volume] in Serum or Plasma 2024-09-23 06:47:48 37.1 ng/mL F CA CORRECTED 2024-09-23 00:38:26 8.7 mg/dL F CA/PHOS PRODUCT 2024-09-23 00:36:15 45.1 Calc F 21.0-53.0 CA*PO4 CORRCTD 2024-09-23 00:36:15 46.3 Calc F 21.0-53.0 Calcium [Mass/volume] in Serum or Plasma 2024-09-23 00:28:52 8.5 mg/dL F 8.7-10.4 Parathyrin.intact [Mass/volume] in Serum or Plasma 2024-09-22 20:04:15 844 pg/mL F 18.0-80.0 Alkaline phosphatase [Enzymatic activity/volume] in Serum or Plasma 2024-09-22 18:54:16 141 U/L F 46.0-116.0 Phosphate [Mass/volume] in Serum or Plasma 2024-09-22 18:54:16 5.3 mg/dL F 2.4-5.1 Nutrition Description Draw Date Result/Unit Status Ref Range Result Comments Potassium [Moles/volume] in Serum or Plasma 2024-12-23 06:10:41 4.6 mEq/L F 3.5-5.1 Potassium [Moles/volume] in Serum or Plasma 2024-12-23 06:10:41 4.6 mEq/L F 3.5-5.1 GLOBULIN 2024-12-22 22:55:05 2.8 g/dL F 0.9-5.0 A/G RATIO 2024-12-22 22:55:05 1.4 Calc F 1.0-2.5 GLOBULIN 2024-12-22 22:55:05 2.8 g/dL F 0.9-5.0 A/G RATIO 2024-12-22 22:55:05 1.4 Calc F 1.0-2.5 Bicarbonate [Moles/volume] in Serum or Plasma 2024-12-22 22:54:22 23 mEq/L F 20.0-31.0 Albumin [Mass/volume] in Serum or Plasma by Bromocresol green (BCG) dye binding method 2024-12-22 22:54:22 3.9 g/dL F 3.2-4.8 Glucose [Mass/volume] in Serum or Plasma 2024-12-22 22:54:22 81 mg/dL F 74.0-106.0 Lactate dehydrogenase [Enzymatic activity/volume] in Serum or Plasma 2024-12-22 22:54:22 230 U/L F 120.0-246.0 Protein [Mass/volume] in Serum or Plasma 2024-12-22 22:54:22 6.7 g/dL F 5.7-8.2 Lactate dehydrogenase [Enzymatic activity/volume] in Serum or Plasma 2024-12-22 22:54:22 230 U/L F 120.0-246.0 Bicarbonate [Moles/volume] in Serum or Plasma 2024-12-22 22:54:22 23 mEq/L F 20.0-31.0 Albumin [Mass/volume] in Serum or Plasma by Bromocresol green (BCG) dye binding method 2024-12-22 22:54:22 3.9 g/dL F 3.2-4.8 Protein [Mass/volume] in Serum or Plasma 2024-12-22 22:54:22 6.7 g/dL F 5.7-8.2 Glucose [Mass/volume] in Serum or Plasma 2024-12-22 22:54:22 81 mg/dL F 74.0-106.0 Potassium [Moles/volume] in Serum or Plasma 2024-11-29 06:47:41 5 mEq/L F 3.5-5.1 Potassium [Moles/volume] in Serum or Plasma 2024-11-29 06:47:41 5 mEq/L F 3.5-5.1 GLOBULIN 2024-11-29 00:14:54 2.8 g/dL F 0.9-5.0 A/G RATIO 2024-11-29 00:14:54 1.4 Calc F 1.0-2.5 GLOBULIN 2024-11-29 00:14:54 2.8 g/dL F 0.9-5.0 A/G RATIO 2024-11-29 00:14:54 1.4 Calc F 1.0-2.5 Albumin [Mass/volume] in Serum or Plasma by Bromocresol green (BCG) dye binding method 2024-11-29 00:14:14 3.9 g/dL F 3.2-4.8 Bicarbonate [Moles/volume] in Serum or Plasma 2024-11-29 00:14:14 22 mEq/L F 20.0-31.0 Glucose [Mass/volume] in Serum or Plasma 2024-11-29 00:14:14 93 mg/dL F 74.0-106.0 Lactate dehydrogenase [Enzymatic activity/volume] in Serum or Plasma 2024-11-29 00:14:14 218 U/L F 120.0-246.0 Protein [Mass/volume] in Serum or Plasma 2024-11-29 00:14:14 6.7 g/dL F 5.7-8.2 Lactate dehydrogenase [Enzymatic activity/volume] in Serum or Plasma 2024-11-29 00:14:14 218 U/L F 120.0-246.0 Bicarbonate [Moles/volume] in Serum or Plasma 2024-11-29 00:14:14 22 mEq/L F 20.0-31.0 Albumin [Mass/volume] in Serum or Plasma by Bromocresol green (BCG) dye binding method 2024-11-29 00:14:14 3.9 g/dL F 3.2-4.8 Protein [Mass/volume] in Serum or Plasma 2024-11-29 00:14:14 6.7 g/dL F 5.7-8.2 Glucose [Mass/volume] in Serum or Plasma 2024-11-29 00:14:14 93 mg/dL F 74.0-106.0 Potassium [Moles/volume] in Serum or Plasma 2024-10-28 05:09:23 4.4 mEq/L F 3.5-5.1 Potassium [Moles/volume] in Serum or Plasma 2024-10-28 05:09:23 4.4 mEq/L F 3.5-5.1 A/G RATIO 2024-10-27 12:50:11 1.4 Calc F 1.0-2.5 GLOBULIN 2024-10-27 12:50:11 2.8 g/dL F 0.9-5.0 A/G RATIO 2024-10-27 12:50:11 1.4 Calc F 1.0-2.5 GLOBULIN 2024-10-27 12:50:11 2.8 g/dL F 0.9-5.0 Albumin [Mass/volume] in Serum or Plasma by Bromocresol green (BCG) dye binding method 2024-10-27 12:49:20 3.9 g/dL F 3.2-4.8 Bicarbonate [Moles/volume] in Serum or Plasma 2024-10-27 12:49:20 28 mEq/L F 20.0-31.0 Glucose [Mass/volume] in Serum or Plasma 2024-10-27 12:49:20 104 mg/dL F 74.0-106.0 Lactate dehydrogenase [Enzymatic activity/volume] in Serum or Plasma 2024-10-27 12:49:20 203 U/L F 120.0-246.0 Protein [Mass/volume] in Serum or Plasma 2024-10-27 12:49:20 6.7 g/dL F 5.7-8.2 Bicarbonate [Moles/volume] in Serum or Plasma 2024-10-27 12:49:20 28 mEq/L F 20.0-31.0 Albumin [Mass/volume] in Serum or Plasma by Bromocresol green (BCG) dye binding method 2024-10-27 12:49:20 3.9 g/dL F 3.2-4.8 Lactate dehydrogenase [Enzymatic activity/volume] in Serum or Plasma 2024-10-27 12:49:20 203 U/L F 120.0-246.0 Glucose [Mass/volume] in Serum or Plasma 2024-10-27 12:49:20 104 mg/dL F 74.0-106.0 Protein [Mass/volume] in Serum or Plasma 2024-10-27 12:49:20 6.7 g/dL F 5.7-8.2 Cobalamin (Vitamin B12) [Mass/volume] in Serum or Plasma 2024-09-23 06:47:48 774 pg/mL F 211.0-911.0 Potassium [Moles/volume] in Serum or Plasma 2024-09-23 00:28:52 5 mEq/L F 3.5-5.1 A/G RATIO 2024-09-22 18:54:59 1.4 Calc F 1.0-2.5 GLOBULIN 2024-09-22 18:54:59 2.6 g/dL F 0.9-5.0 LDL-CHOLESTEROL 2024-09-22 18:54:59 105 mg/dL F 0.0-99.0 VLDL-CHOL(CALC) 2024-09-22 18:54:59 22 mg/dL F 0.0-29.0 CHOL/HDL RATIO 2024-09-22 18:54:59 2.9 Calc F 3.3-5.0 Albumin [Mass/volume] in Serum or Plasma by Bromocresol green (BCG) dye binding method 2024-09-22 18:54:16 3.7 g/dL F 3.2-4.8 Cholesterol [Mass/volume] in Serum or Plasma 2024-09-22 18:54:16 193 mg/dL F 0.0-199.0 Bicarbonate [Moles/volume] in Serum or Plasma 2024-09-22 18:54:16 22 mEq/L F 20.0-31.0 Glucose [Mass/volume] in Serum or Plasma 2024-09-22 18:54:16 151 mg/dL F 74.0-106.0 Lactate dehydrogenase [Enzymatic activity/volume] in Serum or Plasma 2024-09-22 18:54:16 250 U/L F 120.0-246.0 Protein [Mass/volume] in Serum or Plasma 2024-09-22 18:54:16 109 mg/dL F 0.0-149.0 Protein [Mass/volume] in Serum or Plasma 2024-09-22 18:54:16 6.3 g/dL F 5.7-8.2 Cholesterol in HDL [Mass/volume] in Serum or Plasma 2024-09-22 18:54:16 66 mg/dL F 40.0-60.0 Encounters No encounter information to report Immunizations Ordered Immunization Name Filled Immunization Name Date Status Comments Refusal Reason TST-PPD intradermal 2024-08-15 11:42:24 Influenza, MDCK, trivalent, preservative 2024-01-27 11:00:00 TST-PPD intradermal 2023-08-12 13:22:26 TST-PPD intradermal 2022-08-13 10:55:56 Plan of Treatment Planned Activity Provider Planned Date Details Commen ts Diagnostic Test Pending [facility] 2025-01-10 06:54:38 Alanine aminotransferase [Enzymatic activity/volume] in Serum or Plasma [code = 1742-6] Future Scheduled Test [facility] 2025-02-10 05:00:00 Ferritin [Mass/volume] in Serum or Plasma [code = 2276-4] Diagnostic Test Pending [facility] 2022-04-12 06:00:00 Cobalamin (Vitamin B12) [Mass/volume] in Serum or Plasma [code = 2132-9] Diagnostic Test Pending [facility] 2022-03-23 07:32:53 Parathyrin.intact [Mass/volume] in Serum or Plasma [code = 2731-8] Diagnostic Test Pending [facility] 2022-03-22 06:00:00 Potassium [Moles/volume] in Serum or Plasma [code = 2823-3] Diagnostic Test Pending [facility] 2022-04-12 06:00:00 Hemoglobin A1c/Hemoglobin.total in Blood [code = 4548-4] Diagnostic Test Pending [facility] 2023-10-25 06:30:49 Hemoglobin [Mass/volume] in Blood [code = 718-7] Diagnostic Test Pending [facility] 2022-03-22 06:00:00 Sodium [Moles/volume] in Serum or Plasma [code = 2951-2] Diagnostic Test Pending [facility] 2022-04-12 06:00:00 Aluminum [Mass/volume] in Serum or Plasma [code = 5574-9] Diagnostic Test Pending [facility] 2022-03-22 06:00:00 Alanine aminotransferase [Enzymatic activity/volume] in Serum or Plasma [code = 1742-6] Diagnostic Test Pending [facility] 2022-03-22 06:00:00 Glucose [Mass/volume] in Serum or Plasma [code = 2345-7] Diagnostic Test Pending [facility] 2022-03-22 06:00:00 Creatinine [Mass/volume] in Serum or Plasma [code = 2160-0] Diagnostic Test Pending [facility] 2022-04-12 06:00:00 25-Hydroxyvitamin D3+25-Hydroxyvitamin D2 [Mass/volume] in Serum or Plasma [code = 44857-9] Diagnostic Test Pending [facility] 2024-12-24 06:37:11 Ferritin [Mass/volume] in Serum or Plasma [code = 2276-4] Diagnostic Test Pending [facility] 2025-01-11 10:23:09 In-Center Hemodialysis Treatment [code = DZU103] Diagnostic Test Pending [facility] 2025-01-01 10:57:53 In-Center Hemodialysis Treatment [code = WJR689] Diagnostic Test Pending [facility] 2024-12-19 14:20:32 In-Center Hemodialysis Treatment [code = HDI775] Diet Order [facility] March 22, 2022 Diet Calorie 30 kcal/kg Fluid Value 1000 mL/d Phosphorus Value 900 mg/d Potassium Value 2500 mg/d Protein Value 1.2 gm/kg Sodium Value 2000 mg/d Calculated Weight 67 kg dietary_diet_modification Carb Controlle d;
--- OUTSIDE RECORDS SUMMARY | 2025-01-12 08:50 | XMS_ITS | Clinical Summary ---
Author Organization [facility] Address [address] [place] [phone] Phone Care Team Providers Care Consulting Sales Executive Name Role Phone Daniel Marrero MD Primary Care Provider Allergies No known active allergies Medications traMADol (ULTRAM) 50 MG tablet Take 50 mg by mouth every 8 (eight) hours if needed for moderate pain Active insulin detemir (Levemir) 100 UNIT/ML injection Inject 35 Units under the skin every night Active hydroCHLOROthiazid e (HYDRODIURIL) 25 MG tablet Take 25 mg by mouth 1 (one) time each day Active simvastatin (ZOCOR) 40 MG tablet Take 80 mg by mouth every night Active amLODIPine (NORVASC) 10 MG tablet Take 10 mg by mouth 1 (one) time each day Active LISINOPRIL PO Take 50 mg by mouth 1 (one) time each day Active gabapentin (NEURONTIN) 600 MG tablet Take 600 mg by mouth 2 (two) times a day Active ergocalciferol (VITAMIN D-2) 1.25 MG (62634 UT) capsule Take 50,000 Units by mouth 1 (one) time per week Active Sodium Zirconium Cyclosilicate (Lokelma) 10 g pack Take by mouth Active hydrALAZINE (APRESOLINE) 25 MG tablet TAKE THREE TABLETS BY MOUTH THREE TIMES DAILY 270 tablet 3 3 Active Cholecalciferol 50 MCG (2000 UT) capsule Take 2,000 Units by mouth 1 (one) time each day 90 capsule 3 4 Active Active Problems Problem Noted Date Diagnosed Date Hyperphosphatemia 07/11/2021 Chronic kidney disease, stage 4 (severe) 021 Type 2 diabetes mellitus 11/20/2020 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 Hyperkalemia 08/27/2020 Essential hypertension 08/27/2020 Resolved Problems Problem Noted Date Diagnosed Date Resolved Date Edema 08/27/2020 07/03/2021 Urinary tract infectious disease 08/27/2020 11/20/2020 Anemia 08/27/2020 07/03/2021 Serum creatinine raised 08/27/202002/11 Family History Medical History Relation Comments Diabetes Mother Hypertension Mother Kidney disease Sister Relation Status Comments Mother Sister Other ESRD - Dialysis Social History Tobacco Use Types Packs/Day Years Used Date Smoking Tobacco: Every Day Smokeless Tobacco: Never Alcohol Use Standard Drinks/Week Comments Not Currently 0 (1 standard drink = 0.6 oz pur e alcohol) Comments Unknown Sex and Gender Information Value Date Recorded Sex Assigned at Not on file Legal Sex Female 9:08 AM MDT Gender Identity Not on file Sexual Orientation Not on file Last Filed Vital Signs Vital Sign Reading Time Taken Comments Blood Pressure 183/93 07/10/2021 10:15 AM CDT Pulse 87 07/10/2021 10:15 AM CDT Temperature 36.4 C (97.6 F) 07/10/2021 10:15 AM CDT Respiratory Rate - - Oxygen Saturation - - Inhaled Oxygen Concentration - - Weight 74.8 kg (165 lb) 07/10/2021 10:15 AM CDT Height 154.9 cm (5' 1) 07/10/2021 10:15 AM CDT Body Mass Index 31.18 07/10/2021 10:15 AM CDT Plan of Treatment Health Maintenance Due Date Last Done Comments Diabetic Foot Exam 06/21/1973 Ophthalmology Exam 06/21/1973 Pneumococcal PPSV23 Highest Risk Adult (1 of 3 - PCV13 ) 06/21/1982 Influenza Vaccine (#1) 2024 Insurance [facility] Care Teams Consulting Sales Executive Relationship Specialty Start Date End Date Daniel Marrero MD PCP - General 07/26/20
--- OUTSIDE RECORDS SUMMARY | 2025-01-12 08:50 | XMS_ITS ---
Author Organization [facility] Address [address] [place] [address] Care Team Providers Care High Pressure Boiler Operator Name Role Phone Chandrakant Coyle MD Primary Care Provider [phone] Transplant Episode Kidney Candidate [facility] ([place], [place]) [facility] Center waitlisted on 10/06/2022 Marked as Active on 11/16/2022 Kidney CoordinatorLeonela Nunez RN Phone: N/A Fax: N/A Email: N/A Scores Score Value Updated Exceptions/Reas ons CPRA Not available EPTS (Calc) 85 01/12/2025 [place] Organ Diagnosis Organ Primary Contributory Kidney Diabetes Mellitus - Type II Care Team Name Role Phone Fax Email Leonela Nunez RN Kidney Coordinator N/A N/A N/A Deanna Kate Deckhand N/A N/A N/A Oneal Ambrose MD Referring Physician [phone] N/A Ankita Obrien LMSW Public Information Officer [phone] N/A N/A Events Pre-Transplant Referred: 08/12/2021 Evaluation began: 11/05/2021 Committee: 10/01/2022 UNOS qualified: 07/15/2021 Center waitlisted: 10/06/2022 Dialysis History Dialysis History Start End Type Comments Center 07/15/2021 In-center Hemodialysis DA [facility] Dialysis Center Information Center Phone Fax Address [facility] [phone] [facility] [address]
--- OUTSIDE RECORDS SUMMARY | 2025-01-12 08:50 | XMS_ITS | Encounter Summary ---
Author Organization [facility] Address [address] [place] [address] Care Team Providers Care Lawn Specialist Name Role Phone Chandrakant Coyle MD Primary Care Provider [phone] Chrissie Michelle MD Unavailable Encounter Details Date Type Department Care Team (Late st Contact Info) Description 07/07/2024 Lab Requisition [facility] MAIN LAB [address] [place] [phone] Chandana Kim MD [facility] OF ABD TRANSPLANT SURGERY [place], [place] [phone] Social History Tobacco Use Types Packs/Day Years [...] on file Legal Sex Female 11:27 AM OWNER/PHOTOGRAPHER Gender Identity Not on file Sexual Orientation [...] Care Team (Late st Contact Info) Description 02/21/2025 11:00 AM OWNER/PHOTOGRAPHER Appointment [facility] VASCULAR US [address] [place] [address] Cassia Hoff MD [address] OF [facility] [place] [address] 02/21/2025 12:20 PM OWNER/PHOTOGRAPHER Appointment [facility] CAT SCAN [address] [place] [address] Cassia Hoff MD [address] DIV OF [facility] [place] [address] 02/21/2025 12:40 PM OWNER/PHOTOGRAPHER Appointment [facility] DIAGNOSTIC RAD OP [facility] [place] [address] Cassia Hoff MD [address] DIV OF [facility] [place] [address] 02/21/2025 1:00 PM OWNER/PHOTOGRAPHER Appointment [facility] LAB OP DRAW STATION [address] [place] [phone] Cassia Hoff MD [address] [facility] OF [facility] [place] [address] 02/21/2025 1:20 PM OWNER/PHOTOGRAPHER Appointment [facility] DIAGNOSTIC RAD OP [address] [place] [phone] Cassia Hoff MD [address] [place] [address] OF [facility] [place] [address] 02/21/2025 2:00 PM OWNER/PHOTOGRAPHER Appointment [facility] ECHO [address] [place] [phone] 02/28/2025 12:30 PM OWNER/PHOTOGRAPHER Clinical Support [facility] TRANSPLANT [address] [place] [phone] 04/20/2025 10:00 AM OWNER/PHOTOGRAPHER Appointment [facility] Health Vascular Services [id number] [place] [address], [facility] [address] [place] [address] [place] [id number] [place] [phone] Ilya Elizalde MD [address] [place] [address] [place] [address] [facility] [address] [place] [address] [place] [address] [phone] [place] [address] [facility] [address] [place] [phone] 05/25/2025 11:00 AM OWNER/PHOTOGRAPHER Office Visit [facility] - Endocrinology [address] [place] [address], [place] [address] Chrissie Michelle MD [address] [facility] 2L [place] [address] documented as of this encounter Procedures Procedure Name Priority Date/Time Associated Diagnosis Comments HOLD HLA SPECIMEN Routine 06/20/2024 1:0 6 PM CDT documented in this encounter Results * HOLD HLA SPECIMEN (06/20/2024 1:06 PM CDT) Hold HLA Specimen 07/07/2024 2:32 PM CDT [facility] ([facility]) Comment:The Hold HLA specime n has been received into the lab and will be held for 5 years at 4 degrees. Blood BLOOD SPECIMEN / Unknown 06/20/2024 1:06 PM CDT 07/07/2024 1:06 PM CDT Chandana Kim MD LAB - BLOOD BANK ORDERABLES F inal Result [facility] ([facility]) [address] documented in this encounter Visit Diagnoses Not on filedocumented in this encounter Care Teams Lawn Specialist Relationship Specialty Start Date End Date Chandrakant Coyle MD PCP - General Internal Medicine 09/22/21 Chrissie Michelle MD [address] [facility] [address] [place] [phone] PCP - Attributed-[facility] TIMOTHY DESIR P4P 08/10/24 09/27/24 documented as of this encounter
--- OUTSIDE RECORDS SUMMARY | 2025-01-12 08:50 | XMS_ITS | Encounter Summary ---
Author Organization [facility] Address [address] [place] [address] Care Team Providers Care Pharmaceutical Analyst Name Role Phone Chandrakant Coyle MD Primary Care Provider [phone] Chrissie Michelle MD Unavailable Encounter Details Date Type Department Care Team (Late st Contact Info) Description 04/17/2024 Telephone [facility] - Centralized Scheduling [address] [place] [address] Chrissie Michelle MD [facility] [place] [address] Social History Tobacco Use Types [...] on file Legal Sex Female 11:27 AM STRAIGHTENING MACHINE OPERATOR Gender Identity Not on file Sexual [...] st Contact Info) Description 02/21/2025 11:00 AM STRAIGHTENING MACHINE OPERATOR Appointment [facility] VASCULAR US [address] [place] [phone] Cassia Hoff MD [address] DIV OF [facility] [place] [address] 02/21/2025 12:20 PM STRAIGHTENING MACHINE OPERATOR Appointment [facility] CAT SCAN [address] [place] [phone] Cassia Hoff MD [address] DIV OF [facility] [place] [address] 02/21/2025 12:40 PM STRAIGHTENING MACHINE OPERATOR Appointment [facility] DIAGNOSTIC RAD OP [address] [place] [address] Cassia Hoff MD [address] DIV OF [facility] [place] [address] 02/21/2025 1:00 PM STRAIGHTENING MACHINE OPERATOR Appointment [facility] LAB OP DRAW STATION [address] [place] [address] Cassia Hoff MD [address] [facility] DIV OF [facility] [place] [address] 02/21/2025 1:20 PM STRAIGHTENING MACHINE OPERATOR Appointment [facility] DIAGNOSTIC RAD OP [address] [place] [address] Cassia Hoff MD [address] [facility] DIV OF [facility] [place] [address] 02/21/2025 2:00 PM STRAIGHTENING MACHINE OPERATOR Appointment [facility] ECHO [facility] [place] [phone] 02/28/2025 12:30 PM STRAIGHTENING MACHINE OPERATOR Clinical Support [facility] TRANSPLANT [address] [place] [phone] 04/20/2025 10:00 AM STRAIGHTENING MACHINE OPERATOR Appointment [facility] Vascular Services [address] [facility] [address] [place] [address] [place] [address] [facility] [address] [place] [phone] Ilya Elizalde MD [address] [place] [address] [place] [address] [facility] [address] [place] [address] [place] [address] [facility] [address] [place] [phone] [place] [address] [facility] [address] [place] [phone] 05/25/2025 11:00 AM STRAIGHTENING MACHINE OPERATOR Office Visit [facility] - Endocrinology [address] [place] [address], [place] [phone] Chrissie Michelle MD [address] [place] [address] [address] [place] [phone] documented as of this encounter Visit Diagnoses Not on filedocumented in this encounter Care Teams Pharmaceutical Analyst Relationship Specialty Start Date End Date Chandrakant Coyle MD PCP - General Internal Medicine 09/22/21 Chrissie Michelle MD [address] [place] [address] [address] [place] [phone] PCP - Attributed-[facility] TIMOTHY DESIR P4P 08/10/24 09/27/24 documented as of this encounter"
--- OUTSIDE RECORDS SUMMARY | 2025-01-12 08:50 | XMS_ITS | Clinical Summary ---
Author Organization [facility] [employer] Address [address] [address] Care Team Providers Care Bar Tender Name Role Phone Chandrakant Coyle MD Primary Care Provider [phone] Source Comments [facility],non-owned Affiliates and Associated Physician Practices is amultiple site organization consisting of ambulatory clinics and hospital sitesin [place], [place], [place] and [place]. This disclosure is being madepursuant to the Care Everywhere program and may not contain all information available regarding this patient. Last updated 17.[facility] [facility] Allergies Active Allergy Reactions Criticality Noted Date [...] TO CHECK BLOOD SUGAR THREE TIMES DAILY 08/16/19 22 Active ONETOUCH VERIO test strip USE TO CHECK BLOOD SUGAR THREE TIMES DAILY 08/16/19 22 Active albuterol HFA (PROVENTIL; VENTOLIN; PROAIR) 108 (90 Base) MCG/ACT inhaler Inhale 2 puffs by mouth every 4 hours as needed for shortness of breath or wheezing 10/21/19 22 Active sevelamer (Renagel) 800 MG tablet Take 1 (one) tablet by mouth 3 times daily with meals Active aspirin EC (Ecotrin) 81 MG tablet every 24 hours Activ e blood glucose (MaxVisionTouch Verio) test stripIndicatio ns:Type 2 diabetes mellitus with diabetic nephropathy, with long-term current use of insulin ([facility]) Use 1 (one) strip 3 times daily before meals 300 strip 3 05/27/19 23 Active Blood Glucose Monitoring Suppl (MaxVisionTouch Verio Reflect) w/Device KITIndications :Type 2 diabetes mellitus with diabetic nephropathy, with long-term current use of insulin ([facility]) Use 1 kit as directed 1 kit 05/27/19 23 Active Lancets (IfinityTOUCH DELICA PLUS 33G EXTRA FINE LANCET)Indicat ions:Type 2 diabetes mellitus with diabetic nephropathy, with long-term current use of insulin ([facility]) Use 1 Each 3 times daily before meals 300 Each 3 05/27/19 23 Active montelukast (Singulair) 10 MG tablet Take 1 (one) tablet by mouth once daily 10/29/19 23 Active pregabalin (Lyrica) 75 MG capsule Take 1 (one) capsule by mouth once daily 01/24/20 23 Active vitamin D, ergocalciferol , (Drisdol) 1.25 MG (37556 UT) capsule Take 1 (one) capsule by mouth 08/17/19 24 Active sevelamer carbonate (Renvela) 800 MG TAKE TWO TABLETS BY MOUTH THREE TIMES DAILY WITH MEALS 08/04/19 24 Active Airsupra 90-80 MCG/ACT AERO INHALE TWO PUFFS BY MOUTH EVERY TWELVE HOURS NEEDED (NO MORE THAN 12 INHALATIONS IN 24 HOURS) 08/17/19 25 Active Insulin Pen Needle 32G X 4 MM MISCIndication s:Type 2 diabetes mellitus with diabetic nephropathy, with long-term current use of insulin ([facility]) 1 Each by Injection route once daily 100 Each 11 12/28/19 25 Active SITagliptin (Januvia) 25 MG tabletIndicati ons:Type 2 diabetes mellitus with diabetic nephropathy, with long-term current use of insulin ([facility]) Take 1 (one) tablet by mouth once daily 100 tablet 4 12/28/19 25 Active blood glucose (Contour Plus Test) test stripIndicatio ns:Type 2 diabetes mellitus with chronic kidney disease on chronic dialysis, with long-term current use of insulin ([facility]) Use 1 (one) strip 2 times daily 100 strip 01/05/20 Active lancetsIndicat ions:Type 2 diabetes mellitus with chronic kidney disease on chronic dialysis, with long-term current use of insulin (HCC) Use 1 (one) Each 2 times daily 100 Each 01/05/20 25 Active Continuous Glucose Sensor (Dexcom G7 Sensor) MISCIndication s:Type 2 diabetes mellitus with chronic kidney disease on chronic dialysis, with long-term current use of insulin ([facility]) Use 1 Each every 10 days 2 Each 01/05/20 Active Lantus SoloStar pen Inject 16 (sixteen) Units subcutaneously every 24 hours 6 mL 01/05/20 25 Active Lantus SoloStar pen Inject 18 (eighteen) Units subcutaneously every 24 hours 6 mL 09/27/19 24 025 Discontin ued(Reord er) SITagliptin (Januvia) 25 MG tabletIndicati ons:Type 2 diabetes mellitus with diabetic nephropathy, with long-term current use of insulin ([facility]) Take 1 (one) tablet by mouth once daily 100 tablet 09/27/19 24 025 Discontin ued(Reord er) Insulin Pen Needle 32G X 4 MM MISCIndication s:Type 2 diabetes mellitus with diabetic nephropathy, with long-term current use of insulin ([facility]) 1 Each by Injection route once daily 100 Each 11 09/27/19 24 025 Discontin ued(Reord er) Continuous Glucose Sensor (Dexcom G7 Sensor) MISCIndication s:Type 2 diabetes mellitus with chronic kidney disease on chronic dialysis, with long-term current use of insulin ([facility]) Use 1 Each every 10 days 3 Each 5 04/18/19 25 025 Discontin ued(List Clean-Up) Lantus SoloStar pen Inject 18 (eighteen) Units subcutaneously every 24 hours 6 mL 12/28/19 25 025 Discontin ued(Reord er) Active Problems Problem Noted Date Diagnosed Date [...] Pre-transplant evaluation for kidney transplant 12/26/2021 Overview (11/06/2024): Images from the original note were not included. Lesley Fontanez Nagy 1965 Referring S Iron Worker: Oneal Ambrose Listing Date: 10/06/2022 Dialysis Info: Type: HD Time: 164 days ( 07/15/2021) Blood Type: O+ Body mass index is 25.77 kg/m . ALERTS Listed for Hep C kidneys Histology Supervisor: Chaitanya Paulino MD Induction Method: Immunosuppression Induction Method/Plan: Antithymocyte globulin (rabbit) (Thymoglobulin) 5 mg/kg ESRD r/t DM2 and HTN Past Medical History: Diagnosis Date Constipation Diabetes mellitus (CMS/HCC) 1999 Started insulin with dx. No endocrinolgist. Diabetic retinopathy ([facility]/HCC) ESRD (end stage renal disease) on dialysis ([facility]) [facility] , , [facility] 11/24/21 ESRD on hemodialysis ([facility]/HCC) Hypercholesteremia Hypertension 1999 Neuropathy Type 2 diabetes mellitus without complications ([facility]/HCC) Past Surgical History: Procedure Laterality Date A-V SHUNT CREATION Left 11/05/2021 Left; LEFT ARM DIALYSIS FISTULA TRANSPOSITION Breast Biopsy Right [facility] BREAST BIOPSY, EXCISION Left 07/17/2022 Left; LEFT [...] Left 05/05/2022 US BREAST LEFT BIOPSY 05/05/2022 [facility] BREAST CENTER OP VASCULAR PROCEDURE/SURGERY Left 09/03/2021 [...] Transplant Surgery Clinic Appt w/: Dr. Jarrell Date: 05/01/2024 Assessment/Plan: 58 year old female with esrd [...] committee and are final. Jane Jarrell MD quality control inspector heading Transplant Surgery [facility] Appt w/: Dr. Hoff 03/15/2023 Transplant Surgery Clinic Appt w/: Dr. Hoff Date: 03/23/2022 Nephrology Clinic Appt w/: Dr. Dicekns Date: 03/23/2022 A/P: Assessments and Recommendations: Lesley [...] On Sevelamer 800 mg TID po, Ergocalciferol 65014 U monthly 7) Infections - Viral hepatitis [...] prior to transplant surgery is discussed. - Bruno and Bruno vaccine completed on 07/20/20. Overall Lesley Nagy [...] followup in PRN. Nicole Rocha PA-C Physician Tape Deck Installer in Internal Medicine Adi Hicks MD Professor of Internal Medicine Pertinent Previous Committee Presentations: 06/03/2023 Committee Review Decision: Remain Active Committee Discussion Details: Pt presented at [facility] for Hep C kidneys. Reviewed past medical and surgical history. Reviewed Hepatology evaluation: -Fibroscan 11/13 shows low fibrosis and steatosis risk -normal LFTs, normal liver on CT -no present contraindications to receiving a HCV+ kidney Per team, OK to list for Hep C kidneys 10/01/2022: Induction Method: Immunosuppression Induction Method/Plan: Antithymocyte globulin (rabbit) (Thymoglobulin) 5 mg/kg Committee Discussion Details: Pt brought to [facility] to discuss possible listing. -Reviewed PMH and eval test results. -Reviewed renasight results. -Pt had positive tox screen with initial eval due to recent surgery. Requested re screen completed and results pending. -High dose statin therapy and asa recommended post [facility] by cardiology. Pt is not currently on [...] well woman exam completed and reviewed with production team advisor, pt can be switched to ACTIVE listing. [...] evidence of ischemia with stress. [facility]: 09/17/2022 Conclusion Mild non-obstructive coroanry artery [...] axilla. Scanning was performed by a trained english lecturer and Dr. Herrera. FINDINGS: In the left [...] , 10 cm from the nipple. A Senomark Ultra ultrasound-enhanced coil -shaped tissue marker clip [...] 2022. > Dictated by Ronald Weaver DO (Time Clock Inspector) I, Roberta Cano MD have personally reviewed [...] 9:24 AM CDT To: Ankita Nolasco RN Vt, I was going to message you all today, so this is perfect! Nope biopsy is all benign, so should be great to proceed. Thanks, Danni ----- Message ----- From: Ankita Nolasco RN Sent: 07/23/2022 8:51 AM CDT To: Raquel Juarez MD [facility]. I wanted to follow up on above pt. She is in eval for kidney txp and completed left breast biopsy with you on 07/17/2022. Her transplant evaluation has been on hold while pt finished work up with you. Do you have any concerns regarding biopsy results or moving forward with txp eval and listing? Thank you for your assistance! Ankita Nolasco RN [facility], [facility] Clarifier Operator Helper [phone] 12/30/2020 Pap: Well woman's Dr Baldwin 11/11/2022 [...] Impression: It is the impression of this social services designee that Lesley Nagy has several positive factors for Kidney transplant candidacy from a psychosocial perspective. Patient appears to have appropriate knowledge of illness. Patient has sufficient insurance coverage and stable financial situation for post transplant needs. No concerns regarding substance abuse, legal issues, or mental health needs. Patient has adequate support system and appropriate discharge plan. - Plan: marble chip terrazzo worker to provide supportive services as needed. Patient remains a reasonable candidate for transplant from a psychosocial perspective. Psychiatric Consult Recommended: No Transplant Photographic Enlarger Operator: Ankita Obrien LMSW Abdominal Transplant Photographic Enlarger Operator [phone] Transplant Caregiver Confirmation Note Caregiver Confirmation Date Primary Name of Primary: Desi Nagy Relationship: Spouse - CASTING OPERATOR form received on 03/23/22 - Confirmed via telephone on 03/23/22 Secondary Name of Secondary: Celia Guevara Relationship: Friend - CASTING OPERATOR form received on 03/23/22 - Confirmed via [...] sometimes. Keeps active with 10 yr old [employer] - [employer] (1 block), does hop scotch, Will do Tik [place] with her - dancing? Pt instructed to [...] Encounters Date Type Department Care Team Description 01/09/2025 Telephone [facility] TRANSPLANT [address] [place] [address] Leonela Nunez, RN Kidney Transplant Evaluation 01/04/2025 9:00 AM CDT Office Visit [facility] - Endocrinology [address] [place] [phone] Chrissie Michelle MD Type 2 diabetes mellitus with chronic kidney disease on chronic dialysis, with long-term current use of insulin (HCC) (Primary Dx) 01/04/2025 Travel 12/27/2024 Refill [facility] - Endocrinology [address] [place] [phone] Chrissie Michelle MD MEDICATION REFILL 12/27/2024 Refill [facility] - Endocrinology [address] [place] [address] Chrissie Michelle MD MEDICATION REFILL 12/27/2024 Refill [facility] - Endocrinology [address] [place] [address] hCrissie Michelle MD MEDICATION REFILL 11/10/2024 Telephone [facility] TRANSPLANT [address] [place] [address] Stacey Nye, [facility] Kidney Transplant Evaluation 11/10/2024 Telephone [facility] TRANSPLANT [address] [place] [address] Evon Miles, RN Kidney Transplant Evaluation 11/06/2024 Telephone [facility] TRANSPLANT [address] [place] [address] Stacey Nye [facility] Kidney Transplant Evaluation 11/06/2024 Telephone [facility] TRANSPLANT [address] [place] [address] Evon Miles, RN Kidney Transplant Evaluation 10/20/2024 10:13 AM CDT - 10/20/2024 11:59 PM T Hospital Encounter [facility] ECHO [address] [place] [address] Chandana Kim MD Discharge Disposition: Home or Self Care 10/20/2024 10:00 AM CDT - 10/20/2024 10:12 AM T Hospital Encounter [facility] ECHO [address] [place] [address] Chandana Kim MD Discharge Disposition: Home or Self Care 10/20/2024 Travel 10/17/2024 Travel from Last 3 Months Family History Medical [...] occasion? Never 07/17/2022 PHQ-2 Answer Date Recorded Patient Health Questionnaire-2 Score 0 01/04/2025 Comments No Sex and Gender Information Value Date Recorded Sex Assigned at Not on file Legal Sex Female 11:27 AM DRILL SERGEANT Gender Identity Not on file Sexual Orientation Not on file Last Filed Vital Signs Vital Sign Reading Time Taken Comments Blood Pressure 179/91 01/04/2025 8:44 AM CDT Pulse 94 01/04/2025 8:44 AM CDT Temperature 36.8 C (98.3 F) 09/15/2024 8:59 AM CDT Respiratory Rate 16 10/20/2024 10:35 AM CDT Oxygen Saturation 93% 01/04/2025 8:44 AM CDT Inhaled Oxygen Concentration 21% 07/17/2022 1 :05 PM CDT Weight 58.1 kg (128 lb) 01/04/2025 8:44 AM CDT Height 154.9 cm (5' 1) 01/04/2025 8:44 AM CDT Body Mass Index 24.19 01/04/2025 8:44 AM CDT Plan of Treatment Upcoming Encounters Date Type Department Care Team (Late st Contact Info) Description 02/21/2025 11:00 AM DRILL SERGEANT Appointment [facility] VASCULAR US [address] [place] [phone] Cassia Hoff MD [address] [facility] [place] [address] 02/21/2025 12:20 PM DRILL SERGEANT Appointment [facility] CAT SCAN [address] [place] [phone] Cassia Hoff MD [address] [facility] [place] [address] 02/21/2025 12:40 PM DRILL SERGEANT Appointment [facility] DIAGNOSTIC RAD OP [address] [place] [phone] Cassia Hoff MD [address] [facility] [place] [address] 02/21/2025 1:00 PM DRILL SERGEANT Appointment [facility] LAB OP DRAW STATION [address] [place] [phone] Cassia Hoff MD [address] [facility] [address] [facility] [place] [address] 02/21/2025 1:20 PM DRILL SERGEANT Appointment [facility] DIAGNOSTIC RAD OP [address] [place] [phone] [place] [address] [place], [place] [address]VD [facility] [place] [address] 02/21/2025 2:00 PM DRILL SERGEANT Appointment [facility] ECHO [address] [place] [phone] 02/28/2025 12:30 PM DRILL SERGEANT Clinical Support [facility] TRANSPLANT [address] [place] [phone] 04/20/2025 10:00 AM DRILL SERGEANT Appointment [facility] [address] [place] [address], [address] [place] [address] [place] [address] [facility] [address] [place] [phone] Ilya Elizalde MD [address] [place] [address] [place] [address] [address] [place] [address] [place] [phone] [place] [address] [place] [address] 05/25/2025 11:00 AM DRILL SERGEANT Office Visit [facility] - Endocrinology [address] [place] [address], [place] [address] Chrissie Michelle MD [facility] [address] [place] [address] Health Maintenance Due Date Last Done Comments COLOGUARD (AGES 45-75) - COLON CA SCREENING 1965 CT COLONOGRAPHY - COLON CA SCREENING 1965 FIT - COLON CA SCREENING 1965 FLEX SIG - COLON CA SCREENING 1965 DTAP/TDAP/TD VACCINES (1 - Tdap) 06/21/1982 PNEUMOCOCCAL VACCINE 50+ (1 of 2 - PCV) 06/21/1982 HEPATITIS B VACCINE (1 of 3 - Risk Dialysis 4-dose series) 1983 DIABETES-STATIN 2003 ZOSTER VACCINE (1 of 2) 06/21/2013 DIABETES RETINOPATHY SCREENING 09/01/2022 07/30/2015 DIABETES-FOOT EXAM WITH MONOFILAMENT 09/01/2022 Respiratory Syncytial Virus (RSV) Vaccine Pt: or over 60 yrs (1 - Risk 60-74 years 1-dose series) 2023 MEDICARE AWV CALENDAR YEAR 2024 COVID-19 VACCINE ( - 2024- season) 2024 04/02/2022, 10/23/2021, 07/20/2020 INFLUENZA VACCINE (#1) 2024 , 01/23/2020, 12/11/2013 DIABETES-HGB A1C 07/04/2025 01/04/2025, , 09/27/2023, Additional history exists MAMMOGRAM 03/29/2026 03/29/2024, 03/12, 03/23/2022 COLON MONITORING 08/14/2026 08/14/2016, 08/2016, 08/14/2016 COLONOSCOPY - COLON CA SCREENING 08/14/2026 08/14/2016, 08/14/2016, 08/14/2016 Colorectal Cancer Screening 08/14/2026 HEPATITIS C SCREENING Completed 02/09/2024 , 02/03/2023, 02/04/2022 HIV SCREENING Completed 02/09/2024, 01/11, 02/04/2022 DEPRESSION SCREENING Completed 01/04/2025, 11/12/19 23 HIB VACCINE Aged Out No longer eligi [...] this topic Medical Devices Implanted Type Area Crawler Tractor Operator Device Identifier Shelf Expiration Date Model / Serial / Lot Graft Vasc 4-7mm 40cm Grtx Std Wl Tpr Ln - [id number] Implanted:Qty: 1 on 11/05/2021 by Chandrakant Saldana MD at [facility] Left: Arm [employer] 04/14/2026 [id number] / [id number] / Mrk Biop Site Celero Implanted:Qty: 1 on 05/05/2022 at [facility] Left: Axilla [employer]ologic [facility]/07/20[facility] / / [id number] Procedures Procedure Name Priority Date/Time Associated Diagnosis Comments HEMOGLOBIN A1C - POINT OF CARE (AMB) [facility] Routine 01/04/2025 8:54 AM CDT Type 2 diabetes mellitus with chronic kidney disease on chronic dialysis, with long-term current use of insulin ([facility]) ECHO STRESS DOBUTAMINE W CONTRAST Routine 10/20/2024 12:21 PM CDT Pre-kidney transplant, listed End stage renal disease (HCC) Dependence on renal dialysis Type 2 diabetes mellitus with chronic kidney disease on chronic dialysis, with long-term current use of insulin ([facility]) Hypertension, unspecified type Coronary artery disease involving campo coronary artery of campo heart, unspecified whether angina present ECHO COMPLETE W CONTRAST Routine 10/20/2024 11:34 AM CDT Pre-kidney transplant, listed End stage renal disease (HCC) Dependence on renal dialysis Type 2 diabetes mellitus with chronic kidney disease on chronic dialysis, with long-term current use of insulin (HCC) Hypertension, unspecified type Coronary artery disease involving campo coronary artery of campo heart, unspecified whether angina present MAMMO BILAT SCREENING W MARCO Routine 03/29/2024 10:49 AM DRILL SERGEANT Encounter for screening mammogram for malignant neoplasm of breast HEPATITIS C ANTIBODY Routine 02/09/2024 11:00 AM CDT Pre-kidney transplant, listed ESRD (end stage renal disease) Dependence on renal dialysis Type 2 diabetes mellitus with chronic kidney disease on chronic dialysis, with long-term current use of insulin Hypertension, unspecified type Coronary artery disease involving campo coronary artery of campo heart, unspecified whether angina present Neuropathy Diabetic [...] Hypertension, unspecified type Coronary artery disease involving campo coronary artery of campo heart, unspecified whether angina present Neuropathy Diabetic retinopathy associated with type 2 diabetes mellitus, macular edema presence unspecified, unspecified laterality, unspecified retinopathy severity ENDOSCOPY, COLON, SCREENING Routine 08/14/2016 10:20 AM CDT from Last 3 Months or Most Recently Relevant to Health Maintenance Results * HEMOGLOBIN A1C - POINT OF CARE (AMB) U (01/04/2025 8:54 AM CDT) Hemoglobin A1c POCT 4.9 % [facility] [address] [facility] BLOOD SPECIMEN / Unknown 01/04/2025 8:54 AM CDT Chrissie Michelle MD LAB - POINT OF CARE ORDERABLES F inal Result KARLEE Chu [facility] [address] [facility], [place] [address], [facility] [phone] * ECHO STRESS DOBUTAMINE W CONTRAST (10/20/2024 [...] 11:38 AM Patient Status: O/P Study Site: [facility] Primary Location: [facility] Info Technical Quality: Adequate Exam Type: [...] Provider: Chandana Kim Attending Physician: Chandana Kim Mica Sizer: Marina Coburn Stress Staff: Celestino Sauer Summary [...] Peak Sys. BP (mmHg): 183 : Peak Chirinso. BP (mmHg): 68 : Max Rate Pressure [...] 11:38 AM Patient Status: O/P Study Site: [facility] Primary Location: [facility] EStud Info Technical Quality: Adequate Exam Type: ECHO [...] Provider: Chandana Kim Attending Physician: Chandana Kim Mica Sizer: Marina Coburn Stress Staff: Celestino Sauer Summary [...] achieved. The patient's peak stress blood pressure tgp095/68 mmHg. Arrhythmias Occasional PACs during recovery. Termination [...] PV pk denis 85.988 cm/s [facility]SM CV FUJ I PACS LV A4C EF 57.077 % [facility] CV FUJ I PACS MV A pk denis 102.939 cm/s [facility] CV F UJI PACS AV pk grad 9.171 mmHg [facility]SM CV FU JI PACS LVIDd 5.281 cm [facility] CV FUJ I PACS LV EDV A4C 120.343 ml [facility]SM CV FU JI PACS AV area pk denis 2.225 cm SSM CV FUJI PACS LVPWd 0.986 cm SSM CV FUJ I PACS MV E pk denis 93.12 cm/s SSM CV F UJI PACS IVSd 2D 1.006 cm SSM CV FUJ I PACS TR pk denis 337.958 cm/s [facility] CV FUJ I PACS LV ESV A4C 51.655 ml [facility]SM CV FU JI PACS IVC Diam Expiration 2.132 cm [facility]SM CV FUJI PACS LVIDs 3.835 cm SSM CV FUJ I PACS RV-chirinos basal diam 4.141 cm [facility] CV FUJI PACS AV mn grad 5.029 mmHg SSM CV FU JI PACS LA size 4.19 cm [facility] CV FUJ I PACS LVOT pk denis 107.635 cm/s SSM CV F UJI PACS LV A2C EF 53.274 % SSM CV FUJ I PACS RVOT pk denis 69.544 cm/s SSM CV F UJI PACS LV ESV A2C 55.703 ml SSM CV FU JI PACS LVOT pk grad 4.634 mmHg SSM CV FUJI PACS LVOT VTI 22.996 cm SSM CV FUJ I PACS MV VTI 21.482 cm SSM CV FUJ I PACS VA VTI 67.644 cm SSM CV FUJ I PACS AV pk denis 151.419 cm/s SSM CV FUJ I PACS MR VTI 197.541 cm SSM CV FUJ I PACS Ascending aorta 3.056 cm SSM CV FUJI PACS AV area cont VTI 2.5 cm SSM CV FUJI PACS LV biplane EF 54.352 % SSM CV FUJI PACS AV VTI 28.791 cm SSM CV FUJ I PACS TAPSE 1.914 cm SSM CV [...] 10:34 AM Patient Status: O/P Study Site: [facility] Primary Location: [facility] Info Technical Quality: Adequate Exam Type: [...] Provider: Chandana Kim Attending Physician: Chandana Kim Mica Sizer: Marina Coburn Left Ventricle The left ventricle [...] Mean Gradient 2 mmHg PV Regurgitation Doppler VA End Diastolic Gradient 28 mmHg Mitral Valve [...] Artery Doppler PA End Diastolic Pressure for VA 31 mmHg Aorta Name Value Normal Ascending [...] on 10/20/2024 03:26 PM Procedure Note Marilia Munoz DO - 10/20/2024 Summary * The left [...] 10:34 AM Patient Status: O/P Study Site: [facility]: Adequate Exam Type: ECHO [...] Provider: Chandana Kim Attending Physician: Chandana Kim Mica Sizer: Marina Coburn Left Ventricle The left ventricle [...] Mean Gradient 2 mmHg PV Regurgitation Doppler VA End Diastolic Gradient 28 mmHg Mitral Valve [...] Artery Doppler PA End Diastolic Pressure for VA 31 mmHg Aorta Name Value Normal Ascending [...] Kim MD ECHO CUPID Final Result * Mammo Bilat Screening W Marco (03/29/2024 10:49 AM DRILL SERGEANT) Anatomical Region Laterality Modality Breast Bilateral Mammography 03/29/2024 10:4 5 AM DRILL SERGEANT Impressions 03/29/2024 11:37 AM DRILL SERGEANT IMPRESSION: Benign mammogram, without evidence of malignancy. RECOMMENDATION: Screening mammography in one year, pending no interval breast concerns. Patient will receive the examination results by lay letter. OVERALL ASSESSMENT: BI-RADS CATEGORY 2: BENIGN. Report drafted by Rajat Black MD (resident assistant cna). I, Crystal Herrera MD have personally reviewed and interpreted this examination/study. > Interpreting Provider: Crystal Herrera MD on 03/29/2024 11:37 AM Narrative 03/29/2024 11:37 AM DRILL SERGEANT EXAMINATIONS: BILATERAL DIGITAL SCREENING MAMMOGRAM AND BILATERAL BREAST TOMOSYNTHESIS LOCATION: [facility] EXAM DATE: 03/29/2024 HISTORY: Screening. History [...] ve Non-react betito 02/09/2024 11:58 AM CDT [facility] Comment:No Laboratory eviden ce of HIV infection. Blood BLOOD SPECIMEN / Unknown Lab Venipuncture / Unknown 02/09/2024 11:00 AM CDT 02/09/2024 11:13 AM CDT us Cassia Hoff MD LAB - CHEMISTRY ORDERABLES F inal Result Performing Organization Address [facility] Co de Phone Number [address] [phone], [facility] [phone] * HEPATITIS C ANTIBODY (02/09/2024 11:00 AM CDT) Hepatitis C Antibody Non-react betito Non-reac tive 02/09/2024 11:58 AM CDT [facility] Comment:Hepatitis C Antibody screen indicates no serologic [...] LAB - CHEMISTRY ORDERABLES F inal Result Performing Organization Address [facility] Co de Phone Number [address] [address], [facility] [phone] * ENDOSCOPY, COLON, SCREENING (08/14/2016 10:20 AM CDT) Pathologist [facility] Report Endoscopy POC _ Patient Name: Lesley Nagy Procedure Date: 08/14/2016 10:20 AM Date of : 1965 Admit Type: Outpatient Age: 51 Gender: Female Attending MD: Oksana Sahu MD _ Procedure: Colonoscopy Indications: Constipation, Weight loss Providers: Oksana Sahu MD (Doctor), Dat Whitmore (Fellow), Lauren Matthews, Roma Alvarez RN Patient Profile: 51 year old with weight loss and new onset constipation. Referring MD: Yvan Herrera MD (Referring MD) Medicines: Fentanyl 75 [...] previously scheduled. Procedure Code(s): --- Professional --- 28801, Colonoscopy, flexible; with biopsy, single or multiple --- Technical --- 57286, Colonoscopy, flexible; with biopsy, single or multiple Diagnosis Code(s): --- Professional --- K63.89, Other specified diseases of intestine D12.5, Benign neoplasm of sigmoid colon K59.00, Constipation, unspecified R63.4, Abnormal weight loss --- Technical --- K63.89, Other specified diseases of intestine D12.5, Benign neoplasm of sigmoid colon K59.00, Constipation, unspecified R63.4, Abnormal weight loss CPT copyright 2015 [employer]. All rights reserved. The codes documented in this report are preliminary and upon cleaner and preparer review may be revised to meet current compliance requirements. Attending Participation: I was present and participated during the entire procedure, including non-klein portions. Oksana Sahu MD 08/14/2016 11:37:54 AM Number of Addenda: 0 Note Initiated On: 08/14/2016 10:20 AM [facility] ENDOSCOPY 08/14/2016 10:2 0 AM CDT us Oksana Sahu MD GI PROCEDURE ORDERABLES Ed ited Result - Final [facility] ENDOSCOPY from Last 3 Months or Most Recently Relevant to Health Maintenance Insurance [facility] MANAGED MEDICARE ADV Member Subscriber Plan / Payer (Ef fective 2022-Present) Name:Lesley Nagy Relation to Subscriber:Self Name:Lesley Nagy Payer ID:[id number] (NAIC) Type:Medicare-Managed Care Address: [address] [employer] [facility] MANAGED MEDICARE ADV MEDICAID - OUT OF STATE Advance Directives * Full Code (Latest Code Status on File) Date Activated Date Inactivated Comments 09/17/2022 9:43 AM 09/17/2022 3:24 PM Care Teams Bar Tender Relationship Specialty Start Date End Date Chandrakant Coyle MD PCP - General Internal Medicine 09/22/21
--- OUTSIDE RECORDS SUMMARY | 2025-01-12 08:50 | XMS_ITS | Continuity of Care Document ---
Author Organization [facility] Main Address [address] [place] [address] Insurance Providers Payer Plan Claims Address Claims Phone Policy Number Group Number Relation Employer Guarantor Name Guarantor Guarantor Address Guarantor Phone [employer] [address] [address], [place] [address] Coverag [id number] Self Lesley Burch [address] [place] [address] [id number] [employer] [place] [address] [address], [place] [address] Coverag [id number] Self Lesley Burch [address] [place] [address] [id number] [facility] MANAG ED MEDIC ARE ADV [address] [address], [place] [address] tel:[phone] Self Lesley Burch [address] [place] [id number] Problems Unknown Problems Results No Results [...]
--- OUTSIDE RECORDS SUMMARY | 2025-01-12 08:50 | XMS_ITS | Encounter Summary ---
Author Organization [facility] Address [address], [place] [address] Phone Care Team Providers Care Budget Officer Name Role Phone Daniel Marrero MD Primary Care Provider [phone] Reason for Visit * Reason Comments Med Refill Encounter Details Date Type Department Care Team ([facility] st Contact Info) Description 11/16/2023 Refill [facility] [address] [facility] 1 [place] [address] Oneal Ambrose MD [address] [facility] [address] 1 [place], [place] [id number] Social History Tobacco Use Types Packs/Day Years [...] on file documented as of this encounter Plan of Treatment Not on file documented as of this encounter Visit Diagnoses Not on filedocumented in this encounter Care Teams Budget Officer Relationship Specialty Start Date End Date Daniel Marrero MD PCP - General 07/26/20 documented as of this encounter
--- OUTSIDE RECORDS SUMMARY | 2025-01-12 08:50 | XMS_ITS | Encounter Summary ---
Author Organization [facility] Health Address [address] [place] [address] Care Team Providers Care Hospitality Coordinator Name Role Phone Chandrakant Coyle MD Primary Care Provider [phone] Chrissie Michelle MD Unavailable Encounter Details Date Type Department Care Team (Late st Contact Info) Description 08/03/2024 Lab Requisition [facility] MAIN LAB [address] [place] [phone] Chandana Kim MD [facility] [place] [place], [place] [id number] Social History Tobacco Use Types Packs/Day Years [...] on file Legal Sex Female 11:27 AM WARD MAID Gender Identity Not on file Sexual Orientation [...] st Contact Info) Description 02/21/2025 11:00 AM WARD MAID Appointment [facility] VASCULAR US [address] [place] [address] Cassia Hoff MD [address] OF [facility] [place] [address] 02/21/2025 12:20 PM WARD MAID Appointment [facility] CAT SCAN [address] [place] [address] Cassia Hoff MD [address] OF [facility] [place] [address] 02/21/2025 12:40 PM WARD MAID Appointment [facility] DIAGNOSTIC RAD OP [facility] [place] [address] Cassia Hoff MD [address] OF [facility] [place] [address] 02/21/2025 1:00 PM WARD MAID Appointment [facility] LAB OP DRAW STATION [address] [place] [phone] Cassia Hoff MD [address] [facility] [place] [address] 02/21/2025 1:20 PM WARD MAID Appointment [facility] DIAGNOSTIC RAD OP [address] [place] [phone] Cassia Hoff MD [address] [place] [address] OF [facility] [place] [address] 02/21/2025 2:00 PM WARD MAID Appointment [facility] ECHO [address] [place] [phone] 02/28/2025 12:30 PM WARD MAID Clinical Support [facility] TRANSPLANT [address] [place] [phone] 04/20/2025 10:00 AM WARD MAID Appointment [facility] Health Vascular Services [id number] [place] [address], [facility] [address] [place] [address] [place] [phone] [place] [phone] Ilya Elizalde MD [address] [place] [address] [place] [address] [facility] [address] [place] [address] [place] [address] [phone] [place] [address] [facility] [address] [place] [phone] 05/25/2025 11:00 AM WARD MAID Office Visit [facility] - Endocrinology [address] [place] [address], [place] [address] Chrissie Michelle MD [address] [facility] 2L [place] [phone] documented as of this encounter Procedures Procedure Name Priority Date/Time Associated Diagnosis Comments HOLD HLA SPECIMEN Routine 07/18/2024 1:3 6 PM CDT documented in this encounter Results * HOLD HLA SPECIMEN (07/18/2024 1:36 PM CDT) Hold HLA Specimen 08/03/2024 3:02 PM CDT [facility] Comment:The Hold HLA specime n has been received into the lab and will be held for 5 years at 4 degrees. Blood BLOOD SPECIMEN / Unknown 07/18/2024 1:36 PM CDT 08/03/2024 1:36 PM CDT Chandana Kim MD LAB - BLOOD BANK ORDERABLES F inal Result [facility] ([facility]) [address] documented in this encounter Visit Diagnoses Not on filedocumented in this encounter Care Teams Hospitality Coordinator Relationship Specialty Start Date End Date Chandrakant Coyle MD PCP - General Internal Medicine 09/22/21 Chrissie Michelle MD [address] [facility] 2L [place] [phone] PCP - Attributed-[facility] TIMOTHY DESIR P4P 08/10/24 09/27/24 documented as of this encounter
--- NOTE | 2025-01-12 14:31 | WPDSIXMINUTE ---
Six Minute Walk Procedure Procedure Performed Pulmonary Stress Test (6 min walk) Six Minute Walk Six Minute Walk: This is a 6 minute walk test. The test was performed and interpreted in accordance with the 2014 ERS/ATS task force guidelines. Findings: The patient's resting room air oxygen saturation measured by pulse oximetry was 96%, the heart rate was 88 bpm, and the modified Scottie dyspnea score was 0.5. Patient ambulated for 244 meters and oxygen saturation remained 85 to 95%. At the end of the study the heart rate was 100 bpm and the modified Scottie dyspnea score was 3. The patient did qualify for supplemental oxygen with ambulation and recommend a formal titration study to determine her oxygen requirements. There are no prior studies for comparison.
== END 2025-01-12 08:42 | disposition home or self-care (01) ==
LOC: ANHPFT 08:41
PROVIDERS: PCP Internal Medicine; Visit Provider Internal Medicine
DX: R06.02 Shortness of breath (principal)
CPT/HCPCS: 94618

== ENCOUNTER 2025-01-24 08:22 | Outpatient (CLI) | payer MEDICARE, MEDICAID, SELFPAY ==
--- OUTSIDE RECORDS SUMMARY | 2024-11-16 06:00 | XMS_ITS | Continuity of Care Document ---
Author Organization [facility] Address [address] [place] [address] Phone Care Team Providers Care Belly Roller Name Role Phone Chari THORNE, [facility], [facility] Unavailable Unavailab le Allergies, Adverse Reactions, Alerts Substance Reaction Status Criticality No Known Allergies Active No Inform ation Medications Medication Instructions Dosage Effective Dates (start - stop) Status Comments hydralazine 100 mg tablet take 1 tablet by oral route 3 times every day with food 100 MG - Active amlodipine 10 mg tablet unknown - Active TRUEplus Pen Needle 32 gauge x use as directed to inject insulin every day - Active sevelamer carbonate 800 mg tablet unknown - Active pregabalin 75 mg capsule unknown - Active montelukast 10 mg tablet unknown - Active Lantus Solostar U-100 Insulin 100 unit/mL (3 mL) subcutaneous pen inject 18 units under the skin every day - Active Januvia 25 mg tablet unknown - Active albuterol sulfate HFA 90 mcg/actuation aerosol inhaler inhale 2 puff by inhalation route every 4 - 6 hours as needed 180 MCG - Active Procedures Procedure Date EXTRACRANIAL STUDY Complex e/m visit add on OFFICE/OUTPATIENT VISIT, EST ELECTROCARDIOGRAM REPORT OFFICE/OUTPATIENT VISIT, EST Results Test Name Date and Time Measure Units Reference Range Abnormal Flag Status Comments Panel Description: Not Available Final [{Url}] <Url iRemMajorVer valeria=1 iRemMinorVer valeria=5.9.4 seq_no=6d77 [id number] template_nam e=PacsEx>< Path><![CDAT A[[email or web address] TZ+o5Xr/lJgO YCFhMlMIgE8S KRJiGb64Y1E+ X/qv2lEcmpZu Vec/2Bm1D7fe wwzERdGL1aEV DbDWmguEusY/ mH6z0wyqNr44 4KdU4jJ9rylo cfPs+r5LZNWI ]]></Path></ Url> Final Panel Description: Not Available Final [{Url}] <Url iRemMajorVer valeria=1 iRemMinorVer valeria=5.9.4 seq_no=26ec [id number] template_nam e=PacsEx>< Path><![CDAT A[[email or web address] om/?[email or web address] TZ+o5Xr/lJgO XGVfPhHBzP1Z IPFbDn54H1Q+ X/tc4gRydwFx Vec/1Xm8X2ow drkUDnIB4bPS DbDWmguEusY/ wF6i3jptQk23 8HeI2aK1ehpp cfPs+q7IGARE ]]></Path></ Url> Final Panel Description: CAROTID Unknown Image CAROTID 1 Advance Directives Directive Yes / No Effective Date File Name No Information Encounters Encounter Description Practice Location Reason(s) For Visit Diagnoses Date Provider Providers Copied on Encounter [facility], [address] [place] [address], [id number], tel:[phone] [facility] No Information Chari Neo. [address] [place] [address], [id number], . tel:[phone] Referring Provider: Chandrakant Coyle, [address] [place] [address], [address]. tel:[phone] OFFICE/OUTPAT IENT VISIT, EST [facility], [address] [place] [address], [id number], tel:[phone] [facility] follow up (chief complaint) Essential (primary) hypertensionEnd stage renal diseaseOcclusion and stenosis of unspecified carotid artery 5 Chari Neo. [address] [place], [place], [id number], [place]. tel:[phone] Referring Provider: Chandrakant Coyle, [address] [place] [address], [address]. tel:[phone] [facility], [address] [place] [address], [id number], tel:[phone] [facility] No Information 5 Kaltorinitis Sakaelus. [address] [place], [place], [id number], [place]. tel:[phone] Referring Provider: Chandrakant Coyle, [address] [place] [address], [address]. tel:[phone] OFFICE/OUTPAT IENT VISIT, EST [facility], [address] [place] [address], [id number], tel:[phone] [facility] Follow Up of Cardiology Exam (chief complaint)S welling in R ankle (chief complaint) Occlusion and stenosis of unspecified carotid arteryEssential (primary) hypertensionES 5 Chari Neo. [address] [place], [place], [id number], [place]. tel:[phone] Referring Provider: Chandrakant Coyle, [address] [place] [address], [address]. tel:[phone] [facility], [address] [place] [address], [id number], tel:[phone] [facility] No Information Chari Neo. [address], [place], [place], [id number], [place]. tel:[phone] [facility], [address] [facility], [place], [place], [id number], [place] tel:[phone] [facility] Occlusion and stenosis of unspecified carotid arteryEssential (primary) hypertension 5 Chari Larson. [address] [facility], [place], [place], [id number], [place]. tel:[phone] Family History Family Member Type Diagnosis Age At Onset No Information Payers Payer name Insurance type Covered libertarian ID Authoriza tion(s) [facility]PLE[facility] [address] 001A PPO C [id number] NO AUTH REQUIRED HEALTHCARE AND FAMILY SERVICES [id number] Social History Type Description Quantity Date Captured Comments Sex Female Smoking Status No Information Chief Complaint And Reason For Visit No Information Reason For Referral Reason For Referral No Information Plan Of Treatment Date Type Action Status Appointment Lesley Burch BOOKED Future Order: Radiology Order Du plex scan of extracranial arteries; complete bilateral study (82207), Ordered on: Ordered History Of Present Illness Encounter Date Complaint History Of Prese nt Illness follow up Follow Up of Cardiology Exam Swelling in R ankle Functional Status Date Functional Assessmen t No Information Instructions Date Instruction Additional Infor mation No Information Assessments Type Assessment Date No Information Patient Care Teams Name Effective Dates (start - stop) Status Members No Information
[2025-01-24 08:20] VITALS: PULSE 90; O2SAT 92
[2025-01-24 08:25] VITALS: PULSE 100; O2SAT 86
[2025-01-24 08:30] VITALS: PULSE 101; O2SAT 87
[2025-01-24 08:35] VITALS: PULSE 95; O2SAT 92
--- OUTSIDE RECORDS SUMMARY | 2025-01-24 08:39 | XMS_ITS | Encounter Summary ---
Author Organization [facility] Health Address [address] [place] [address] Care Team Providers Care Preparer Making Department Name Role Phone Chandrakant Coyle MD Primary Care Provider [phone] Chrissie Michelle MD Unavailable Encounter Details Date Type Department Care Team (Late st Contact Info) Description 07/07/2024 Lab Requisition [facility] MAIN LAB [address] [place] [phone] Chandana Kim MD [facility] [place], [place] [phone] Social History Tobacco Use Types Packs/Day Years [...] on file Legal Sex Female 11:27 AM 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 AND COLLECTIONS ANALYST Gender Identity Not on file Sexual Orientation [...] st Contact Info) Description 02/21/2025 11:00 AM CREDIT AND COLLECTIONS ANALYST Appointment [facility] VASCULAR US [address] [place] [address] Cassia Hoff MD [address] OF [facility] [place] [address] 02/21/2025 12:20 PM CREDIT AND COLLECTIONS ANALYST Appointment [facility] CAT SCAN [address] [place] [address] Cassia Hoff MD [address] OF [facility] [place] [address] 02/21/2025 12:40 PM CREDIT AND COLLECTIONS ANALYST Appointment [facility] DIAGNOSTIC RAD OP [facility] [place] [address] Cassia Hoff MD [address] OF [facility] [place] [address] 02/21/2025 1:00 PM CREDIT AND COLLECTIONS ANALYST Appointment [facility] LAB OP DRAW STATION [address] [place] [phone] Cassia Hoff MD [address] [facility] [place] [address] 02/21/2025 1:20 PM CREDIT AND COLLECTIONS ANALYST Appointment [facility] DIAGNOSTIC RAD OP [address] [place] [phone] Cassia Hoff MD [address] [place] [address] OF [facility] [place] [address] 02/21/2025 2:00 PM CREDIT AND COLLECTIONS ANALYST Appointment [facility] ECHO [address] [place] [phone] 02/28/2025 12:30 PM CREDIT AND COLLECTIONS ANALYST Clinical Support [facility] TRANSPLANT [address] [place] [phone] 04/20/2025 10:00 AM CREDIT AND COLLECTIONS ANALYST Appointment [facility] Health Vascular Services [id number] [place] [address], [facility] [address] [place] [address] [place]kant [place] [phone] [place] [phone] Ilya Elizalde MD [address] [place] [address] [place] [address] [facility] [address] [place] [address] [place] [address] [phone] [place] [address] [facility] [address] [place] [phone] 05/25/2025 11:00 AM CREDIT AND COLLECTIONS ANALYST Office Visit [facility] - Endocrinology [address] [place] [address], [place] [address] Chrissie Michelle MD [address] [facility] 2L [place] [phone] documented as of this encounter Procedures Procedure Name Priority Date/Time Associated Diagnosis Comments HOLD HLA SPECIMEN Routine 06/20/2024 1:0 6 PM CDT documented in this encounter Results * HOLD HLA SPECIMEN (06/20/2024 1:06 PM CDT) Hold HLA Specimen 07/07/2024 2:32 PM CDT [facility] ([facility]) Comment:The Hold HLA specime n has been received into the lab and will be held for 5 years at 4 degrees. Blood BLOOD SPECIMEN / Unknown 06/20/2024 1:06 PM CDT 07/07/2024 1:06 PM CDT Chandana Kim MD LAB - BLOOD BANK ORDERABLES F inal Result [facility] ([facility]) [address] documented in this encounter Visit Diagnoses Not on filedocumented in this encounter Care Teams Preparer Making Department Relationship Specialty Start Date End Date Chandrakant Coyle MD PCP - General Internal Medicine 09/22/21 Chrissie Michelle MD [address] [facility] 2L [place] [phone] PCP - Attributed-[facility] TIMOTHY DESIR P4P 08/10/24 09/27/24 documented as of this encounter
--- OUTSIDE RECORDS SUMMARY | 2025-01-24 08:39 | XMS_ITS | Clinical Summary ---
Author Organization [facility] [employer] Address [address] [place] [address] Care Team Providers Care Quality Improvement Manager Name Role Phone Chandrakant Coyle MD Primary Care Provider [phone] Source Comments [facility],non-owned Affiliates and Associated Physician Practices is amultiple site organization consisting of ambulatory clinics and hospital sitesin [place], [place], [place] and [place]. This disclosure is being madepursuant to the Care Everywhere program and may not contain all information available regarding this patient. Last updated 17.[facility] [employer] Allergies Active Allergy Reactions Criticality Noted Date [...] every 24 hours Activ e blood glucose (FORMTEKTouch Verio) test stripIndicatio ns:Type 2 diabetes mellitus with diabetic nephropathy, with long-term current use of insulin ([facility]) Use 1 (one) strip 3 times daily before meals 300 strip 3 05/27/19 23 Active Blood Glucose Monitoring Suppl (FORMTEKTouch Verio Reflect) w/Device KITIndications :Type 2 diabetes mellitus with diabetic nephropathy, with long-term current use of insulin ([facility]) Use 1 kit as directed 1 kit 05/27/19 23 Active Lancets (PaperShareTOUCH DELICA PLUS 33G EXTRA FINE LANCET)Indicat ions:Type 2 diabetes mellitus with diabetic nephropathy, with long-term current use of insulin ([facility]) Use 1 Each 3 times daily before meals 300 Each 3 05/27/19 23 Active montelukast (Singulair) 10 MG tablet Take 1 (one) tablet by mouth once daily 10/29/19 23 Active pregabalin (Lyrica) 75 MG capsule Take 1 (one) capsule by mouth once daily 01/24/20 23 Active vitamin D, ergocalciferol , (Drisdol) 1.25 MG (80982 UT) capsule Take 1 (one) capsule by [...] nephropathy, with long-term current use of insulin ([facility]) 1 Each by Injection route once daily 100 Each 11 12/28/19 25 Active SITagliptin (Januvia) 25 MG tabletIndicati ons:Type 2 diabetes mellitus with diabetic nephropathy, with long-term current use of insulin ([facility]) Take 1 (one) tablet by mouth once daily 100 tablet 4 12/28/19 25 Active blood glucose (Contour Plus Test) test stripIndicatio ns:Type 2 diabetes mellitus with chronic kidney disease on chronic dialysis, with long-term current use of insulin ([facility]) Use 1 (one) strip 2 times daily [...] dialysis, with long-term current use of insulin ([facility]) Use 1 Each every 10 days 2 Each 01/05/20 Active Lantus SoloStar pen Inject 16 (sixteen) Units subcutaneously every 24 hours 6 mL 01/05/20 25 Active Lantus SoloStar pen Inject 18 (eighteen) Units subcutaneously every 24 hours 6 mL 09/27/19 24 025 Discontin ued(Reord er) SITagliptin (Januvia) 25 MG tabletIndicati ons:Type 2 diabetes mellitus with diabetic nephropathy, with long-term current use of insulin ([facility]) Take 1 (one) tablet by mouth once daily 100 tablet 09/27/19 24 025 Discontin ued(Reord er) Insulin Pen Needle 32G X 4 MM MISCIndication s:Type 2 diabetes mellitus with diabetic nephropathy, with long-term current use of insulin ([facility]) 1 Each by Injection route once daily 100 Each 11 09/27/19 24 025 Discontin ued(Reord er) Continuous Glucose Sensor (Dexcom G7 Sensor) MISCIndication s:Type 2 diabetes mellitus with chronic kidney disease on chronic dialysis, with long-term current use of insulin ([facility]) Use 1 Each every 10 days 3 [...] not included. Lesley Fontanez Nagy 1965 Referring Pulverizer: Oneal Ambrose Listing Date: 10/06/2022 Dialysis Info: Type: HD Time: 164 days ( 07/15/2021) Blood Type: O+ Body mass index is 25.77 kg/m . ALERTS Listed for Hep C kidneys Remarketing Manager: Chaitanya Paulino MD Induction Method: Immunosuppression Induction Method/Plan: Antithymocyte globulin (rabbit) (Thymoglobulin) 5 mg/kg ESRD r/t DM2 and HTN Past Medical History: Diagnosis Date Constipation Diabetes mellitus (CMS/HCC) 1999 Started insulin with dx. No endocrinolgist. Diabetic retinopathy ([facility]/HCC) ESRD (end stage renal disease) on dialysis ([facility]) [facility] , , [facility] 11/24/21 ESRD on hemodialysis ([facility]/HCC) Hypercholesteremia Hypertension 1999 Neuropathy Type 2 diabetes mellitus without complications ([facility]/HCC) Past Surgical History: Procedure Laterality Date A-V SHUNT CREATION Left 11/05/2021 Left; LEFT ARM DIALYSIS FISTULA TRANSPOSITION Breast Biopsy Right [facility] BREAST BIOPSY, EXCISION Left 07/17/2022 Left; [...] Left 05/05/2022 US BREAST LEFT BIOPSY 05/05/2022 [facility]AST CENTER OP VASCULAR PROCEDURE/SURGERY Left 09/03/2021 [...] committee and are final. Jane Jarrell MD multicultural internship Transplant Surgery [facility] Transplant Surgery Clinic Appt w/: Dr. Hoff [...] On Sevelamer 800 mg TID po, Ergocalciferol 80460 U monthly 7) Infections - Viral hepatitis [...] prior to transplant surgery is discussed. - Wesley and Wesley vaccine completed on 07/20/20. Overall [...] followup in PRN. Nicole Rocha PA-C Physician Manager Terminal in Internal Medicine Adi Hicks MD Professor of Internal Medicine Pertinent Previous Committee Presentations: 06/03/2023 Committee Review Decision: Remain Active Committee Discussion Details: Pt presented at [facility] for Hep C kidneys. Reviewed past medical and surgical history. Reviewed Hepatology evaluation: -Fibroscan 11/13 shows low fibrosis and steatosis risk -normal LFTs, normal liver on CT -no present contraindications to receiving a HCV+ kidney Per team, OK to list for Hep C kidneys 10/01/2022: Induction Method: Immunosuppression Induction Method/Plan: Antithymocyte globulin (rabbit) (Thymoglobulin) 5 mg/kg Committee Discussion Details: Pt brought to [facility] to discuss possible listing. -Reviewed PMH and eval test results. -Reviewed renasight results. -Pt had positive tox screen with initial eval due to recent surgery. Requested re screen completed and results pending. -High dose statin therapy and asa recommended post [facility] by cardiology. Pt is not currently on [...] well woman exam completed and reviewed with sample steamer, pt can be switched to ACTIVE listing. [...] segments without evidence of ischemia with stress. [facility]: 09/17/2022 Conclusion Mild non-obstructive coroanry artery disease [...] axilla. Scanning was performed by a trained children's ministries director and Dr. Herrera. FINDINGS: In the left [...] 2022. > Dictated by Ronald Weaver DO (Eyedotter) I, Roberta Cano MD have personally reviewed [...] 9:24 AM CDT To: Ankita Nolasco RN Al, I was going to message you all today, so this is perfect! Nope biopsy is all benign, so should be great to proceed. Thanks, Danni ----- Message ----- From: Ankita Nolasco RN Sent: 07/23/2022 8:51 AM CDT To: Raquel Juarez MD [facility]. I wanted to follow up on above pt. She is in eval for kidney txp and completed left breast biopsy with you on 07/17/2022. Her transplant evaluation has been on hold while pt finished work up with you. Do you have any concerns regarding biopsy results or moving forward with txp eval and listing? Thank you for your assistance! Ankita Nolasco RN [facility], [facility] [employer] Sales Consultant [phone] 12/30/2020 Pap: Well woman's Dr Baldwin 11/11/2022 [...] It is the impression of this social media marketing analyst that Lesley Nagy has several positive factors for Kidney transplant candidacy from a psychosocial perspective. Patient appears to have appropriate knowledge of illness. Patient has sufficient insurance coverage and stable financial situation for post transplant needs. No concerns regarding substance abuse, legal issues, or mental health needs. Patient has adequate support system and appropriate discharge plan. - Plan: stamping die try out worker to provide supportive services as needed. Patient remains a reasonable candidate for transplant from a psychosocial perspective. Psychiatric Consult Recommended: No Transplant Java Technical Architect: Ankita Obrien LMSW Abdominal Transplant Java Technical Architect [phone] Transplant Caregiver Confirmation Note Caregiver Confirmation Date Primary Name of Primary: Desi Nagy Relationship: Spouse - RESIDENTIAL SOLAR CONSULTANT form received on 03/23/22 - Confirmed via telephone on 03/23/22 Secondary Name of Secondary: Celia Guevara Relationship: Friend - RESIDENTIAL SOLAR CONSULTANT form received on 03/23/22 - Confirmed via [...] sometimes. Keeps active with 10 yr old [place] - ridRelead bike (1 block), does hop scotch, Will do Tik [place] with her - dancing? Pt instructed to [...] Type Department Care Team Description 01/09/2025 Telephone [facility] TRANSPLANT [address] [place] [address] Leonela Nunez, RN Kidney Transplant Evaluation 01/04/2025 9:00 AM CDT Office Visit [facility] - Endocrinology [address] [place] [phone] Chrissie Michelle MD Type 2 diabetes mellitus with chronic kidney disease on chronic dialysis, with long-term current use of insulin (HCC) (Primary Dx) 01/04/2025 Travel 12/27/2024 Refill [facility] - Endocrinology [address] [place] [phone] Chrissie Michelle MD MEDICATION REFILL 12/27/2024 Refill [facility] - Endocrinology [address] [place] [phone] Chrissie Michelle MD MEDICATION REFILL 12/27/2024 Refill [facility] - Endocrinology [address] [place] [phone] Chrissie Michelle MD MEDICATION REFILL 11/10/2024 Telephone [facility] TRANSPLANT [address] [place] [address] Stacey Ney, [facility] Kidney Transplant Evaluation 11/10/2024 Telephone [facility] TRANSPLANT [address] [place] [address] Evon Miles, RN Kidney Transplant Evaluation 11/06/2024 Telephone [facility] TRANSPLANT [address] [place] [address] Stacey Nye [facility] Kidney Transplant Evaluation 11/06/2024 Telephone [facility] TRANSPLANT [address] [place] [address] Evon Miles RN Kidney Transplant Evaluation from Last 3 Months Family History Medical [...] on file Legal Sex Female 11:27 AM NUCLEAR REACTOR OPERATOR Gender Identity Not on file Sexual [...] st Contact Info) Description 02/21/2025 11:00 AM NUCLEAR REACTOR OPERATOR Appointment [facility] VASCULAR US [address] [place] [address] Cassia Hoff MD [address] DIV OF [facility] [place] [address] 02/21/2025 12:20 PM NUCLEAR REACTOR OPERATOR Appointment [facility] CAT SCAN [address] [place] [phone] Cassia Hoff MD [address] [facility] [address] DIV OF [facility] [place] [address] 02/21/2025 12:40 PM NUCLEAR REACTOR OPERATOR Appointment [facility] DIAGNOSTIC RAD OP [address] [place] [address] Cassia Hoff MD [address] DIV OF [facility] [place] [address] 02/21/2025 1:00 PM NUCLEAR REACTOR OPERATOR Appointment [facility] LAB OP DRAW STATION [address] [place] [address] Cassia Hoff MD [address] DIV OF [facility] [place] [address] 02/21/2025 1:20 PM NUCLEAR REACTOR OPERATOR Appointment [facility] DIAGNOSTIC RAD OP [address] [place] [phone] Cassia Hoff MD [address] [facility] DIV OF ABD [place] [address] 02/21/2025 2:00 PM NUCLEAR REACTOR OPERATOR Appointment [facility] ECHO [address] [place] [phone] 02/28/2025 12:30 PM NUCLEAR REACTOR OPERATOR Clinical Support [facility] TRANSPLANT [address] [place] [phone] 04/20/2025 10:00 AM NUCLEAR REACTOR OPERATOR Appointment [facility] Health Vascular Services [address] [place] [address], [address] [place] [address] [place] [address] [facility] [address] [place] [address] Ilya Elizalde MD [address] [place], [place] [phone] [place] [address] [facility] [address] [place] [address] [place] [address] [facility] [address] [place] [address] [place] [address] [facility] [address] [place] [address] 05/25/2025 11:00 AM NUCLEAR REACTOR OPERATOR Office Visit [facility] - Endocrinology [address] [place] [address], [place] [phone] Chrissie Michelle MD [address] [place] [address] [place] [phone] Health Maintenance Due Date Last Done Comments [...] CALENDAR YEAR 2024 COVID-19 VACCINE ( - season) 2024 04/02/2022, 10/23/2021, 07/20/2020 INFLUENZA VACCINE [...] this topic Medical Devices Implanted Type Area Psychiatric Np Device Identifier Shelf Expiration Date Model / Serial / Lot Graft Vasc 4-7mm 40cm Grtx Std Wl Tpr Ln - [id number] Implanted:Qty: 1 on 11/05/2021 by Chandrakant Saldana MD at [facility] Left: Arm [employer] 04/14/2026 [id number] / [id number] / Mrk Biop Site Celero Implanted:Qty: 1 on 05/05/2022 at [facility] Left: Axilla Hologic 08/07/2022 SMARK[employer] RO-2S / / [id number] Procedures Procedure Name Priority Date/Time Associated Diagnosis Comments HEMOGLOBIN A1C - POINT OF CARE (AMB) [facility] Routine 01/04/2025 8:54 AM CDT Type 2 diabetes mellitus with chronic kidney disease on chronic dialysis, with long-term current use of insulin (HCC) MAMMO BILAT SCREENING W MARCO Routine 03/29/2024 10:49 AM NUCLEAR REACTOR OPERATOR Encounter for screening mammogram for malignant neoplasm of breast HEPATITIS C ANTIBODY Routine 02/09/2024 11:00 AM CDT Pre-kidney transplant, listed ESRD (end stage renal disease) Dependence on renal dialysis Type 2 diabetes mellitus with chronic kidney disease on chronic dialysis, with long-term current use of insulin Hypertension, unspecified type Coronary artery disease involving platinum coronary artery of platinum heart, unspecified whether angina present Neuropathy Diabetic [...] Hypertension, unspecified type Coronary artery disease involving platinum coronary artery of platinum heart, unspecified whether angina present Neuropathy Diabetic retinopathy associated with type 2 diabetes mellitus, macular edema presence unspecified, unspecified laterality, unspecified retinopathy severity ENDOSCOPY, COLON, SCREENING Routine 08/14/2016 10:20 AM CDT from Last 3 Months or Most Recently Relevant to Health Maintenance Results * HEMOGLOBIN A1C - POINT OF CARE (AMB) [facility] (01/04/2025 8:54 AM CDT) Hemoglobin A1c POCT 4.9 % [address] BLOOD SPECIMEN / Unknown 01/04/2025 8:54 AM CDT Chrissie Michelle MD LAB - POINT OF CARE ORDERABLES F inal Result [address], [place] [address], [facility] [phone] * Mammo Bilat Screening W Marco (03/29/2024 10:49 AM NUCLEAR REACTOR OPERATOR) Anatomical Region Laterality Modality Breast Bilateral Mammography 03/29/2024 10:4 5 AM NUCLEAR REACTOR OPERATOR Impressions 03/29/2024 11:37 AM NUCLEAR REACTOR OPERATOR IMPRESSION: Benign mammogram, without evidence of malignancy. RECOMMENDATION: Screening mammography in one year, pending no interval breast concerns. Patient will receive the examination results by lay letter. OVERALL ASSESSMENT: BI-RADS CATEGORY 2: BENIGN. Report drafted by Rajat Black MD (president/gm production & live experiences). I, Crystal Herrera MD have personally reviewed and interpreted this examination/study. > Interpreting Provider: Crystal Herrera MD on 03/29/2024 11:37 AM Narrative 03/29/2024 11:37 AM NUCLEAR REACTOR OPERATOR EXAMINATIONS: BILATERAL DIGITAL SCREENING MAMMOGRAM AND BILATERAL BREAST TOMOSYNTHESIS LOCATION: [facility] EXAM DATE: 03/29/2024 HISTORY: Screening. History [...] ve Non-react betito 02/09/2024 11:58 AM CDT [facility] LABORATORY [facility] Comment:No Laboratory eviden ce of HIV infection. Blood BLOOD SPECIMEN / Unknown Lab Venipuncture / Unknown 02/09/2024 11:00 AM CDT 02/09/2024 11:13 AM CDT us Cassia Hoff MD LAB - CHEMISTRY ORDERABLES F inal Result [facility] [address] [place] [phone], [facility] [phone] * HEPATITIS C ANTIBODY (02/09/2024 11:00 AM CDT) Hepatitis C Antibody Non-react betito Non-reac tive 02/09/2024 11:58 AM CDT [facility] Comment:Hepatitis C Antibody screen indicates no serologic [...] LAB - CHEMISTRY ORDERABLES F inal Result [address] [address], [facility] [phone] * ENDOSCOPY, COLON, SCREENING (08/14/2016 10:20 AM CDT) Report Endoscopy POC _ Patient Name: Lesley Nagy Procedure Date: 08/14/2016 10:20 AM Date of : 1965 Admit Type: Outpatient Age: 51 Gender: Female Attending MD: Oksana Sahu MD _ Procedure: Colonoscopy Indications: Constipation, Weight loss Providers: Oksana Sahu MD (Doctor), Dat Whitmore (Fellow), Roma Vallejo RN Patient Profile: 51 year old with [...] previously scheduled. Procedure Code(s): --- Professional --- 57162, Colonoscopy, flexible; with biopsy, single or multiple --- Technical --- 75954, Colonoscopy, flexible; with biopsy, single or multiple Diagnosis Code(s): --- Professional --- K63.89, Other specified diseases of intestine D12.5, Benign neoplasm of sigmoid colon K59.00, Constipation, unspecified R63.4, Abnormal weight loss --- Technical --- K63.89, Other specified diseases of intestine D12.5, Benign neoplasm of sigmoid colon K59.00, Constipation, unspecified R63.4, Abnormal weight loss CPT copyright 2015 [employer]. All rights reserved. The codes documented in this report are preliminary and upon car salesperson review may be revised to meet current compliance requirements. Attending Participation: I was present and participated during the entire procedure, including non-klein portions. Oksana Sahu MD 08/14/2016 11:37:54 AM Number of Addenda: 0 Note Initiated On: 08/14/2016 10:20 AM [facility] 08/14/2016 10:2 0 AM CDT Oksana Sahu MD GI PROCEDURE ORDERABLES Ed ited Result - Final [facility] from Last 3 Months or Most Recently Relevant to Health Maintenance Insurance [facility] ADV [facility] MEDICARE [facility] MEDICAID - OUT OF STATE Advance Directives * Full Code (Latest Code Status on File) Date Activated Date Inactivated Comments 09/17/2022 9:43 AM 09/17/2022 3:24 PM Care Teams Quality Improvement Manager Relationship Specialty Start Date End Date Chandrakant Coyle MD PCP - General Internal Medicine 09/22/21
--- OUTSIDE RECORDS SUMMARY | 2025-01-24 08:39 | XMS_ITS | Encounter Summary ---
Author Organization [facility] Health Address [address] [place] [address] Care Team Providers Care Manager Stylist Name Role Phone Chandrakant Coyle MD Primary Care Provider [phone] Chrissie Michelle MD Unavailable Encounter Details Date Type Department Care Team (Late st Contact Info) Description 08/03/2024 Lab Requisition [facility] MAIN LAB [address] [place] [phone] Chandana Kim MD [facility] OF ABD TRANSPLANT SURGERY [place], [place] [phone] Social History Tobacco Use Types Packs/Day Years [...] on file Legal Sex Female 11:27 AM WORKPLACE REHABILITATION OFFICER Gender Identity Not on file Sexual Orientation [...] st Contact Info) Description 02/21/2025 11:00 AM WORKPLACE REHABILITATION OFFICER Appointment [facility] VASCULAR US [address] [place] [address] Cassia Hoff MD [address] DIV OF [facility] [place] [address] 02/21/2025 12:20 PM WORKPLACE REHABILITATION OFFICER Appointment [facility] CAT SCAN [address] [place] [address] Cassia Hoff MD [address] DIV OF [facility] [place] [address] 02/21/2025 12:40 PM WORKPLACE REHABILITATION OFFICER Appointment [facility] DIAGNOSTIC RAD OP [facility] [place] [address] Cassia Hoff MD [address] DIV OF [facility] [place] [address] 02/21/2025 1:00 PM WORKPLACE REHABILITATION OFFICER Appointment [facility] LAB OP DRAW STATION [address] [place] [phone] Cassia Hoff MD [address] [facility] [place] [address] 02/21/2025 1:20 PM WORKPLACE REHABILITATION OFFICER Appointment [facility] DIAGNOSTIC RAD OP [address] [place] [phone] Cassia Hoff MD [address] [place] [address] OF [facility] [place] [address] 02/21/2025 2:00 PM WORKPLACE REHABILITATION OFFICER Appointment [facility] ECHO [address] [place] [phone] 02/28/2025 12:30 PM WORKPLACE REHABILITATION OFFICER Clinical Support [facility] TRANSPLANT [address] [place] [phone] 04/20/2025 10:00 AM WORKPLACE REHABILITATION OFFICER Appointment [facility] Health Vascular Services [address] [place] [address], [facility] [address] [place] [address] Chandrakant [place] [phone] [place] [phone] Ilya Elizalde MD [address] [place] [address] [place] [address] [facility] [address] [place] [address] [place] [address] [address] [place] [address] [facility] [address] [place] [phone] 05/25/2025 11:00 AM WORKPLACE REHABILITATION OFFICER Office Visit [facility] - Endocrinology [address] [place] [address], [place] [address] Chrissie Michelle MD [address] [facility] 2L [place] [phone] documented as of this encounter Procedures Procedure Name Priority Date/Time Associated Diagnosis Comments HOLD HLA SPECIMEN Routine 07/18/2024 1:3 6 PM CDT documented in this encounter Results * HOLD HLA SPECIMEN (07/18/2024 1:36 PM CDT) Hold HLA Specimen 08/03/2024 3:02 PM CDT [facility] HLA LAB[facility]ATORY ([facility]) Comment:The Hold HLA specime n has been received into the lab and will be held for 5 years at 4 degrees. Blood BLOOD SPECIMEN / Unknown 07/18/2024 1:36 PM CDT 08/03/2024 1:36 PM CDT Chandana Kim MD LAB - BLOOD BANK ORDERABLES F inal Result [facility] HLA LABORATORY ([facility]) [address] documented in this encounter Visit Diagnoses Not on filedocumented in this encounter Care Teams Manager Stylist Relationship Specialty Start Date End Date Chandrakant Coyle MD PCP - General Internal Medicine 09/22/21 Chrissie Michelle MD [address] [facility] 2L [place] [phone] PCP - Attributed-[facility] TIMOTHY DESIR P4P 08/10/24 09/27/24 documented as of this encounter
--- OUTSIDE RECORDS SUMMARY | 2025-01-24 08:39 | XMS_ITS | Clinical Summary ---
Author Organization [facility] Address [address] [place] [id number] Phone Care Team Providers Care Claims Agent Right Of Way Name Role Phone Daniel Marrero MD Primary Care Provider [phone] Allergies No known active allergies Medications traMADol [...] day Active ergocalciferol (VITAMIN D-2) 1.25 MG (15467 UT) capsule Take 50,000 Units by mouth [...] Influenza Vaccine (#1) 2024 Insurance [facility] Care Teams Claims Agent Right Of Way Relationship Specialty Start Date End Date Daniel Marrero MD PCP - General 07/26/20
--- OUTSIDE RECORDS SUMMARY | 2025-01-24 08:39 | XMS_ITS | Encounter Summary ---
Author Organization [facility] Address [address], [place] [address] Phone Care Team Providers Care Desktop Publishing Specialist Name Role Phone Daniel Marrero MD Primary Care Provider Reason for Visit * Reason Comments Med Refill Encounter Details Date Type Department Care Team ([facility] st Contact Info) Description 11/16/2023 Refill [facility] [address] [facility] [address] [place] [address] Oneal Ambrose MD [address] [facility] [address] [place], [place] [id number] Social History Tobacco Use Types Packs/Day Years [...] on filedocumented in this encounter Care Teams Desktop Publishing Specialist Relationship Specialty Start Date End Date Daniel Marrero MD PCP - General 07/26/20 documented as of this encounter
--- OUTSIDE RECORDS SUMMARY | 2025-01-24 08:40 | XMS_ITS ---
Author Organization [facility] Address [address] [facility] [place] [address] Care Team Providers Care Software Client Architect Name Role Phone Chandrakant Coyle MD Primary Care Provider [phone] Transplant Episode Kidney Candidate [facility] ([place], [place]) [facility] Center waitlisted on 10/06/2022 Marked as Active on 11/16/2022 Kidney CoordinatorLeonela Nunez RN Phone: N/A Fax: N/A Email: N/A Scores Score Value Updated Exceptions/Reas ons CPRA Not available EPTS (Calc) 85 01/24/2025 [facility] Organ Diagnosis Organ Primary Contributory Kidney Diabetes Mellitus - Type II Care Team Name Role Phone Fax Email Leonela Nunez RN Kidney Coordinator N/A N/A N/A Deanna Kate Admissions Recruiter N/A N/A N/A Oneal Ambrose MD Referring Physician [phone] N/A Ankita Obrien LMSW Speech Pathology Supervisor [phone] N/A N/A Events Pre-Transplant Referred: 08/12/2021 Evaluation began: 11/05/2021 Committee: 10/01/2022 [facility] qualified: 07/15/2021 Center waitlisted: 10/06/2022 Dialysis History Dialysis History Start End Type Comments Center 07/15/2021 In-center Hemodialysis [facility] Dialysis Center Information Center Phone Fax Address [facility] [phone] [address] [facility] [address]
--- OUTSIDE RECORDS SUMMARY | 2025-01-24 08:40 | XMS_ITS | Clinical Summary ---
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
--- OUTSIDE RECORDS SUMMARY | 2025-01-24 08:40 | XMS_ITS | Data Portability ---
Author Organization [place] [facility], Main Office Address [address] [place] [id number] Care Team Providers Care Table Games Manager Name Role Phone MELECIO COYLE Primary Care Provider MELECIO COYLE Referring Provider Assessment Encounter Date Assessment Date Assessment LastModified by Organization Details LastModified Time 12/16/2022 12/16/2022 ABIs. Stop gabapentin Lyrica 75 mg daily Dexcom 6/ 4 month follow-up [email or web address] Not available 01/05/2023 21:33:18 03/27/2024 03/27/2024 58-year-old frankie lyons presents for evaluation of her right ankle. She was seen as a consult from hospital about a month ago with a displaced ankle fracture. She was splinted and instructed to follow-up in clinic. However she has not done so and this was her 1st visit. She presents today without her splint on. She reports that she took it off because it was uncomfortable and she wanted to take a bath. She has been keeping it nonweightbearing. She presents in a wheelchair today. she has a history of diabetes and chronic kidney issues. Review of systems per patient questionnaire Physical exam: She has a deformity of the ankle. She has sensation intact to light touch. 2+ DP pulse. She has minimal tenderness around the ankle. X-rays were reviewed, demonstrating a displaced ankle fracture with widening of the mortise compared to previous in splint x-rays we reviewed her imaging findings and discussed her situation. I would recommend surgery given the displaced nature of the fracture, however she reports because of her medical comorbidities she does not want to have surgery. The alternative would be to treat her non operatively with a cast. We discussed that given the unstable fracture, she has very high risk of developing arthritis down the road in the ankle. Additionally, given her history of diabetes she would need to be immobilized for extended period of time whether surgically or non operatively. I placed her in a short-leg cast today. We will see her back in 2 weeks with repeat x-rays in cast, and cast exchange. [email or web address] Not available 03/27/2024 11:58:30 04/10/2024 04/10/2024 58-year-old female presents for re-evaluation of her right displaced ankle fracture. She was seen as a consult from hospital about a month ago with a displaced ankle fracture. She was splinted and instructed to follow-up in clinic. However she had not done so. We are treating this fracture conservatively in a cast due to comorbidities and not wanting surgery. She presents today in a cast. Rates her pain 8/10. Taking tylenol and ibuprofen as needed. Physical exam: Cast removed. Edema around ankle. Tender with palpitation. She has sensation intact to light touch. 2+ DP pulse.. X-rays were reviewed, demonstrating a displaced ankle fracture with widening of the mortise. We will continue with casting and NWB. I placed her in a short-leg cast today. We will see her back in 2 weeks with repeat x-rays in cast, and cast exchange. She is in agreement with this plan. [email or web address] Not available 04/10/2024 13:25:10 04/24/2024 04/24/2024 HPI: This is a [age] year old female who presents today for follow-up of unstable, displaced lateral and medial malleolus fracture of right ankle. This is a result of a fall on February 18. She is 9 weeks out from date of initial injury. She has been treated conservatively in a cast due to comorbidities and not wanting surgery. She has been compliant with nonweightbearing and elevation. Comes in today in a wheelchair. She has been taking tylenol and ibuprofen as needed with good relief. Reports pain today as 5/10. Significant PMHx: Diabetes and chronic kidney issues. Physical Exam: General: Normal appearance. No acute distress. In a wheelchair. Inspection: Mild edema around the ankle. No evidence of erythema, bruising, or abrasions. Palpation: Minimal tenderness around the ankle. ROM: Able to do gentle ROM Sensation: Lower extremity sensation intact. Imaging: X-rays were reviewed, demonstrating a displaced lateral and medial malleolus fracture of right ankle with widening of the mortise. Fracture line still seen. Assessment & Plan: Transition into CAM boot and WBAT. Discussed to gradually increase the time she WB per day until she is full WB. If she is having significant discomfort, she should slow down on progressing with WB until the pain and/or swelling improve. Then resume the progression. Once full WB she may transition into a regular shoe. Ankle Gentle ROM HEP given to patient. Advised her to call the office for an order if she would like formal PT. Discussed again with her that given the unstable fracture, she has very high risk of developing arthritis down the road in the ankle and possibly would need further surgery for this. Follow Up: She does not need any further intervention at this time. Follow up if any new issues arise. All questions were answered. Patient verbalized understanding of treatment plan [email or web address] Not available 06/19/2024 12:47:08 06/19/2024 06/19/2024 HPI: This is a [age] year old female who presents today for follow-up of unstable, displaced lateral and medial malleolus fracture of right ankle. [facility] She is 17 weeks out from date of initial injury. She has been treated conservatively due to comorbidities and not wanting surgery. Last visiting she was to progressively WB in CAM. She has achieved full WB. Compliant with HEP. States that she has come out of the boot at home, but when she is not wearing the boot, she experiences swelling. Denies swelling with the CAM boot on. Swelling does resolve with elevation. Locates pain on the medial side of the ankle. She is not taking anything for pain. Reports pain today as 6/10. Significant PMHx: Diabetes and end-stage renal disease (on dialysis) Physical Exam: General: Normal appearance. No acute distress. In a wheelchair. Inspection: Minimal edema around the lateral aspect of ankle. Moderate edema around the medial aspect of ankle. No evidence of erythema, bruising, or abrasions. Palpation: Minimal tenderness at the base of the medial malleolus. ROM: Able to do gentle ROM Strength: 5/5 strength Sensation: Lower extremity sensation intact. Imaging: X-rays were reviewed, demonstrating a displaced medial malleolus fracture and evidence of healing of the lateral malleolus of right ankle with widening of the mortise. Assessment & Plan: Transition into lace up brace. Discussed to gradually increase the time out of the CAM boot, but if she is having significant discomfort and swelling, she should slow down on progressing out of the CAM boot until the pain and/or swelling improve. Then resume the progression. PT was ordered to help with stiffness. Continue ankle ROM HEP given to patient. Continue to elevate the leg. Apply ice for swelling and inflammation. She can try a compression stocking as well. She is unable to take anti-inflammatorie s due to dialysis. Discussed again with her that given the unstable fracture, she has very high risk of developing arthritis down the road in the ankle and possibly would need further surgery for this. Follow Up: 6 weeks for recheck. She would like to follow up 1 more time. All questions were answered. Patient verbalized understanding of treatment plan [email or web address] Not available 06/19/2024 12:42:39 Plan of Treatment Reminders Order Date Submit Date Provider Last Modified By Organization Details Last Modified Time Details Appointments None recorded. Lab None recorded. Referral physical therapist referral - Please contact pt to schedule for R ankle 2024 025 [facility] [address], [address], 09:29:41 Procedures None recorded. Surgeries None recorded. Imaging XR, ankle, 3 or more view 2024 025 [email or web address] [facility] [address], [address], [address], 12:39:44 XR, ankle 2024 [address] [email or web address] [facility] [address], [address], [address], 13:44:40 XR, ankle, 3 or more view 2023 024 [email or web address] [facility] [address], [address] [place], [address], 4 13:34:15 XR, ankle, 3 or more view 2023 024 MANDI [facility] [place], [address] [facility], [address], [place], [address], 4 14:16:54 Medication Orders None recorded. Patient TargetsNo targets recorded. Patient Instructions Encounter Date Encounter Id Patient Instructions Last Modified By Organization Details Last Modified Time 12/16/2022 [id number] (TUNG) ankle brachial index* MANDI Not available 12/24/2022 14:03:27 Reason for Referral Physical Therapist Referral for Pain of right ankle joint R ankle Please contact pt to schedule for R ankle Referring Physician: Deysi Bates, Orthopedic Surgery, Encounter Date: 06/19/2024 Results Created Date Observation Date Name Description Value Unit Range Abnormal Flag Note LastModifiedBy Organization Detail LastModifiedTime 12/25/19 23 12/24/2022 (TUNG) ankle brach ial index * No observ ation record ed. [email or web address] [facility] [address] [place], [address], 04/18/2023 16:03:03 10/25/19 24 10/25/2023 XR, lumba r spine [facility] [address] [place] [address] Patien t Name: NAGY CHANI Anselmo Access ion #: [id number] Sex: F : 1965 0 Dictat ed By: Minna Mistry Attend ing Physic george: ADAM COYLE Orderi Physic george: ADAM COYLE Exam Date: 2023 15:40 PM Exam Name: XR L SPINE Admitt ing Diagno sis(es ): INDICA TION:l ow back pain TECHNI QUE: 3 views of the lumbar spine were obtain ed. COMPAR MARCELLA: None FINDIN GS: There are no acute fractu res or sublux ations . Modera te volume coloni c stool. IMPRES SINTIA: No acute fractu re or sublux ation. Electr onical ly Signed by: Minna Mistry at 2023 16:16: 37 PM Page 1 [email or web address] [facility] ([facility]) [address] [facility], [place], [address], 10/26/2023 10:29:55 02/28/20 24 02/19/2024 CT, ankle , w/o contr ast No observ ation record ed. [email or web address] Not Available 02/10 15:20:28 02/28/20 24 02/19/2024 XR, ankle , 3 or more view No observ ation record ed. [email or web address] Not Available 02/10 15:20:28 02/28/20 24 02/19/2024 XR, pelvi s, 1 or 2 view No observ ation record ed. [email or web address] Not Available 02/10 15:20:28 02/28/20 24 02/19/2024 CT, head, w/o contr ast No observ ation record ed. [email or web address] Not Available 02/10 15:20:28 02/28/20 24 02/19/2024 XR, chest , 1 view No observ ation record ed. [email or web address] Not Available 02/10 15:20:28 03/27/20 24 XR, ankle , 3 or more view No observ ation record ed. [email or web address] [address], [address], [place], [address], 03/27/2024 11:19:28 04/10/20 24 XR, ankle , 3 or more view No observ ation record ed. [email or web address] [facility], [address], [place], [address], 04/10/2024 13:21:36 04/24/19 25 XR, ankle No observ ation record ed. [email or web address] [facility] [address] [facility], [address], [place], [address], 04/24/2024 11:40:20 06/20/19 25 XR, ankle , 3 or more view No observ ation record ed. [email or web address] [facility] [place] [address] [facility], [address], [place], [address], 06/19/2024 12:39:42 Result Notes Documentation Provider Name and Address Organization Details Recorded Time Xr, Lumbar Spine : [facility] [address] [place] [address] Patient Name: LESLEY NAGY Sex: F : 1965 Dictated By: Grover Mistry Attending Physician: MELECIO COYLE Ordering Physician: MELECIO COYLE Exam Date: 10/25/2023 15:40 PM Exam Name: XR L SPINE Admitting Diagnosis(es): INDICATION:low back pain TECHNIQUE: 3 views of the lumbar spine were obtained. COMPARISON: None FINDINGS: There are no acute fractures or subluxations. Moderate volume colonic stool. IMPRESSION: No acute fracture or subluxation. Page 1 Maribel Baxter APRN [address] [facility], [facility] [address], [place], [address], [place] [facility] [employer] [facility] 10/26/2023 10:29:55 Problems Name Problem SNOMED Code Status Onset Date Resolution Date Notes Provider Name and Address Organization Details Recorded Time Type 2 diabetes mellitus without complicati on 425520310 Active 2016 Not Available [facility] 3 16:26:56 Hypertensi ve disorder 16524684 Active 2016 Not Available [facility] 3 16:26:56 Neuropathy 085847508 Active 2016 Not Available [facility] 3 16:26:56 Dyslipidem ia 686481812 Active 2021 Not Available [facility] 3 16:26:56 Bronchitis 65883526 Active 2021 Not Available [facility] 3 16:26:56 End-stage renal disease 82385884 Active 2021 Not Available [facility] 3 16:26:57 Mammograph y abnormal 892327707 Active 2022 Not Available [facility] 3 16:26:56 Upper respirator y infection 41287133 Active 2022 Not Available [facility] 3 16:26:57 Rhinitis 13530577 Active 2022 Not Available [facility] 3 16:26:57 Pain in bilateral legs 3339279719647 9108 Active 2022 Not Available [facility] 3 16:26:56 Pain of right ankle joint 5244372704400 9106 Active 2023 LAURYN Briones null, [employer] 4 11:19:05 Closed fracture of lateral malleolus of right fibula 3054743465555 9104 Active 2024 Deysi Bates PA-C [address] [place] [address], [address] , [employer] 5 11:40:04 Problem Notes None recorded. Procedures Surgical History Date Name Laterality Status Provider Name and Address Organization Details Recorded Time 07/18/19 23 Breast Biopsy completed LAURYN Hernandez [employer]. 08/12/2022 10:53:48 08/21/19 17 Hysterectomy completed Not Available [facility] 023 18:52:07 completed Not Available [facility] 0 06/10/2022 18:52:07 Cataract Surgery completed Not Available [email or web address] 06/10/2022 18:52:07 peritoneal dialysis completed Not Available [facility] 06/10/2022 18:52:07 Imaging Results None recorded. Procedure Notes None recorded. Medical Equipment None Reported. Allergies Allergen ID Allergen Name Allergen Category Reaction Reaction Severity Criticality Documentation Date Start Date Code Code System Note Provider Name and Address Organization Details Recorded Time 49711 lisinopri l medicatio n edema severe Not available 06/10/2022 56680 RxNorm Not Available [facility] 3 18:54:05 Medications Name Sig Start Date Stop Date Status Note LastModified by Organization Details LastModified Time amoxicill in 500 mg capsule TAKE ONE CAPSULE BY MOUTH EVERY 8 HOURS FOR SEVEN DAYS 08/12 completed Not Available Not Available Not Available metformin 500 mg tablet Take 1 tablet 3 times a day by oral route. 12/03 completed Not Available Not Available Not Available atorvasta tin 80 mg tablet 11/04 completed Not Available Not Available Not Available gabapenti n 600 mg tablet Take 1 tablet 3 times a day by oral route. 12/20 completed Not Available Not Available Not Available doxycycli ne hyclate 100 mg capsule TAKE 1 TABLET BY MOUTH TWO TIMES DAILY FOR 7 DAYS 08/04 completed Not Available Not Available Not Available atorvasta tin 20 mg tablet TAKE 1 TABLET BY MOUTH EVERY DAY TO LOWER CHOLESTE ROL 07/21 completed Not Available Not Available Not Available ipratropi um 0.5 mg-albute rol 3 mg (2.5 mg base)/3 mL nebulizat ion soln INHALE THE CONTENTS OF 1 VIAL VIA NEBULIZE R FOUR TIMES DAILY active Not Available Not Available No t Available azithromy devi 250 mg tablet TAKE TWO TABLETS AT one time as directed active Not Available Not Available No t Available hydrocodo ne 5 mg-acetam inophen 325 mg tablet TAKE ONE TABLET BY MOUTH EVERY 6 HOURS NEEDED FOR PAIN 03/27 completed Not Available Not Available Not Available meloxicam 15 mg tablet 11/04 completed Not Available Not Available Not Available ondansetr on HCl 4 mg tablet 09/10 completed Not Available Not Available Not Available prednison e 20 mg tablet TAKE THREE TABLETS BY MOUTH EVERY DAY FOR 5 DAYS 10/06 completed Not Available Not Available Not Available gabapenti n 400 mg capsule Take 1 capsule 3 times a day by oral route for 30 days. 03/10 completed Not Available Not Available Not Available hydralazi ne 25 mg tablet TAKE ONE TABLET BY MOUTH THREE TIMES A DAY, MORNING, MIDDAY AND BEDTIME FOR BLOOD PRESSURE active Not Available Not Available No t Available potassium chloride ER 10 mEq tablet,ex tended release 12/20 completed Not Available Not Available Not Available acetamino phen 300 mg-codein e 30 mg tablet t1tpo EVERY 4 HOURS NEEDED pain 01/05 completed Not Available Not Available Not Available ciproflox acin 500 mg tablet 09/10 completed Not Available Not Available Not Available hydrocodo ne 10 mg-acetam inophen 325 mg tablet TAKE ONE TABLET BY MOUTH EVERY 6 HOURS NEEDED FOR PAIN 01/05 completed Not Available Not Available Not Available aspirin 81 mg tablet,de layed release Take 1 tablet every day by oral route. 03/16 completed Not Available Not Available Not Available tramadol 50 mg tablet 12/20 completed Not Available Not Available Not Available simvastat in 40 mg tablet 07/21 completed Not Available Not Available Not Available ketorolac 0.5 % eye drops 05/05 completed Not Available Not Available Not Available oxycodone -acetamin ophen 5 mg-325 mg tablet 11/04 completed Not Available Not Available Not Available prednisol one acetate 1 % eye drops,hiren pension instill ONE drop IN THE LEFT EYE FOUR TIMES DAILY 01/05 completed Not Available Not Available Not Available furosemid e 80 mg tablet 03/21 completed Not Available Not Available Not Available amlodipin e 10 mg tablet TAKE ONE TABLET BY MOUTH EVERY NIGHT AT BEDTIME FOR BLOOD PRESSURE active Not Available Not Available No t Available benzonata te 100 mg capsule TAKE ONE CAPSULE BY MOUTH EVERY 8 HOURS NEEDED FOR cough 10/06 completed Not Available Not Available Not Available hydrocodo ne 7.5 mg-acetam inophen 325 mg tablet TAKE ONE TABLET BY MOUTH EVERY 6 HOURS NEEDED FOR PAIN 10/06 completed Not Available Not Available Not Available cephalexi n 500 mg capsule TAKE ONE CAPSULE BY MOUTH TWICE DAILY 12/16 completed Not Available Not Available Not Available ferrous sulfate 325 mg (65 mg iron) tablet Take 1 tablet twice a day by oral route. 08/04 completed Not Available Not Available Not Available metformin 1,000 mg tablet Take 1 tablet twice a day by oral route. 12/20 completed Not Available Not Available Not Available gabapenti n 300 mg capsule Take 1 capsule every day by oral route for 30 days. 12/16 completed changed to Lyrica Not Available Not Available Not Available monteluka st 10 mg tablet TAKE ONE TABLET BY MOUTH EVERY DAY 03/16 completed Not Available Not Available Not Available lisinopri l 5 mg tablet Take 1 tablet every day by oral route. 12/20 completed Not Available Not Available Not Available hydrochlo rothiazid e 25 mg tablet Take 1 tablet every day by oral route for 30 days. 01/05 completed Not Available Not Available Not Available gabapenti n 100 mg capsule 09/10 completed Not Available Not Available Not Available ergocalci ferol (vitamin D2) 1,250 mcg (50,000 unit) capsule TAKE ONE CAPSULE BY MOUTH EVERY WEEK active Not Available Not Available No t Available albuterol sulfate HFA 90 mcg/actua tion aerosol inhaler INHALE TWO PUFFS EVERY 4 HOURS FOR BREATHIN G FOR BEST RESULTS USE WITH A SPACER active Not Available Not Available No t Available lisinopri l 40 mg tablet 07/21 completed allergic reaction Not Available Not Available Not Available cefdinir 300 mg capsule TAKE ONE CAPSULE BY MOUTH TWICE A DAY active Not Available Not Available No t Available doxycycli ne hyclate 100 mg tablet Take 1 tablet twice a day by oral route for 7 days. 08/04 completed Not Available Not Available Not Available metoclopr amide 10 mg tablet 09/10 completed Not Available Not Available Not Available amoxicill in 875 mg-potass ium clavulana te 125 mg tablet TAKE ONE TABLET BY MOUTH EVERY TWELVE HOURS FOR 10 DAYS 10/06 completed Not Available Not Available Not Available oxycodone 5 mg tablet 12/16 completed Not Available Not Available Not Available moxifloxa devi 0.5 % eye drops instill ONE drop IN THE LEFT EYE FOUR TIMES DAILY 01/05 completed Not Available Not Available Not Available nitrofura ntoin monohydra te/macroc rystals 100 mg capsule 09/10 completed Not Available Not Available Not Available pregabali n 75 mg capsule TAKE ONE CAPSULE BY MOUTH EVERY MORNING active Not Available Not Available No t Available hydrochlo rothiazid e 07/20 completed Not Available Not Available Not Available Vitamin D 05/04 completed Not Available Not Available Not Available lisinopri l 09/10 completed Not Available Not Available Not Available Levemir FlexPen 100 unit/mL (3 mL) solution subcutane ous insulin pen INJECT 20 UNITS UNDER THE SKIN EVERY NIGHT AT BEDTIME 03/16 completed Not Available Not Available Not Available OneTouch UltraMini kit 03/16 completed Not Available Not Available Not Available UltiCare Pen Needle 31 gauge x 1/4 03/16 completed Not Available Not Available Not Available Levemir U-100 Insulin 40 units daily 12/20 completed Not Available Not Available Not Available Januvia 25 mg tablet TAKE ONE TABLET BY MOUTH EVERY MORNING FOR DIABETES active Not Available Not Available No t Available Januvia 100 mg tablet TAKE ONE TABLET BY MOUTH EVERY MORNING FOR DIABETES 08/12 completed Not Available Not Available Not Available peg 3350 240 gram-elec trolytes 22.72 gram-6.72 g-5.84 g powdr for soln 09/10 completed Not Available Not Available Not Available Lantus Solostar U-100 Insulin 100 unit/mL (3 mL) subcutane ous pen INJECT 18 UNITS UNDER THE SKIN EVERY DAY active Not Available Not Available No t Available sevelamer carbonate 800 mg tablet TAKE TWO TABLETS BY MOUTH THREE TIMES DAILY WITH MEALS active Not Available Not Available No t Available OneTouch Delica Lancets 33 gauge 03/16 completed Not Available Not Available Not Available OneTouch Verio test strips test using one strip THREE TIMES DAILY BEFORE MEALS 03/16 completed Not Available Not Available Not Available Sure Comfort Pen Needle 32 gauge x 5/32 USE DIRECTED TO INJECT INSULIN EVERY DAY active Not Available Not Available No t Available Compact Space Chamber USE as directed with inhaler active Not Available Not Available No t Available Dexcom G6 Sensor device USE TO CHECK BLOOD SUGAR. 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 CHANGE EVERY 90 DAYS 04/20 completed Not Available Not Available Not Available Lokelma 5 gram oral powder packet 10/06 completed Not Available Not Available Not Available OneTouch Delica Plus Lancet 30 gauge USE TO CHECK BLOOD SUGAR THREE TIMES DAILY 03/27 completed Not Available Not Available Not Available OneTouch Verio Reflect Meter test blood sugar as directed 03/27 completed Not Available Not Available Not Available Vitals Date Recorded Body height Body mass index (BMI) Body weight Pain severity - 0-10 verbal numeric rating [Score] - Reported Provider Name and Address Organization Details Last Updated DateTime 04/24/2024 154.94 cm 26.5 kg/m2 98481.93 g 5 [employer] [facility] 04/24/2024 10:05:22 Date Recorded Body height Body mass index (BMI) Body weight Pain severity - 0-10 verbal numeric rating [Score] - Reported Provider Name and Address Organization Details Last Updated DateTime 06/19/2024 154.94 cm 26.5 kg/m2 94330.93 g 6 [employer] [facility] [employer] 06/19/2024 11:50:00 Date Recorded Body height Body mass index (BMI) Body weight Body temperature Heart rate Systolic And Diastolic Provider Name and Address Organization Details Last Updated DateTime 154.94 cm 25.7 kg/m2 89582.5 6 g 98.2 [degF] 86 /min 124/76 mm[Hg] Lorena ocampo RN [facility] 3 10:36:40 Date Recorded Body height Body mass index (BMI) Body weight Pain severity - 0-10 verbal numeric rating [Score] - Reported Provider Name and Address Organization Details Last Updated DateTime 03/27/2024 154.94 cm 26.5 kg/m2 77518.93 g 8 [employer] 03/27/2024 11:17:27 Date Recorded Body height Body mass index (BMI) Body weight Pain severity - 0-10 verbal numeric rating [Score] - Reported Provider Name and Address Organization Details Last Updated DateTime 04/10/2024 154.94 cm 26.5 kg/m2 25164.93 g 8 [employer] [facility] [employer] 04/10/2024 09:49:54 Social History Question Answer Notes LastModified by Organizat ion Details LastModified Time Tobacco Smoking Status Never Smoker Not Available [employer] 06/10/2022 18:51:57 Do You Have An Advance Directive? No MIGRATION.94823 26387 Information not available 06/10/2022 What Is Your Level Of Caffeine Consumption? None MIGRATION.86631 07846 Information not available 06/10/2022 In The 14 Days Before Symptom Onset, Have You Had Close Contact With A Laboratory-confi rmed COVID-19 While That Case Was Ill? No MIGRATION.95898 95702 Information not available 06/10/2022 In The 14 Days Before Symptom Onset, Have You Had Close Contact With A Person Who Is Under Investigation For COVID-19 While That Person Was Ill? No MIGRATION.68280 96148 Information not available 06/10/2022 What Type Of Diet Are You Following? REGULAR MIGRATION.19159 83251 Information not available 06/10/2022 What Is The Highest Grade Or Level Of School You Have Completed Or The Highest Degree You Have Received? IN30786-0 MIGRATION.67500 04994 Information not available 06/10/2022 Have There Been Any Changes To Your Family Or Social Situation? No MIGRATION.01983 49676 Information not available 06/10/2022 What Is The Fluoride Status Of Your Home? Unknown MIGRATION.75629 16453 Information not available 06/10/2022 Are There Any Guns Present In Your Home? No MIGRATION.97823 46301 Information not available 06/10/2022 Do You Use Insect Repellent Routinely? No MIGRATION.73582 28664 Information not available 06/10/2022 Where Do You Live? [place]House MIGRATION.21041 18953 Information not available 06/10/2022 Do You Have A Medical Power Of Band Cutting Machine Operator? No MIGRATION.57060 20620 Information not available 06/10/2022 What Was The Date Of Your Most Recent Tobacco Screening? 03/27/2024 [email or web address] Information not available 03/27/2024 Do You Have Any Pets? No MIGRATION.84632 47111 Information not available 06/10/2022 What Is Your Relationship Status? Single MIGRATION.24243 77395 Information not available 06/10/2022 Do You Use Your Seat Belt Or Car Seat Routinely? Yes MIGRATION.50395 49420 Information not available 06/10/2022 Do You Have Smoke And Carbon Monoxide Detectors In Your Home? Yes MIGRATION.32179 25124 Information not available 06/10/2022 Are You Passively Exposed To Smoke? No MIGRATION.64201 34212 Information not available 06/10/2022 Are There Any Smokers In Your House? No MIGRATION.56161 49928 Information not available 06/10/2022 What Types Of Sporting Activities Do You Participate In? None MIGRATION.44452 42046 Information not available 06/10/2022 Do You Use Sunscreen Routinely? No MIGRATION.25792 83074 Information not available 06/10/2022 Has Tobacco Cessation Counseling Been Provided? No Not Needed-ne mari Smoked MIGRATION.44254 85167 Information not available 06/10/2022 Have You Recently Traveled Abroad? No MIGRATION.29513 34710 Information not available 06/10/2022 Do You Have Any Dietary Restrictions? No MIGRATION.87743 12320 Information not available 06/10/2022 Sex: Female Functional Status Question Answer Note LastModified by [employer] Details LastModified Time Do you use any illicit or recreational drugs? No MIGRATION.42059277 26 Information not available 06/10/2022 Do you or have you ever used any other forms of tobacco or nicotine? No MIGRATION.02031705 26 Information not available 06/10/2022 What is your level of alcohol consumption? None MIGRATION.10447107 26 Information not available 06/10/2022 What is your exercise level? None MIGRATION.32631353 26 Information not available 06/10/2022 Mental Status Question Answer Note LastModified by [employer] ion Details LastModified Time Do you feel stressed (tense, restless, nervous, or anxious, or unable to sleep at night)? CL0229-0 MIGRATION.863286259 6 Information not available 06/10/2022 Family History Relationship Description Onset Age of this Age Resolved Age Notes LastModified by Organization Details LastModified Time Mother Diabetes mellitus MIGRATION.308 [id number] Not available 06/10/2022 18:52:08 Mother Myocardial infarction MIGRATION.220 [id number] Not available 06/10/2022 18:52:08 Mother Hypertensive disorder MIGRATION.976 [id number] Not available 06/10/2022 18:52:08 Sister Diabetes mellitus MIGRATION.028 4491872 Not available 06/10/2022 18:52:08 Sister Kidney disease deceas ed MIGRATION.733 [id number] Not available 06/10/2022 18:52:08 Medical History Condition Response NERVE DISEASE Y BLINDNESS N RHEUMATIC FEVER N KIDNEY STONES N BLADDER PROBLEMS N MRSA N OTHER # 1 N POLIO N LUNG DISEASE/DISORDER N HISTORY OF DRUG ABUSE N RADIATION / CHEMOTHERAPY N COPD N Other # 2 N BLOOD DISEASES N EAR OR HEARING PROBLEMS N MUMPS N SHINGLES N BOWEL PROBLEMS N DEPRESSION (INCLUDING POST ) N STROKE/TIA N ULCERS N BENIGN PROSTATIC HYPERPLASIA N MEASLES N HYPOTENSION N MYOCARDIAL INFARCTION N OBESITY N GERD/NAUSEA N ANEURYSM N URINARY/BLADDER/KIDNEY PROBLEMS N CORONARY ARTERY DISEASE (CAD) N ADDICTION CONCERNS N ENDOMETRIOSIS N Impotence N USE OF BLOOD THINNERS N SKIN PROBLEMS N GASTROINTESTINAL DISORDER N PERIPHERAL VASCULAR DISEASE N MUSCLE,JOINT OR BONE PROBLEMS N GASTROINTESTINAL BLEEDING N BLOOD CLOTS N ASTHMA N CATARACTS N ERECTILE DYSFUNCTION N VARICOSITIES N GI PROBLEMS N Low Testosterone N INFERTILITY N AIDS/HIV N CHEMOTHERAPY / RADIATION N LIVER DISEASE N MALE HYPOGONADISM N HYPERTENSION Y Deficiency Y TOURETTE'S N ANXIETY DISORDER N BLOOD TRANSFUSION N ANEMIA/BLOOD DISORDER Y CHRONIC EAR INFECTIONS N BRONCHITIS N TUBERCULOSIS N GLAUCOMA N FOOT PROBLEM N DIVERTICULITIS N CHICKENPOX N SLEEP APNEA N INFECTIOUS DISEASE N HEART ARRHYTHMIA N PROSTATE N INSOMNIA N HIGH CHOLESTEROL / HYPERLIPIDEMIA Y HYPERTHYROIDISM N EYE PROBLEMS N EDEMA N CHRONIC PAIN SYNDROME N HYPOTHYROIDISM N CAROTID BLOCKAGE N CONSTIPATION N BACK / NECK PROBLEMS N HAVE YOU BEEN HOSPITALIZED OR SEEN IN [facility] IN THE PAST YEAR ? N ATHEROSCLEROSIS N BREAST PROBLEMS N DIALYSIS N ECZEMA N OSTEOPOROSIS N ARTHRITIS N APPENDICITIS N DIABETES, TYPE Y BAD TEETH N ENT N HEARTBURN / REFLUX N AUTISM SPECTRUM DISORDER (ASD) N HEPATITIS / LIVER DISEASE N GOUT N SLEEP DISORDER N ALZHEIMER'S DISEASE N Brain Problems N HERPES N DEMENTIA N HEADACHES/MIGRAINES N SEIZURES/EPILEPSY N VASCULAR DISEASE N PACEMAKER N Blood Disorder N DIZZINESS N HEART DISEASE/HEART PROBLEMS N KIDNEY DISEASE Y MULTIPLE SCLEROSIS N CARDIAC ARRHYTHMIA N CANCER: SPECIFY N ATRIAL FIBRILLATION N Gall Stones N PULMONARY EMBOLISM N AUTOIMMUNE DISEASE N Gynecological HistoryNo gynecological history recorded. Obstetrics History GPAL:G 0 P 0 0 0 0 Immunizations Vaccine Type Date Status Note Provider Nam e and Address Organization Details Recorded Time COVID-19 vaccine, vector-nr, rS-Ad26, PF, 0.5 mL 07/20/2020 completed Not Available [facility] 16:26:57 COVID-19, mRNA, LNP-S, PF, 10 mcg/0.2 mL dose, lynne-sucrose 10/23/2021 completed Not Available [facility] 023 16:26:57 Past Encounters Encounter ID Performer Location Encounter Start Date Encounter Closed Date Diagnosis/Indication Diagnosis SNOMED-CT Code Diagnosis ICD10 Code Diagnosis IMO Codes Diagnosis Note [id number] Melecio Coyle MD S[facility] Internal [facility] 15 [facility] [address] [address] 12/20/2020 00:00:00 12/22/2020 16:47:11 [id number] Melecio Coyle MD [facility] Internal Med [facility] [address] [place], [place] [address]e., [address] [address] 03/21/2021 00:00:00 04/13/2021 21:38:58 [id number] Melecio Coyle MD S[facility] Internal Med [facility] 2043 [facility] [address] [address] 1 05/05/2021 00:00:00 05/05/2021 21:47:11 [id number] Melecio Coyle MD [facility] Internal Med [facility] 2043 [facility]., [address] [address] 1 07/21/2021 00:00:00 08/10/2021 14:00:44 [id number] Melecio Coyle MD [facility] Internal Med [facility] 2043 [facility]., [address] [address] 1 08/04/2021 00:00:00 08/24/2021 14:14:47 [id number] Melecio Coyle MD [facility] Internal Med [facility] [address] [place] [address]., [address] [address] 10/06/2021 00:00:00 10/06/2021 22:31:31 [id number] Melecio Coyle MD [facility] Internal Med [facility] [address] [place] [address]., [address] [address] 1 01/05/2022 00:00:00 01/06/2022 21:43:29 [id number] Melecio Coyle MD [facility] Internal Med [facility] [address] [place] [address]., [address] [address] 1 05/04/2022 00:00:00 05/11/2022 20:54:07 [id number] Melecio Coyle MD [facility] Internal Med [facility] [address] [place], [place] [address] [address] 08/12/2022 10:43:49 08/12/2022 11:30:27 Adult health examination 406239837 Z00.00 Depression screening 171 061912 Z13.31 Rhinitis 36556784 J00 Dyslipidemia 930044491 E 78.5 Neuropathy 484000162 G62 .9 [id number] Melecio Coyle MD [facility] Med [facility] [address] [place] [address] [address] 1 12/16/2022 10:16:08 12/16/2022 11:07:52 Pain in bilateral legs 5277602641 4164236 M79.604 M79.605 Dyslipidemia 634707534 E 78.5 [id number] Sukh Nathan [place] [address] 03/27/2024 10:52:32 03/27/2024 11:57:23 Pain of right ankle joint 0764410604 3225580 M25.706 [id number] Sukh Nathan MD [place] [address] 04/10/2024 09:47:44 04/10/2024 10:20:56 Pain of right ankle joint 4193744710 7292850 M25.281 [id number] Sukh Nathan MD [place] [address] 9 04/24/2024 10:03:46 04/24/2024 11:28:04 Pain of right ankle joint 5942535881 5482633 M25.571 Closed fra cture of lateral malleolus of right fibula 1388968587 6957011 S82.61XD [id number] Sukh Nathan MD [place] [address] 06/19/2024 11:47:18 06/19/2024 12:35:11 Closed fracture of lateral malleolus of right fibula 7270509899 2635590 S82.61XD Pain of ri ght ankle joint 5304926865 5664178 M25.571 Health Concerns Section Related Observation LastModified by Organization Detai ls LastModified Time None Recorded Concern Status LastModified by Organization Details LastModified Time None Recorded Advance Directives Directive N: Payers Insurance Date Sequence Insurance Name Policy Number Policy Mccain Covered Member ID Mccain Member ID Guarantor Name 06/28/2024 1 [employer] (MEDICARE REPLACEMENT/AD VANTAGE - PPO) Lesley Nagy [id number] Lesley Nagy 01/15/2025 2 [place] WHEN MEDICARE OR MEDICARE REPLACEMENT PRIMARY) Lesley Nagy [id number] Lesley Nagy 01/15/2025 1 [facility] (MEDICARE REPLACEMENT/AD VANTAGE - PPO) [id number] Lesley Nagy [id number] Lesley Nagy 06/28/2024 1 [facility] (MEDICARE REPLACEMENT/AD VANTAGE - PPO) [id number] Lesley Nagy [id number] Lesley Nagy Notes Date Note Type Note Provider Name and Address Organization Details Recorded Time 12/16/2022 text/html neuropathy bothering her leg pain Melecio Coyle MD [address] [place] [address], [phone], [facility] [employer] 01/05/2023 21:33:44 OBGyn Episode No OBEpisode recorded.
--- OUTSIDE RECORDS SUMMARY | 2025-01-24 08:40 | XMS_ITS | Encounter Summary ---
Author Organization [facility] Health Address [address] [place] [address] Care Team Providers Care Sandal Parts Assembler Name Role Phone Chandrakant Coyel MD Primary Care Provider Chrissie Michelle MD Unavailable Encounter Details Date Type Department Care Team (Late st Contact Info) Description 04/17/2024 Telephone [facility] - Centralized Scheduling [address] [place] [address] Chrissie Michelle MD [facility] [place] [address] Social History Tobacco Use Types [...] on file Legal Sex Female 11:27 AM WIRER PASSENGER CAR Gender Identity Not on file Sexual Orientation [...] st Contact Info) Description 02/21/2025 11:00 AM WIRER PASSENGER CAR Appointment [facility] VASCULAR US [address] [place] [phone] Cassia Hoff MD [address] [facility] [place] [address] 02/21/2025 12:20 PM WIRER PASSENGER CAR Appointment [facility] CAT SCAN [address] [place] [phone] Cassia Hoff MD [address] [facility] [place] [address] 02/21/2025 12:40 PM WIRER PASSENGER CAR Appointment [facility] DIAGNOSTIC RAD OP [address] [place] [address] Csasia Hoff MD [address] [facility] [place] [address] 02/21/2025 1:00 PM WIRER PASSENGER CAR Appointment [facility] LAB OP DRAW STATION [address] [place] [address] Cassia Hoff MD [address] [facility] [address] [facility] [place] [address] 02/21/2025 1:20 PM WIRER PASSENGER CAR Appointment [facility] DIAGNOSTIC RAD OP [address] [place] [address] Cassia Hoff MD [address] [facility] [place] [address] 02/21/2025 2:00 PM WIRER PASSENGER CAR Appointment [facility] ECHO [facility] [place] [phone] 02/28/2025 12:30 PM WIRER PASSENGER CAR Clinical Support [facility] TRANSPLANT [address] [place] [phone] 04/20/2025 10:00 AM WIRER PASSENGER CAR Appointment [facility] Health Vascular Services [address] [facility], [address] [place] [address] [place] [address] [facility] [address] [place] [phone] Ilya Elizalde MD [address] [place] [address] [place] [address] [facility] [address] [place] [address] [place] [address] [facility] [address] [place] [address] [place] [address] [facility] [address] [place] [address] 05/25/2025 11:00 AM WIRER PASSENGER CAR Office Visit [facility] - Endocrinology [address] [place] [address], [place] [phone] Chrissie Michelle MD [address] [place] [address] [address] [place] [phone] documented as of this encounter Visit Diagnoses Not on filedocumented in this encounter Care Teams Sandal [employer] Assembler Relationship Specialty Start Date End Date Chandrakant Coyle MD PCP - General Internal Medicine 09/22/21 Chrissie Michelle MD [address] [place] [address] [address] [place] [phone] PCP - Attributed-[facility] TIMOTHY DESIR P4P 08/10/24 09/27/24 documented as of this encounter
[2025-01-24 08:45] VITALS: PULSE 90; O2SAT 92
--- NOTE | 2025-01-24 08:57 | HOMEO2EVAL ---
Evaluation was performed at [facility] Home Oxygen Evaluation RC: Home Oxygen (O2) Evaluation Start: 01/24/25 08:53 Freq: Status: Active Protocol: RPE Activity Type Activity Date Activity User E-sign Co-sign Detail Recorded Client Recorded Date Recorded By Document 01/24/25 08:20 PKH [email or web address]_007 01/24/25 08:56 PKH Document 01/24/25 08:25 PKH RT_007 01/24/25 08:56 PKH Document 01/24/25 08:30 PKH RT_007 01/24/25 08:56 PKH Document 01/24/25 08:35 PKH RT_007 01/24/25 08:56 PKH Document 01/24/25 08:45 PKH [email or web address] 01/24/25 08:56 PKH 01/24/25 01/24/25 01/24/25 08:20 08:25 08:30 Home O2 Evaluation [Oxygen] -Test Phase Resting Exercise Exercise -Oxygen Delivery Room Air Room Air Nasal Cannula -Oxygen Flow Rate (L/min) 1 [Pulse Oximetry] -Pulse Oximetry (90-100 %) 92 86 L 87 L [Pulse Rate] -Pulse Rate (60-100 beats/min) 90 100 101 H [Evaluation] -Activity Tolerance Good [Charges] -Evaluation Charges O2 Evaluation by Pulmonary 01/24/25 01/24/25 08:35 08:45 Home O2 Evaluation [Oxygen] -Test Phase Exercise Resting -Oxygen Delivery Nasal Cannula Room Air -Oxygen Flow Rate (L/min) 2 [Pulse Oximetry] -Pulse Oximetry (90-100 %) 92 92 [Pulse Rate] -Pulse Rate (60-100 beats/min) 95 90 [Evaluation] -Activity Tolerance [Charges] -Evaluation Charges
== END 2025-01-24 08:23 | disposition home or self-care (01) ==
LOC: ANHPFT 08:24
PROVIDERS: PCP Internal Medicine; Visit Provider Internal Medicine
DX: R06.00 Dyspnea, unspecified (principal)
CPT/HCPCS: 94618